=== PATIENT | male | born 1965 | race Caucasian/White ===

== ENCOUNTER → 2017-07-25 | Outpatient (CLI) | payer BC | END | disposition home or self-care (01) | LOC: CPPFTMAIN 13:07 | PROVIDERS: ATTEND Nurse Practitioner Family | DX: J44.9 Chronic obstructive pulmonary disease, unspecified (principal); I10 Essential (primary) hypertension; R06.81 Apnea, not elsewhere classified | CPT/HCPCS: 94060; 94726; 94729 ==

== ENCOUNTER 2018-07-07 11:24 | Inpatient (IN) | payer BC ==
--- NOTE | 2018-07-07 12:13 | ED ---
General Adult HPI - General Chief complaint: Skin/Abscess/Foreign Body Stated complaint: leg infection, pain Time Seen by Provider: 07/07/18 11:50 Source: patient, RN notes reviewed Mode of arrival: wheelchair Limitations: no limitations, physical limitation - History of Present Illness Initial comments: This a 52-year-old male who presents emergency Department of ecchymosis to his lower left leg patient states started a few days ago he went to [facility] they were unsure what was going on and it has since gotten worse it is at the distal aspect of his left leg it is almost circumferential. Patient states extremely tender to touch. Patient denies any injury to the area. Patient states he also has a bit of ecchymosis to the inner left thigh which again has no trauma history. Patient denies any other pain about the leg or thigh. Patient denies any abdominal pain patient denies any chest pain difficulty breathing shortness of breath. Patient states however when he was waiting in triage he became very lightheaded and sweaty and they brought him back to the emergency department immediately at that time. Patient stated he thought he might pass out. Patient's blood pressure was 80 systolic. Patient denies any chest pain at that point time patient denies any shortness of breath at time. Patient states she doesn't what was going on but he just became lightheaded and sweaty. Patient states she's never had any ecchymotic areas in the past and does not know when or how this occurred. - Related Data Home Medications Medication Instructions Recorded Confirmed Aspirin 81 mg PO DAILY 08/24/16 08/29/16 Olmesartan/Hydrochlorothiazide 0.5 tab PO DAILY 08/24/16 08/29/16 [Benicar Hct 40-12.5 mg Tablet] Omeprazole 40 mg PO DAILY 08/24/16 08/29/16 amLODIPine BESYLATE/BENAZEPRIL 1 cap PO DAILY 08/24/16 08/29/16 [amLODIPine BESYLATE/BENAZEPRIL 5-20 mg] Allergies Allergy/AdvReac Type Severity Reaction Status Date / Time Penicillins Allergy Unknown Verified 07/07/18 12:06 Childhood Review of Systems ROS Statement: Those systems with pertinent positive or pertinent negative responses have been documented in the HPI. ROS Other: All systems not noted in ROS Statement are negative. Past Medical History Past Medical History: Asthma, Eye Disorder, GERD/Reflux, Hyperlipidemia, Hypertension Additional Past Medical History / Comment(s): ASTHMA CHILD. LT EYE HERPES, LAST 2014. History of Any Multi-Drug Resistant Organisms: None Reported Past Surgical History: No Surgical Hx Reported Past Anesthesia/Blood Transfusion Reactions: No Reported Reaction Past Psychological History: No Psychological Hx Reported Smoking Status: Former smoker - Past Family History Mother Family Medical History: Cancer Father Family Medical History: Cancer General Exam - General Exam Comments Initial Comments: GENERAL: Patient is well-developed and well-nourished. Patient is nontoxic and well- hydrated and is in mild distress. ENT: Neck is soft and supple. No significant lymphadenopathy is noted. Oropharynx is clear. Moist mucous membranes. Neck has full range of motion without eliciting any pain. EYES: The sclera were anicteric and conjunctiva were pink and moist. Extraocular movements were intact and pupils were equal round and reactive to light. Eyelids were unremarkable. PULMONARY: Unlabored respirations. Good breath sounds bilaterally. No audible rales rhonchi or wheezing was noted. CARDIOVASCULAR: There is a regular rate and rhythm without any murmurs gallops or rubs. ABDOMEN: Soft and nontender with normal bowel sounds. No palpable organomegaly was noted. There is no palpable pulsatile mass. SKIN: Patient has ecchymosis about the distal left leg on the posterior aspect spreading around to the anterior aspect. It is almost circumferential but is not quite circumferential. NEUROLOGIC: Patient is alert and oriented x3. Cranial nerves II through XII are grossly intact. Motor and sensory are also intact. Normal speech, volume and content. Symmetrical smile. MUSCULOSKELETAL: Normal extremities with adequate strength and full range of motion. LYMPHATICS: No significant lymphadenopathy is noted PSYCHIATRIC: Normal psychiatric evaluation. Limitations: no limitations, physical limitation Course Vital Signs 07/07/18 07/07/18 07/07/18 11:52 12:29 13:50 Temperature 98.9 F Pulse Rate 55 L 85 82 Respiratory 18 16 16 Rate Blood Pressure 60/43 120/72 116/73 O2 Sat by Pulse 100 99 Oximetry Medical Decision Making - Medical Decision Making EKG shows normal sinus rhythm at 77 bpm MN interval is 134 QRS is 112 QT interval 400 QTC is 452. Patient's EKG shows no ST segment elevation or depression no T-wave abnormalities are noted. Ultrasound shows no DVT. Chest x-ray showed no acute abnormality I spoke with Dr. Banks she agreed to admit the patient admitted the patient and I wrote admitting orders - Lab Data Result diagrams: 07/07/18 12:25 07/07/18 12:25 Lab Results 07/07/18 07/07/18 07/07/18 Range/Units 12:25 12:25 12:25 WBC 10.9 H (3.8-10.6) k/uL RBC 5.63 (4.30-5.90) m/uL Hgb 17.8 H (13.0-17.5) gm/dL Hct 54.4 H (39.0-53.0) % MCV 96.6 (80.0-100.0) fL MCH 31.6 (25.0-35.0) pg MCHC 32.7 (31.0-37.0) g/dL RDW 13.0 (11.5-15.5) % Plt Count 162 (150-450) k/uL Neutrophils % 71 % Lymphocytes % 17 % Monocytes % 6 % Eosinophils % 4 % Basophils % 0 % Neutrophils # 7.8 H (1.3-7.7) k/uL Lymphocytes # 1.8 (1.0-4.8) k/uL Monocytes # 0.6 (0-1.0) k/uL Eosinophils # 0.4 (0-0.7) k/uL Basophils # 0.0 (0-0.2) k/uL PT (9.0-12.0) sec INR (<1.2) APTT (22.0-30.0) sec Sodium 137 (137-145) mmol/L Potassium 3.7 (3.5-5.1) mmol/L Chloride 99 (98-107) mmol/L Carbon Dioxide 29 (22-30) mmol/L Anion Gap 9 mmol/L BUN 22 H (9-20) mg/dL Creatinine 0.90 (0.66-1.25) mg/dL Est GFR (CKD-EPI)AfAm >90 (>60 ml/min/1.73 sqM) Est GFR (CKD-EPI)NonAf >90 (>60 ml/min/1.73 sqM) Glucose 162 H (74-99) mg/dL Calcium 9.8 (8.4-10.2) mg/dL Magnesium 2.1 (1.6-2.3) mg/dL Total Bilirubin 0.8 (0.2-1.3) mg/dL AST 33 (17-59) U/L ALT 34 (21-72) U/L Alkaline Phosphatase 143 H (38-126) U/L Total Creatine Kinase 83 (55-170) U/L CK-MB (CK-2) 1.4 (0.0-2.4) ng/mL CK-MB (CK-2) Rel Index 1.7 Troponin I <0.012 (0.000-0.034) ng/mL C-Reactive Protein 154.7 H (<10.0) mg/L Total Protein 8.0 (6.3-8.2) g/dL Albumin 4.4 (3.5-5.0) g/dL 07/07/18 Range/Units 12:25 WBC (3.8-10.6) k/uL RBC (4.30-5.90) m/uL Hgb (13.0-17.5) gm/dL Hct (39.0-53.0) % MCV (80.0-100.0) fL MCH (25.0-35.0) pg MCHC (31.0-37.0) g/dL RDW (11.5-15.5) % Plt Count (150-450) k/uL Neutrophils % % Lymphocytes % % Monocytes % % Eosinophils % % Basophils % % Neutrophils # (1.3-7.7) k/uL Lymphocytes # (1.0-4.8) k/uL Monocytes # (0-1.0) k/uL Eosinophils # (0-0.7) k/uL Basophils # (0-0.2) k/uL PT 11.9 (9.0-12.0) sec INR 1.2 H (<1.2) APTT 22.3 (22.0-30.0) sec Sodium (137-145) mmol/L Potassium (3.5-5.1) mmol/L Chloride (98-107) mmol/L Carbon Dioxide (22-30) mmol/L Anion Gap mmol/L BUN (9-20) mg/dL Creatinine (0.66-1.25) mg/dL Est GFR (CKD-EPI)AfAm (>60 ml/min/1.73 sqM) Est GFR (CKD-EPI)NonAf (>60 ml/min/1.73 sqM) Glucose (74-99) mg/dL Calcium (8.4-10.2) mg/dL Magnesium (1.6-2.3) mg/dL Total Bilirubin (0.2-1.3) mg/dL AST (17-59) U/L ALT (21-72) U/L Alkaline Phosphatase (38-126) U/L Total Creatine Kinase (55-170) U/L CK-MB (CK-2) (0.0-2.4) ng/mL CK-MB (CK-2) Rel Index Troponin I (0.000-0.034) ng/mL C-Reactive Protein (<10.0) mg/L Total Protein (6.3-8.2) g/dL Albumin (3.5-5.0) g/dL Disposition Clinical Impression: Near syncope, Spontaneous ecchymosis Disposition: ADMITTED IP TO THIS HOSP Referrals: Jonathan Lau DO [Primary Care Provider] - 1-2 days Time of Disposition: 14:01
[2018-07-07 12:42] LABS: Basophils % (A) 0 %; Eosinophils # (A) 0.4 k/uL (0-0.7); Eosinophils % (A) 4 %; HCT 54.4 % (39.0-53.0); HGB 17.8 gm/dL (13.0-17.5); Lymphocytes # (A) 1.8 k/uL (1.0-4.8); Lymphocytes % (A) 17 %; MCH 31.6 pg (25.0-35.0); MCHC 32.7 g/dL (31.0-37.0); MCV 96.6 fL (80.0-100.0); Mean Platelet Volume 6.6; Monocytes # (A) 0.6 k/uL (0-1.0); Monocytes % (A) 6 %; Neutrophils # (A) 7.8 k/uL (1.3-7.7); Neutrophils % (A) 71 %; Platelet Count 162 k/uL (150-450); RBC 5.63 m/uL (4.30-5.90); WBC 10.9 k/uL (3.8-10.6)
[2018-07-07 12:52] LABS: INR 1.2 (<1.2); Partial Thromboplastin Time 22.3 sec (22.0-30.0); Prothrombin Time 11.9 sec (9.0-12.0)
[2018-07-07 12:53] LABS: ALT 34 U/L (21-72); AST 33 U/L (17-59); Albumin 4.4 g/dL (3.5-5.0); Alkaline Phosphatase 143 U/L (38-126); Anion Gap 9 mmol/L; Blood Urea Nitrogen 22 mg/dL (9-20); Calcium 9.8 mg/dL (8.4-10.2); Carbon Dioxide 29 mmol/L (22-30); Chloride 99 mmol/L (98-107); Glucose 162 mg/dL (74-99); Magnesium 2.1 mg/dL (1.6-2.3); Sodium 137 mmol/L (137-145); Total Bilirubin 0.8 mg/dL (0.2-1.3)
[2018-07-07 13:04] LABS: Creatine Kinase 83 U/L (55-170)
[2018-07-07 13:17] LABS: Creatine Kinase MB 1.4 ng/mL (0.0-2.4); Troponin I <0.012 ng/mL (0.000-0.034)
--- NOTE | 2018-07-07 13:19 | US ---
EXAMINATION TYPE: US venous doppler duplex LE LT DATE OF EXAM: 07/07/2018 1:12 PM COMPARISON: NONE CLINICAL HISTORY: Pain. SIDE PERFORMED: Left TECHNIQUE: The lower extremity deep venous system is examined utilizing real time linear array sonog talisha with graded compression, doppler sonography and color-flow sonography. VESSELS IMAGED: External Iliac Vein (EIV) Common Femoral Vein Deep Femoral Vein Greater Saphenous Vein * Femoral Vein Popliteal Vein Small Saphenous Vein * Proximal Calf Veins (* superficial vessels) No popliteal fossa lesion is seen. Left Leg: Negative for DVT Incidental lymph node noted. IMPRESSION: THIS EXAMINATION IS NEGATIVE FOR DVT IN THE LEFT LEG.
[2018-07-07 13:23] LABS: Potassium 3.7 mmol/L (3.5-5.1)
[2018-07-07 13:37] LABS: C Reactive Protein 154.7 mg/L (<10.0)
--- NOTE | 2018-07-07 13:48 | XR ---
EXAMINATION TYPE: XR chest 2V DATE OF EXAM: 07/07/2018 HISTORY: Chest Pain. REFERENCE: NONE. FINDINGS: The lungs are clear. Pleural spaces are clear. Heart size is upper limits of normal. IMPRESSION: NO ACTIVE INTRATHORACIC DISEASE.
[2018-07-07] MEDS ORDERED: SODIUM CHLORIDE 0.9% 1,000 ML IV ONE (14:03)
[2018-07-07 16:26] VITALS: BMI 32.2
[2018-07-07] MEDS ORDERED: NALOXONE 0.4 MG/ML 1 ML VIAL IV PRN (17:52)
[2018-07-07] MEDS ORDERED: ACETAMINOPHEN TAB 325 MG TAB PO PRN (17:52)
[2018-07-07] MEDS ORDERED: VANCOMYCIN 2,000 MG in SODIUM CHLORIDE 0.9% 500 ML IVPB SCH (18:00)
--- NOTE | 2018-07-07 18:36 | P.HPIM ---
History of Present Illness H&P Date: 07/07/18 Chief Complaint: Rash 52 year old M with PMH of COPD and HTN presents to the ED for L jeter rash. Patient reports rash starting on associated with fever and chills. Patient reports feeling generally unwell for the past 1-2 days On Monday, patient reports receiving a Cortisone IM injection for genital itching from his [employer] In[employer]. Patient reports no rash on Monday. No joint involvement. The ED patient had an elevated CRP of 154.7, ultrasound of the left lower extremity was negative. He was noted to have a SBP of 80 in the ED with dizziness which responded to a fluid bolus. He denies trauma, headache, LE edema, cough, chest pain, shortness of breath, changes in urination or bowel habits. He is admitted for presyncope and left lower extremity rash. Review of Systems All systems: negative Past Medical History Past Medical History: Asthma, COPD, Eye Disorder, GERD/Reflux, Hyperlipidemia, Hypertension Additional Past Medical History / Comment(s): ASTHMA CHILD. LT EYE HERPES, LAST 2014. History of Any Multi-Drug Resistant Organisms: None Reported Past Surgical History: No Surgical Hx Reported Past Anesthesia/Blood Transfusion Reactions: No Reported Reaction Past Psychological History: No Psychological Hx Reported Smoking Status: Former smoker Past Alcohol Use History: Daily Additional Past Alcohol Use History / Comment(s): SMOKED 11 YEARS, 1PPD AVG, QUIT 1993. DRINKS PINT RUM DAILY Past Drug Use History: Marijuana Additional Drug Use History / Comment(s): USE DAILY - Past Family History Mother Family Medical History: Cancer Father Family Medical History: Cancer Medications and Allergies Home Medications Medication Instructions Recorded Confirmed Type Aspirin 81 mg PO HS 08/24/16 07/07/18 History Olmesartan/Hydrochlorothiazide 1 tab PO HS 08/24/16 07/07/18 History [Benicar Hct 40-12.5 mg Tablet] Omeprazole 40 mg PO HS 08/24/16 07/07/18 History amLODIPine BESYLATE/BENAZEPRIL 1 cap PO HS 08/24/16 07/07/18 History [amLODIPine BESYLATE/BENAZEPRIL 5-20 mg] Albuterol Inhaler [Ventolin Hfa 2 puff INHALATION RT-Q6H PRN 07/07/18 07/07/18 History Inhaler] Cholecalciferol [Vitamin D3] 1,000 unit PO HS 07/07/18 07/07/18 History Simvastatin [Zocor] 20 mg PO HS 07/07/18 07/07/18 History Allergies Allergy/AdvReac Type Severity Reaction Status Date / Time Penicillins Allergy Unknown Verified 07/07/18 14:40 Childhood Physical Exam Vitals: Vital Signs Temp Pulse Resp BP Pulse Ox 07/07/18 16:00 16 07/07/18 14:51 82 16 116/73 99 07/07/18 13:50 82 16 116/73 99 07/07/18 12:29 85 16 120/72 100 07/07/18 11:52 98.9 F 55 L 18 60/43 Intake and Output 07/07/18 07/07/18 07/07/18 06:59 14:59 22:59 Other: Weight 96.162 kg 96.162 kg General: non toxic, no distress, appears at stated age Derm: warm, dry Head: atraumatic, normocephalic, symmetric Eyes: EOMI, no lid lag, anicteric sclera Mouth: no lip lesion, mucus membranes moist Cardiovascular: S1S2 reg, no murmur, positive posterior tibial pulse bilateral, Lungs: CTA bilateral, no rhonchi, no rales , no accessory muscle use Abdominal: soft, nontender to palpation, no guarding, no appreciable organomegaly, groin rash circular. Ext: [Flat, ecchymotic rash on the L jeter, TTP, warm to touch., 1 + edema LLE, no contractures Neuro: CN II-XI grossly intact, no focal neuro deficits Psych: Alert, oriented, appropriate affect Results CBC & Chem 7: 07/07/18 12:25 07/07/18 12:25 Labs: Abnormal Lab Results - Last 24 Hours (Table) 07/07/18 07/07/18 07/07/18 Range/Units 12:25 12:25 12:25 WBC 10.9 H (3.8-10.6) k/uL Hgb 17.8 H (13.0-17.5) gm/dL Hct 54.4 H (39.0-53.0) % Neutrophils # 7.8 H (1.3-7.7) k/uL INR 1.2 H (<1.2) BUN 22 H (9-20) mg/dL Glucose 162 H (74-99) mg/dL Alkaline Phosphatase 143 H (38-126) U/L C-Reactive Protein 154.7 H (<10.0) mg/L Thrombosis Risk Factor Assmnt - Choose All That Apply Each Factor Represents 1 point: Abnormal pulmonary function (COPD), Age 41-60 years, Obesity (BMI >25) Other Risk Factors: No Thrombosis Risk Factor Assessment Total Risk Factor Score: 3 Thrombosis Risk Factor Assessment Level: Moderate Risk Assessment and Plan Assessment: Assessment 52 year old M with PMH of COPD and HTN presents to the ED for LLE rash. Found to be pre-syncopal in the ED. Admitted for further workup. Plan 1. LLE Rash: Cellulitis vs. Vasculitis. Unknown at this time. CRP 154.7. Patient is afebrile with a mild leukocytosis. Discussed with Dr. Calles, would hold steroids and start Abx. Start Vancomycin 2000 mg IV QD. [place]oll[place]bee and Tylenol PRN for pain. FU ID consult. FU C3/C4, ANCA, GONZALEZ, Acute Hep panel, Procalcitonin. 2. Dizziness: Resolved. States poor PO for the past few days. BUN/Cr > 20 likely due to dehydration. Continue NS at 100 ml/h. Will continue to monitor. 3. COPD: Stable. Albuterol neb PRN. 4. HTN: BP 116/73. Restart Amlodipine 5 mg PO QHS, Lisinopril 20 mg PO QD. Monitor vitals, adjust medications as necessary. 5. DVT/GI Prophylaxis: Heparin 5000 units BID, Protonix 40 QAM.
[2018-07-07] MEDS: SODIUM CHLORIDE 0.9% 1,000 ML IV SCH (19:07)
[2018-07-07] MEDS: HEPARIN SODIUM,PORCINE 5,000 UNIT/ML 1 ML VIAL SQ SCH (20:15)
[2018-07-07] MEDS: CHOLECALCIFEROL 1,000 UNIT TAB PO SCH (20:15)
[2018-07-07] MEDS: ASPIRIN 81 MG PO SCH (20:15)
[2018-07-07] MEDS: ATORVASTATIN 10 MG TAB PO SCH (20:15)
[2018-07-07] MEDS: amLODIPine 5 MG TAB PO SCH (20:17)
[2018-07-07] MEDS: HYDROCHLOROTHIAZIDE 12.5 MG CAP PO SCH (20:17)
[2018-07-07] MEDS: LISINOPRIL 20 MG TAB PO SCH (20:17)
[2018-07-07] MEDS: HYDROcodone/APAP 5-325MG 1 EACH TAB PO PRN (20:55)
[2018-07-07] MEDS ORDERED: LOSARTAN 50 MG TAB PO SCH (21:00)
[2018-07-07] MEDS ORDERED: NON-FORMULARY DRUG (Omeprazole [Omeprazole] 40 MG) PO SCH (21:00)
[2018-07-08] MEDS: HYDROcodone/APAP 5-325MG 1 EACH TAB PO PRN ×4 (04:12→20:55)
[2018-07-08] MEDS: SODIUM CHLORIDE 0.9% 1,000 ML IV SCH (05:26)
[2018-07-08] MEDS: HEPARIN SODIUM,PORCINE 5,000 UNIT/ML 1 ML VIAL SQ SCH ×2 (07:57→20:58)
[2018-07-08] MEDS: PANTOPRAZOLE 40 MG TABLET PO SCH (07:57)
[2018-07-08 08:14] LABS: HCT 39.6 % (39.0-53.0); MCH 31.7 pg (25.0-35.0); MCHC 32.5 g/dL (31.0-37.0); MCV 97.8 fL (80.0-100.0); Mean Platelet Volume 6.9; Platelet Count 188 k/uL (150-450); RBC 4.05 m/uL (4.30-5.90); RDW 13.2 % (11.5-15.5); WBC 10.8 k/uL (3.8-10.6)
[2018-07-08 08:17] LABS: HGB 12.9 gm/dL (13.0-17.5)
[2018-07-08] MEDS ORDERED: predniSONE 50 MG TAB PO SCH (09:00)
--- NOTE | 2018-07-08 10:20 | P.PN ---
Subjective Progress Note Date: 07/08/18 Principal diagnosis: Rash Patient was seen and examined. No acute events overnight. Patient reports persistence of rash. No other complaints. No more dizziness, CP, SOB, palpitations. Objective - Vital Signs Vital signs: Vital Signs Temp 97.6 F 07/08/18 05:31 Pulse 83 07/08/18 08:58 Resp 18 07/08/18 08:58 BP 109/76 07/08/18 05:31 Pulse Ox 93 L 07/08/18 05:31 Intake & Output 07/07/18 07/08/18 07/08/18 18:59 06:59 18:59 Intake Total 600 480 Balance 600 480 Weight 96.162 kg 96.162 kg Intake: Intake, IV Titration 600 Amount Sodium Chloride 0.9% 1, 100 000 ml @ 100 mls/hr IV . Q10H [facility] Rx#:[id number] Vancomycin 2,000 mg In 500 Sodium Chloride 0.9% 500 ml @ 167 mls/hr IVPB Q24H [facility] Rx#:[id number] Oral 480 Other: Voiding Method Toilet Toilet # Voids 2 2 - Exam General: non toxic, no distress, appears at stated age Derm: warm, dry Head: atraumatic, normocephalic, symmetric Eyes: EOMI, no lid lag, anicteric sclera Mouth: no lip lesion, mucus membranes moist Cardiovascular: S1S2 reg, no murmur, positive posterior tibial pulse bilateral, Lungs: CTA bilateral, no rhonchi, no rales , no accessory muscle use Abdominal: soft, nontender to palpation, no guarding, no appreciable organomegaly, groin rash circular. Ext: Flat, ecchymotic rash on the L jeter, TTP, warm to touch (unchanged). 1 + edema LLE, no contractures Neuro: CN II-XI grossly intact, no focal neuro deficits Psych: Alert, oriented, appropriate affect - Labs CBC & Chem 7: 07/08/18 07:11 07/07/18 12:25 Labs: Abnormal Lab Results - Last 24 Hours (Table) 07/07/18 07/07/18 07/07/18 Range/Units 12:25 12:25 12:25 WBC 10.9 H (3.8-10.6) k/uL RBC (4.30-5.90) m/uL Hgb 17.8 H (13.0-17.5) gm/dL Hct 54.4 H (39.0-53.0) % Neutrophils # 7.8 H (1.3-7.7) k/uL INR 1.2 H (<1.2) BUN 22 H (9-20) mg/dL Glucose 162 H (74-99) mg/dL Alkaline Phosphatase 143 H (38-126) U/L C-Reactive Protein 154.7 H (<10.0) mg/L 07/08/18 Range/Units 07:11 WBC 10.8 H (3.8-10.6) k/uL RBC 4.05 L (4.30-5.90) m/uL Hgb 12.9 L D (13.0-17.5) gm/dL Hct (39.0-53.0) % Neutrophils # (1.3-7.7) k/uL INR (<1.2) BUN (9-20) mg/dL Glucose (74-99) mg/dL Alkaline Phosphatase (38-126) U/L C-Reactive Protein (<10.0) mg/L Assessment and Plan Assessment: Assessment 52 year old M with PMH of COPD and HTN presents to the ED for LLE rash. Found to be pre-syncopal in the ED. Admitted for further workup. Plan 1. LLE Rash: Cellulitis vs. Vasculitis. Unknown at this time. Patient is afebrile with a mild leukocytosis of 10.8. CRP 154.7. Venous duplex negative for DVT. Discussed with Dr. Calles 07/07, would hold steroids and start Abx. Continue Vancomycin 2000 mg IV QD (monitor renal function). [place] and Tylenol PRN for pain. FU ID consult. FU C3/C4, ANCA, GONZALEZ, Acute Hep panel, Procalcitonin. 2. Dizziness: Resolved. One time incidence while in the ED. States poor PO for the past few days. BUN/Cr > 20 likely due to dehydration. Stop IVF and encourage PO hydration. 3. COPD: Stable. Albuterol neb PRN. 4. HTN: BP 109/76. Continue Amlodipine 5 mg PO QHS, Lisinopril 20 mg PO QD, HCTZ 12.5 mg PO QD. Unsure why Losartan was given with Lisinopril. Monitor vitals, adjust medications as necessary. 5. DVT/GI Prophylaxis: Heparin 5000 units BID, Protonix 40 QAM. Progression of rash unchanged. Will continue Abx. Will continue to monitor. FU ID for further recommendations.
[2018-07-08] MEDS ORDERED: VANCOMYCIN IV PER PHARMACY 1 EACH MISC MISCELLANE PRN (10:28)
[2018-07-08] MEDS: VANCOMYCIN 1,750 MG in SODIUM CHLORIDE 0.9% 500 ML IVPB SCH ×2 (11:14→20:56)
--- NOTE | 2018-07-08 17:21 | P.CONS ---
History of Present Illness - Reason for Consult Consult date: 07/08/18 - Chief Complaint Rash to groin and right leg - History of Present Illness 52-year-old male presents to Hospital with the onset of fevers and chills over the last several days. The patient relates he's been having difficulties that started first in his genital and groin area. This started as a rash is pruritic and somewhat painful. Because of this he was seen by dermatology and was placed on topical creams as well as a injection of Depo- Medrol. Despite that he has not had any steady improvement the genital area but then developed the onset of significant pain and swelling erythema to the left lower extremity. The site worsened and because of this he did present to hospital. With concerns of this being an infection he had evaluation was requested. It is noted that the CRP was markedly elevated 154.7. The patient has no trauma to the site. 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 He does not recall any chemicals getting onto his groin or left leg. Physical the history of MRSA infection in the past but that was on his back at his belt line. He does not feel he has any particular lesions like that at this time. He has had no travel, there is no change in the home environment, no new animal contacts, and denies any sexual contacts other than with his . He does not have a history of significant tobacco use, recreational drug use or marijuana use. Review of Systems HEENT:Denies headache or acute visual change. Denies sinus or mouth discomforts. Denies neck stiffness or pain. Denies significant oral cavity pain. Denies difficulty on swallowing. Lungs: Denies significant shortness of breath, cough, sputum production, or hemoptysis. Cardiovascular: Denies significant shortness of breath, chest pain, chest wall pain, orthopnea, dyspnea on exertion, syncope Gastrointestinal:Denies nausea, vomiting, diarrhea, constipation, hematemesis, melena, hematochezia. No no significant change of bowel habit noticed. Musculoskeletal: denies significant myalgias or arthralgias. No new joint swelling. Denies new back pain. Skin: As per the HPI significant rash in the groin as well as of the left leg Neuro: Denies headache or visual change. Denies any new onset weakness or difficulty with ambulation. Denies falls or seizures. Psychiatric:Denies anxiety or depression. Endocrine: Denies significant fatigue, denies significant weight loss or weight gain. Past Medical History Past Medical History: Asthma, COPD, Eye Disorder, GERD/Reflux, Hyperlipidemia, Hypertension Additional Past Medical History / Comment(s): ASTHMA CHILD. LT EYE HERPES, LAST 2014. Does have a history of MRSA infection History of Any Multi-Drug Resistant Organisms: None Reported Past Surgical History: No Surgical Hx Reported Past Anesthesia/Blood Transfusion Reactions: No Reported Reaction Past Psychological History: No Psychological Hx Reported Additional Psychological History / Comment(s): and lives in the the family home with the and daughter. No travel. No animal exposures. No change in detergents, home environment or work environment Smoking Status: Former smoker Past Alcohol Use History: Daily Additional Past Alcohol Use History / Comment(s): SMOKED 11 YEARS, 1PPD AVG, QUIT 1993. DRINKS PINT RUM DAILY Past Drug Use History: Marijuana Additional Drug Use History / Comment(s): USE DAILY - Past Family History Mother Family Medical History: Cancer Father Family Medical History: Cancer Medications and Allergies Home Medications and Allergies Comment(s): Current Medications Acetaminophen (Tylenol Tab) 650 mg PO Q6HR PRN PRN Reason: Mild Pain or Fever > 100.5 Hydrocodone Bitart/Acetaminophen ([place] 5-325) 1 each PO Q4HR PRN PRN Reason: Moderate Pain Last Admin: 07/08/18 13:33 Dose: 1 each Albuterol Sulfate (Ventolin Nebulized) 2.5 mg INHALATION RT-Q6H PRN PRN Reason: Shortness Of Breath Amlodipine Besylate (Norvasc) 5 mg PO [facility] Last Admin: 07/07/18 20:17 Dose: 5 mg Aspirin (Aspirin) 81 mg PO [facility] Last Admin: 07/07/18 20:15 Dose: 81 mg Atorvastatin Calcium (Lipitor) 10 mg PO [facility] Last Admin: 07/07/18 20:15 Dose: 10 mg Cholecalciferol (Vitamin D3) 1,000 unit PO [facility] Last Admin: 07/07/18 20:15 Dose: 1,000 unit Heparin Sodium (Porcine) (Heparin) 5,000 unit SQ Q12HR [facility] Last Admin: 07/08/18 07:57 Dose: 5,000 unit Hydrochlorothiazide (Hydrodiuril) 12.5 mg PO [facility] Last Admin: 07/07/18 20:17 Dose: 12.5 mg Vancomycin HCl 1,750 mg/ (Sodium Chloride) 500 mls @ 167 mls/hr IVPB Q12HR [facility] Last Admin: 07/08/18 11:14 Dose: 167 mls/hr Lisinopril (Zestril) 20 mg PO [facility] Last Admin: 07/07/18 20:17 Dose: 20 mg Naloxone HCl (Narcan) 0.2 mg IV Q2M PRN PRN Reason: Opioid Reversal Pantoprazole Sodium (Protonix) 40 mg PO AC-BRKFST [facility] Last Admin: 07/08/18 07:57 Dose: 40 mg Home Medications Medication Instructions Recorded Confirmed Type Aspirin 81 mg PO 08/24/16 07/07/18 History Olmesartan/Hydrochlorothiazide 1 tab PO 08/24/16 07/07/18 History [Benicar Hct 40-12.5 mg Tablet] Omeprazole 40 mg PO 08/24/16 07/07/18 History amLODIPine BESYLATE/BENAZEPRIL 1 cap PO 08/24/16 07/07/18 History [amLODIPine BESYLATE/BENAZEPRIL 5-20 mg] Albuterol Inhaler [Ventolin Hfa 2 puff INHALATION RT-Q6H PRN 07/07/18 07/07/18 History Inhaler] Cholecalciferol [Vitamin D3] 1,000 unit PO 07/07/18 07/07/18 History Simvastatin [Zocor] 20 mg PO 07/07/18 07/07/18 History Allergies Allergy/AdvReac Type Severity Reaction Status Date / Time Penicillins Allergy Unknown Verified 07/07/18 14:40 Childhood Physical Exam Vitals: Vital Signs Temp Pulse Resp BP Pulse Ox 07/08/18 16:32 83 18 07/08/18 08:58 83 18 07/08/18 05:31 97.6 F 83 18 109/76 93 L 07/07/18 22:43 97.4 F L 83 18 125/81 95 Intake and Output 07/08/18 07/08/18 07/08/18 06:59 14:59 22:59 Intake Total 2079 Balance 2079 Intake: Intake, IV Titration 1200 Amount Sodium Chloride 0.9% 1, 700 000 ml @ 100 mls/hr IV . Q10H [facility] Rx#:[id number] Vancomycin 1,750 mg In 500 Sodium Chloride 0.9% 500 ml @ 167 mls/hr IVPB Q12HR [facility] Rx#:[id number] Oral 880 Other: Voiding Method Toilet Toilet Toilet # Voids 2 2 Weight 96.162 kg 96.162 kg HEENT: Anicteric conjunctiva are pink and moist nasal mucosa grossly intact without significant lesions, there is no thrush. Neck: The neck is supple without significant lymphadenopathy or thyromegaly. Lungs: Good bilateral air entry without significant crackles or wheezing. There is no significant bronchial sounds. There is no egophony or dullness. Heart: Regular rate and rhythm with an audible S1-S2, no S3 no S4. There is no significant murmur click or rub, PMI was nondisplaced. Abdomen: Positive bowel sounds soft and nontender without palpable masses or organomegaly. There was no guarding or rebound. Extremities: The upper extremities have excellent pulses they are symmetric, no significant petechiae or telangiectasia. No splinter hemorrhages were noted. The right lower extremity has no significant lesions. Left lower extremity reveals evidence of the extensive erythema especially to the anterior medial aspect of the tibial area is minimally tender it is barely palpable it is not blistering there are no open lesions it is not fluctuant. Skin: At the groin area there is evidence of the confluence rash into the bilateral groin lymph nodes are minimally palpable and not very tender. There is evidence of swelling to the shaft of the penis and there is also some edema and excoriation to the scrotum. There is no significant odor to this rash process. It does not extend onto the abdominal wall. It does not travel posterior either. There is tenderness to the genital area. There are no tomasz open ulceration that can be seen on the shaft of the penis at this time. Neuro: Awake alert oriented to person place and time. There are no acute new gross focal sensory motor deficits. Results CBC & Chem 7: 07/08/18 07:11 07/07/18 12:25 Labs: Abnormal Lab Results - Last 24 Hours (Table) 07/08/18 Range/Units 07:11 WBC 10.8 H (3.8-10.6) k/uL RBC 4.05 L (4.30-5.90) m/uL Hgb 12.9 L D (13.0-17.5) gm/dL Laboratory Results WBC 10.8 k/uL (3.8-10.6) H 07/08/18 07:11 RBC 4.05 m/uL (4.30-5.90) L 07/08/18 07:11 Hgb 12.9 gm/dL (13.0-17.5) L D 07/08/18 07:11 Hct 39.6 % (39.0-53.0) 07/08/18 07:11 MCV 97.8 fL (80.0-100.0) 07/08/18 07:11 MCH 31.7 pg (25.0-35.0) 07/08/18 07:11 MCHC 32.5 g/dL (31.0-37.0) 07/08/18 07:11 RDW 13.2 % (11.5-15.5) 07/08/18 07:11 Plt Count 188 k/uL (150-450) 07/08/18 07:11 Neutrophils % 71 % 07/07/18 12:25 Lymphocytes % 17 % 07/07/18 12:25 Monocytes % 6 % 07/07/18 12:25 Eosinophils % 4 % 07/07/18 12:25 Basophils % 0 % 07/07/18 12:25 Neutrophils # 7.8 k/uL (1.3-7.7) H 07/07/18 12:25 Lymphocytes # 1.8 k/uL (1.0-4.8) 07/07/18 12:25 Monocytes # 0.6 k/uL (0-1.0) 07/07/18 12:25 Eosinophils # 0.4 k/uL (0-0.7) 07/07/18 12:25 Basophils # 0.0 k/uL (0-0.2) 07/07/18 12:25 PT 11.9 sec (9.0-12.0) 07/07/18 12:25 INR 1.2 (<1.2) H 07/07/18 12:25 APTT 22.3 sec (22.0-30.0) 07/07/18 12:25 Sodium 137 mmol/L (137-145) 07/07/18 12:25 Potassium 3.7 mmol/L (3.5-5.1) 07/07/18 12:25 Chloride 99 mmol/L (98-107) 07/07/18 12:25 Carbon Dioxide 29 mmol/L (22-30) 07/07/18 12:25 Anion Gap 9 mmol/L 07/07/18 12:25 BUN 22 mg/dL (9-20) H 07/07/18 12:25 Creatinine 0.90 mg/dL (0.66-1.25) 07/07/18 12:25 Est GFR (CKD-EPI)AfAm >90 (>60 ml/min/1.73 sqM) 07/07/18 12:25 Est GFR (CKD-EPI)NonAf >90 (>60 ml/min/1.73 sqM) 07/07/18 12:25 Glucose 162 mg/dL (74-99) H 07/07/18 12:25 Calcium 9.8 mg/dL (8.4-10.2) 07/07/18 12:25 Magnesium 2.1 mg/dL (1.6-2.3) 07/07/18 12:25 Total Bilirubin 0.8 mg/dL (0.2-1.3) 07/07/18 12:25 AST 33 U/L (17-59) 07/07/18 12:25 ALT 34 U/L (21-72) 07/07/18 12:25 Alkaline Phosphatase 143 U/L (38-126) H 07/07/18 12:25 Total Creatine Kinase 83 U/L (55-170) 07/07/18 12:25 CK-MB (CK-2) 1.4 ng/mL (0.0-2.4) 07/07/18 12:25 CK-MB (CK-2) Rel Index 1.7 07/07/18 12:25 Troponin I <0.012 ng/mL (0.000-0.034) 07/08/18 00:46 C-Reactive Protein 154.7 mg/L (<10.0) H 07/07/18 12:25 Total Protein 8.0 g/dL (6.3-8.2) 07/07/18 12:25 Albumin 4.4 g/dL (3.5-5.0) 07/07/18 12:25 Assessment and Plan (1) Near syncope Current Visit: Yes Status: Acute Code(s): R55 - SYNCOPE AND COLLAPSE SNOMED Code(s): 260220298 (2) Rash Narrative/Plan: 52-year-old male who has a long-standing history of hypertension and hypercholesterolemia presents to Hospital feeling quite poorly he felt like he was having near syncope. Upon arrival to the emergency center he was quite hypotensive and resuscitated well with fluids and ulceration of his antihypertensive. The medical service his related that there was a duplicate of his medications between and are an JORDAN inhibitor. The patient overdosed have significant rash to the genital and groin area seen by dermatology and despite steroid injection and topical therapy it is actually worsening. The patient now is developed the significant eruption also to the left lower leg that fortunately is not very tender but is quite bothersome. The possibility that this is an infection with his history of MRSA is of great concern and continue vancomycin therapy for now. Workup for underlying vasculitis is in process especially since he CRP is so markedly elevated. A sed rate will also be obtained. The multiple autoimmune antibodies of argument or by the primary service. We'll also look for other infections including syphilis gonorrhea and chlamydia that are also requested by serological and urine testing. Drug-induced vasculitis would also need to be considered given the fact that he was on an Jordan as well as in our this class of medications sometimes does cause vasculitis-like diseases, more commonly angioedema but has been reported. He does not relate that he had been on outpatient antibiotic therapy before this occurred. Certainly antibiotics, are one of the most common causes drug- induced vasculitis. Current Visit: Yes Status: Acute Code(s): R21 - RASH AND OTHER NONSPECIFIC SKIN ERUPTION SNOMED Code(s): 441457331
[2018-07-08] MEDS: amLODIPine 5 MG TAB PO SCH (20:57)
[2018-07-08] MEDS: HYDROCHLOROTHIAZIDE 12.5 MG CAP PO SCH (20:57)
[2018-07-08] MEDS: ATORVASTATIN 10 MG TAB PO SCH (20:57)
[2018-07-08] MEDS: CHOLECALCIFEROL 1,000 UNIT TAB PO SCH (20:57)
[2018-07-08] MEDS: LISINOPRIL 20 MG TAB PO SCH (20:58)
[2018-07-08] MEDS: ASPIRIN 81 MG PO SCH (20:58)
[2018-07-08] MEDS: ALBUTEROL NEBULIZED 2.5 MG/3 ML INHALATION PRN (21:21)
[2018-07-09] MEDS: HYDROcodone/APAP 5-325MG 1 EACH TAB PO PRN ×2 (07:43→18:03)
[2018-07-09] MEDS: PANTOPRAZOLE 40 MG TABLET PO SCH (07:43)
[2018-07-09] MEDS: HEPARIN SODIUM,PORCINE 5,000 UNIT/ML 1 ML VIAL SQ SCH ×2 (07:44→21:09)
[2018-07-09] MEDS: VANCOMYCIN 1,750 MG in SODIUM CHLORIDE 0.9% 500 ML IVPB SCH ×2 (07:44→21:09)
[2018-07-09 08:29] LABS: Anion Gap 10 mmol/L; Blood Urea Nitrogen 15 mg/dL (9-20); Calcium 9.4 mg/dL (8.4-10.2); Carbon Dioxide 30 mmol/L (22-30); Chloride 99 mmol/L (98-107); Glucose 107 mg/dL (74-99); Potassium 4.1 mmol/L (3.5-5.1); Sodium 139 mmol/L (137-145)
--- NOTE | 2018-07-09 10:23 | P.PN ---
Subjective Progress Note Date: 07/09/18 Principal diagnosis: Rash, Dizziness Patient was seen and examined. No acute events overnight. Rash unchanged per patient with minor itching. Patient denies any dizziness, chest pain, shortness of breath, palpitations. Objective - Vital Signs Vital signs: Vital Signs Temp 96.4 F L 07/09/18 05:00 Pulse 69 07/09/18 05:00 Resp 16 07/09/18 05:00 BP 139/84 07/09/18 05:00 Pulse Ox 95 07/09/18 07:35 Intake & Output 07/08/18 07/09/18 07/09/18 18:59 06:59 18:59 Intake Total 2080 590 400 Balance 2080 590 400 Weight 96.162 kg Intake: Intake, IV Titration 1200 Amount Sodium Chloride 0.9% 1, 700 000 ml @ 100 mls/hr IV . Q10H [facility] Rx#:[id number] Vancomycin 1,750 mg In 500 Sodium Chloride 0.9% 500 ml @ 167 mls/hr IVPB Q12HR [facility] Rx#:[id number] Oral 880 590 400 Other: Voiding Method Toilet Toilet # Voids 2 1 1 - Exam General: non toxic, no distress, appears at stated age Derm: warm, dry Head: atraumatic, normocephalic, symmetric Eyes: EOMI, no lid lag, anicteric sclera Mouth: no lip lesion, mucus membranes moist Cardiovascular: S1S2 reg, no murmur, positive posterior tibial pulse bilateral, Lungs: CTA bilateral, no rhonchi, no rales , no accessory muscle use Abdominal: soft, nontender to palpation, no guarding, no appreciable organomegaly, groin rash circular. Ext: Flat, ecchymotic rash on the L jeter, TTP, warm to touch (unchanged). 1 + edema LLE, no contractures Neuro: CN II-XI grossly intact, no focal neuro deficits Psych: Alert, oriented, appropriate affect - Labs CBC & Chem 7: 07/08/18 07:11 07/09/18 07:42 Labs: Abnormal Lab Results - Last 24 Hours (Table) 07/09/18 07/09/18 Range/Units 07:42 07:42 ESR 67 H (0-15) mm/hr Glucose 107 H (74-99) mg/dL Assessment and Plan Assessment: Assessment 52 year old M with PMH of COPD and HTN presents to the ED for LLE rash. Found to be pre-syncopal in the ED. Admitted for further workup. Plan 1. LLE Rash: Cellulitis vs. Vasculitis. Unknown at this time. Patient is afebrile with a mild leukocytosis of 10.8. CRP 154.7, ESR 67. Venous duplex negative for DVT. Discussed with Dr. Calles 07/07, would hold steroids and start Abx. Continue Vancomycin 2000 mg IV QD (monitor renal function). [place] and Tylenol PRN for pain. As per ID, FU GC and RPR. FU ID consult. FU C3/C4, ANCA, GONZALEZ, Acute Hep panel, Procalcitonin. 2. Dizziness: Resolved. One time incidence while in the ED. States poor PO for the past few days. BUN/Cr > 20 likely due to dehydration. Stop IVF and encourage PO hydration. 3. COPD: Stable. Albuterol neb PRN. 4. HTN: BP 139/84. Continue Amlodipine 5 mg PO QHS, Lisinopril 20 mg PO QD, HCTZ 12.5 mg PO QD. Monitor vitals, adjust medications as necessary. 5. DVT/GI Prophylaxis: Heparin 5000 units BID, Protonix 40 QAM.
[2018-07-09 10:45] LABS: Procalcitonin 0.17 ng/mL (0.02-0.09)
[2018-07-09 11:33] LABS: Hepatitis A Antibody IgM Non-Reactive (Non-Reactive); Hepatitis B Core IgM Non-Reactive (Non-Reactive)
[2018-07-09 15:26] LABS: C-ANCA <1:20 Titer (<1:20); P-ANCA <1:20 Titer (<1:20)
[2018-07-09] MEDS ORDERED: VANCOMYCIN TROUGH DUE 1 EACH MISC MISCELLANE ONE (20:00)
[2018-07-09] MEDS: amLODIPine 5 MG TAB PO SCH (21:09)
[2018-07-09] MEDS: HYDROCHLOROTHIAZIDE 12.5 MG CAP PO SCH (21:09)
[2018-07-09] MEDS: ASPIRIN 81 MG PO SCH (21:09)
[2018-07-09] MEDS: CHOLECALCIFEROL 1,000 UNIT TAB PO SCH (21:09)
[2018-07-09] MEDS: ATORVASTATIN 10 MG TAB PO SCH (21:09)
[2018-07-09] MEDS: LISINOPRIL 20 MG TAB PO SCH (21:09)
--- NOTE | 2018-07-09 22:48 | P.PN ---
Subjective Progress Note Date: 07/09/18 52-year-old male presents to Hospital with the onset of fevers and chills over the last several days. The patient relates he's been having difficulties that started first in his genital and groin area. This started as a rash is pruritic and somewhat painful. Because of this he was seen by dermatology and was placed on topical creams as well as a injection of Depo- Medrol. Despite that he has not had any steady improvement the genital area but then developed the onset of significant pain and swelling erythema to the left lower extremity. The site worsened and because of this he did present to hospital. With concerns of this being an infection he had evaluation was requested. It is noted that the CRP was markedly elevated 154.7. The patient has no trauma to the site. 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 He does not recall any chemicals getting onto his groin or left leg. Physical the history of MRSA infection in the past but that was on his back at his belt line. He does not feel he has any particular lesions like that at this time. He has had no travel, there is no change in the home environment, no new animal contacts, and denies any sexual contacts other than with his . He does not have a history of significant tobacco use, recreational drug use or marijuana use. 07/09/2018 patient is feeling better in the last day. The swelling and discomfort of the leg is improved. No other new lesions are seen. The groin rash appears to be improving. Objective - Vital Signs Vital signs: Vital Signs Temp 98.2 F 07/09/18 21:07 Pulse 75 07/09/18 21:07 Resp 18 07/09/18 21:07 BP 131/86 07/09/18 21:07 Pulse Ox 95 07/09/18 21:07 Intake & Output 07/09/18 07/09/18 07/10/18 06:59 18:59 06:59 Intake Total 590 1500 Balance 590 1500 Weight 96.162 kg Intake: Intake, IV Titration 500 Amount Vancomycin 1,750 mg In 500 Sodium Chloride 0.9% 500 ml @ 167 mls/hr IVPB Q12HR [facility] Rx#:[id number] Oral 590 1000 Other: Voiding Method Toilet Toilet # Voids 1 3 - Exam HEENT: Anicteric conjunctiva are pink and moist nasal mucosa grossly intact without significant lesions, there is no thrush. Neck: The neck is supple without significant lymphadenopathy or thyromegaly. Lungs: Good bilateral air entry without significant crackles or wheezing. There is no significant bronchial sounds. There is no egophony or dullness. Heart: Regular rate and rhythm with an audible S1-S2, no S3 no S4. There is no significant murmur click or rub, PMI was nondisplaced. Abdomen: Positive bowel sounds soft and nontender without palpable masses or organomegaly. There was no guarding or rebound. Extremities: The upper extremities have excellent pulses they are symmetric, no significant petechiae or telangiectasia. No splinter hemorrhages were noted. The right lower extremity has no significant lesions. Left lower extremity reveals evidence of the extensive erythema especially to the anterior medial aspect of the tibial area is minimally tender it is barely palpable it is not blistering there are no open lesions it is not fluctuant. Skin: At the groin area there is evidence of the confluence rash into the bilateral groin lymph nodes are minimally palpable and not very tender. There is evidence of swelling to the shaft of the penis and there is also some edema and excoriation to the scrotum. There is no significant odor to this rash process. It does not extend onto the abdominal wall. It does not travel posterior either. There is tenderness to the genital area. There are no tomasz open ulceration that can be seen on the shaft of the penis at this time. Neuro: Awake alert oriented to person place and time. There are no acute new gross focal sensory motor deficits. - Labs CBC & Chem 7: 07/08/18 07:11 07/09/18 07:42 Labs: Abnormal Lab Results - Last 24 Hours (Table) 07/08/18 07/09/18 07/09/18 Range/Units 07:11 07:42 07:42 ESR 67 H (0-15) mm/hr Glucose 107 H (74-99) mg/dL Procalcitonin 0.17 H (0.02-0.09) ng/mL Laboratory Results WBC 10.8 k/uL (3.8-10.6) H 07/08/18 07:11 RBC 4.05 m/uL (4.30-5.90) L 07/08/18 07:11 Hgb 12.9 gm/dL (13.0-17.5) L D 07/08/18 07:11 Hct 39.6 % (39.0-53.0) 07/08/18 07:11 MCV 97.8 fL (80.0-100.0) 07/08/18 07:11 MCH 31.7 pg (25.0-35.0) 07/08/18 07:11 MCHC 32.5 g/dL (31.0-37.0) 07/08/18 07:11 RDW 13.2 % (11.5-15.5) 07/08/18 07:11 Plt Count 188 k/uL (150-450) 07/08/18 07:11 Neutrophils % 71 % 07/07/18 12:25 Lymphocytes % 17 % 07/07/18 12:25 Monocytes % 6 % 07/07/18 12:25 Eosinophils % 4 % 07/07/18 12:25 Basophils % 0 % 07/07/18 12:25 Neutrophils # 7.8 k/uL (1.3-7.7) H 07/07/18 12:25 Lymphocytes # 1.8 k/uL (1.0-4.8) 07/07/18 12:25 Monocytes # 0.6 k/uL (0-1.0) 07/07/18 12:25 Eosinophils # 0.4 k/uL (0-0.7) 07/07/18 12:25 Basophils # 0.0 k/uL (0-0.2) 07/07/18 12:25 ESR 67 mm/hr (0-15) H 07/09/18 07:42 PT 11.9 sec (9.0-12.0) 07/07/18 12:25 INR 1.2 (<1.2) H 07/07/18 12:25 APTT 22.3 sec (22.0-30.0) 07/07/18 12:25 Sodium 139 mmol/L (137-145) 07/09/18 07:42 Potassium 4.1 mmol/L (3.5-5.1) 07/09/18 07:42 Chloride 99 mmol/L (98-107) 07/09/18 07:42 Carbon Dioxide 30 mmol/L (22-30) 07/09/18 07:42 Anion Gap 10 mmol/L 07/09/18 07:42 BUN 15 mg/dL (9-20) 07/09/18 07:42 Creatinine 0.71 mg/dL (0.66-1.25) 07/09/18 07:42 Est GFR (CKD-EPI)AfAm >90 (>60 ml/min/1.73 sqM) 07/09/18 07:42 Est GFR (CKD-EPI)NonAf >90 (>60 ml/min/1.73 sqM) 07/09/18 07:42 Glucose 107 mg/dL (74-99) H 07/09/18 07:42 Calcium 9.4 mg/dL (8.4-10.2) 07/09/18 07:42 Magnesium 2.1 mg/dL (1.6-2.3) 07/07/18 12:25 Total Bilirubin 0.8 mg/dL (0.2-1.3) 07/07/18 12:25 AST 33 U/L (17-59) 07/07/18 12:25 ALT 34 U/L (21-72) 07/07/18 12:25 Alkaline Phosphatase 143 U/L (38-126) H 07/07/18 12:25 Total Creatine Kinase 83 U/L (55-170) 07/07/18 12:25 CK-MB (CK-2) 1.4 ng/mL (0.0-2.4) 07/07/18 12:25 CK-MB (CK-2) Rel Index 1.7 07/07/18 12:25 Troponin I <0.012 ng/mL (0.000-0.034) 07/08/18 00:46 C-Reactive Protein 154.7 mg/L (<10.0) H 07/07/18 12:25 Total Protein 8.0 g/dL (6.3-8.2) 07/07/18 12:25 Albumin 4.4 g/dL (3.5-5.0) 07/07/18 12:25 Procalcitonin 0.17 ng/mL (0.02-0.09) H 07/08/18 07:11 Vancomycin Trough 14.6 ug/mL 07/09/18 19:39 GONZALEZ Screen NEGATIVE (NEGATIVE) 08/12/18 07:11 c-ANCA <1:20 Titer (<1:20) 07/08/18 07:11 p-ANCA <1:20 Titer (<1:20) 07/08/18 07:11 Hepatitis A IgM Ab Non-Reactive (Non-Reactive) 07/08/18 07:11 Hep Bs Antigen Non-Reactive (Non-Reactive) 07/08/18 07:11 Hep B Core IgM Ab Non-Reactive (Non-Reactive) 07/08/18 07:11 Hep C IgG Ab Non-Reactive (Non-Reactive) 07/08/18 07:11 Assessment and Plan (1) Near syncope Current Visit: Yes Status: Acute Code(s): R55 - SYNCOPE AND COLLAPSE SNOMED Code(s): 365138764 (2) Rash Narrative/Plan: 52-year-old male who has a long-standing history of hypertension and hypercholesterolemia presents to Hospital feeling quite poorly he felt like he was having near syncope. Upon arrival to the emergency center he was quite hypotensive and resuscitated well with fluids and ulceration of his antihypertensive. The medical service his related that there was a duplicate of his medications between and are an JORDAN inhibitor. The patient overdosed have significant rash to the genital and groin area seen by dermatology and despite steroid injection and topical therapy it is actually worsening. The patient now is developed the significant eruption also to the left lower leg that fortunately is not very tender but is quite bothersome. The possibility that this is an infection with his history of MRSA is of great concern and continue vancomycin therapy for now. Workup for underlying vasculitis is in process especially since he CRP is so markedly elevated. A sed rate will also be obtained. The multiple autoimmune antibodies of argument or by the primary service. We'll also look for other infections including syphilis gonorrhea and chlamydia that are also requested by serological and urine testing. Drug-induced vasculitis would also need to be considered given the fact that he was on an Jordan as well as in our this class of medications sometimes does cause vasculitis-like diseases, more commonly angioedema but has been reported. He does not relate that he had been on outpatient antibiotic therapy before this occurred. Certainly antibiotics, are one of the most common causes drug- induced vasculitis. 07/09/2018 the patient is comfortable and is having some improvement with elevation, antibiotic therapy and local wound care. Denies fevers or chills. It is noted the sed rate is only 67 which is disproportionate to the extremely elevated CRP. Current autoantibodies are coming back as negative. Full workup is in process. Differential includes ongoing infectious process versus a vasculitis. He is responding to antibiotic therapy with his history of MRSA could be underlying infection. Current Visit: Yes Status: Acute Code(s): R21 - RASH AND OTHER NONSPECIFIC SKIN ERUPTION SNOMED Code(s): 054630536
[2018-07-10] MEDS: PANTOPRAZOLE 40 MG TABLET PO SCH (08:33)
[2018-07-10] MEDS: HEPARIN SODIUM,PORCINE 5,000 UNIT/ML 1 ML VIAL SQ SCH ×2 (08:33→21:25)
[2018-07-10] MEDS: VANCOMYCIN 1,750 MG in SODIUM CHLORIDE 0.9% 500 ML IVPB SCH ×2 (08:33→21:25)
[2018-07-10] MEDS: HYDROcodone/APAP 5-325MG 1 EACH TAB PO PRN ×2 (08:33→19:09)
--- NOTE | 2018-07-10 10:29 | P.PN ---
Subjective Progress Note Date: 07/10/18 Principal diagnosis: Rash Patient was seen and examined. No acute events overnight. Patient reports improvement in his left lower extremity rash. Patient reports great improvement in his left lower pamela pain, 4 out of 10 in severity. Patient states he is able to walk around the unit comfortably. He denies any fever, chills, cough, chest pain, shortness of breath, palpitations. Objective - Vital Signs Vital signs: Vital Signs Temp 98.6 F 07/10/18 06:52 Pulse 78 07/10/18 06:52 Resp 16 07/10/18 06:52 BP 123/83 07/10/18 06:52 Pulse Ox 93 L 07/10/18 06:52 Intake & Output 07/09/18 07/10/18 07/10/18 18:59 06:59 18:59 Intake Total 1500 500 Balance 1500 500 Weight 96.162 kg Intake: Intake, IV Titration 500 500 Amount Vancomycin 1,750 mg In 500 500 Sodium Chloride 0.9% 500 ml @ 167 mls/hr IVPB Q12HR [facility] Rx#:[id number] Oral 1000 Other: Voiding Method Toilet Toilet # Voids 3 1 - Exam General: non toxic, no distress, appears at stated age Derm: warm, dry Head: atraumatic, normocephalic, symmetric Eyes: EOMI, no lid lag, anicteric sclera Mouth: no lip lesion, mucus membranes moist Cardiovascular: S1S2 reg, no murmur Lungs: CTA bilateral, no rhonchi, no rales , no accessory muscle use Abdominal: soft, nontender to palpation, no guarding, no appreciable organomegaly, groin rash circular. Ext: Flat, ecchymotic rash on the L jeter, TTP, warm to touch (improving since yesterday). 1 + edema LLE, no contractures Psych: Alert, oriented, appropriate affect - Labs CBC & Chem 7: 07/08/18 07:11 07/09/18 07:42 Labs: Abnormal Lab Results - Last 24 Hours (Table) 07/08/18 Range/Units 07:11 Procalcitonin 0.17 H (0.02-0.09) ng/mL Assessment and Plan Assessment: Assessment 52 year old M with PMH of COPD and HTN presents to the ED for LLE rash. Found to be pre-syncopal in the ED. Admitted for further workup. Plan 1. LLE Rash: Cellulitis vs. Vasculitis. Unknown at this time. Patient is afebrile with a mild leukocytosis of 10.8. CRP 154.7, ESR 67. Venous duplex negative for DVT. RPR negative. C3 175 C4 29.3 within normal limits. ANCA, GONZALEZ, Acute hep panel negative. Discussed with Dr. Calles 07/07, would hold steroids and start Abx. Continue Vancomycin 2000 mg IV QD (monitor renal function). Hilliard and Tylenol PRN for pain. Elevated Pro-calcitonin would point towards an infectious cause. FU GC. FU ID consult. 2. Groin rash: Christiana. Nystatin cream. 3. Dizziness: Resolved. One time incidence while in the ED. States poor PO for the past few days. BUN/Cr > 20 likely due to dehydration. Stop IVF and encourage PO hydration. 4. COPD: Stable. Albuterol neb PRN. 5. HTN: BP 123/83. Continue Amlodipine 5 mg PO QHS, Lisinopril 20 mg PO QD, HCTZ 12.5 mg PO QD. Monitor vitals, adjust medications as necessary. 6. DVT/GI Prophylaxis: Heparin 5000 units BID, Protonix 40 QAM. GC pending. Rheumatologic workup has been negative thus far. Patient has been improving with IV vancomycin. Will discuss with ID, consider DC with by mouth antibiotics with close follow-up with dermatology.
[2018-07-10 11:01] LABS: Basophils # (A) 0.1 k/uL (0-0.2); Basophils % (A) 1 %; Eosinophils # (A) 0.5 k/uL (0-0.7); Eosinophils % (A) 6 %; HCT 43.4 % (39.0-53.0); HGB 14.5 gm/dL (13.0-17.5); Lymphocytes # (A) 2.1 k/uL (1.0-4.8); Lymphocytes % (A) 27 %; MCH 31.9 pg (25.0-35.0); MCHC 33.4 g/dL (31.0-37.0); MCV 95.7 fL (80.0-100.0); Mean Platelet Volume 6.7; Monocytes # (A) 0.5 k/uL (0-1.0); Monocytes % (A) 6 %; Neutrophils # (A) 4.6 k/uL (1.3-7.7); Neutrophils % (A) 58 %; Platelet Count 250 k/uL (150-450); RBC 4.54 m/uL (4.30-5.90)
[2018-07-10 13:55] LABS: C. trachomatis,PCR Negative (Neg,Equiv); Chlamydia trachomatis Source Urine; N. gonorrhoeae,PCR Negative (Neg,Equiv); Neisseria Source Urine
[2018-07-10 21:24] VITALS: RESP 15
[2018-07-10] MEDS: NYSTATIN 100,000 UNIT/GM OINT 30 GM TUBE TOPICAL SCH (21:24)
[2018-07-10] MEDS: ATORVASTATIN 10 MG TAB PO SCH (21:25)
[2018-07-10] MEDS: CHOLECALCIFEROL 1,000 UNIT TAB PO SCH (21:25)
[2018-07-10] MEDS: LISINOPRIL 20 MG TAB PO SCH (21:25)
[2018-07-10] MEDS: amLODIPine 5 MG TAB PO SCH (21:25)
[2018-07-10] MEDS: ASPIRIN 81 MG PO SCH (21:25)
[2018-07-10] MEDS: HYDROCHLOROTHIAZIDE 12.5 MG CAP PO SCH (21:25)
[2018-07-10] MEDS: ALBUTEROL NEBULIZED 2.5 MG/3 ML INHALATION PRN (21:27)
--- NOTE | 2018-07-10 23:34 | P.PN ---
Subjective Progress Note Date: 07/10/18 52-year-old male presents to Hospital with the onset of fevers and chills over the last several days. The patient relates he's been having difficulties that started first in his genital and groin area. This started as a rash is pruritic and somewhat painful. Because of this he was seen by dermatology and was placed on topical creams as well as a injection of Depo- Medrol. Despite that he has not had any steady improvement the genital area but then developed the onset of significant pain and swelling erythema to the left lower extremity. The site worsened and because of this he did present to hospital. With concerns of this being an infection he had evaluation was requested. It is noted that the CRP was markedly elevated 154.7. The patient has no trauma to the site. 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 He does not recall any chemicals getting onto his groin or left leg. Physical the history of MRSA infection in the past but that was on his back at his belt line. He does not feel he has any particular lesions like that at this time. He has had no travel, there is no change in the home environment, no new animal contacts, and denies any sexual contacts other than with his . He does not have a history of significant tobacco use, recreational drug use or marijuana use. 07/09/2018 patient is feeling better in the last day. The swelling and discomfort of the leg is improved. No other new lesions are seen. The groin rash appears to be improving. 07/10/2018 patient is feeling somewhat better again today. He has no new symptoms and is noticing that the pain of the left leg is improving. The irritation rash to the groin and scrotum is definitely improved. With his penile swelling he was having some dysuria that is now resolved. No other skin rashes are seen. He is having no fevers or chills and feels somewhat better than he did a week ago. Objective - Vital Signs Vital signs: Vital Signs Temp 98.0 F 07/10/18 21:23 Pulse 77 07/10/18 21:36 Resp 15 07/10/18 21:23 BP 123/69 07/10/18 21:23 Pulse Ox 99 07/10/18 21:23 Intake & Output 07/10/18 07/10/18 07/11/18 06:59 18:59 06:59 Intake Total 500 500 Balance 500 500 Intake: Intake, IV Titration 500 500 Amount Vancomycin 1,750 mg In 500 500 Sodium Chloride 0.9% 500 ml @ 167 mls/hr IVPB Q12HR [facility] Rx#:[id number] Other: Voiding Method Toilet Toilet # Voids 1 3 # Bowel Movements 0 - Exam HEENT: Anicteric conjunctiva are pink and moist nasal mucosa grossly intact without significant lesions, there is no thrush. Neck: The neck is supple without significant lymphadenopathy or thyromegaly. Lungs: Good bilateral air entry without significant crackles or wheezing. There is no significant bronchial sounds. There is no egophony or dullness. Heart: Regular rate and rhythm with an audible S1-S2, no S3 no S4. There is no significant murmur click or rub, PMI was nondisplaced. Abdomen: Positive bowel sounds soft and nontender without palpable masses or organomegaly. There was no guarding or rebound. Extremities: The upper extremities have excellent pulses they are symmetric, no significant petechiae or telangiectasia. No splinter hemorrhages were noted. The right lower extremity has no significant lesions. Left lower extremity reveals evidence of the extensive erythema especially to the anterior medial aspect of the tibial area is minimally tender it is barely palpable it is not blistering there are no open lesions it is not fluctuant. Skin: At the groin area there is evidence of the confluence rash into the bilateral groin, the central area of the erythema has now started to receive it is no longer palpable, only palpable area of the rash is at the border now. lymph nodes are minimally palpable and not very tender. There is evidence of swelling to the shaft of the penis and there is also some edema and excoriation to the scrotum. There is no significant odor to this rash process. It does not extend onto the abdominal wall. It does not travel posterior either. There is improvement of the tenderness to the genital area. There are no tomasz open ulceration that can be seen on the shaft of the penis at this time. Neuro: Awake alert oriented to person place and time. There are no acute new gross focal sensory motor deficits. - Labs CBC & Chem 7: 07/10/18 10:39 07/09/18 07:42 Labs: Laboratory Results WBC 8.0 k/uL (3.8-10.6) 07/10/18 10:39 RBC 4.54 m/uL (4.30-5.90) 07/10/18 10:39 Hgb 14.5 gm/dL (13.0-17.5) 07/10/18 10:39 Hct 43.4 % (39.0-53.0) 07/10/18 10:39 MCV 95.7 fL (80.0-100.0) 07/10/18 10:39 MCH 31.9 pg (25.0-35.0) 07/10/18 10:39 MCHC 33.4 g/dL (31.0-37.0) 07/10/18 10:39 RDW 13.0 % (11.5-15.5) 07/10/18 10:39 Plt Count 250 k/uL (150-450) 07/10/18 10:39 Neutrophils % 58 % 07/10/18 10:39 Lymphocytes % 27 % 07/10/18 10:39 Monocytes % 6 % 07/10/18 10:39 Eosinophils % 6 % 07/10/18 10:39 Basophils % 1 % 07/10/18 10:39 Neutrophils # 4.6 k/uL (1.3-7.7) 07/10/18 10:39 Lymphocytes # 2.1 k/uL (1.0-4.8) 07/10/18 10:39 Monocytes # 0.5 k/uL (0-1.0) 07/10/18 10:39 Eosinophils # 0.5 k/uL (0-0.7) 07/10/18 10:39 Basophils # 0.1 k/uL (0-0.2) 07/10/18 10:39 ESR 67 mm/hr (0-15) H 07/09/18 07:42 PT 11.9 sec (9.0-12.0) 07/07/18 12:25 INR 1.2 (<1.2) H 07/07/18 12:25 APTT 22.3 sec (22.0-30.0) 07/07/18 12:25 Sodium 139 mmol/L (137-145) 07/09/18 07:42 Potassium 4.1 mmol/L (3.5-5.1) 07/09/18 07:42 Chloride 99 mmol/L (98-107) 07/09/18 07:42 Carbon Dioxide 30 mmol/L (22-30) 07/09/18 07:42 Anion Gap 10 mmol/L 07/09/18 07:42 BUN 15 mg/dL (9-20) 07/09/18 07:42 Creatinine 0.71 mg/dL (0.66-1.25) 07/09/18 07:42 Est GFR (CKD-EPI)AfAm >90 (>60 ml/min/1.73 sqM) 07/09/18 07:42 Est GFR (CKD-EPI)NonAf >90 (>60 ml/min/1.73 sqM) 07/09/18 07:42 Glucose 107 mg/dL (74-99) H 07/09/18 07:42 Calcium 9.4 mg/dL (8.4-10.2) 07/09/18 07:42 Magnesium 2.1 mg/dL (1.6-2.3) 07/07/18 12:25 Total Bilirubin 0.8 mg/dL (0.2-1.3) 07/07/18 12:25 AST 33 U/L (17-59) 07/07/18 12:25 ALT 34 U/L (21-72) 07/07/18 12:25 Alkaline Phosphatase 143 U/L (38-126) H 07/07/18 12:25 Total Creatine Kinase 83 U/L (55-170) 07/07/18 12:25 CK-MB (CK-2) 1.4 ng/mL (0.0-2.4) 07/07/18 12:25 CK-MB (CK-2) Rel Index 1.7 07/07/18 12:25 Troponin I <0.012 ng/mL (0.000-0.034) 07/08/18 00:46 C-Reactive Protein 154.7 mg/L (<10.0) H 07/07/18 12:25 Total Protein 8.0 g/dL (6.3-8.2) 07/07/18 12:25 Albumin 4.4 g/dL (3.5-5.0) 07/07/18 12:25 Procalcitonin 0.17 ng/mL (0.02-0.09) H 07/08/18 07:11 Vancomycin Trough 14.6 ug/mL 07/09/18 19:39 GONZALEZ Screen NEGATIVE (NEGATIVE) 07/08/18 07:11 c-ANCA <1:20 Titer (<1:20) 07/08/18 07:11 p-ANCA <1:20 Titer (<1:20) 07/08/18 07:11 Complement C3 175.0 mg/dL (80.0-207.0) 07/08/18 07:11 Complement C4 29.3 mg/dL (10.0-53.0) 07/08/18 07:11 Treponema pallidum Ab Non-Reactive (Non-Reactive) 07/09/18 07:45 Chlamydia Source Urine 07/08/18 22:51 Chlamydia DNA (PCR) Negative (Neg,Equiv) 07/08/18 22:51 Hepatitis A IgM Ab Non-Reactive (Non-Reactive) 07/08/18 07:11 Hep Bs Antigen Non-Reactive (Non-Reactive) 07/08/18 07:11 Hep B Core IgM Ab Non-Reactive (Non-Reactive) 07/08/18 07:11 Hep C IgG Ab Non-Reactive (Non-Reactive) 07/08/18 07:11 N. gonorrhoeae Source Urine 07/08/18 22:51 N.gonorrhoeae DNA Probe Negative (Neg,Equiv) 07/08/18 22:51 Assessment and Plan (1) Near syncope Current Visit: Yes Status: Acute Code(s): R55 - SYNCOPE AND COLLAPSE SNOMED Code(s): 644336303 (2) Rash Narrative/Plan: 52-year-old male who has a long-standing history of hypertension and hypercholesterolemia presents to Hospital feeling quite poorly he felt like he was having near syncope. Upon arrival to the emergency center he was quite hypotensive and resuscitated well with fluids and ulceration of his antihypertensive. The medical service his related that there was a duplicate of his medications between and are an JORDAN inhibitor. The patient overdosed have significant rash to the genital and groin area seen by dermatology and despite steroid injection and topical therapy it is actually worsening. The patient now is developed the significant eruption also to the left lower leg that fortunately is not very tender but is quite bothersome. The possibility that this is an infection with his history of MRSA is of great concern and continue vancomycin therapy for now. Workup for underlying vasculitis is in process especially since he CRP is so markedly elevated. A sed rate will also be obtained. The multiple autoimmune antibodies of argument or by the primary service. We'll also look for other infections including syphilis gonorrhea and chlamydia that are also requested by serological and urine testing. Drug-induced vasculitis would also need to be considered given the fact that he was on an Jordan as well as in our this class of medications sometimes does cause vasculitis-like diseases, more commonly angioedema but has been reported. He does not relate that he had been on outpatient antibiotic therapy before this occurred. Certainly antibiotics, are one of the most common causes drug- induced vasculitis. 07/09/2018 the patient is comfortable and is having some improvement with elevation, antibiotic therapy and local wound care. Denies fevers or chills. It is noted the sed rate is only 67 which is disproportionate to the extremely elevated CRP. Current autoantibodies are coming back as negative. Full workup is in process. Differential includes ongoing infectious process versus a vasculitis. He is responding to antibiotic therapy with his history of MRSA could be underlying infection. 07/10/2018 reveals patient be feeling considerably better. He seems to responding well to current antibiotic therapy, the density area of erythema in the left leg is improving in the significant erythema and irritation to the groin and penis are now much improved. The patient has no other new symptoms. At this time we will review the extensive workup that has been done so far that fails we'll evidence of any autoantibodies. There is also no evidence of any underlying infection such as syphilis gonorrhea or chlamydia. The social history admission revealed the patient had not had any sexual exposures outside of his marriage. At this time an underlying infection likely from MRSA seems to be occurring causing the recurrent skin infection, he's had a serious one in the past. He is certainly feeling better in the markedly elevated CRP could be on the basis of some extensive underlying infection. If he continues to feel better we then can consider conversion of the antibiotic therapy of vancomycin to Bactrim to complete a course of therapy in the outpatient setting. He overload need certainly close follow-up in the outpatient setting to ensure that there is no flare worsening with the change of antibiotic therapy. Current Visit: Yes Status: Acute Code(s): R21 - RASH AND OTHER NONSPECIFIC SKIN ERUPTION SNOMED Code(s): 316525079
[2018-07-11 04:54] VITALS: BP 126/90; PULSE 75; TEMP 98.3
[2018-07-11] MEDS: HYDROcodone/APAP 5-325MG 1 EACH TAB PO PRN (08:08)
[2018-07-11] MEDS: NYSTATIN 100,000 UNIT/GM OINT 30 GM TUBE TOPICAL SCH (08:08)
[2018-07-11] MEDS: PANTOPRAZOLE 40 MG TABLET PO SCH (08:09)
[2018-07-11] MEDS: VANCOMYCIN 1,750 MG in SODIUM CHLORIDE 0.9% 500 ML IVPB SCH (08:09)
[2018-07-11] MEDS: HEPARIN SODIUM,PORCINE 5,000 UNIT/ML 1 ML VIAL SQ SCH (08:09)
--- NOTE | 2018-07-11 10:55 | P.DS ---
Providers Date of admission: 07/07/18 14:03 Expected date of discharge: 07/11/18 Attending physician: Aura Banks DO Consults: 07/07/18 17:54 Consult Physician Routine Consulting Provider: Alfonso Calles Consult Reason/Comments: LLE rash which appears to be cellulitis, rule out vasculitis Do you want consulting provider notified?: Yes Primary care physician: Jonathan Lau - Discharge Diagnosis(es) (1) COPD (chronic obstructive pulmonary disease) Current Visit: Yes Status: Acute (2) HTN (hypertension) Current Visit: Yes Status: Acute (3) Near syncope Current Visit: Yes Status: Acute (4) Rash Current Visit: Yes Status: Acute Hospital Course: 52 year old M with PMH of COPD and HTN presents to the ED for L jeter rash. Patient reports rash starting on associated with fever and chills. Patient reports feeling generally unwell for the past 1-2 days On Monday, patient reports receiving a Cortisone IM injection for genital itching from his [employer]. Patient reports no rash on Monday. No joint involvement. He was noted to have a SBP of 80 in the ED with dizziness which responded to a fluid bolus. He denies trauma, headache, LE edema, cough, chest pain, shortness of breath, changes in urination or bowel habits. He is admitted for presyncope and left lower extremity rash. With regard to his left lower extremity rash, patient was found to be afebrile with a mild leukocytosis of 10.8. CRP was 154.7. ESR was 67. Pro-calcitonin was elevated. Venous duplex was obtained that was negative for DVT. RPR was negative. C3 and C4 were within normal limits. ANCA, GONZALEZ, acute panel was negative. Case was initially discussed with infectious disease Dr. Calles, and a decision was made to start the patient on vancomycin IV for coverage of cellulitis. Patient was transitioned to by mouth Bactrim on discharge, and advised to follow-up with his surgical assistant within 1 week of discharge. Patient was also noted to have a groin rash. This was thought to be a candidal infection. He was given nystatin cream for this. Patient's dizziness resolved after being brought up from the ED. Patient reported poor oral intake for the past few days. His BUN/creatinine to creatinine ratio was greater than 20. Patient was given bolus of IV fluid in the ED. He reported no further dizziness, chest pain, shortness of breath or palpitations during his hospitalization. I resumed his home medications for his COPD and hypertension. Patient was discharged on 07/11/2018. He was advised to follow-up with his primary care provider within 1-2 days of discharge. He was advised to follow- up with his surgical assistant within 1 week of discharge. He was advised to take Bactrim by mouth to complete a total of 14 days on antibiotics. He was advised to go to the ED or call 911 for worsening fevers greater than 100.4 Fahrenheit, chills, night sweats or worsening of his left lower extremity cellulitis. This discharge took less than 30 minutes. General: non toxic, no distress, appears at stated age Derm: warm, dry Head: atraumatic, normocephalic, symmetric Eyes: EOMI, no lid lag, anicteric sclera Mouth: no lip lesion, mucus membranes moist Cardiovascular: S1S2 reg, no murmur Lungs: CTA bilateral, no rhonchi, no rales , no accessory muscle use Abdominal: soft, nontender to palpation, no guarding, no appreciable organomegaly, groin rash circular. Ext: Flat, ecchymotic rash on the L jeter, TTP, warm to touch (improving since yesterday). No edema, no contractures Psych: Alert, oriented, appropriate affect Pertinent Studies: GONZALEZ, ANCA, C3/C4, Procalcitonin, Acute hep panel, RPR, Venous duplex, CRP, ESR Procedures: Venous duplex Patient Condition at Discharge: Stable Plan - Discharge Summary Discharge Rx Participant: No New Discharge Prescriptions: New Acetaminophen Tab [Tylenol] 650 mg PO Q6HR PRN tab PRN Reason: Mild Pain Or Fever > 100.5 HYDROcodone/APAP 5-325MG [[place] 5-325] 1 each PO Q4HR PRN #18 tab PRN Reason: Moderate Pain Nystatin 100,000 Unit/gm Oint [Mycostatin Oint] 1 applic TOPICAL BID #1 tube Sulfamethox-Tmp 800-160Mg [Bactrim DS 800-160 mg] 1 tab PO Q12HR #20 tab Continue amLODIPine BESYLATE/BENAZEPRIL [amLODIPine BESYLATE/BENAZEPRIL 5-20 mg] 1 cap PO HS Aspirin 81 mg PO HS Omeprazole 40 mg PO HS Olmesartan/Hydrochlorothiazide [Benicar Hct 40-12.5 mg Tablet] 1 tab PO HS Cholecalciferol [Vitamin D3] 1,000 unit PO HS Simvastatin [Zocor] 20 mg PO HS Albuterol Inhaler [Ventolin Hfa Inhaler] 2 puff INHALATION RT-Q6H PRN PRN Reason: Shortness Of Breath Discharge Medication List Aspirin 81 mg PO HS 08/24/16 [History] Olmesartan/Hydrochlorothiazide [Benicar Hct 40-12.5 mg Tablet] 1 tab PO HS 08/24 [History] Omeprazole 40 mg PO HS 08/24/16 [History] amLODIPine BESYLATE/BENAZEPRIL [amLODIPine BESYLATE/BENAZEPRIL 5-20 mg] 1 cap PO HS 08/24/16 [History] Albuterol Inhaler [Ventolin Hfa Inhaler] 2 puff INHALATION RT-Q6H PRN 07/07/18 [ History] Cholecalciferol [Vitamin D3] 1,000 unit PO HS 07/07/18 [History] Simvastatin [Zocor] 20 mg PO HS 07/07/18 [History] Acetaminophen Tab [Tylenol] 650 mg PO Q6HR PRN tab 07/11/18 [Rx] HYDROcodone/APAP 5-325MG [[place] 5-325] 1 each PO Q4HR PRN #18 tab 07/11/18 [Rx] Nystatin 100,000 Unit/gm Oint [Mycostatin Oint] 1 applic TOPICAL BID #1 tube [Rx] Sulfamethox-Tmp 800-160Mg [Bactrim DS 800-160 mg] 1 tab PO Q12HR #20 tab [Rx] Follow up Appointment(s)/Referral(s): Jonathan Lau DO [Primary Care Provider] - 1-2 days Velasquez Fulton MD [STAFF PHYSICIAN] - 1 Week Activity/Diet/Wound Care/Special Instructions: Diet: Cardiac diet. Please follow-up with your primary care provider within 1-2 days of discharge. Please follow-up with your surgical assistant within 1 week of discharge. Please take your medications as advised. Please come to the ED or call 911 for worsening fevers greater than 100.4 Fahrenheit, chills, night sweats, worsening cellulitis severe left lower extremity. Discharge Disposition: HOME SELF-CARE Pending Studies Pending Results: GWYN
== END 2018-07-11 12:13 | disposition home or self-care (01) | DRG 603 ==
LOC: EC 11:24 → 4MS4W 14:03 → 5MS5E 14:53
PROVIDERS: ADMIT Internal Medicine; ATTEND Internal Medicine
DX: L03.116 Cellulitis of left lower limb (principal); K21.9 Gastro-esophageal reflux disease without esophagitis; I95.9 Hypotension, unspecified; E78.00 Pure hypercholesterolemia, unspecified; B37.2 Candidiasis of skin and nail; E78.5 Hyperlipidemia, unspecified; E86.0 Dehydration; I10 Essential (primary) hypertension; R30.0 Dysuria; J44.9 Chronic obstructive pulmonary disease, unspecified; N48.89 Other specified disorders of penis; R79.82 Elevated C-reactive protein (CRP); R42 Dizziness and giddiness; Z79.82 Long term (current) use of aspirin; Z79.899 Other long term (current) drug therapy; Z86.14 Personal history of Methicillin resistant Staphylococcus aureus infection; Z87.891 Personal history of nicotine dependence; Z88.0 Allergy status to penicillin; Z80.9 Family history of malignant neoplasm, unspecified
CPT/HCPCS: 36415; 71046; 80048; 80053; 80074; 80202; 82550; 82553; 83735; 84145; 84484; 85025; 85027; 85610; 85652; 85730; 86038; 86140; 86160; 86255; 86780; 87491; 87591; 93005; 94640; 94760; 96360; 99285

== ENCOUNTER → 2019-10-28 | Outpatient (CLI) | payer BC ==
--- NOTE | 2019-10-30 08:39 | XR ---
EXAMINATION TYPE: XR chest 2V DATE OF EXAM: 10/28/2019 COMPARISON: Chest x-ray July 07, 2018. HISTORY: Presurgical study. TECHNIQUE: Frontal and lateral views of the chest are obtained. FINDINGS: There is no focal air space opacity, pleural effusion, or pneumothorax seen. The cardiac silhouette size is within normal limits. The osseous structures are intact. IMPRESSION: No acute cardiopulmonary process.
== END ==
LOC: LABWHC1 13:01
PROVIDERS: ATTEND Orthopaedic Surgery
DX: Z01.818 Encounter for other preprocedural examination (principal); Z01.812 Encounter for preprocedural laboratory examination
CPT/HCPCS: 71046; 87070; 93005

== ENCOUNTER → 2019-11-18 | Outpatient (CLI) | payer BC ==
[2019-11-18 16:06] LABS: Appearance,Urine Clear (Clear); Bilirubin,Urine Negative (Negative); Blood,Urine Negative (Negative); Color,Urine Yellow; Glucose,Urine (UA) Negative (Negative); Ketones,Urine Negative (Negative); Leukocyte Esterase,Urine Negative (Negative); Nitrite,Urine Negative (Negative); Protein,Urine Negative (Negative); Specific Gravity,Urine 1.021 (1.001-1.035); Urobilinogen,Urine <2.0 mg/dL (<2.0)
[2019-11-18 16:11] LABS: INR 1.1 (<1.2); Partial Thromboplastin Time 23.8 sec (22.0-30.0); Prothrombin Time 11.3 sec (9.0-12.0)
[2019-11-18 16:13] LABS: HGB 14.6 gm/dL (13.0-17.5); MCH 32.4 pg (25.0-35.0); MCHC 33.1 g/dL (31.0-37.0); Mean Platelet Volume 7.3; Platelet Count 215 k/uL (150-450); RBC 4.49 m/uL (4.30-5.90); RDW 12.7 % (11.5-15.5); WBC 6.9 k/uL (3.8-10.6)
[2019-11-18 16:26] LABS: Chloride 101 mmol/L (98-107)
[2019-11-18 16:29] LABS: ALT 20 U/L (4-49); AST 26 U/L (17-59); African American GFR (CKD) >90 (>60 ml/min/1.73 sqM); Albumin 4.6 g/dL (3.5-5.0); Alkaline Phosphatase 162 U/L (38-126); Anion Gap 8 mmol/L; Blood Urea Nitrogen 23 mg/dL (9-20); Calcium 10.2 mg/dL (8.4-10.2); Carbon Dioxide 31 mmol/L (22-30); Glucose 153 mg/dL (74-99); Non-African American GFR(CKD) >90 (>60 ml/min/1.73 sqM); Potassium 3.9 mmol/L (3.5-5.1); Sodium 140 mmol/L (137-145); Total Bilirubin 0.7 mg/dL (0.2-1.3); Total Protein 7.9 g/dL (6.3-8.2)
== END ==
LOC: LABPAT 15:10
PROVIDERS: ATTEND Orthopaedic Surgery
DX: Z01.812 Encounter for preprocedural laboratory examination (principal)
CPT/HCPCS: 36415; 80053; 81003; 85027; 85610; 85730

== ENCOUNTER 2019-11-26 07:00 | Inpatient (IN) | payer BC ==
[2019-10-30 10:29] VITALS: BMI 29.5
[~2019-11-26 07:00] MED LIST: ACETAMINOPHEN TAB 500 MG TAB PO ONE; DEXAMETHASONE SOD PHOSPHATE 10 MG/ML 1 ML VIAL IV ONE; GABAPENTIN 300 MG CAP PO ONE; HYDROmorphone 0.5 MG/0.5 ML SYRINGE IVP PRN; LIDOCAINE 1% 20 ML VIAL (10MG/ML) FOR IV START INTRADERMA PRN; MELOXICAM 7.5 MG TAB PO ONE; ONDANSETRON 4 MG/2 ML VIAL IVP ONE; TRANEXAMIC ACID 1,000 MG in SODIUM CHLORIDE 0.9% 100 ML IVPB ONE; fentaNYL (PF) 50 MCG/ML 2 ML AMP IV PRN
[2019-11-26] MEDS: LACTATED RINGERS 1,000 ML IV SCH ×2 (07:45→14:59)
[2019-11-26] MEDS: VANCOMYCIN 1,250 MG in SODIUM CHLORIDE 0.9% 250 ML IVPB ONE ×2 (07:56→08:00)
[2019-11-26] MEDS ORDERED: SODIUM CHLORIDE 0.9% IRRIG 1,000 ML BTL IRRIGATION ONE (09:13)
[2019-11-26] MEDS ORDERED: SODIUM CHLORIDE 0.9% 100 ML BAG ONE (09:13)
[2019-11-26] MEDS ORDERED: TRANEXAMIC ACID 1,000 MG/10 ML VIAL ONE (09:13)
[2019-11-26] MEDS ORDERED: HEPARIN SODIUM,PORCINE 10,000 UNIT/ML 1 ML VIAL ONE (09:13)
[2019-11-26] MEDS ORDERED: ePHEDrine SULFATE/0.9% NACL/PF 50 MG/5 ML SYRINGE IV ONE (09:13)
[2019-11-26] MEDS ORDERED: MIDAZOLAM 2 MG/2 ML VIAL ONE (09:13)
[2019-11-26] MEDS ORDERED: ceFAZolin 3,000 MG in SODIUM CHLORIDE 0.9% IRRIGATIO 3,000 ML IRRIGATION ONE (09:44)
[2019-11-26] MEDS: ROPIVACAINE 246.25 MG, EPINEPHrine 0.5 MG, KETOROLAC 30 MG, cloNIDine HCL/PF 80 MCG, WA... MISCELLANE ONE ×10 (09:45→10:24)
[2019-11-26] MEDS ORDERED: LACTATED RINGERS 1,000 ML IV ONE ×2 (09:56→13:50)
--- NOTE | 2019-11-26 10:49 | P.OP ---
Date of Procedure: 11/26/19 Preoperative Diagnosis: Avascular necrosis right hip Postoperative Diagnosis: Avascular necrosis right hip Procedure(s) Performed: Right total hip arthroplasty with a direct anterior approach Implants: Wan and nephew Polarstem size 3 standard Wan & Nephew R3, 3 hole acetabular shell, 52 mm Wan & Nephew reflection 6.5 mm cancellus screw, 20 mm, 25 mm Wan & Nephew R3, XLPE 20 acetabular liner Wan & Nephew Oxinium femoral head 36 m, +4 All components were press-fit. The articulation is Oxinium on polyethylene. Anesthesia: spinal Surgeon: Woody Tong Author #1: Meaghan Pearl Estimated Blood Loss (ml): 300 (132 mL returned with Cell Saver) Pathology: other (Femoral head) Condition: stable Disposition: PACU Indications for Procedure: After failure of conservative treatment we discussed the surgical and nonsurgical treatment options at length. Patient wishes to proceed with a total hip arthroplasty with a direct anterior approach. Complications specific to this procedure were discussed at length, including but not limited to infection, leg length discrepancy, dislocation, and nerve injury. Patient is aware of all these complications and informed consent was obtained Operative Findings: The operative findings are consistent with avascular necrosis of the right femoral head Description of Procedure: Patient was seen and evaluated in the preoperative area, consent was reviewed, and the surgical site was marked with a skin marker. Patient was then brought to the operating room and given prophylactic antibiotics intravenously. 1 g of Tranexamic acid was also given. A spinal anesthetic was administered by the anesthesia department. The patient was then placed on the Poneto table with the bony prominences well-padded. The hip area was then prepped and draped in usual sterile fashion. A universal timeout was then performed, which confirmed the patient's name, surgical site, ALLERGIES, and procedure being performed. Next the incision site was located at 1 cm distal and 1 cm lateral to the anterior superior iliac spine. The skin and subcutaneous tissues were sharply incised. Incision was carefully dissected down to the fascia overlying the tensor fascia brittney muscle. This fascia was then incised in line with the incision. Next, using blunt finger dissection, the tensor fascia brittney muscle was dissected off its investing fascia. The muscle was then carefully retracted laterally with a cobra retractor over the lateral neck of the femur. Next, the circumflex vessels were identified and cauterized using the AquaMantis device. The anterior hip capsule was then exposed. The capsule was then opened and an inverted T fashion. Cobra retractors were then placed intracapsularly. The proximal femur was then visualized. The femoral neck was then osteotomized appropriate level above the lesser trochanter. Small amount of traction was placed with the Poneto table. A small wedge of bone was then removed from the remaining femoral head. Next, using a corkscrew femoral head was easily removed from the acetabulum. On gross visual inspection, the femoral head had findings consistent with avascular necrosis of the femoral head. Attention was then turned to the acetabulum. the acetabulum was exposed and any remaining labrum was excised. Sequential reaming of the acetabulum was performed using fluoroscopic guidance. When the appropriate size was reached, a trial was then placed. The position and fit of the trial was checked with fluoroscopy. The trial was then removed. Then, using fluoroscopic guidance, the final implant was impacted at 20 of anteversion and 40 of abduction, and fully seated in the acetabulum. 2 screws were then placed in the acetabulum. Again fluoroscopy was used to check position of the screws. Next, the liner was then impacted, with a 20 elevated liner located in the anterior superior quadrant. Component locking was confirmed. Attention was then directed to the femur. With the aid of the Poneto table, the femur was externally rotated to approximately 130, extended, and abducted under the opposite leg. A side hook was then placed under the proximal femur, and the side hook elevator was used to elevate the proximal femur. Retractors were then placed. A capsular release was performed, as well as a release of the conjoined tendon, which afforded excellent visualization of the proximal femur. Next, a box osteotome was used to lateralize the proximal femur. A hand therapist was then used to locate the femoral canal. Sequential broaching was then performed with appropriate size which afforded excellent fixation in the proximal femur. A trial was then placed with appropriate head and neck, and the hip was gently reduced with the aid of the Poneto table. Fluoroscopy was then used to check position of the components, as well as to ensure equal leg lengths. The hip was then gently dislocated and the trials were then removed. Final implants were then impacted and the hip was again reduced. Final fluoroscopic x-rays confirmed that the components were in anatomic position, as well as equal leg lengths. The hip was also taken through range of motion, and found to be stable. The hip was then copiously irrigated with antibiotic solution with pulsatile lavage. The hip was then irrigated with Irrisept solution. The soft tissues were then injected with a ropivacaine solution, which consisted of 246.25 mg of ropivacaine, 0.5 mg of epinephrine, 30 mg of Toradol, 80 g of clonidine, and 48.45 mL of sterile water, for a total of 100 mL of fluid injected. A second dose of 1 g of Tranexamic acid was also given. the fascia was then closed with 2-0 strata fix suture. The subcutaneous tissue was closed with 3-0 Vicryl. The subcuticular tissue was closed with 3-0 strata fix suture. The skin was then closed with Dermabond glue and a sterile silver dressing. The patient was then transferred to the recovery room in stable condition. The home health assistant PAOLO Lane was required due to the complexity of surgery, and the need for skilled surgical supervisor for positioning, draping, exposure, retraction, and closure of the wound.
--- NOTE | 2019-11-26 10:49 | FL ---
EXAMINATION TYPE: FL guidance operating room, XR Hip Limited RT DATE OF EXAM: 11/26/2019 CLINICAL HISTORY: Right hip pain and osteoarthritis. TECHNIQUE: Fluoroscopy. Limited views right hip. COMPARISON: None. FINDINGS: Fluoroscopic guidance was provided during hip replacement procedure performed by Dr. Evelina mckenna. A total of 42 seconds of fluoroscopic time was utilized during the procedure and 2 spot intraop erative images are acquired. Intraoperative images obtained show metallic hardware from total hip arthroplasty satisfactory in pos ition on frontal projection. IMPRESSION: As Above.
[2019-11-26] MEDS ORDERED: MAGNESIUM HYDROXIDE 2,400 MG/10 ML CUP PO PRN (11:02)
[2019-11-26] MEDS ORDERED: NALOXONE 0.4 MG/ML 1 ML VIAL IV PRN (11:02)
[2019-11-26] MEDS ORDERED: HYDROmorphone 0.5 MG/0.5 ML SYRINGE IVP PRN ×2 (11:02)
[2019-11-26] MEDS ORDERED: ONDANSETRON 4 MG/2 ML VIAL IVP PRN (11:02)
[2019-11-26] MEDS ORDERED: hydrOXYzine PAMOATE 25 MG CAP PO PRN (11:02)
[2019-11-26] MEDS ORDERED: HYDROmorphone 1 MG/ML 1 ML SYRINGE IVP PRN (11:02)
[2019-11-26] MEDS ORDERED: DIAZEPAM 5 MG TAB PO PRN (11:02)
--- NOTE | 2019-11-26 11:25 | XR ---
EXAMINATION TYPE: XR Hip Limited RT DATE OF EXAM: 11/26/2019 CLINICAL HISTORY: Right hip pain and osteoarthritis. TECHNIQUE: Single AP portable view of right hip is obtained immediately postoperatively. COMPARISON: None. FINDINGS: Metallic hardware from right hip arthroplasty is seen and appears satisfactory in alignment and position. There is evidence of recent surgery with subcutaneous gas noted surrounding prosthesi s. IMPRESSION: Metallic hardware from right hip arthroplasty is satisfactory in position.
[2019-11-26] MEDS ORDERED: diphenhydrAMINE 50 MG/ML 1 ML VIAL IVP ONE (11:30)
[2019-11-26] MEDS: HYDROcodone/APAP 5-325MG 1 EACH TAB PO PRN ×2 (14:43→20:19)
[2019-11-26] MEDS: SODIUM CHLORIDE 0.9% 1,000 ML IV SCH ×2 (14:50→20:20)
[2019-11-26] MEDS ORDERED: VANCOMYCIN 1,250 MG in SODIUM CHLORIDE 0.9% 250 ML IVPB ONE (16:00)
[2019-11-26] MEDS: ASPIRIN 325 MG TAB PO SCH (20:19)
[2019-11-26] MEDS ORDERED: SENNOSIDES-DOCUSATE SODIUM 1 EACH TAB PO SCH (21:00)
[2019-11-27] MEDS: HYDROcodone/APAP 5-325MG 1 EACH TAB PO PRN ×3 (02:39→12:18)
[2019-11-27 02:53] VITALS: RESP 16; TEMP 97.7
[2019-11-27 07:05] VITALS: BP 132/84; PULSE 84
[2019-11-27] MEDS: ASPIRIN 325 MG TAB PO SCH (07:05)
[2019-11-27] MEDS ORDERED: PANTOPRAZOLE 40 MG TABLET PO SCH (07:30)
[2019-11-27 08:43] LABS: WBC 7.6 k/uL (3.8-10.6)
[2019-11-27 08:44] LABS: HCT 36.3 % (39.0-53.0); HGB 12.4 gm/dL (13.0-17.5); MCV 97.5 fL (80.0-100.0); RBC 3.73 m/uL (4.30-5.90)
[2019-11-27 08:45] LABS: MCH 33.4 pg (25.0-35.0); MCHC 34.2 g/dL (31.0-37.0)
[2019-11-27 08:50] LABS: Mean Platelet Volume 13.4
[2019-11-27] MEDS ORDERED: HYDROCHLOROTHIAZIDE 12.5 MG CAP PO SCH (09:00)
[2019-11-27] MEDS ORDERED: MELOXICAM 7.5 MG TAB PO SCH (09:00)
[2019-11-27] MEDS ORDERED: amLODIPine 10 MG TAB PO SCH (09:00)
[2019-11-27] MEDS ORDERED: LOSARTAN 50 MG TAB PO SCH (09:00)
[2019-11-27 09:16] LABS: Basophils % (A) 0 %; Eosinophils # (A) 0.1 k/uL (0-0.7); Eosinophils % (A) 1 %; HCT 35.7 % (39.0-53.0); HGB 11.6 gm/dL (13.0-17.5); Lymphocytes # (A) 1.2 k/uL (1.0-4.8); Lymphocytes % (A) 17 %; MCH 31.9 pg (25.0-35.0); MCHC 32.6 g/dL (31.0-37.0); MCV 97.9 fL (80.0-100.0); Mean Platelet Volume 8.5; Monocytes # (A) 0.4 k/uL (0-1.0); Monocytes % (A) 6 %; Neutrophils # (A) 5.3 k/uL (1.3-7.7); Neutrophils % (A) 74 %; Platelet Count 188 k/uL (150-450); RBC 3.65 m/uL (4.30-5.90); RDW 12.9 % (11.5-15.5); WBC 7.1 k/uL (3.8-10.6)
--- NOTE | 2019-11-27 09:45 | P.DS ---
Providers Date of admission: 11/26/19 07:03 Expected date of discharge: 11/27/19 Attending physician: Woody Tong Consults: 11/26/19 11:02 Consult Physician Routine Consulting Provider: Alfonso Mata Reason/Comments: medical management Do you want consulting provider notified?: Yes Primary care physician: [facility] Course: This is a 54-year-old male who was last seen in our office with complaint of continued right hip pain. The patient has a known history of degenerative arthritis of the right hip and presents to discuss surgical options. After discussion and consideration the patient elects to proceed with total right hip arthroplasty. Patient is seen preoperatively by her family physician and cleared for surgery. The patient is admitted to [facility] for total right hip arthroplasty. The procedure is performed without complication or sequelae. The patient is doing well postoperatively. Vital signs and postoperative labs are stable on post operative day #1. The patient is examined bedside this morning. He states his pain is currently well-controlled. He states he has very been up with physical therapy, and is ambulating well with walker with minimal assistance. He is tolerating his diet well. He has not a bowel movement postoperatively, although he denies abdominal pain. He denies chest pain, shortness breath, nausea, vomiting, fevers, chills. He feels very well this morning. On examination, the patient is sitting up in bed in no apparent distress. He is alert and oriented 3. On inspection of the right hip, there is a clean, dry, intact surgical dressing in place anterior knee. There is no surrounding erythema or warmth, there is also no drainage. Right lower extremity is warm a nd well-perfused with brisk capillary refill distally. The patient is able to dorsiflex and plantar flex the ankle without issue or pain. Motor and sensory function are intact of the right lower extremity. Calves are soft and nontender bilaterally. The patient is discharged to home today in good condition, pending medical clearance. Please see discharge orders. Please refer to the med rec for accurate list of medications. Plan - Discharge Summary Discharge Rx Participant: No New Discharge Prescriptions: New Aspirin 325 mg PO BID #60 tab Sennosides [Senokot] 2 tab PO DAILY PRN #60 tablet PRN Reason: Constipation Hydrocodone/Acetaminophen [[place] 5-325] 1 tab PO Q4-6H PRN #30 tab PRN Reason: Pain No Action Aspirin 81 mg PO DAILY Omeprazole 40 mg PO DAILY Olmesartan/Hydrochlorothiazide [Benicar Hct 40-12.5 mg Tablet] 0.5 tab PO DAILY Cholecalciferol [Vitamin D3 (25 Mcg = 1000 Iu)] 1,000 unit PO DAILY Albuterol Inhaler [Ventolin Hfa Inhaler] 2 puff INHALATION RT-Q6H PRN PRN Reason: Shortness Of Breath HYDROcodone/APAP 7.5-325MG [[place] 7.5-325] 1 tab PO Q4-6H PRN PRN Reason: Shortness Of Breath amLODIPine BESYLATE [Norvasc] 10 mg PO DAILY Discharge Medication List Aspirin 81 mg PO DAILY 08/24/16 [History] Olmesartan/Hydrochlorothiazide [Benicar Hct 40-12.5 mg Tablet] 0.5 tab PO DAILY 08/24/16 [History] Omeprazole 40 mg PO DAILY 08/24/16 [History] Albuterol Inhaler [Ventolin Hfa Inhaler] 2 puff INHALATION RT-Q6H PRN 07/07/18 [History] Cholecalciferol [Vitamin D3 (25 Mcg = 1000 Iu)] 1,000 unit PO DAILY 07/07/18 [History] HYDROcodone/APAP 7.5-325MG [[place] 7.5-325] 1 tab PO Q4-6H PRN 10/30/19 [History] amLODIPine BESYLATE [Norvasc] 10 mg PO DAILY 10/30/19 [History] Aspirin 325 mg PO BID #60 tab 11/26/19 [Rx] Sennosides [Senokot] 2 tab PO DAILY PRN #60 tablet 11/26/19 [Rx] Hydrocodone/Acetaminophen [[place] 5-325] 1 tab PO Q4-6H PRN #30 tab 11/27/19 [Rx] Follow up Appointment(s)/Referral(s): [facility], [NON-STAFF] - Woody Tong DO [Doctor of Osteopathic Medicine] - 2 Weeks Activity/Diet/Wound Care/Special Instructions: Weightbearing as tolerated with walker. Leave dressing intact. Dressing may be removed by home care nurse or by patient in 10 days. May shower with dressing on. Recommend use of compression stockings daily for at least 2 weeks during the day to help prevent swelling and blood clots. May remove at night before sleeping. Please follow[facility]up with [facility] in 2 weeks and call with any questions or concerns, .
--- NOTE | 2019-11-27 09:59 | CONS ---
CONSULTATION DATE OF SERVICE: 11/26/2019 HISTORY OF PRESENT ILLNESS: This is a white male who had a right hip replacement. This is day 1. He has history of hypertension. Otherwise, he is having no chest pain or shortness of breath, no lightheaded, dizziness, syncope. HOME MEDICATIONS: Were reviewed. REVIEW OF SYSTEMS: Fourteen-point review of systems negative except for mentioned in HPI except for 2 out of 10 pain in his right hip. PHYSICAL EXAM: Vital signs reviewed. Cardiovascular S1, S2. LUNGS: Clear. GI soft. Hematology negative Homans. Psych: Fair mood and affect. Neurologic: Moves all extremities. His blood pressure is 114/88, oxygen saturation 99%, temp 97.7, pulse 84 to 96, respiratory 16 to 18. ASSESSMENT AND PLAN: 1. Status post right hip surgery day 1. 2. Hypertension. 3. Neuropathy. 4. Continue home medications for blood pressure start in the morning. 5. Advance the diet. 6. PT/OT. 7. Possible discharge home. He is doing very well. MMODL / IJN: [id number] /
== END 2019-11-27 12:32 | disposition home health service (06) | DRG 470 ==
LOC: 2ORMAIN 07:03 → 4SSUR 10:47
PROVIDERS: ADMIT Orthopaedic Surgery; ATTEND Orthopaedic Surgery
PROC: 0SR906A Replacement of Right Hip Joint with Oxidized Zirconium on Polyethylene Synthetic Substitute, Uncemented, Open Approach (ICD-10-PCS; principal; 2019-11-26 09:20)
DX: M16.11 Unilateral primary osteoarthritis, right hip (principal); M87.851 Other osteonecrosis, right femur; I10 Essential (primary) hypertension; G62.9 Polyneuropathy, unspecified; Z82.49 Family history of ischemic heart disease and other diseases of the circulatory system; Z88.0 Allergy status to penicillin; Z97.3 Presence of spectacles and contact lenses
CPT/HCPCS: 73501; 85025; 86850; 86891; 86900; 86901; 88305; 88311

== ENCOUNTER → 2020-06-29 | Outpatient (CLI) | payer BC ==
[2020-06-29 13:39] LABS: Basophils # (A) 0.1 k/uL (0-0.2); Basophils % (A) 1 %; Eosinophils # (A) 0.2 k/uL (0-0.7); Eosinophils % (A) 3 %; HCT 46.4 % (39.0-53.0); HGB 15.2 gm/dL (13.0-17.5); Lymphocytes # (A) 2.7 k/uL (1.0-4.8); Lymphocytes % (A) 37 %; MCH 31.5 pg (25.0-35.0); MCHC 32.7 g/dL (31.0-37.0); MCV 96.2 fL (80.0-100.0); Mean Platelet Volume 6.9; Monocytes # (A) 0.5 k/uL (0-1.0); Monocytes % (A) 7 %; Neutrophils # (A) 3.6 k/uL (1.3-7.7); Neutrophils % (A) 49 %; Platelet Count 226 k/uL (150-450); RBC 4.82 m/uL (4.30-5.90); RDW 13.2 % (11.5-15.5); WBC 7.3 k/uL (3.8-10.6)
[2020-06-29 20:34] LABS: African American GFR (CKD) 116.6 (60.0-200.0); Albumin 4.6 g/dL (3.80-4.90); Albumin/Globulin Ratio 1.84 (1.60-3.17); Anion Gap 10.9 mmol/L (4.00-12.00); Carbon Dioxide 27.1 mmol/L (21.6-31.8); Chol/HDL Ratio 2.95; Globulin 2.5 g/dL (1.6-3.3); LDL Cholesterol,Calculated 130.2 mg/dL (0.0-131.0); Magnesium 1.7 mg/dL (1.5-2.4); Non-African American GFR(CKD) 100.6 (60.0-200.0); PSA Annual Screen 0.4 ng/mL (0.0-4.0); Potassium 3.7 mmol/L (3.5-5.5); Total Bilirubin 0.5 mg/dL (0.3-1.2); Total Protein 7.1 g/dL (6.2-8.2); VLDL Calculation 17.8 mg/dL (5.00-40.00)
== END | disposition home or self-care (01) ==
LOC: LABWHC1 12:24
PROVIDERS: ATTEND Internal Medicine
DX: Z01.818 Encounter for other preprocedural examination (principal); Z12.5 Encounter for screening for malignant neoplasm of prostate; Z79.899 Other long term (current) drug therapy
CPT/HCPCS: 84439; 80061; 80053; 83735; 84443; 85025; 36415; G0103

== ENCOUNTER → 2021-06-22 | Outpatient (CLI) | payer BC ==
[2021-06-22 22:39] LABS: Basophils # (A) 0.06 X 10*3/uL (0.00-0.10); Basophils % (A) 0.9 %; Eosinophils # (A) 0.16 X 10*3/uL (0.04-0.35); Eosinophils % (A) 2.3 %; HCT 42.1 % (39.6-50.0); HGB 14.2 g/dL (13.0-17.0); Lymphocytes # (A) 2.14 X 10*3/uL (0.90-5.00); Lymphocytes % (A) 30.7 %; MCH 32.7 pg (27.0-32.0); MCHC 33.7 g/dL (32.0-37.0); Mean Platelet Volume 9.8 fL (9.5-12.2); Neutrophils % (A) 55.8 %; Platelet Count 213 X 10*3/uL (140-440); RBC 4.34 X 10*6/uL (4.40-5.60); RDW 13.2 % (11.5-14.5); WBC 6.98 X 10*3/uL (4.50-10.00)
[2021-06-23 06:04] LABS: African American GFR (CKD) 110.3 (60.0-200.0); Albumin/Globulin Ratio 1.85 (1.60-3.17); Anion Gap 11.5 mmol/L (4.00-12.00); BUN/Creat Ratio 26.67 Ratio (12.00-20.00); Calcium 10.1 mg/dL (8.7-10.3); Carbon Dioxide 26.5 mmol/L (21.6-31.8); Chol/HDL Ratio 2.85; Globulin 2.7 g/dL (1.6-3.3); LDL Cholesterol,Calculated 114.6 mg/dL (0.0-131.0); Magnesium 1.9 mg/dL (1.5-2.4); Non-African American GFR(CKD) 95.1 (60.0-200.0); Potassium 3.9 mmol/L (3.5-5.5); Prostate Specific Antigen 0.4 ng/mL (0.0-3.5); Total Bilirubin 0.5 mg/dL (0.3-1.2); Total Protein 7.7 g/dL (6.2-8.2); VLDL Calculation 33.4 mg/dL (5.00-40.00)
== END | disposition home or self-care (01) ==
LOC: LABWHC1 15:57
PROVIDERS: ATTEND Nurse Practitioner Family
DX: Z12.5 Encounter for screening for malignant neoplasm of prostate (principal); I10 Essential (primary) hypertension; E78.2 Mixed hyperlipidemia; J44.9 Chronic obstructive pulmonary disease, unspecified
CPT/HCPCS: 36415; 80053; 80061; 82306; 83735; 84153; 84443; 85025

== ENCOUNTER → 2021-09-23 | Outpatient (CLI) | payer BC ==
--- NOTE | 2021-09-23 07:20 | US ---
EXAMINATION TYPE: US duplex aorta DATE OF EXAM: 09/23/2021 COMPARISON: NONE CLINICAL HISTORY: Z13.6 Screening for AAA. no symptoms, no family history, pt was a smoker EXAM MEASUREMENTS: Abdominal Aorta: Proximal: 2.7 x 2.7cm Mid: 1.6 x 2.3cm Distal: 1.7 x 1.9cm Bifurcation: Rt 1.0cm Lt 1.0cm IMPRESSION: No evidence for abdominal aortic aneurysm.
== END | disposition home or self-care (01) ==
LOC: RADUSWWP 06:56
PROVIDERS: ATTEND Family Medicine
DX: Z13.6 Encounter for screening for cardiovascular disorders (principal)
CPT/HCPCS: 93979

== ENCOUNTER → 2022-07-28 | Outpatient (CLI) | payer BC ==
[2022-07-29 01:42] LABS: ALT 20 U/L (10-49); AST 23 U/L (14-35); African American GFR (CKD) 115.8 (60.0-200.0); Albumin 4.9 g/dL (3.8-4.9); Albumin/Globulin Ratio 1.87 (1.60-3.17); Alkaline Phosphatase 119 U/L (41-126); BUN/Creat Ratio 27.52 Ratio (12.00-20.00); Blood Urea Nitrogen 21.6 mg/dL (9.0-27.0); Calcium 10.1 mg/dL (8.7-10.3); Carbon Dioxide 25.6 mmol/L (20.0-27.5); Chloride 99 mmol/L (96-109); Chol/HDL Ratio 2.99 Ratio; Globulin 2.6 g/dL (1.6-3.3); Glucose 97 mg/dL (70-110); LDL Cholesterol,Calculated 135.9 mg/dL (0.0-131.0); Non-African American GFR(CKD) 99.9 (60.0-200.0); Potassium 4.1 mmol/L (3.5-5.5); Sodium 137 mmol/L (135-145); Total Protein 7.5 g/dL (6.2-8.2)
[2022-07-29 01:51] LABS: Basophils # (A) 0.07 X 10*3/uL (0.00-0.10); Basophils % (A) 0.8 %; Eosinophils # (A) 0.16 X 10*3/uL (0.04-0.35); Eosinophils % (A) 1.9 %; HCT 42.8 % (39.6-50.0); HGB 14.2 g/dL (13.0-17.0); Immature Grans, Automated 0.2 %; Lymphocytes # (A) 2.17 X 10*3/uL (0.90-5.00); Lymphocytes % (A) 25.5 %; MCH 32.5 pg (27.0-32.0); MCHC 33.2 g/dL (32.0-37.0); MCV 97.9 fL (80.0-97.0); Mean Platelet Volume 9.9 fL (9.5-12.2); Monocytes # (A) 0.86 X 10*3/uL (0.20-1.00); Monocytes % (A) 10.1 %; NRBC Per 100 WBC 0 /100 WBCS (0.0-0.0); Neutrophils # (A) 5.22 X 10*3/uL (1.80-7.70); Neutrophils % (A) 61.5 %; Platelet Count 234 X 10*3/uL (140-440); RBC 4.37 X 10*6/uL (4.40-5.60); RDW 13.3 % (11.5-14.5)
== END | disposition home or self-care (01) ==
LOC: LABWHC1 15:45
PROVIDERS: ATTEND Family Medicine
DX: I10 Essential (primary) hypertension (principal); J43.9 Emphysema, unspecified; K21.9 Gastro-esophageal reflux disease without esophagitis; Z87.891 Personal history of nicotine dependence
CPT/HCPCS: 36415; 80053; 80061; 82306; 83735; 84443; 85025

== ENCOUNTER → 2023-12-11 | Outpatient (CLI) | payer BC ==
--- NOTE | 2023-12-11 18:21 | CT ---
EXAMINATION TYPE: CT chest wo con CT DLP: 1171.3 mGycm, Automated exposure control for dose reduction was used. DATE OF EXAM: 12/11/2023 5:08 PM COMPARISON: Chest radiograph 12/07/2023. CLINICAL INDICATION:Male, 58 years old with history of J84.9 INTERSTITIAL PULM DISEASE; PHH, ILD TECHNIQUE: High resolution contiguous 1.5 mm axial images of the chest were obtained in a supine and prone position. Noncontiguous 1 mm axial images at 10 mm intervals were obtained in supine position i n expiration. Coronal and sagittal reformatted images were obtained. No intravenous contrast was admi nistered. Contrast used: mL of (None if empty) Oral contrast used: (None if empty) FINDINGS: LUNGS: There is no evidence of interstitial thickening, honeycombing or architectural distortion in t he lungs. Scattered peripheral reticulation present with some paraseptal emphysema changes most proxi mal lung apices. No acute area of infiltrative or consolidative change. There is groundglass opacitie s in the lingula. LARGE AIRWAYS: Central airways are patent. No bronchiectasis or bronchial wall thickening. PLEURA: No pleural effusion or thickening. HEART: Size within normal limits. Mild scattered calcifications of the coronary arteries. MEDIASTINUM: No gross evidence of adenopathy. VASCULATURE: No aortic aneurysm. MUSCULOSKELETAL: No acute osseous abnormalities SOFT TISSUES/LYMPH NODES: Unremarkable. LOWER NECK: No significant findings. UPPER ABDOMEN: No significant findings. IMPRESSION: Interstitial lung disease changes most pronounced along the periphery. No evidence for fi brosis or honeycombing. Findings could relate to sequela of prior atypical pneumonia such as covid 19 . Consider follow-up imaging in one year.
== END | disposition home or self-care (01) ==
LOC: RADCTMAIN 16:43
PROVIDERS: ATTEND Internal Medicine
DX: J84.9 Interstitial pulmonary disease, unspecified (principal)
CPT/HCPCS: 71250

== ENCOUNTER → 2024-04-30 | Outpatient (CLI) | payer BC ==
[2024-05-01 01:53] LABS: Basophils # (A) 0.08 X 10*3/uL (0.00-0.10); Basophils % (A) 0.9 %; Eosinophils # (A) 0.14 X 10*3/uL (0.04-0.35); Eosinophils % (A) 1.7 %; HCT 41.6 % (39.6-50.0); HGB 13.8 g/dL (13.0-17.0); Lymphocytes # (A) 2.92 X 10*3/uL (0.90-5.00); Lymphocytes % (A) 34.4 %; MCH 32.2 pg (27.0-32.0); MCHC 33.2 g/dL (32.0-37.0); Mean Platelet Volume 9.8 FL (9.5-12.2); Monocytes # (A) 0.84 X 10*3/uL (0.20-1.00); Monocytes % (A) 9.9 %; NRBC Per 100 WBC 0 X 10*3/uL (0.00-0.01); Neutrophils # (A) 4.48 X 10*3/uL (1.80-7.70); Neutrophils % (A) 52.9 %; Platelet Count 236 X 10*3/uL (140-440); RBC 4.29 X 10*6/uL (4.40-5.60); RDW 13.1 % (11.5-14.5); WBC 8.48 X 10*3/uL (4.50-10.00)
[2024-05-01 03:17] LABS: ALT 22 U/L (10-49); AST 25 U/L (14-35); Albumin 4.7 g/dL (3.8-4.9); Albumin/Globulin Ratio 1.62 Ratio (1.60-3.17); Alkaline Phosphatase 129 U/L (41-126); BUN/Creat Ratio 19.38 Ratio (12.00-20.00); Blood Urea Nitrogen 15.5 mg/dL (9.0-27.0); Calcium 9.8 mg/dL (8.7-10.3); Carbon Dioxide 26.2 mmol/L (21.6-31.8); Chloride 100 mmol/L (96-109); Globulin 2.9 g/dL (1.6-3.3); Glucose 94 mg/dL (70-110); Potassium 3.6 mmol/L (3.5-5.5); Prostate Specific Antigen 0.43 ng/mL (0.000-3.500); Sodium 140 mmol/L (135-145); Total Bilirubin 0.4 mg/dL (0.3-1.2); Total Protein 7.6 g/dL (6.2-8.2)
== END | disposition home or self-care (01) ==
LOC: LABWHC1 15:40
PROVIDERS: ATTEND Family Medicine
DX: Z12.5 Encounter for screening for malignant neoplasm of prostate (principal); I10 Essential (primary) hypertension; E78.2 Mixed hyperlipidemia
CPT/HCPCS: 36415; 80053; 83735; 84153; 85025

== ENCOUNTER → 2024-06-04 | Outpatient (CLI) | payer BC ==
--- NOTE | 2024-06-04 12:22 | CT ---
EXAMINATION TYPE: CT orbits wo con CT DLP: 386 mGycm, Automated exposure control for dose reduction was used. DATE OF EXAM: 06/04/2024 11:48 AM COMPARISON: None. CLINICAL INDICATION:Male, 58 years old with history of H05.019 cellulitis; PHH, LT eye cellulitis Findings: Limited evaluation due to lack of intravenous contrast. Orbital Contents: * Globes: Normal. * Preseptal Tissues: Normal. * Intraconal Structures: Normal. * Extraconal Structures and Lacrimal Glands: Normal. * Orbital Catherine: Normal. Sella Turcica and Cavernous Sinuses: The sella turcica and cavernous sinus regions are intact and sym metric. Visualized Brain Parenchyma: Normal. Paranasal Sinuses and Surrounding Structures: The paranasal sinuses are intact. The mastoid air cells and skull base is intact. IMPRESSION: No evidence of orbital irregularity or mass.
== END | disposition home or self-care (01) ==
LOC: RADCTMAIN 11:28
PROVIDERS: ATTEND Ophthalmology
DX: L03.213 Periorbital cellulitis (principal)
CPT/HCPCS: 70480

== ENCOUNTER → 2024-11-07 | Outpatient (CLI) | payer BC ==
--- NOTE | 2024-11-08 20:03 | CT ---
EXAMINATION TYPE: CT chest wo con DATE OF EXAM: 11/07/2024 9:49 AM COMPARISON: None. CLINICAL INDICATION: Male, 58 years old with history of High Resolution; J84.9 INTERSTITIAL PULMONARY DISE, PT EXPOSED TO TOXIC MATERIALS/WATER 3 WEEKS AGO, BREATHING ISSUES SINCE, DOES HAVE PRIOR ISSUE S W LUNGS, Lung cancer screening, History of tobacco use. TECHNIQUE: Axial images were obtained at 1 mm thick sections at 10 mm intervals. This will limit po rtions of the examination which may not be visualized within the [id number]. Images were obtained in the prone and supine views. Contrast used: mL of , (none if empty) Oral contrast used: (none if empty) CT DLP: 1288.90 mGycm, Automated exposure control for dose reduction was used. FINDINGS: Portion of the thyroid visualized is normal. There are multiple scattered bilateral irregular infiltrates. This appears to be superimposed on some mild pulmonary fibrosis. Findings have developed from 12/11/2023. No bronchiectasis is evident. A suspicious consolidation or pneumonia is not evident. No discrete mas ses. No enlarged mediastinal or hilar adenopathy is evident. The ascending aorta diameter at the level o f the main pulmonary artery is 3.9 cm. The main pulmonary artery diameter at the bifurcation is 3.[address] sections are obtained through the upper abdomen. Abdomen is essentially unremarkable. IMPRESSION: 1. Multiple irregular appearing changes throughout the bilateral lungs. These have developed from a p rior 12/11/2023 comparison. [facility], , 11/08/2024 8:01 PM
== END | disposition home or self-care (01) ==
LOC: RADCTMAIN 09:19
PROVIDERS: ATTEND Internal Medicine
DX: J84.9 Interstitial pulmonary disease, unspecified (principal); Z87.891 Personal history of nicotine dependence
CPT/HCPCS: 71250

== ENCOUNTER → 2025-01-20 | Outpatient (CLI) | payer BC ==
[2025-01-20 10:10] LABS: Partial Thromboplastin Time 22.3 sec (22.0-30.0); Prothrombin Time 11.4 sec (10.0-12.5)
[2025-01-20 15:04] LABS: Basophils # (A) 0.07 X 10*3/uL (0.00-0.10); Basophils % (A) 0.6 %; Eosinophils # (A) 0.14 X 10*3/uL (0.04-0.35); Eosinophils % (A) 1.1 %; HCT 50.5 % (39.6-50.0); HGB 16.1 g/dL (13.0-17.0); Lymphocytes # (A) 3.67 X 10*3/uL (0.90-5.00); Lymphocytes % (A) 29.5 %; MCH 31.2 pg (27.0-32.0); MCHC 31.9 g/dL (32.0-37.0); MCV 97.9 FL (80.0-97.0); Mean Platelet Volume 9.8 FL (9.5-12.2); Monocytes # (A) 0.96 X 10*3/uL (0.20-1.00); Monocytes % (A) 7.7 %; NRBC Per 100 WBC 0 X 10*3/uL (0.00-0.01); Neutrophils # (A) 7.35 X 10*3/uL (1.80-7.70); Platelet Count 265 X 10*3/uL (140-440); RBC 5.16 X 10*6/uL (4.40-5.60); RDW 14.4 % (11.5-14.5); WBC 12.45 X 10*3/uL (4.50-10.00)
[2025-01-20 15:17] LABS: Blood Urea Nitrogen 22.4 mg/dL (9.0-27.0); Chloride 98 mmol/L (96-109); Glucose 119 mg/dL (70-110); Potassium 4.5 mmol/L (3.5-5.5); Sodium 139 mmol/L (135-145)
[2025-01-20 15:27] LABS: Appearance,Urine Clear (Clear); Bilirubin,Urine Negative (Negative); Blood,Urine Negative (Negative); Color,Urine Yellow (Yellow); Ketones,Urine Negative (Negative); Nitrite,Urine Negative (Negative); Specific Gravity,Urine 1.013 (1.001-1.030); Urobilinogen,Urine 0.2 E.U./DL
== END | disposition home or self-care (01) ==
LOC: LABPAT 08:27
PROVIDERS: ATTEND Thoracic Surgery (Cardiothoracic Vascular Surgery)
DX: Z01.818 Encounter for other preprocedural examination (principal); R91.8 Other nonspecific abnormal finding of lung field; R58 Hemorrhage, not elsewhere classified; Z79.899 Other long term (current) drug therapy
CPT/HCPCS: 36415; 80051; 81003; 82565; 82947; 84520; 85025; 85610; 85730; 86850; 86900; 86901; 87086; 93005

== ENCOUNTER 2025-01-22 10:26 | Inpatient (IN) | payer BC ==
[2025-01-20 10:38] VITALS: BMI 29.1
[2025-01-22 11:28] LABS: Glucose,Whole Blood 176 mg/dL (70-110)
[2025-01-22] MEDS: ONDANSETRON 4 MG/2 ML VIAL IVP ONE (11:42)
[2025-01-22] MEDS: IV FLUID CONTINUATION 1,000 ML IV ONE ×3 (11:49→16:00)
[2025-01-22] MEDS: LACTATED RINGERS 1,000 ML IV SCH (11:50)
[2025-01-22] MEDS: fentaNYL (PF) 50 MCG/ML 2 ML AMP IVP STA (12:01)
[2025-01-22] MEDS: MIDAZOLAM 2 MG/2 ML VIAL IV ONE (12:01)
[2025-01-22 12:33] LABS: Glucose,Whole Blood 190 mg/dL (70-110)
[2025-01-22] MEDS: BUPIVACAINE (PF) 0.5% 30 ML VIAL SQ ONE ×2 (13:08→14:31)
[2025-01-22] MEDS ORDERED: HYDROmorphone (PF) 1 MG/ML ONE (13:16)
[2025-01-22] MEDS ORDERED: GLYCOPYRROLATE 0.2 MG/ML 2 ML VIAL ONE (13:16)
[2025-01-22] MEDS ORDERED: PROPOFOL 10 MG/ML 20 ML VIAL IV ONE (13:16)
[2025-01-22] MEDS ORDERED: DEXAMETHASONE SOD PHOSPHATE 10 MG/ML 1 ML VIAL ONE (13:16)
[2025-01-22] MEDS ORDERED: SUCCINYLCHOLINE CHLORIDE 200 MG/10 ML VIAL IV ONE (13:16)
[2025-01-22] MEDS ORDERED: LIDOCAINE 1% INJ 10MG/ML (20 ML MDV) ONE (13:16)
[2025-01-22] MEDS ORDERED: NEOSTIGMINE 1 MG/ML 10 ML VIAL ONE (13:16)
[2025-01-22] MEDS ORDERED: SUGAMMADEX SODIUM 100 MG/ML SYR IV ONE (13:16)
[2025-01-22] MEDS ORDERED: ROCURONIUM 10 MG/ML (5 ML VIAL) IV ONE (13:16)
[2025-01-22] MEDS ORDERED: ROPIVACAINE 5 MG/ML 30 ML VIAL ONE (13:16)
[2025-01-22] MEDS ORDERED: fentaNYL (PF) 50 MCG/ML 2 ML AMP ONE (13:16)
--- NOTE | 2025-01-22 15:04 | P.ANPRN ---
Procedure Note - Anesthesia - Invasive Line Left Arterial Line Time Out Performed: Yes (1146) Date of Procedure: 01/22/25 Time of Procedure: 11:47 Location of Patient: PreOp Preparation: Sterile Prep, Sterile Dressing Arterial Line Location: Radial (left) Ultrasound Used: No Purpose - Visualization and Identification of Vasculature: No Needle Guage: 20g Image Stored and Saved: No Narrative: Invasive line placement per sterile protocol utilized. lumen bled and flushed
--- NOTE | 2025-01-22 15:04 | P.ANPRN ---
Procedure Note - Anesthesia - Nerve Block Performed Left Erector Spinae Single Time Out Performed: Yes (1146) Date of Procedure: 01/22/25 Procedure Start Time: 11:47 Procedure Stop Time: 11:53 Location of Patient: PreOp Indication: Acute Post-Operative Pain, Requested by Surgeon Specifically requested for management of pain by DrWaqas: Malvin Reyes Sedation Type: Sedate with meaningful contact maintained Preparation: Sterile Prep Position: Sitting Catheter: None Needle Types: Pajunk Needle Gauge: 21 Ultrasound used to visualize needle placement: Yes Ultrasound used to observe medication spread: Yes Injectate: 0.5% Ropivacaine (see comment for volume) (30cc) Blood Aspirated: No Pain Paresthesia on Injection Noted: No Resistance on Injection: Normal Image Stored and Saved: Yes Events: Uneventful and Well Tolerated
--- NOTE | 2025-01-22 15:10 | P.OP ---
Date of Procedure: 01/22/25 Preoperative Diagnosis: Bilateral interstitial infiltrate Postoperative Diagnosis: Same Procedure(s) Performed: Left thoracoscopic lung biopsy Anesthesia: SARAHYA Surgeon: Malvin Reyes Estimated Blood Loss (ml): 15 Pathology: other (Biopsies of both left upper and left lower lobe were sent for pathology as well as cultures including aerobic, anaerobic, acid-fast and fungus.) Condition: stable Disposition: PACU Indications for Procedure: Patient is a 59-year-old male with known COPD followed by Dr. Garibay. He has had progressive dyspnea and shortness of breath with worsening CT appearance showing bilateral interstitial lung disease. Dr. Garibay referred to ri and requested elective lung biopsy for diagnosis. Operative Findings: There were no intrapleural adhesions however the lung compliance was very poor. There were no masses. There are no obvious infiltrates. There was no obvious tumor. Description of Procedure: Patient was brought to the operating room and placed supine on the operating table. He was intubated with a double-lumen endotracheal tube and it was positioned and secured. Fiberoptic bronchoscopy was used for positioning. Patient was turned in the right lateral decubitus position and the left chest was sterilely prepped and draped. 3 incisions were made in the left chest anteriorly and video thoracoscope introduced. Single lung ventilation had been initiated. A wedge biopsy of the left upper lobe was performed at the level of the fissure in the mid lung. Biopsy of the lower lobe was performed on the lower aspect of the lower lobe near the diaphragm anteriorly. Both biopsies were performed with multiple firings of Endo JESSICA medium thick stapler. Staple lines appeared intact. Both specimens were removed and split on the back table with a portion being sent for culture and the majority being sent for pathology. 28 Polish chest tube was placed through separate stab incision and positioned posterior apically. Was secured with 0 Ethibond suture. The lung was reinflated and the video thoracoscope was removed. The incisions were closed with layers of Vicryl suture. Skin glue and dry sterile dressings were applied. Chest tube dressing was applied around the chest tube. Patient was turned supine extubated and transferred to recovery in stable condition.
[2025-01-22] MEDS ORDERED: bisacodyL 10 MG SUPP RECTAL PRN (15:28)
[2025-01-22] MEDS ORDERED: ONDANSETRON 4 MG/2 ML VIAL IVP PRN (15:28)
[2025-01-22] MEDS ORDERED: IPRATROPIUM-ALBUTEROL 3 ML NEB IH PRN (15:28)
--- NOTE | 2025-01-22 15:32 | XR ---
EXAMINATION TYPE: XR chest 1V portable DATE OF EXAM: 01/22/2025 3:24 PM COMPARISON: 10/28/2019 CLINICAL INDICATION: Male, 59 years old with history of post lobectomy, TECHNIQUE: XR chest 1V portable view(s) obtained. FINDINGS: The heart size is prominent. The pulmonary vasculature is prominent. Diffuse increased lung markings are present bilaterally likely some alveolar infiltrate from pulmonar y edema. Left-sided chest tube is present. No pneumothorax is evident. Patient is status post lobectomy. No si gnificant hemithorax asymmetry noted. IMPRESSION: 1. Clinical correlation for congestive heart failure. 2. No pneumothorax present. Left-sided chest tube is in position. [facility], , 01/22/2025 3:30 PM
[2025-01-22] MEDS ORDERED: HYDROmorphone 0.5 MG/0.5 ML SYRINGE IVP PRN (15:53)
[2025-01-22] MEDS: HYDROmorphone 0.5 MG/0.5 ML SYRINGE IVP PRN (15:55)
[2025-01-22] MEDS: DEXTROSE 5%-0.45% NACL 1,000 ML IV SCH (17:23)
[2025-01-22] MEDS: HEPARIN SODIUM,PORCINE 5,000 UNIT/ML 1 ML VIAL SQ SCH (17:27)
[2025-01-22] MEDS: KETOROLAC 15 MG/ML 1 ML VIAL IVP SCH (17:27)
[2025-01-22] MEDS: HYDROCORTISONE SUCCINATE 100 MG/2 ML VIAL IV SCH (17:28)
[2025-01-22] MEDS: IPRATROPIUM-ALBUTEROL 3 ML NEB IH SCH (18:39)
[2025-01-22] MEDS: DEXAMETHASONE SOD PHOSPHATE 4 MG/ML 1 ML VIAL IV ONE (19:01)
[2025-01-22] MEDS: ACETAMINOPHEN TAB 325 MG TAB PO PRN (20:17)
[2025-01-22 21:32] LABS: Glucose,Whole Blood 319 mg/dL (70-110)
[2025-01-22 21:56] LABS: ABG Base Excess 1.1 mmol/L; ABG HCO3 28 mmol/L (21-25); ABG Oxygen Saturation 94.1 % (94-97); ABG PCO2 55 mmHg (35-45); ABG PH 7.32 (7.35-7.45); ABG PO2 77 mmHg (83-108); ABG TCO2 30 mmol/L (19-24); Allen Test Performed? Yes
--- NOTE | 2025-01-22 22:04 | XR ---
EXAMINATION TYPE: XR chest 1V DATE OF EXAM: 01/22/2025 CLINICAL HISTORY: Difficulty breathing progress study. Rule out cardiac tamponade TECHNIQUE: Single AP portable supine view of the chest is obtained. COMPARISON: Chest x-ray from earlier today FINDINGS: There is now moderate left lateral pleural fluid collection despite left apical chest tube redemonstrated. Reticular and reticulonodular increased opacities in the left lung redemonstrated. P ersistent peripheral reticular nodular increased opacities in the right lung. Cardiac silhouette size stable and within normal limits. Osseous structures are intact. IMPRESSION: New moderate left-sided pleural fluid collection despite left apical chest tube. Other fi ndings stable. Bilateral acute infiltrates and/or edema. Consider atypical infection. [facility], , 01/22/2025 10:01 PM
[2025-01-22 22:07] LABS: Basophils % (A) 0 %; Eosinophils # (A) 0.1 k/uL (0-0.7); Eosinophils % (A) 0 %; HCT 41.2 % (39.0-53.0); HGB 12.2 gm/dL (13.0-17.5); Hypochromasia Marked; Lymphocytes # (A) 1.1 k/uL (1.0-4.8); Lymphocytes % (A) 4 %; MCH 30.6 pg (25.0-35.0); MCHC 29.6 g/dL (31.0-37.0); MCV 103.6 fL (80.0-100.0); Macrocytosis Slight; Mean Platelet Volume 7.2; Monocytes # (A) 1.1 k/uL (0-1.0); Monocytes % (A) 4 %; Neutrophils # (A) 26.2 k/uL (1.3-7.7); Neutrophils % (A) 92 %; Platelet Count 245 k/uL (150-450); RBC 3.97 m/uL (4.30-5.90); RDW 13.8 % (11.5-15.5); WBC 28.6 k/uL (3.8-10.6)
[2025-01-22] MEDS: LACTATED RINGERS 500 ML IV ONE (23:20)
[2025-01-22 23:31] LABS: Glucose,Whole Blood 229 mg/dL (70-110)
[2025-01-22] MEDS ORDERED: DEXTROSE 50% SYRINGE 50 ML IVP PRN ×2 (23:45)
[2025-01-23] MEDS: SODIUM CHLORIDE 0.9% 1,000 ML IV ONE ×2 (00:25→08:33)
--- NOTE | 2025-01-23 01:07 | XR ---
EXAM: XR Chest, 1 View CLINICAL HISTORY: ITS.REASON XR Reason: increased chest tube drainage TECHNIQUE: Frontal view of the chest. COMPARISON: 01/22/25 at 2142 hrs. FINDINGS/IMPRESSION: Left chest tube extends to the apex. Small left pleural effusion has decreased from prior. No visible pneumothorax. Stable heart size. Persistent bilateral interstitial opacities, left greater than right.
[2025-01-23 01:10] LABS: HCT 38.4 % (39.0-53.0); HGB 11.6 gm/dL (13.0-17.5); Hypochromasia Marked; MCH 31.6 pg (25.0-35.0); MCHC 30.3 g/dL (31.0-37.0); MCV 104.1 fL (80.0-100.0); Macrocytosis Slight; Mean Platelet Volume 8.3; Platelet Count 210 k/uL (150-450); RBC 3.69 m/uL (4.30-5.90); RDW 13.9 % (11.5-15.5); WBC 23.4 k/uL (3.8-10.6)
[2025-01-23 01:42] LABS: INR 1.1 (<1.2); Prothrombin Time 11.6 sec (10.0-12.5)
[2025-01-23 01:52] LABS: Partial Thromboplastin Time 19.6 sec (22.0-30.0)
--- NOTE | 2025-01-23 03:00 | P.CNPUL ---
History of Present Illness Consult date: 01/23/25 Requesting physician: Alana Toth Reason for consult: other (Status post VATS) Chief complaint: Elective lung biopsy History of present illness: Patient is a 59-year-old male with past medical history significant for hypertension, hyperlipidemia, COPD, brief tobacco smoking history, and ILD. Patient does follow in the pulmonary office with Dr. Garibay. Patient does have evidence of interstitial lung disease. Currently oxygen dependent on 2 L/min nasal cannula. Also, on prednisone 30 mg tablet daily. Most recent follow-up CT of the chest without contrast showing multiple scattered bilateral illegal infiltrates, possible worsening of his ILD. He was referred to cardiothoracic surgery for biopsy. Yesterday, patient underwent left-sided video-assisted thorascopic surgery with wedge resection of the left upper lobe, as well as, biopsy of the lower lobe. Following the procedure, patient was extubated and admitted to the cardiac stepdown unit for recovery. Late last night around 2200, rapid response was called for hypotension. Patient was transferred to the intensive care unit. Patient currently being evaluated in room 267. He has received a total of 2.5 L crystalloid fluid bolus. Blood pressure has responded, currently 92/68 mmHg. He does have a left-sided chest tube. There is a total of 1.3 L of sanguinous output in the atrium. I did speak to the nurse that responded to the [employer]. Apparently, a clot was dislodged, patient drained approximately 1 L of sanguinous output over the following 4 hours. Cardiothoracic surgery was made aware. I did review a chest x-ray that was done at that time, demonstrating a new moderate left-sided pleural effusion, with a apically placed left-sided chest tube. No notable pneumothorax. Chronic interstitial and fibrotic changes. Currently, the chest tube is to suction at - 20 cm H2O. There is intermittent airleak. Chest tube output has slowed down. Hemoglobin preoperatively was 16.1 g/dL, then 12.2 g/dL, and most recent 11.6 g/dL. Platelets 210. Coags including a PT of 11.6, INR 1.1, APTT 19.6, fibrinogen 242. Patient currently on 2 L/min nasal cannula, nonlabored breathing. SpO2 reading 100% on bedside monitor. No signs of CO2 narcosis. ABG done previously, showing mostly compensated acute on chronic hypoxemic and hypercapnic respiratory failure. PaO2 of 77, pCO2 55, pH of 7.32. Blood pressure has responded to fluid resuscitation. No blood transfusions have been administered. No need for vasopressors at this point. Patient is fairly asymptomatic at this time. Review of Systems Constitutional: Denies chills, Denies fever, Denies poor appetite, Denies sweats, Denies weight gain, Denies weight loss Cardiovascular: Denies chest pain, Denies leg edema, Denies lightheadedness, Denies orthopnea, Denies palpitations, Denies paroxysmal nocturnal dyspnea, Denies shortness of breath, Denies syncope Respiratory: Reports cough, Reports home oxygen, Reports pain on inspiration, Denies congestion, Denies dyspnea, Denies hemoptysis Gastrointestinal: Denies abdominal pain, Denies diarrhea, Denies nausea, Denies vomiting Genitourinary: Denies dysuria Musculoskeletal: Denies limitation of motion Integumentary: Denies rash Neurological: Denies seizures, Denies syncope Psychiatric: Denies anxiety, Denies depression Past Medical History Past Medical History: Asthma, COPD, Eye Disorder, GERD/Reflux, Hyperlipidemia, Hypertension Additional Past Medical History / Comment(s): "I may have Bloop in my lungs." ASTHMA CHILD. LT EYE HERPES, LAST 2014. Uses O2 as needed shortness of breath. Does have a history of MRSA infection History of Any Multi-Drug Resistant Organisms: MRSA Date of last positivie culture/infection: 2015 MDRO Source:: " [facility]." Past Surgical History: Joint Replacement Additional Past Surgical History / Comment(s): COLONOSCOPY, Rt hip replacement. Hospitalization for cellulitis to bilat legs. Past Anesthesia/Blood Transfusion Reactions: No Reported Reaction Additional Past Anesthesia/Blood Transfusion Reaction / Comment(s): No hx of blood transfusion to date. Smoking Status: Former smoker - Past Family History Mother Family Medical History: Cancer Additional Family Medical History / Comment(s): FROM PANCREATIC CANCER Father Family Medical History: Cancer Additional Family Medical History / Comment(s): FROM PANCREATIC CANCER Medications and Allergies Home Medications Medication Instructions Recorded Confirmed Type Olmesartan/Hydrochlorothiazide 0.5 tab PO QAM 08/24/16 01/22/25 History [Benicar Hct 40-12.5 mg Tablet] Omeprazole 40 mg PO QAM 08/24/16 01/22/25 History Albuterol Inhaler [Ventolin Hfa 2 puff INHALATION RT-Q6H PRN 07/07/18 01/22/25 History Inhaler] amLODIPine BESYLATE [Norvasc] 10 mg PO QAM 10/30/19 01/22/25 History Ascorbic Acid [Vitamin C] 1,000 mg PO QAM 01/20/25 01/22/25 History Cholecalciferol (Vitamin D3) 500 mcg PO QAM 01/20/25 01/22/25 History [Vitamin D3 (125 MCG = 5,000 IU)] Fluticasone/Umeclidin/Vilanter 1 inhalation INHALATION QAM 01/20/25 01/22/25 History [Trelegy Ellipta 100-62.5-25] predniSONE 30 mg PO QAM 01/20/25 01/22/25 History Allergies Allergy/AdvReac Type Severity Reaction Status Date / Time Penicillins Allergy Unknown Verified 01/22/25 11:03 Childhood Physical Exam Vitals: Vital Signs Temp Pulse Pulse Resp BP BP BP 01/23/25 01:00 78 19 92/68 01/23/25 00:45 73 11 L 79/65 01/23/25 00:30 75 11 L 75/58 01/23/25 00:15 77 10 L 85/60 01/23/25 00:00 98.5 F 74 10 L 88/71 01/22/25 23:53 74 9 L 88/71 01/22/25 23:45 89 22 81/57 01/22/25 23:30 90 14 103/70 01/22/25 23:15 81 10 L 87/67 01/22/25 23:00 81 10 L 82/62 01/22/25 22:45 75 10 L 89/73 01/22/25 22:30 86 10 L 93/53 01/22/25 22:15 78 15 93/53 01/22/25 22:00 83 13 100/59 01/22/25 21:47 35 H 01/22/25 20:00 97.8 F 96 20 01/22/25 16:15 93 18 118/68 01/22/25 16:00 78 18 119/71 01/22/25 15:45 83 18 146/66 133/81 01/22/25 15:30 63 18 141/65 142/73 01/22/25 15:15 65 18 145/68 138/76 01/22/25 15:00 97.3 F L 85 16 165/83 151/85 01/22/25 12:23 72 16 129/80 01/22/25 11:19 98.5 F 75 16 136/84 Pulse Ox 01/23/25 01:00 98 01/23/25 00:45 100 01/23/25 00:30 99 01/23/25 00:15 97 01/23/25 00:00 100 01/22/25 23:53 100 01/22/25 23:45 100 01/22/25 23:30 100 01/22/25 23:15 100 01/22/25 23:00 100 01/22/25 22:45 100 01/22/25 22:30 100 01/22/25 22:15 100 01/22/25 22:00 100 01/22/25 21:47 96 01/22/25 20:00 91 L 01/22/25 16:15 98 01/22/25 16:00 99 01/22/25 15:45 99 01/22/25 15:30 99 01/22/25 15:15 100 01/22/25 15:00 97 01/22/25 12:23 97 01/22/25 11:19 91 L Intake and Output 01/22/25 01/22/25 01/23/25 14:59 22:59 06:59 Intake Total 149 635 9192 Output Total 10 100 1050 Balance 840 300 450 Intake: IV 053 354 4693 Lactated Ringers 500 ml @ 500 999 mls/hr IV .Q31M ONE Rx#:[id number] Sodium Chloride 0.9% 1, 1000 000 ml @ 999 mls/hr IV . Q1H1M ONE Rx#:[id number] Output: Drainage 100 1050 Left Chest 100 1050 Estimated Blood Loss 10 Other: Voiding Method Toilet Urinal Weight 88.3 kg GENERAL EXAM: Alert, 59-year-old male, comfortable in no apparent distress. Left-sided chest tube, to suction at -20 cm H2O, intermittent airleak, 1.3 L of sanguinous drainage in chamber HEAD: Normocephalic and atraumatic EYES: Normal reaction of pupils, equal size. NOSE: Clear with pink turbinates. THROAT: No erythema or exudates. NECK: No masses, no JVD. CHEST: No chest wall deformity. Left-sided chest tube, secured LUNGS: Equal air entry with diminished left-abigail basilar lung sounds and inspiratory crackles. 2 L/min nasal cannula. No conversational dyspnea or accessory muscle use.. CVS: S1 and S2 normal with no audible murmur, regular rhythm. No extra heart sounds ABDOMEN: No hepatosplenomegaly, active bowel sounds, no guarding or rigidity. SPINE: No scoliosis or deformity SKIN: No rashes CENTRAL NERVOUS SYSTEM: No focal deficits, tone is normal in all 4 extremities. EXTREMITIES: There is no peripheral edema, clubbing, or cyanosis. Peripheral pulses are intact. Results - Laboratory Findings CBC and BMP: 01/23/25 00:56 ABG ABG pH 7.32 (7.35-7.45) L 01/22/25 21:54 ABG pCO2 55 mmHg (35-45) H 01/22/25 21:54 ABG pO2 77 mmHg (83-108) L 01/22/25 21:54 ABG O2 Saturation 94.1 % (94-97) 01/22/25 21:54 PT/INR, D-dimer PT 11.6 sec (10.0-12.5) 01/23/25 00:56 INR 1.1 (<1.2) 01/23/25 00:56 Abnormal lab findings: Abnormal Labs 01/22/25 01/22/25 01/22/25 11:26 12:32 21:31 WBC RBC Hgb Hct MCV MCHC Neutrophils # Monocytes # APTT ABG pH ABG pCO2 ABG pO2 ABG HCO3 ABG Total CO2 Hemoglobin POC Glucose (mg/dL) 176 H 190 H 319 H 01/22/25 01/22/25 01/22/25 21:54 22:00 23:30 WBC 28.6 H RBC 3.97 L Hgb 12.2 L Hct MCV 103.6 H MCHC 29.6 L Neutrophils # 26.2 H Monocytes # 1.1 H APTT ABG pH 7.32 L ABG pCO2 55 H ABG pO2 77 L ABG HCO3 28 H ABG Total CO2 30 H Hemoglobin 11.9 L POC Glucose (mg/dL) 229 H 01/23/25 01/23/25 00:56 00:56 WBC 23.4 H RBC 3.69 L Hgb 11.6 L Hct 38.4 L MCV 104.1 H MCHC 30.3 L Neutrophils # Monocytes # APTT 19.6 L ABG pH ABG pCO2 ABG pO2 ABG HCO3 ABG Total CO2 Hemoglobin POC Glucose (mg/dL) - Diagnostic Findings Chest x-ray: image reviewed Assessment and Plan Assessment: Status postoperative day #1 following video-assisted thorascopic surgery with wedge resection of the left upper lobe, as well as, biopsy of the lower lobe. Hypotension, hypovolemia, status post aggressive fluid resuscitation with a total of 2.5 crystalloid fluid Acute blood loss anemia, expected outcome of surgery Acute on chronic hypoxemic and hypercapnic respiratory failure History of interstitial lung disease Brief history of tobacco smoking COPD, stable and inactive Hyperglycemia, without documented history of diabetes mellitus Leukocytosis, reactive to surgery Gastroesophageal reflux disease History of hypertension Plan: Patient was moved to the intensive care unit following rapid response for hypotension. Chest x-ray at that time showing a new moderate-sized left-sided pleural effusion with an apically placed left-sided chest tube. According to the rapid response nurse, a large clot was dislodged and patient abruptly had 1 L of sanguinous chest tube output. Blood pressure was noted to be hypotensive. Patient was fluid resuscitated with a total of 2.5 L crystalloid fluid. Cardiothoracic surgery was made aware. Continue to monitor chest tube output. Hemoglobin appears to have stabilized, currently 11.6 g/dL; continue monitor H&H every 4 hours Transfuse for hemoglobin less than 7 g/dL Hold antihypertensive medications at the moment Continue supplemental oxygen Encourage incentive spirometer As needed analgesics ordered Repeat chest x-ray in the morning Patient currently being monitored in the intensive care unit I have personally seen and examined the patient, performed the documentation and the assessment and plan as written. Number of minutes spent on the visit:20 Time with Patient: Greater than 30
[2025-01-23 06:14] LABS: Basophils % (A) 0 %; Eosinophils % (A) 0 %; HCT 38.1 % (39.0-53.0); HGB 11.7 gm/dL (13.0-17.5); Hypochromasia Marked; Lymphocytes # (A) 1.9 k/uL (1.0-4.8); Lymphocytes % (A) 10 %; MCH 32.1 pg (25.0-35.0); MCHC 30.7 g/dL (31.0-37.0); MCV 104.3 fL (80.0-100.0); Macrocytosis Slight; Monocytes % (A) 5 %; Neutrophils # (A) 16.2 k/uL (1.3-7.7); Neutrophils % (A) 84 %; Platelet Count 169 k/uL (150-450); RBC 3.65 m/uL (4.30-5.90); RDW 13.6 % (11.5-15.5); WBC 19.3 k/uL (3.8-10.6)
[2025-01-23 06:47] LABS: Glucose,Whole Blood 183 mg/dL (70-110)
[2025-01-23] MEDS: INSULIN LISPRO (HumaLOG) 100 UNIT/ML 10 mL VL SQ SCH (06:52)
[2025-01-23 07:35] LABS: African American GFR (CKD) >90 (>60 ml/min/1.73 sqM); Anion Gap 7 mmol/L; Blood Urea Nitrogen 35 mg/dL (9-20); Calcium 8.8 mg/dL (8.4-10.2); Carbon Dioxide 30 mmol/L (22-30); Chloride 96 mmol/L (98-107); Glucose 161 mg/dL (74-99); Non-African American GFR(CKD) >90 (>60 ml/min/1.73 sqM); Potassium 5.5 mmol/L (3.5-5.1); Sodium 133 mmol/L (137-145)
[2025-01-23] MEDS ORDERED: TIOTROPIUM 2.5 MCG INHALER INHALATION SCH (08:00)
[2025-01-23] MEDS: PANTOPRAZOLE 40 MG TABLET PO SCH (08:17)
[2025-01-23] MEDS: ASCORBIC ACID 500 MG TAB PO SCH (08:18)
[2025-01-23] MEDS: CHOLECALCIFEROL 125 MCG (5000 IU) TABLET PO SCH (08:18)
[2025-01-23] MEDS: SYMBICORT 160-4.5 MCG INHALER INHALATION SCH (08:22)
[2025-01-23] MEDS: traMADol 50 MG TAB PO PRN (08:39)
--- NOTE | 2025-01-23 08:43 | XR ---
EXAMINATION TYPE: XR chest 1V portable DATE OF EXAM: 01/23/2025 5:18 AM COMPARISON: None. CLINICAL INDICATION: Male, 59 years old with history of chest tube s/p VATS, TECHNIQUE: XR chest 1V portable view(s) obtained. FINDINGS: The heart size is enlarged. The pulmonary vasculature is prominent. Left-sided chest tube is present. No pneumothorax is present. Mild diffuse increased lung markings are present. Correlate for volume overload IMPRESSION: 1. Clinical correlation for volume overload or congestive heart failure. 2. Left-sided chest tube remains in position, no pneumothorax evident [facility], , 01/23/2025 8:40 AM
[2025-01-23] MEDS ORDERED: amLODIPine 10 MG TAB PO SCH (09:00)
[2025-01-23] MEDS ORDERED: LOSARTAN 50 MG TAB PO SCH (09:00)
[2025-01-23] MEDS: hydroCHLOROthiazide 25 MG TAB PO SCH (09:36)
--- NOTE | 2025-01-23 09:59 | P.PN ---
Subjective Progress Note Date: 01/23/25 Principal diagnosis: Bilateral interstitial infiltrate, acute blood loss anemia, hypotension, hypovolemia, leukocytosis, acute on chronic hypoxemic and hypercapnic respiratory failure. History of interstitial lung disease, previous tobacco dependence, COPD on home oxygen, hypertension, GERD POD #1 left thoracoscopic lung biopsy The patient was seen and examined this morning sitting up in recliner in the intensive care unit in no acute distress with Dr. Willingham. Apparently last night a rapid response was called due to high output in chest tube with subsequent hypotension. Patient was given 2.5 L IV fluid and transferred to the intensive care unit. He did not need to be started on pressors, blood pressure rebounded. Chest tube output put slowed. This morning he was sitting up in the recliner eating breakfast and tolerating well. He did end up with another episode of hypotension although without increased chest tube output. He complained of feeling lightheaded and dizzy and diaphoretic. Again IV fluids were given with rebound of blood pressure and patient stating he felt better. Left chest tube present to continuous wall suction with 1.7 L bloody drainage present. Objective - Vital Signs Vital signs: Vital Signs Temp 97.6 F 01/23/25 08:00 Pulse 63 01/23/25 09:00 Resp 13 01/23/25 09:00 BP 95/65 01/23/25 09:00 Pulse Ox 100 01/23/25 08:30 FiO2 Intake & Output 01/22/25 01/23/25 01/23/25 18:59 06:59 18:59 Intake Total 1250 1550 1000 Output Total 10 1590 70 Balance 1240 -40 930 Weight 88.3 kg 90.8 kg Intake: IV 1250 1550 1000 Lactated Ringers 500 ml @ 500 999 mls/hr IV .Q31M ONE Rx#:[id number] Sodium Chloride 0.9% 1, 1000 1000 000 ml @ 999 mls/hr IV . Q1H1M ONE Rx#:[id number] ceFAZolin 2 gm In Sodium 50 Chloride 0.9% 50 ml @ 100 mls/hr IVPB Q8H [facility] Rx#: [id number] Output: Chest Tube Drainage 30 Pleural Catheter Left 30 Drainage 1340 40 Left Chest 1340 40 Urine 250 Estimated Blood Loss 10 Other: Voiding Method Toilet Urinal - Exam CONSTITUTIONAL: Appears comfortable, cooperative, no acute distress currently RESPIRATORY: Lungs sounds diminished bilaterally. Respirations even, nonlabored. Currently on 2 L nasal cannula with oxygen saturation 92%. Able to achieve 1000 mL on incentive spirometry. Strong cough. CARDIOVASCULAR: S1, S2 present. Regular rate and rhythm, sinus rhythm on telemetry. Palpable peripheral pulses bilaterally. No edema present. No calf pain or tenderness noted. SCDs present. GASTROINTESTINAL: Abdomen soft, nontender, nondistended. Active bowel sounds present 4 quadrants. Tolerating diet GENITOURINARY: Continues to void INTEGUMENTARY: Skin is warm and dry NEUROLOGIC: Cranial nerves II through XII intact MUSKULOSKELETAL: Able to move all extremities, strength equal bilaterally, gait normal PSYCHIATRIC: Alert and oriented to person place and time, appropriate affect, intact judgment and insight INVASIVE LINES AND TUBES: Left pleural chest tube present and connected to wall suction, no air leak present, 1700 mL bloody drainage since surgery - Allied health notes Allied health notes reviewed: nursing - Labs CBC & Chem 7: 01/23/25 05:38 01/23/25 05:38 Labs: Abnormal Lab Results - Last 24 Hours (Table) 01/22/25 01/22/25 01/22/25 Range/Units 11:26 12:32 21:31 WBC (3.8-10.6) k/uL RBC (4.30-5.90) m/uL Hgb (13.0-17.5) gm/dL Hct (39.0-53.0) % MCV (80.0-100.0) fL MCHC (31.0-37.0) g/dL Neutrophils # (1.3-7.7) k/uL Monocytes # (0-1.0) k/uL APTT (22.0-30.0) sec ABG pH (7.35-7.45) ABG pCO2 (35-45) mmHg ABG pO2 (83-108) mmHg ABG HCO3 (21-25) mmol/L ABG Total CO2 (19-24) mmol/L Hemoglobin (13.0-17.5) gm/dL Sodium (137-145) mmol/L Potassium (3.5-5.1) mmol/L Chloride (98-107) mmol/L BUN (9-20) mg/dL Glucose (74-99) mg/dL POC Glucose (mg/dL) 176 H 190 H 319 H (70-110) mg/dL 01/22/25 01/22/25 01/22/25 Range/Units 21:54 22:00 23:30 WBC 28.6 H (3.8-10.6) k/uL RBC 3.97 L (4.30-5.90) m/uL Hgb 12.2 L (13.0-17.5) gm/dL Hct (39.0-53.0) % MCV 103.6 H (80.0-100.0) fL MCHC 29.6 L (31.0-37.0) g/dL Neutrophils # 26.2 H (1.3-7.7) k/uL Monocytes # 1.1 H (0-1.0) k/uL APTT (22.0-30.0) sec ABG pH 7.32 L (7.35-7.45) ABG pCO2 55 H (35-45) mmHg ABG pO2 77 L (83-108) mmHg ABG HCO3 28 H (21-25) mmol/L ABG Total CO2 30 H (19-24) mmol/L Hemoglobin 11.9 L (13.0-17.5) gm/dL Sodium (137-145) mmol/L Potassium (3.5-5.1) mmol/L Chloride (98-107) mmol/L BUN (9-20) mg/dL Glucose (74-99) mg/dL POC Glucose (mg/dL) 229 H (70-110) mg/dL 01/23/25 01/23/25 01/23/25 Range/Units 00:56 00:56 05:38 WBC 23.4 H 19.3 H (3.8-10.6) k/uL RBC 3.69 L 3.65 L (4.30-5.90) m/uL Hgb 11.6 L 11.7 L (13.0-17.5) gm/dL Hct 38.4 L 38.1 L (39.0-53.0) % MCV 104.1 H 104.3 H (80.0-100.0) fL MCHC 30.3 L 30.7 L (31.0-37.0) g/dL Neutrophils # 16.2 H (1.3-7.7) k/uL Monocytes # (0-1.0) k/uL APTT 19.6 L (22.0-30.0) sec ABG pH (7.35-7.45) ABG pCO2 (35-45) mmHg ABG pO2 (83-108) mmHg ABG HCO3 (21-25) mmol/L ABG Total CO2 (19-24) mmol/L Hemoglobin (13.0-17.5) gm/dL Sodium (137-145) mmol/L Potassium (3.5-5.1) mmol/L Chloride (98-107) mmol/L BUN (9-20) mg/dL Glucose (74-99) mg/dL POC Glucose (mg/dL) (70-110) mg/dL 01/23/25 01/23/25 Range/Units 05:38 06:45 WBC (3.8-10.6) k/uL RBC (4.30-5.90) m/uL Hgb (13.0-17.5) gm/dL Hct (39.0-53.0) % MCV (80.0-100.0) fL MCHC (31.0-37.0) g/dL Neutrophils # (1.3-7.7) k/uL Monocytes # (0-1.0) k/uL APTT (22.0-30.0) sec ABG pH (7.35-7.45) ABG pCO2 (35-45) mmHg ABG pO2 (83-108) mmHg ABG HCO3 (21-25) mmol/L ABG Total CO2 (19-24) mmol/L Hemoglobin (13.0-17.5) gm/dL Sodium 133 L (137-145) mmol/L Potassium 5.5 H (3.5-5.1) mmol/L Chloride 96 L (98-107) mmol/L BUN 35 H (9-20) mg/dL Glucose 161 H (74-99) mg/dL POC Glucose (mg/dL) 183 H (70-110) mg/dL Microbiology - Last 24 Hours (Table) 01/22/25 14:06 Acid Fast Bacilli Smear - Preliminary Lung - Left Lower Lobe 01/22/25 14:06 Acid Fast Bacilli Smear - Preliminary Lung - Left Upper Lobe 01/22/25 14:06 Gram Stain - Preliminary Lung - Left Upper Lobe Tissue Culture - Preliminary 01/22/25 14:06 Gram Stain - Preliminary Lung - Left Lower Lobe Tissue Culture - Preliminary - Imaging and Cardiology Chest x-ray: report reviewed, image reviewed Assessment and Plan Assessment: Bilateral interstitial infiltrate, status post left thoracoscopic lung biopsy Acute blood loss anemia Hypotension due to hypovolemia Leukocytosis, likely reactive Acute on chronic hypoxemic and hypercapnic respiratory failure History of interstitial lung disease Previous tobacco dependence COPD on home oxygen Hypertension GERD Plan: Continue chest tube to wall suction for now Patient made n.p.o. in case we need to take him back to the operating room for washout Will monitor chest tube output Will continue IV fluids Wean oxygen as tolerated, encourage incentive spirometry use Pain control per current medication regimen Continue Solu-Cortef, will discharge on home prednisone Bronchodilators per pulmonology Increase activity as tolerated More recommendations to follow
[2025-01-23] MEDS: SODIUM CHLORIDE 0.9% 1,000 ML IV SCH (11:05)
[2025-01-23 11:10] LABS: Glucose,Whole Blood 199 mg/dL (70-110)
--- NOTE | 2025-01-23 11:22 | XR ---
EXAMINATION TYPE: XR chest 1V portable DATE OF EXAM: 01/23/2025 10:51 AM COMPARISON: 01/23/2025 CLINICAL INDICATION: Male, 59 years old with history of chest tube outpt, TECHNIQUE: XR chest 1V portable view(s) obtained. FINDINGS: The heart size is normal. The pulmonary vasculature is normal. Mild diffuse increased lung markings are present bilaterally. Correlate for pulmonary edema and atypi iliana pneumonia. Left-sided chest tube is present. No pneumothorax is identified. IMPRESSION: 1. Diffuse increased lung markings may be worsening. Correlate for pulmonary edema and atypical pneum onia. 2. Left-sided chest tube stable in position. No pneumothorax [facility], , 01/23/2025 11:20 AM
[2025-01-23 12:21] LABS: HCT 32.6 % (39.0-53.0); Hypochromasia Moderate; MCH 30.9 pg (25.0-35.0); MCHC 29.7 g/dL (31.0-37.0); Macrocytosis Slight; Mean Platelet Volume 8.1; Platelet Count 193 k/uL (150-450); RBC 3.14 m/uL (4.30-5.90); RDW 13.9 % (11.5-15.5); WBC 17.2 k/uL (3.8-10.6)
[2025-01-23 12:24] LABS: HGB 9.7 gm/dL (13.0-17.5)
[2025-01-23 17:44] LABS: Glucose,Whole Blood 278 mg/dL (70-110)
[2025-01-23 20:27] LABS: Glucose,Whole Blood 230 mg/dL (70-110)
[2025-01-24 03:14] LABS: HCT 28.9 % (39.0-53.0); Hypochromasia Marked; MCH 32.3 pg (25.0-35.0); MCHC 31.2 g/dL (31.0-37.0); MCV 103.7 fL (80.0-100.0); Macrocytosis Slight; Mean Platelet Volume 7.6; Platelet Count 159 k/uL (150-450); RBC 2.78 m/uL (4.30-5.90); RDW 13.6 % (11.5-15.5); WBC 21.1 k/uL (3.8-10.6)
[2025-01-24 03:40] LABS: African American GFR (CKD) >90 (>60 ml/min/1.73 sqM); Anion Gap 5 mmol/L; Blood Urea Nitrogen 27 mg/dL (9-20); Calcium 8.8 mg/dL (8.4-10.2); Carbon Dioxide 28 mmol/L (22-30); Chloride 96 mmol/L (98-107); Glucose 162 mg/dL (74-99); Non-African American GFR(CKD) >90 (>60 ml/min/1.73 sqM); Potassium 4.5 mmol/L (3.5-5.1); Sodium 129 mmol/L (137-145)
[2025-01-24 06:16] LABS: Glucose,Whole Blood 188 mg/dL (70-110)
--- NOTE | 2025-01-24 08:12 | P.PN ---
Subjective Progress Note Date: 01/24/25 Principal diagnosis: Bilateral interstitial infiltrate, acute blood loss anemia, hypotension, hypovolemia, leukocytosis, acute on chronic hypoxemic and hypercapnic respiratory failure. History of interstitial lung disease, previous tobacco dependence, COPD on home oxygen, hypertension, GERD POD #2 left thoracoscopic lung biopsy The patient was seen and examined this morning sitting up in recliner in the intensive care unit in no acute distress. States he feels much better this morning, no further complaints of dizziness/diaphoresis. He has been able to stand and void without difficulty. No further episodes of hypotension. Left chest tube present to [facility] with 120 mL bloody drainage in the last 24 hours. Patient remains in sinus rhythm, blood pressure stable, remains on 2 L nasal cannula with oxygen saturation in the 90s. Microbiology sent from operative sample preliminarily negative, pathology still pending. No other new concerns. Objective - Vital Signs Vital signs: Vital Signs Temp 98.2 F 01/24/25 04:00 Pulse 92 01/24/25 07:00 Resp 20 01/24/25 07:00 BP 100/80 01/24/25 07:00 Pulse Ox 89 L 01/24/25 07:00 FiO2 Intake & Output 01/23/25 01/24/25 01/24/25 18:59 06:59 18:59 Intake Total 1540 1080 50 Output Total 840 1030 10 Balance 700 50 40 Intake: IV 1000 550 50 Sodium Chloride 0.9% 1, 550 50 000 ml @ 50 mls/hr IV . Q20H [facility] Rx#:[id number] Sodium Chloride 0.9% 1, 1000 000 ml @ 999 mls/hr IV . Q1H1M [facility] Rx#:[id number] Intake, IV Titration 540 50 Amount Sodium Chloride 0.9% 1, 540 50 000 ml @ 50 mls/hr IV . Q20H [facility] Rx#:[id number] Oral 480 Output: Chest Tube Drainage 100 0 Pleural Catheter Left 100 0 Drainage 40 30 10 Left Chest 40 30 10 Urine 700 1000 Other: Voiding Method Toilet Toilet Urinal Urinal - Exam CONSTITUTIONAL: Appears comfortable, cooperative, no acute distress currently RESPIRATORY: Lungs sounds diminished bilaterally. Respirations even, nonlabored. Currently on 2 L nasal cannula with oxygen saturation 99%. Able to achieve 1000 mL on incentive spirometry. Strong cough. CARDIOVASCULAR: S1, S2 present. Regular rate and rhythm, sinus rhythm on telemetry. Palpable peripheral pulses bilaterally. No edema present. No calf pain or tenderness noted. SCDs present. GASTROINTESTINAL: Abdomen soft, nontender, nondistended. Active bowel sounds present 4 quadrants. Tolerating diet. Positive flatus GENITOURINARY: Continues to void INTEGUMENTARY: Skin is warm and dry NEUROLOGIC: Cranial nerves II through XII intact MUSKULOSKELETAL: Able to move all extremities, strength equal bilaterally, gait normal PSYCHIATRIC: Alert and oriented to person place and time, appropriate affect, intact judgment and insight INVASIVE LINES AND TUBES: Left pleural chest tube present to waterseal, no air leak present, 30 mL bloody drainage overnight, 120 mL drainage in the last 24 hours - Allied health notes Allied health notes reviewed: nursing - Labs CBC & Chem 7: 01/24/25 02:51 01/24/25 02:42 Labs: Abnormal Lab Results - Last 24 Hours (Table) 01/23/25 01/23/25 01/23/25 Range/Units 05:38 11:08 11:11 WBC 17.2 H (3.8-10.6) k/uL RBC 3.14 L (4.30-5.90) m/uL Hgb 9.7 L D (13.0-17.5) gm/dL Hct 32.6 L (39.0-53.0) % MCV 104.0 H (80.0-100.0) fL MCHC 29.7 L (31.0-37.0) g/dL Sodium (137-145) mmol/L Chloride (98-107) mmol/L BUN (9-20) mg/dL Creatinine (0.66-1.25) mg/dL Glucose (74-99) mg/dL POC Glucose (mg/dL) 199 H (70-110) mg/dL Hemoglobin A1c 7.0 H (<=6.0) % 01/23/25 01/23/25 01/24/25 Range/Units 17:42 20:26 02:42 WBC (3.8-10.6) k/uL RBC (4.30-5.90) m/uL Hgb (13.0-17.5) gm/dL Hct (39.0-53.0) % MCV (80.0-100.0) fL MCHC (31.0-37.0) g/dL Sodium 129 L (137-145) mmol/L Chloride 96 L (98-107) mmol/L BUN 27 H (9-20) mg/dL Creatinine 0.58 L (0.66-1.25) mg/dL Glucose 162 H (74-99) mg/dL POC Glucose (mg/dL) 278 H 230 H (70-110) mg/dL Hemoglobin A1c (<=6.0) % 01/24/25 01/24/25 Range/Units 02:51 06:15 WBC 21.1 H (3.8-10.6) k/uL RBC 2.78 L (4.30-5.90) m/uL Hgb 9.0 L (13.0-17.5) gm/dL Hct 28.9 L (39.0-53.0) % MCV 103.7 H (80.0-100.0) fL MCHC (31.0-37.0) g/dL Sodium (137-145) mmol/L Chloride (98-107) mmol/L BUN (9-20) mg/dL Creatinine (0.66-1.25) mg/dL Glucose (74-99) mg/dL POC Glucose (mg/dL) 188 H (70-110) mg/dL Hemoglobin A1c (<=6.0) % Microbiology - Last 24 Hours (Table) 01/22/25 14:06 Gram Stain - Preliminary Lung - Left Lower Lobe Tissue Culture - Preliminary 01/22/25 14:06 Gram Stain - Preliminary Lung - Left Upper Lobe Tissue Culture - Preliminary 01/22/25 14:06 Acid Fast Bacilli Smear - Preliminary Lung - Left Lower Lobe 01/22/25 14:06 Acid Fast Bacilli Smear - Preliminary Lung - Left Upper Lobe - Imaging and Cardiology Chest x-ray: image reviewed Assessment and Plan Assessment: Bilateral interstitial infiltrate, status post left thoracoscopic lung biopsy Acute blood loss anemia Hypotension due to hypovolemia Leukocytosis, likely reactive Acute on chronic hypoxemic and hypercapnic respiratory failure History of interstitial lung disease Previous tobacco dependence COPD on home oxygen Hypertension GERD Plan: Continue chest tube to waterseal Will monitor chest tube output Hep-Lock IV Wean oxygen as tolerated, encourage incentive spirometry use Pain control per current medication regimen Continue Solu-Cortef, will discharge on home prednisone Bronchodilators per pulmonology Increase activity as tolerated Will place transfer orders for 3 S. cardiac stepdown unit, may transfer when bed available More recommendations to follow
--- NOTE | 2025-01-24 09:10 | XR ---
EXAMINATION TYPE: XR chest 1V portable DATE OF EXAM: 01/24/2025 4:44 AM COMPARISON: None. CLINICAL INDICATION: Male, 59 years old with history of post lung surgery, TECHNIQUE: XR chest 1V portable view(s) obtained. FINDINGS: The heart size is upper limits of normal. The pulmonary vasculature is slightly prominent. Mild diffuse increased lung markings are present likely on the basis of volume overload. This appears improved from comparison. Left-sided chest tube is present. Very minimal apical pneumothorax is present on the left. IMPRESSION: 1. Mild volume overload slightly improved from comparison. 2. Minimal left apical pneumothorax. Left-sided chest tube remains in position [facility], , 01/24/2025 9:08 AM
[2025-01-24 11:44] LABS: Glucose,Whole Blood 217 mg/dL (70-110)
--- NOTE | 2025-01-24 14:59 | P.PN ---
Subjective Progress Note Date: 01/24/25 Principal diagnosis: Interstitial lung disease, status post VATS lung biopsy postoperative day #2 Patient is a 59-year-old male with past medical history significant for hyperten chase, hyperlipidemia, COPD, brief tobacco smoking history, and ILD. Patient does follow in the pulmonary office with Dr. Garibay. Patient does have evidence of interstitial lung disease. Currently oxygen dependent on 2 L/min nasal cannula. Also, on prednisone 30 mg tablet daily. Most recent follow-up CT of the chest without contrast showing multiple scattered bilateral illegal infiltrates, possible worsening of his ILD. He was referred to cardiothoracic surgery for biopsy. Yesterday, patient underwent left-sided video-assisted thorascopic surgery with wedge resection of the left upper lobe, as well as, biopsy of the lower lobe. Following the procedure, patient was extubated and admitted to the cardiac stepdown unit for recovery. Late last night around 2200, rapid response was called for hypotension. Patient was transferred to the intensive care unit. Patient currently being evaluated in room 267. He has received a total of 2.5 L crystalloid fluid bolus. Blood pressure has responded, currently 92/68 mmHg. He does have a left-sided chest tube. There is a total of 1.3 L of sanguinous output in the atrium. I did speak to the nurse that responded to the [employer]. Apparently, a clot was dislodged, patient drained approximately 1 L of sanguinous output over the following 4 hours. Cardiothoracic surgery was made aware. I did review a chest x-ray that was done at that time, demonstrating a new moderate left-sided pleural effusion, with a apically placed left-sided chest tube. No notable pneumothorax. Chronic interstitial and fibrotic changes. Currently, the chest tube is to suction at - 20 cm H2O. There is intermittent airleak. Chest tube output has slowed down. H emoglobin preoperatively was 16.1 g/dL, then 12.2 g/dL, and most recent 11.6 g/dL. Platelets 210. Coags including a PT of 11.6, INR 1.1, APTT 19.6, fibrinogen 242. Patient currently on 2 L/min nasal cannula, nonlabored breathing. SpO2 reading 100% on bedside monitor. No signs of CO2 narcosis. ABG done previously, showing mostly compensated acute on chronic hypoxemic and hypercapnic respiratory failure. PaO2 of 77, pCO2 55, pH of 7.32. Blood pressure has responded to fluid resuscitation. No blood transfusions have been administered. No need for vasopressors at this point. Patient is fairly asymptomatic at this time. Patient was seen today on 01/24/2025, he is now postoperative day #2 left thoracoscopic lung biopsy patient seems to doing much better today, sitting at the bedside chair, not in any distress, denies any shortness of breath or cough or wheezing at rest, his left-sided chest tube is to waterseal, he had 124 cc of bloody drainage over the last 24 hours. Patient is in sinus rhythm, he is relatively asymptomatic, hemoglobin today is 9 WBC count is 21.1 sodium is 129 potassium 4.5 BUN is 27 creatinine 0.58 chest x-ray today showed mild volume overload with interstitial lung disease and minimal left apical pneumothorax. Left-sided chest tube remains in place. Objective - Vital Signs Vital signs: Vital Signs Temp 98 F 01/24/25 12:00 Pulse 104 H 01/24/25 12:00 Resp 18 01/24/25 12:00 BP 123/73 01/24/25 12:00 Pulse Ox 95 01/24/25 12:00 FiO2 Intake & Output 01/23/25 01/24/25 01/24/25 18:59 06:59 18:59 Intake Total 1540 1080 350 Output Total 840 1030 670 Balance 700 50 -320 Intake: IV 1000 550 100 Sodium Chloride 0.9% 1, 550 100 000 ml @ 50 mls/hr IV . Q20H [facility] Rx#:[id number] Sodium Chloride 0.9% 1, 1000 000 ml @ 999 mls/hr IV . Q1H1M [facility] Rx#:[id number] Intake, IV Titration 540 50 Amount Sodium Chloride 0.9% 1, 540 50 000 ml @ 50 mls/hr IV . Q20H [facility] Rx#:[id number] Oral 480 250 Output: Chest Tube Drainage 100 0 10 Pleural Catheter Left 100 0 10 Drainage 40 30 10 Left Chest 40 30 10 Urine 700 1000 650 Other: Voiding Method Toilet Toilet Toilet Urinal Urinal Urinal - Exam CONSTITUTIONAL: Revealed 59-year-old white male in no distress sitting at the bedside chair on 2 L nasal cannula RESPIRATORY: Fine crackles at the bases, left-sided chest tube is noted CARDIOVASCULAR: Normal S1-S2, no S3 gallop, no murmur GASTROINTESTINAL: Abdomen soft, nontender, nondistended. Active bowel sounds present 4 quadrants. Tolerating diet. Positive flatus INTEGUMENTARY: Skin is warm and dry MUSKULOSKELETAL: Normal range of motion no deformities PSYCHIATRIC: Normal mood affect and no mental status examination Neurologic: Alert oriented x 3 no gross focal deficit INVASIVE LINES AND TUBES: Left pleural chest tube present to waterseal, no air leak present, 30 mL bloody drainage overnight, 120 mL drainage in the last 24 hours - Labs CBC & Chem 7: 01/24/25 02:51 01/24/25 02:42 Labs: Abnormal Lab Results - Last 24 Hours (Table) 01/23/25 01/23/25 01/24/25 Range/Units 17:42 20:26 02:42 WBC (3.8-10.6) k/uL RBC (4.30-5.90) m/uL Hgb (13.0-17.5) gm/dL Hct (39.0-53.0) % MCV (80.0-100.0) fL Sodium 129 L (137-145) mmol/L Chloride 96 L (98-107) mmol/L BUN 27 H (9-20) mg/dL Creatinine 0.58 L (0.66-1.25) mg/dL Glucose 162 H (74-99) mg/dL POC Glucose (mg/dL) 278 H 230 H (70-110) mg/dL 01/24/25 01/24/25 01/24/25 Range/Units 02:51 06:15 11:43 WBC 21.1 H (3.8-10.6) k/uL RBC 2.78 L (4.30-5.90) m/uL Hgb 9.0 L (13.0-17.5) gm/dL Hct 28.9 L (39.0-53.0) % MCV 103.7 H (80.0-100.0) fL Sodium (137-145) mmol/L Chloride (98-107) mmol/L BUN (9-20) mg/dL Creatinine (0.66-1.25) mg/dL Glucose (74-99) mg/dL POC Glucose (mg/dL) 188 H 217 H (70-110) mg/dL Microbiology - Last 24 Hours (Table) 01/22/25 14:06 Gram Stain - Preliminary Lung - Left Lower Lobe Tissue Culture - Preliminary 01/22/25 14:06 Gram Stain - Preliminary Lung - Left Upper Lobe Tissue Culture - Preliminary Assessment and Plan Assessment: Impression: Interstitial lung disease, status post left-sided thoracoscopic lung biopsy Acute blood loss anemia, expected Hypotension due to hypovolemia Leukocytosis, likely reactive Chronic hypoxic respiratory failure, secondary to interstitial lung disease Previous tobacco dependence COPD Ex-smoker Hypertension GERD Recommendation: Continue chest tube to waterseal Continue bronchodilators Continue oxygen and titrate accordingly Transfer patient to 3 S. Continue steroids, patient to go home on prednisone upon discharge and that will be 30 mg a day until the biopsy report is available Continue incentive spirometry Ambulate Will follow Time with Patient: Less than 30
[2025-01-24 16:15] LABS: Glucose,Whole Blood 280 mg/dL (70-110)
[2025-01-24 20:26] LABS: Glucose,Whole Blood 194 mg/dL (70-110)
[2025-01-25 05:39] LABS: HCT 25.8 % (39.0-53.0); HGB 8.1 gm/dL (13.0-17.5); MCH 31.6 pg (25.0-35.0); MCHC 31.3 g/dL (31.0-37.0); MCV 100.8 fL (80.0-100.0); Macrocytosis Slight; Mean Platelet Volume 9.5; Platelet Count 149 k/uL (150-450); RBC 2.56 m/uL (4.30-5.90); RDW 13.8 % (11.5-15.5); WBC 19.7 k/uL (3.8-10.6)
[2025-01-25 06:13] LABS: African American GFR (CKD) >90 (>60 ml/min/1.73 sqM); Anion Gap 4 mmol/L; Blood Urea Nitrogen 25 mg/dL (9-20); Calcium 8.8 mg/dL (8.4-10.2); Carbon Dioxide 31 mmol/L (22-30); Chloride 95 mmol/L (98-107); Glucose 193 mg/dL (74-99); Non-African American GFR(CKD) >90 (>60 ml/min/1.73 sqM); Potassium 4.4 mmol/L (3.5-5.1); Sodium 130 mmol/L (137-145)
[2025-01-25 06:36] LABS: Glucose,Whole Blood 189 mg/dL (70-110)
--- NOTE | 2025-01-25 07:06 | XR ---
EXAMINATION TYPE: XR chest 2V DATE OF EXAM: 01/25/2025 6:30 AM COMPARISON: Multiple radiographs, with the most recent on 01/24/2025. TECHNIQUE: XR chest 2V Frontal and lateral views of the chest. CLINICAL INDICATION:Male, 59 years old with history of Post lung biopsy; FINDINGS: Lungs/Pleura: No sizable pneumothorax. Diffuse reticular and reticulonodular opacities throughout the lungs with left greater than right. Blunting of the left costophrenic angle. Heart/mediastinum: Cardiomediastinal silhouette is prominent in size. Musculoskeletal: No acute osseous pathology. Other findings: None Lines/Tubes: Stable position of left chest tube with the tip directed to the lung apex. IMPRESSION: 1. Similar bilateral acute infiltrates and/or edema. 2. Small left pleural effusion. 3. Stable position of left chest tube with no sizable pneumothorax. [facility], , 01/25/2025 7:04 AM
--- NOTE | 2025-01-25 08:41 | P.PN ---
Subjective Progress Note Date: 01/25/25 Principal diagnosis: Bilateral interstitial infiltrate, acute blood loss anemia, hypotension, hypovolemia, leukocytosis, acute on chronic hypoxemic and hypercapnic respiratory failure. History of interstitial lung disease, previous tobacco dependence, COPD on home oxygen, hypertension, GERD POD #3 left thoracoscopic lung biopsy The patient was seen and examined this morning sitting up in recliner in the intensive care unit in no acute distress. States he continues to feel better, no further complaints of dizziness/diaphoresis. He has been able to ambulate without difficulty. No further episodes of hypotension. Left chest tube present to [facility] with 70 mL bloody drainage in the last 24 hours. Patient remains in sinus rhythm, blood pressure stable, remains on 2 L nasal cannula with oxygen saturation in the 90s. Microbiology sent from operative sample preliminarily negative, pathology still pending. No other new concerns. Objective - Vital Signs Vital signs: Vital Signs Temp 98.2 F 01/25/25 04:00 Pulse 92 01/25/25 08:22 Resp 20 01/25/25 04:00 BP 130/81 01/25/25 04:00 Pulse Ox 95 01/25/25 04:00 FiO2 Intake & Output 01/24/25 01/25/25 01/25/25 18:59 06:59 18:59 Intake Total 680 250 Output Total 680 1585 Balance 0 -1335 Weight 92.6 kg Intake: IV 180 Sodium Chloride 0.9% 1, 180 000 ml @ 50 mls/hr IV . Q20H [facility] Rx#:[id number] Oral 500 250 Output: Chest Tube Drainage 20 60 Pleural Catheter Left 20 60 Drainage 10 Left Chest 10 Urine 650 1525 Other: Voiding Method Toilet Toilet Urinal Urinal - Exam CONSTITUTIONAL: Appears comfortable, cooperative, no acute distress currently RESPIRATORY: Lungs sounds diminished bilaterally. Respirations even, nonlabored. Currently on 2 L nasal cannula with oxygen saturation 95%. Able to achieve 1250 mL on incentive spirometry. Strong cough. CARDIOVASCULAR: S1, S2 present. Regular rate and rhythm, sinus rhythm on telemetry. Palpable peripheral pulses bilaterally. No edema present. No calf pain or tenderness noted. SCDs present. GASTROINTESTINAL: Abdomen soft, nontender, nondistended. Active bowel sounds present 4 quadrants. Tolerating diet. Positive flatus GENITOURINARY: Continues to void INTEGUMENTARY: Skin is warm and dry NEUROLOGIC: Cranial nerves II through XII intact MUSKULOSKELETAL: Able to move all extremities, strength equal bilaterally, gait normal PSYCHIATRIC: Alert and oriented to person place and time, appropriate affect, intact judgment and insight INVASIVE LINES AND TUBES: Left pleural chest tube present to waterseal, no air leak present, 70 mL bloody drainage in the last 24 hours - Allied health notes Allied health notes reviewed: nursing - Labs CBC & Chem 7: 01/25/25 05:25 01/25/25 04:48 Labs: Abnormal Lab Results - Last 24 Hours (Table) 01/24/25 01/24/25 01/24/25 Range/Units 11:43 16:13 20:25 WBC (3.8-10.6) k/uL RBC (4.30-5.90) m/uL Hgb (13.0-17.5) gm/dL Hct (39.0-53.0) % MCV (80.0-100.0) fL Plt Count (150-450) k/uL Sodium (137-145) mmol/L Chloride (98-107) mmol/L Carbon Dioxide (22-30) mmol/L BUN (9-20) mg/dL Creatinine (0.66-1.25) mg/dL Glucose (74-99) mg/dL POC Glucose (mg/dL) 217 H 280 H 194 H (70-110) mg/dL 01/25/25 01/25/25 01/25/25 Range/Units 04:48 05:25 06:35 WBC 19.7 H (3.8-10.6) k/uL RBC 2.56 L (4.30-5.90) m/uL Hgb 8.1 L (13.0-17.5) gm/dL Hct 25.8 L (39.0-53.0) % MCV 100.8 H (80.0-100.0) fL Plt Count 149 L (150-450) k/uL Sodium 130 L (137-145) mmol/L Chloride 95 L (98-107) mmol/L Carbon Dioxide 31 H (22-30) mmol/L BUN 25 H (9-20) mg/dL Creatinine 0.47 L (0.66-1.25) mg/dL Glucose 193 H (74-99) mg/dL POC Glucose (mg/dL) 189 H (70-110) mg/dL Microbiology - Last 24 Hours (Table) 01/22/25 14:06 Gram Stain - Preliminary Lung - Left Upper Lobe Tissue Culture - Preliminary 01/22/25 14:06 Gram Stain - Preliminary Lung - Left Lower Lobe Tissue Culture - Preliminary - Imaging and Cardiology Chest x-ray: report reviewed, image reviewed Assessment and Plan Assessment: Bilateral interstitial infiltrate, status post left thoracoscopic lung biopsy Acute blood loss anemia Hypotension due to hypovolemia Leukocytosis, likely reactive Acute on chronic hypoxemic and hypercapnic respiratory failure History of interstitial lung disease Previous tobacco dependence COPD on home oxygen Hypertension GERD Plan: Likely will discontinue chest tube today Repeat chest x-ray in the morning Wean oxygen as tolerated, encourage incentive spirometry use Pain control per current medication regimen Continue Solu-Cortef, will discharge on home prednisone Bronchodilators per pulmonology Increase activity as tolerated Transfer orders placed for 3 S. cardiac stepdown unit, may transfer when bed available More recommendations to follow
[2025-01-25 11:03] LABS: Glucose,Whole Blood 272 mg/dL (70-110)
[2025-01-25] MEDS: HYDROCORTISONE SUCCINATE 100 MG/2 ML VIAL IV SCH (11:55)
[2025-01-25] MEDS: SENNOSIDES-DOCUSATE SODIUM 1 EACH TAB PO SCH (11:55)
[2025-01-25] MEDS: amLODIPine 5 MG TAB PO SCH (12:52)
--- NOTE | 2025-01-25 13:55 | P.PN ---
Subjective Progress Note Date: 01/25/25 Principal diagnosis: Interstitial lung disease, status post VATS lung biopsy postoperative day #3 Patient is a 59-year-old male with past medical history significant for hyperten chase, hyperlipidemia, COPD, brief tobacco smoking history, and ILD. Patient does follow in the pulmonary office with Dr. Garibay. Patient does have evidence of interstitial lung disease. Currently oxygen dependent on 2 L/min nasal cannula. Also, on prednisone 30 mg tablet daily. Most recent follow-up CT of the chest without contrast showing multiple scattered bilateral illegal infiltrates, possible worsening of his ILD. He was referred to cardiothoracic surgery for biopsy. Yesterday, patient underwent left-sided video-assisted thorascopic surgery with wedge resection of the left upper lobe, as well as, biopsy of the lower lobe. Following the procedure, patient was extubated and admitted to the cardiac stepdown unit for recovery. Late last night around 2200, rapid response was called for hypotension. Patient was transferred to the intensive care unit. Patient currently being evaluated in room 267. He has received a total of 2.5 L crystalloid fluid bolus. Blood pressure has responded, currently 92/68 mmHg. He does have a left-sided chest tube. There is a total of 1.3 L of sanguinous output in the atrium. I did speak to the nurse that responded to the [employer]. Apparently, a clot was dislodged, patient drained approximately 1 L of sanguinous output over the following 4 hours. Cardiothoracic surgery was made aware. I did review a chest x-ray that was done at that time, demonstrating a new moderate left-sided pleural effusion, with a apically placed left-sided chest tube. No notable pneumothorax. Chronic interstitial and fibrotic changes. Currently, the chest tube is to suction at - 20 cm H2O. There is intermittent airleak. Chest tube output has slowed down. H emoglobin preoperatively was 16.1 g/dL, then 12.2 g/dL, and most recent 11.6 g/dL. Platelets 210. Coags including a PT of 11.6, INR 1.1, APTT 19.6, fibrinogen 242. Patient currently on 2 L/min nasal cannula, nonlabored breathing. SpO2 reading 100% on bedside monitor. No signs of CO2 narcosis. ABG done previously, showing mostly compensated acute on chronic hypoxemic and hypercapnic respiratory failure. PaO2 of 77, pCO2 55, pH of 7.32. Blood pressure has responded to fluid resuscitation. No blood transfusions have been administered. No need for vasopressors at this point. Patient is fairly asymptomatic at this time. Patient was seen today on 01/24/2025, he is now postoperative day #2 left thoracoscopic lung biopsy patient seems to doing much better today, sitting at the bedside chair, not in any distress, denies any shortness of breath or cough or wheezing at rest, his left-sided chest tube is to waterseal, he had 124 cc of bloody drainage over the last 24 hours. Patient is in sinus rhythm, he is relatively asymptomatic, hemoglobin today is 9 WBC count is 21.1 sodium is 129 potassium 4.5 BUN is 27 creatinine 0.58 chest x-ray today showed mild volume overload with interstitial lung disease and minimal left apical pneumothorax. Left-sided chest tube remains in place. Seen today on 01/25/2025, patient remains in the ICU, he is now on overflow, he is postoperative day #3. Patient is on 2 L nasal cannula, not in any distress, his chest x-ray showed interstitial lung disease, no evidence of pneumothorax. And no evidence of pleural effusion. He had 40 cc of drainage into the chest tube last night. Hemoglobin today is 8.1 WBC count is 19.7 electrolytes are normal except for slightly low sodium of 130. Objective - Vital Signs Vital signs: Vital Signs Temp 97.5 F L 01/25/25 08:00 Pulse 105 H 01/25/25 13:38 Resp 18 01/25/25 12:50 BP 140/69 01/25/25 12:50 Pulse Ox 96 01/25/25 12:50 FiO2 Intake & Output 01/24/25 01/25/25 01/25/25 18:59 06:59 18:59 Intake Total 680 250 400 Output Total 680 1585 550 Balance 0 -1335 -150 Weight 92.6 kg Intake: IV 180 Sodium Chloride 0.9% 1, 180 000 ml @ 50 mls/hr IV . Q20H [facility] Rx#:[id number] Oral 500 250 400 Output: Chest Tube Drainage 20 60 Pleural Catheter Left 20 60 Drainage 10 Left Chest 10 Urine 650 1525 550 Other: Voiding Method Toilet Toilet Toilet Urinal Urinal - Exam CONSTITUTIONAL: Revealed 59-year-old white male in no distress sitting at the bedside chair on 2 L nasal cannula RESPIRATORY: Velcro rales at the bases. CARDIOVASCULAR: Normal S1-S2, no S3 gallop, no murmur GASTROINTESTINAL: Abdomen soft, nontender, nondistended. Active bowel sounds present 4 quadrants. Tolerating diet. Positive flatus INTEGUMENTARY: Skin is warm and dry MUSKULOSKELETAL: Normal range of motion no deformities PSYCHIATRIC: Normal mood affect and no mental status examination Neurologic: Alert oriented x 3 no gross focal deficit INVASIVE LINES AND TUBES: None - Labs CBC & Chem 7: 01/25/25 05:25 01/25/25 04:48 Labs: Abnormal Lab Results - Last 24 Hours (Table) 01/24/25 01/24/25 01/25/25 Range/Units 16:13 20:25 04:48 WBC (3.8-10.6) k/uL RBC (4.30-5.90) m/uL Hgb (13.0-17.5) gm/dL Hct (39.0-53.0) % MCV (80.0-100.0) fL Plt Count (150-450) k/uL Sodium 130 L (137-145) mmol/L Chloride 95 L (98-107) mmol/L Carbon Dioxide 31 H (22-30) mmol/L BUN 25 H (9-20) mg/dL Creatinine 0.47 L (0.66-1.25) mg/dL Glucose 193 H (74-99) mg/dL POC Glucose (mg/dL) 280 H 194 H (70-110) mg/dL 01/25/25 01/25/25 01/25/25 Range/Units 05:25 06:35 11:01 WBC 19.7 H (3.8-10.6) k/uL RBC 2.56 L (4.30-5.90) m/uL Hgb 8.1 L (13.0-17.5) gm/dL Hct 25.8 L (39.0-53.0) % MCV 100.8 H (80.0-100.0) fL Plt Count 149 L (150-450) k/uL Sodium (137-145) mmol/L Chloride (98-107) mmol/L Carbon Dioxide (22-30) mmol/L BUN (9-20) mg/dL Creatinine (0.66-1.25) mg/dL Glucose (74-99) mg/dL POC Glucose (mg/dL) 189 H 272 H (70-110) mg/dL Microbiology - Last 24 Hours (Table) 01/22/25 14:06 Gram Stain - Preliminary Lung - Left Upper Lobe Tissue Culture - Preliminary 01/22/25 14:06 Gram Stain - Preliminary Lung - Left Lower Lobe Tissue Culture - Preliminary Assessment and Plan Assessment: Impression: Interstitial lung disease, status post left-sided thoracoscopic lung biopsy post operative day #3 Acute blood loss anemia, expected Hypotension due to hypovolemia Leukocytosis, likely reactive Chronic hypoxic respiratory failure, secondary to interstitial lung disease Previous tobacco dependence COPD Ex-smoker Hypertension GERD Recommendation: Could transfer to 3 S. today Continue oxygen and titrate accordingly via nasal cannula Continue bronchodilators Chest x-ray was reviewed and discussed with the patient Continue steroids, patient to go home on prednisone upon discharge and that will be 30 mg a day until the biopsy report is available Continue incentive spirometry Ambulate, in the hallway Will follow, possible discharge in the next 24 hours Time with Patient: Less than 30
[2025-01-25 16:36] LABS: Glucose,Whole Blood 146 mg/dL (70-110)
[2025-01-25 20:25] LABS: Glucose,Whole Blood 234 mg/dL (70-110)
[2025-01-25 21:20] VITALS: TEMP 97.9
[2025-01-26 06:07] LABS: Glucose,Whole Blood 172 mg/dL (70-110)
[2025-01-26 07:02] LABS: HCT 24.7 % (39.0-53.0); HGB 7.8 gm/dL (13.0-17.5); Hypochromasia Slight; MCHC 31.6 g/dL (31.0-37.0); MCV 101.2 fL (80.0-100.0); Macrocytosis Slight; Mean Platelet Volume 7.8; Platelet Count 191 k/uL (150-450); RBC 2.44 m/uL (4.30-5.90); RDW 13.9 % (11.5-15.5)
[2025-01-26 07:13] LABS: African American GFR (CKD) >90 (>60 ml/min/1.73 sqM); Anion Gap 0 mmol/L; Blood Urea Nitrogen 21 mg/dL (9-20); Carbon Dioxide 36 mmol/L (22-30); Chloride 95 mmol/L (98-107); Glucose 157 mg/dL (74-99); Non-African American GFR(CKD) >90 (>60 ml/min/1.73 sqM); Potassium 3.6 mmol/L (3.5-5.1); Sodium 131 mmol/L (137-145)
[2025-01-26] MEDS ORDERED: SENNOSIDES-DOCUSATE SODIUM 1 EACH TAB PO PRN (07:42)
--- NOTE | 2025-01-26 07:44 | XR ---
EXAMINATION TYPE: XR chest 2V DATE OF EXAM: 01/26/2025 6:37 AM COMPARISON: Multiple radiographs, with the most recent on 01/25/2025. TECHNIQUE: XR chest 2V Frontal and lateral views of the chest. CLINICAL INDICATION:Male, 59 years old with history of post chest tube removal; FINDINGS: Lungs/Pleura: No sizable pneumothorax. Findings suspicious for development of a left lateral midlung 4.5 cm cavitary lesion. Diffuse reticular and reticulonodular opacities throughout the lungs with lef t greater than right. Blunting of the left costophrenic angle. Heart/mediastinum: Cardiomediastinal silhouette is prominent in size. Musculoskeletal: No acute osseous pathology. Other findings: None Lines/Tubes: Interval removal of left-sided chest tube. IMPRESSION: 1. Interval removal of left-sided chest tube without sizable pneumothorax. 2. Findings suspicious for development of a left lateral midlung 4.5 cm cavitary lesion. Redemonstra tion of bilateral acute infiltrates and/or edema. This can be further evaluated with CT as clinically indicated. 3. Small left pleural effusion. [facility], , 01/26/2025 7:42 AM
--- NOTE | 2025-01-26 07:45 | P.PN ---
Subjective Progress Note Date: 01/26/25 Principal diagnosis: Bilateral interstitial infiltrate, acute blood loss anemia, hypotension, hypovolemia, leukocytosis, acute on chronic hypoxemic and hypercapnic respiratory failure. History of interstitial lung disease, previous tobacco dependence, COPD on home oxygen, hypertension, GERD POD #4 left thoracoscopic lung biopsy The patient was seen and examined this morning sitting up in recliner on the cardiac stepdown unit in no acute distress. States he continues to feel better, no further complaints of dizziness/diaphoresis. He has been able to ambulate without difficulty. No further episodes of hypotension, in fact blood pressure starting to climb back to hypertensive. Left chest tube discontinued yesterday. Patient remains in sinus rhythm, blood pressure stable, remains on 2 L nasal cannula with oxygen saturation in the 90s. Microbiology sent from operative sample preliminarily negative, pathology still pending. No other new concerns. Objective - Vital Signs Vital signs: Vital Signs Temp 97.9 F 01/25/25 20:00 Pulse 93 01/26/25 04:00 Resp 16 01/26/25 04:00 BP 136/71 01/26/25 04:00 Pulse Ox 95 01/26/25 04:00 FiO2 Intake & Output 01/25/25 01/26/25 01/26/25 18:59 06:59 18:59 Intake Total 518 900 Output Total 550 Balance -32 900 Weight 92.5 kg Intake: Oral 518 900 Output: Urine 550 Other: Voiding Method Toilet Toilet Urinal # Voids 2 2 # Bowel Movements 1 - Exam CONSTITUTIONAL: Appears comfortable, cooperative, no acute distress currently RESPIRATORY: Lungs sounds diminished bilaterally. Respirations even, nonlabored. Currently on 2 L nasal cannula with oxygen saturation 95%. Able to achieve 1500 mL on incentive spirometry. Strong cough. CARDIOVASCULAR: S1, S2 present. Regular rate and rhythm, sinus rhythm on telemetry. Palpable peripheral pulses bilaterally. No edema present. No calf pain or tenderness noted. SCDs present. GASTROINTESTINAL: Abdomen soft, nontender, nondistended. Active bowel sounds present 4 quadrants. Tolerating diet. Positive bowel movement x 3 GENITOURINARY: Continues to void INTEGUMENTARY: Skin is warm and dry NEUROLOGIC: Cranial nerves II through XII intact MUSKULOSKELETAL: Able to move all extremities, strength equal bilaterally, gait normal PSYCHIATRIC: Alert and oriented to person place and time, appropriate affect, intact judgment and insight - Allied health notes Allied health notes reviewed: nursing - Labs CBC & Chem 7: 01/26/25 06:25 01/26/25 06:25 Labs: Abnormal Lab Results - Last 24 Hours (Table) 01/25/25 01/25/25 01/25/25 Range/Units 11:01 16:30 20:23 WBC (3.8-10.6) k/uL RBC (4.30-5.90) m/uL Hgb (13.0-17.5) gm/dL Hct (39.0-53.0) % MCV (80.0-100.0) fL Sodium (137-145) mmol/L Chloride (98-107) mmol/L Carbon Dioxide (22-30) mmol/L BUN (9-20) mg/dL Creatinine (0.66-1.25) mg/dL Glucose (74-99) mg/dL POC Glucose (mg/dL) 272 H 146 H 234 H (70-110) mg/dL 01/26/25 01/26/25 01/26/25 Range/Units 06:05 06:25 06:25 WBC 21.0 H (3.8-10.6) k/uL RBC 2.44 L (4.30-5.90) m/uL Hgb 7.8 L (13.0-17.5) gm/dL Hct 24.7 L (39.0-53.0) % MCV 101.2 H (80.0-100.0) fL Sodium 131 L (137-145) mmol/L Chloride 95 L (98-107) mmol/L Carbon Dioxide 36 H (22-30) mmol/L BUN 21 H (9-20) mg/dL Creatinine 0.54 L (0.66-1.25) mg/dL Glucose 157 H (74-99) mg/dL POC Glucose (mg/dL) 172 H (70-110) mg/dL Microbiology - Last 24 Hours (Table) 01/22/25 14:06 Gram Stain - Final Lung - Left Lower Lobe Tissue Culture - Final 01/22/25 14:06 Gram Stain - Preliminary Lung - Left Upper Lobe Tissue Culture - Preliminary - Imaging and Cardiology Chest x-ray: image reviewed Assessment and Plan Assessment: Bilateral interstitial infiltrate, status post left thoracoscopic lung biopsy Acute blood loss anemia Hypotension due to hypovolemia Leukocytosis, likely reactive Acute on chronic hypoxemic and hypercapnic respiratory failure History of interstitial lung disease Previous tobacco dependence COPD on home oxygen Hypertension GERD Plan: Chest x-ray reviewed, stable Wean oxygen as tolerated, encourage incentive spirometry use Pain control per current medication regimen Will discharge on home prednisone Bronchodilators per pulmonology Increase activity as tolerated Home medications reordered Anticipate discharge to home with home care today Patient will be encouraged to follow-up with his primary care physician and his hemoglobin A1c was 7% although he has been on chronic steroids More recommendations to follow
--- NOTE | 2025-01-26 08:12 | P.DS ---
Providers Date of admission: 01/22/25 10:26 Expected date of discharge: 01/26/25 Attending physician: Malvin Reyes Consults: 01/22/25 15:28 Consult Physician Routine Consulting Provider: Ellen Garibay Consult Reason/Comments: lung cancer post lobectomy Do you want consulting provider notified?: Yes Primary care physician: Stated None Hospital Course: FINAL DIAGNOSIS: Bilateral interstitial infiltrate Acute blood loss anemia Hypotension due to hypovolemia Leukocytosis, likely reactive Acute on chronic hypoxemic and hypercapnic respiratory failure History of interstitial lung disease Previous tobacco dependence COPD on home oxygen Hypertension GERD PRINCIPAL PROCEDURE: Left thoracoscopic lung biopsy HISTORY OF PRESENT ILLNESS: This is a 59-year-old gentleman who follows outpatient with nurse practitioner Melany for primary care and Dr. Segovia for pulmonology. He has continued to have worsening dyspnea and has been placed on oxygen. He had serial CT scans from November till October 2024 demonstrating progressive infiltrates. He was given a course of steroids without much effect, he remains on Trelegy which has helped some. The patient was referred to Dr. Reyes from thoracic surgery. He was recommended to undergo thoracoscopic lung biopsy for definitive diagnosis. The usual perioperative course was discussed in detail with the patient, all risks and benefits were explained, all questions were answered, and consent was obtained to proceed with surgery. The patient was scheduled for surgery at the earliest possible date. HOSPITAL COURSE: The patient was brought to the hospital on 01/22/25, taken to the preoperative area, prepared in the usual fashion, and subsequently taken to the operating room where Dr. Reyes performed left thoracoscopic lung biopsy. Upon completion of surgery the patient was extubated and taken to the recovery room for further hemodynamic monitoring. He was eventually admitted to 3 S. cardiac stepdown unit for further monitoring. Unfortunately the night of surgery he had a large amount of output in his chest tube chamber, his blood pressure dropped and he was transferred to the intensive care unit for closer monitoring. His blood pressure rebounded with fluid administration, he did not require pressor support, and his chest tube output decreased. He remained stable, chest tube output was minimal, follow-up chest x-rays were satisfactory, and he was transferred to 3 S. cardiac stepdown unit. His chest tube was discontinued without incident, follow-up chest x-ray was stable. His oxygen was titrated to his home dose, he was tolerating oral diet, his pain was controlled, and he was ready to be discharged to home [place] [facility] on postoperative day #4. He received written and verbal instruction regarding his medications, activity restrictions, signs and symptoms requiring physician notification, and follow-up appointments. Patient Condition at Discharge: Stable Plan - Discharge Summary Discharge Rx Participant: No New Discharge Prescriptions: New Acetaminophen Tab [Tylenol] 650 mg PO Q4HR PRN tab PRN Reason: Pain Albuterol Sulfate [Ventolin HFA] 2 puff INHALATION Q6H PRN #1 each PRN Reason: Shortness Of Breath Ferrous Sulfate [Iron (65 MG Elemental)] 325 mg PO BID-W/MEALS tab Sennosides-Docusate Sodium [Senokot-S] 2 each PO BID PRN tab PRN Reason: Constipation Continue Omeprazole 40 mg PO QAM Olmesartan/Hydrochlorothiazide [Benicar Hct 40-12.5 mg Tablet] 0.5 tab PO QAM amLODIPine BESYLATE [Norvasc] 10 mg PO QAM predniSONE 30 mg PO QAM Fluticasone/Umeclidin/Vilanter [Trelegy Ellipta 100-62.5-25] 1 inhalation INHALATION QAM Cholecalciferol (Vitamin D3) [Vitamin D3 (125 MCG = 5,000 IU)] 500 mcg PO QAM Ascorbic Acid [Vitamin C] 1,000 mg PO QAM Discontinued Albuterol Inhaler [Ventolin Hfa Inhaler] 2 puff INHALATION RT-Q6H PRN PRN Reason: Shortness Of Breath Discharge Medication List Olmesartan/Hydrochlorothiazide [Benicar Hct 40-12.5 mg Tablet] 0.5 tab PO QAM 08/24/16 [History] Omeprazole 40 mg PO QAM 08/24/16 [History] amLODIPine BESYLATE [Norvasc] 10 mg PO QAM 10/30/19 [History] Ascorbic Acid [Vitamin C] 1,000 mg PO QAM 01/20/25 [History] Cholecalciferol (Vitamin D3) [Vitamin D3 (125 MCG = 5,000 IU)] 500 mcg PO QAM 01/20/25 [History] Fluticasone/Umeclidin/Vilanter [Trelegy Ellipta 100-62.5-25] 1 inhalation INHALATION QAM 01/20/25 [History] predniSONE 30 mg PO QAM 01/20/25 [History] Acetaminophen Tab [Tylenol] 650 mg PO Q4HR PRN tab 01/26/25 [Rx] Albuterol Sulfate [Ventolin HFA] 2 puff INHALATION Q6H PRN #1 each 01/26/25 [Rx] Ferrous Sulfate [Iron (65 MG Elemental)] 325 mg PO BID-W/MEALS tab 01/26/25 [Rx] Sennosides-Docusate Sodium [Senokot-S] 2 each PO BID PRN tab 01/26/25 [Rx] Follow up Appointment(s)/Referral(s): Ellen Garibay MD [STAFF PHYSICIAN] - 02/04/25 9:15 am [facility] [NON-STAFF] - 1 Week Malvin Reyes MD [STAFF PHYSICIAN] - 02/06/25 2:00 pm [facility] [REFERRING] - 3 Days (Follow-up with primary care physician is hemoglobin A1c was 7%, possibly due to chronic steroids but should be managed by primary care) Activity/Diet/Wound Care/Special Instructions: DISCHARGE INSTRUCTIONS: 1. No driving for 2 weeks, or until physician gives their ok. 2. No lifting, pushing, or pulling more than 10 pounds for 2 weeks. The physician will advise of any restriction changes. 3. Continue pain control per as needed orders. Alternate acetaminophen (Tylenol) and ibuprofen (Motrin/Advil) for pain. 4. Continue with incentive spirometry and splinting until otherwise directed by the physician. 5. Leave chest tube dressing for 48 hours. After that, remove all dressings and shower daily. 6. Routine incision care. No powders, lotions, ointments on incisions. 7. Please call surgeon/PAINTER HAND for temp greater than 101 F or purulent drainage from incisions. 8. Smoking cessation counseling and program information provided. Quitting smoking is the most important step you can take to improve your health. For additional information and assistance to quit smoking, please call the [place] tobacco quit line (6-853-FSZL-NOW/ ) or online: [email or web address] Discharge Disposition: HOME SELF-CARE
[2025-01-26 08:38] VITALS: BP 144/68; PULSE 91; RESP 18
[2025-01-26] MEDS: POTASSIUM CHLORIDE ER 20 MEQ TAB.ER PO STA (08:39)
[2025-01-26] MEDS: predniSONE 10 MG TAB PO SCH (08:39)
[2025-01-26] MEDS: amLODIPine 10 MG TAB PO SCH (08:39)
[2025-01-26] MEDS: LOSARTAN 25 MG TAB PO SCH (08:40)
[2025-01-26] MEDS: hydroCHLOROthiazide 25 MG TAB PO SCH (08:40)
[2025-01-26] MEDS: FERROUS SULFATE 325 MG TAB PO SCH (08:44)
== END 2025-01-26 10:24 | disposition home or self-care (01) | DRG 166 ==
LOC: 2ORMAIN 10:26 → 3SCARD 15:59 → 2SICU 21:44 → 3SCARD 01-25 12:50
PROVIDERS: ADMIT Thoracic Surgery (Cardiothoracic Vascular Surgery); ATTEND Thoracic Surgery (Cardiothoracic Vascular Surgery)
PROC: 0BBG8ZX Excision of Left Upper Lung Lobe, Via Natural or Artificial Opening Endoscopic, Diagnostic (ICD-10-PCS; 2025-01-22)
PROC: 4A133B1 Monitoring of Arterial Pressure, Peripheral, Percutaneous Approach (ICD-10-PCS; 2025-01-22)
PROC: 4A133J1 Monitoring of Arterial Pulse, Peripheral, Percutaneous Approach (ICD-10-PCS; 2025-01-22)
PROC: 03HY32Z Insertion of Monitoring Device into Upper Artery, Percutaneous Approach (ICD-10-PCS; 2025-01-22)
PROC: 3E0T3BZ Introduction of Anesthetic Agent into Peripheral Nerves and Plexi, Percutaneous Approach (ICD-10-PCS; 2025-01-22)
PROC: 0BBJ8ZX Excision of Left Lower Lung Lobe, Via Natural or Artificial Opening Endoscopic, Diagnostic (ICD-10-PCS; principal; 2025-01-22 12:15)
DX: J84.9 Interstitial pulmonary disease, unspecified (principal); J96.21 Acute and chronic respiratory failure with hypoxia; J96.22 Acute and chronic respiratory failure with hypercapnia; R57.8 Other shock; D62 Acute posthemorrhagic anemia; J93.9 Pneumothorax, unspecified; E86.1 Hypovolemia; J44.9 Chronic obstructive pulmonary disease, unspecified; I10 Essential (primary) hypertension; R91.8 Other nonspecific abnormal finding of lung field; I95.89 Other hypotension; E78.5 Hyperlipidemia, unspecified; K21.9 Gastro-esophageal reflux disease without esophagitis; Z87.891 Personal history of nicotine dependence; Z99.81 Dependence on supplemental oxygen; Z80.0 Family history of malignant neoplasm of digestive organs; R73.9 Hyperglycemia, unspecified; D72.829 Elevated white blood cell count, unspecified; E87.70 Fluid overload, unspecified; Z86.14 Personal history of Methicillin resistant Staphylococcus aureus infection; Z96.641 Presence of right artificial hip joint
CPT/HCPCS: 36600; 64999; 71045; 71046; 80048; 82805; 83036; 85025; 85027; 85384; 85610; 85730; 87070; 87102; 87116; 87205; 87206; 88307; 94640

== ENCOUNTER 2025-03-10 13:15 | Inpatient (IN) | payer BC ==
--- NOTE | 2025-03-10 13:21 | ED ---
General Adult HPI - General Chief complaint: Shortness of Breath Stated complaint: HIEN Time Seen by Provider: 03/10/25 13:20 Source: patient, EMS, RN notes reviewed, old records reviewed Mode of arrival: EMS Limitations: no limitations - History of Present Illness Initial comments: This is a 59-year-old male who presents to the emergency department a past medical history significant for COPD. Patient also has a history of pulmonary fibrosis that was recently diagnosed. Patient states this morning woke up and he was short of breath and coughing when EMS got there he was hypoxic and they put him on 100% nonrebreather and it brought his oxygen up to 60%. Patient states he is feeling considerably better but he still feels short of breath. Patient denies any chest pain patient denies any palpitations. Patient denies any nausea vomiting diarrhea. Patient [place] any abdominal pain. - Related Data Home Medications Medication Instructions Recorded Confirmed Olmesartan/Hydrochlorothiazide 0.5 tab PO DAILY 08/24/16 03/10/25 [Benicar Hct 40-12.5 mg Tablet] Omeprazole 40 mg PO DAILY 08/24/16 03/10/25 amLODIPine BESYLATE [Norvasc] 10 mg PO DAILY 10/30/19 03/10/25 Ascorbic Acid [Vitamin C] 1,000 mg PO DAILY 01/20/25 03/10/25 Cholecalciferol (Vitamin D3) 125 mcg PO DAILY 01/20/25 03/10/25 [Vitamin D3 (125 MCG = 5,000 IU)] Fluticasone/Umeclidin/Vilanter 1 puff INHALATION RT-DAILY 01/20/25 03/10/25 [Trelegy Ellipta 100-62.5-25] Albuterol Sulfate [Ventolin HFA] 2 puff INHALATION RT-Q6H PRN 03/10/25 03/10/25 Nintedanib Esylate [Ofev] 150 mg PO BID@0900,2100 03/10/25 03/10/25 Sennosides-Docusate Sodium 2 tab PO BID PRN 03/10/25 03/10/25 [Senokot-S] predniSONE [Deltasone] 10 mg PO Q2D 03/10/25 03/10/25 Previous Rx's Medication Instructions Recorded Acetaminophen Tab [Tylenol] 650 mg PO Q4HR PRN tab 01/26/25 Ferrous Sulfate [Iron (65 MG 325 mg PO BID-W/MEALS tab 01/26/25 Elemental)] Allergies Allergy/AdvReac Type Severity Reaction Status Date / Time Penicillins Allergy Unknown Verified 03/10/25 14:34 Childhood Review of Systems ROS Statement: Those systems with pertinent positive or pertinent negative responses have been documented in the HPI. ROS Other: All systems not noted in ROS Statement are negative. Past Medical History Past Medical History: Asthma, COPD, Eye Disorder, GERD/Reflux, Hyperlipidemia, Hypertension Additional Past Medical History / Comment(s): ASTHMA CHILD. LT EYE HERPES, LAST 2014. Does have a history of MRSA infection History of Any Multi-Drug Resistant Organisms: None Reported Date of last positivie culture/infection: 2013 MDRO Source:: ON ABDOMEN Past Surgical History: No Surgical Hx Reported Additional Past Surgical History / Comment(s): COLONOSCOPY Past Anesthesia/Blood Transfusion Reactions: No Reported Reaction Additional Past Anesthesia/Blood Transfusion Reaction / Comment(s): No hx of blood transfusion to date. Past Psychological History: No Psychological Hx Reported Past Alcohol Use History: Daily - Past Family History Mother Family Medical History: Cancer Additional Family Medical History / Comment(s): FROM PANCREATIC CANCER Father Family Medical History: Cancer Additional Family Medical History / Comment(s): FROM PANCREATIC CANCER General Exam - General Exam Comments Initial Comments: GENERAL: Patient is well-developed and well-nourished. Patient is nontoxic and well- hydrated and is in mild distress. ENT: Neck is soft and supple. No significant lymphadenopathy is noted. Oropharynx is clear. Moist mucous membranes. Neck has full range of motion without eliciting any pain. EYES: The sclera were anicteric and conjunctiva were pink and moist. Extraocular movements were intact and pupils were equal round and reactive to light. Eyelids were unremarkable. PULMONARY: Patient has expiratory wheezing CARDIOVASCULAR: There is a regular rate and rhythm without any murmurs gallops or rubs. ABDOMEN: Soft and nontender with normal bowel sounds. SKIN: Skin is clear with no lesions or rashes and otherwise unremarkable. NEUROLOGIC: Patient is alert and oriented x3. Cranial nerves II through XII are grossly intact. Motor and sensory are also intact. Normal speech, volume and content. Symmetrical smile. MUSCULOSKELETAL: Normal extremities with adequate strength and full range of motion. No lower extremity swelling or edema. No calf tenderness. LYMPHATICS: No significant lymphadenopathy is noted PSYCHIATRIC: Normal psychiatric evaluation. Limitations: no limitations Course Vital Signs 03/10/25 03/10/25 03/10/25 13:16 13:19 13:25 Temperature 102.2 F H Pulse Rate 126 H 121 H Respiratory 24 24 Rate Blood Pressure 132/82 O2 Sat by Pulse 100 Oximetry 03/10/25 03/10/25 03/10/25 13:49 14:14 14:34 Temperature 100.4 F H Pulse Rate 128 H 112 H Respiratory 18 Rate Blood Pressure 129/72 O2 Sat by Pulse 94 L Oximetry 03/10/25 15:58 Temperature 98.9 F Pulse Rate 107 H Respiratory 20 Rate Blood Pressure 117/80 O2 Sat by Pulse 92 L Oximetry Medical Decision Making - Medical Decision Making EKG is interpreted by myself. EKG shows sinus tachycardia at a rate of 120 bpm DE 159 QRS of 98 QT interval 293 QTc is 369. Patient's EKG shows no ST segment elevation. Patient's ideal body weight is 75 kg Was pt. sent in by a medical professional or institution (PAOLO Zhou, PRESS OPERATOR HELPER, urgent care, hospital, or long-term...) When possible be specific @ -[No] Did you speak to anyone other than the patient for history (EMS, parent, family, police, friend...)? What history was obtained from this source @ -[No] Did you review nursing and triage notes (agree or disagree)? Why? @ -[I reviewed and agree with nursing and triage notes] Were old charts reviewed (outside hosp., previous admission, EMS record, old EKG, old radiological studies, urgent care reports/EKG's, long-term records)? Report findings @ -[No old charts were reviewed] Differential Diagnosis? @ -Differential Dyspnea: Coronary syndrome, arrhythmia, tamponade, asthma, COPD, pulmonary embolism, pneumonia, pneumothorax, pulmonary effusion, anaphylaxis, diabetic ketoacidosis, flailed chest, pulmonary contusion, diaphragmatic rupture, anemia, n euromuscular, this is not meant to be an all-inclusive list. EKG interpreted by me (3pts min.). @ -[As above] X-rays interpreted by me (1pt min.). @ -Chest x-ray shows pulmonary fibrosis cannot rule out an infiltrate CT interpreted by me (1pt min.). @ -[None done] U/S interpreted by me (1pt. min.). @ -[None done] What testing was considered but not performed or refused? (CT, X-rays, U/S, labs)? Why? @ -[None] What meds were considered but not given or refused? Why? @ -[None] Did you discuss the management of the patient with other professionals (professionals i.e. Dr., PA, PRESS OPERATOR HELPER, lab, RT, psych nurse, certified social workers in health care, chocolate packer, teacher, combatant diver officer, adult protective caseworker)? Give summary @ -I spoke with Dr. Mata he agreed to admit the patient admitted the patient wrote admitting orders Was smoking cessation discussed for >3mins.? @ -[No] Was critical care preformed (if so, how long)? @ -[No] Were there social determinants of health that impacted care today? How? (Homelessness, low income, unemployed, alcoholism, drug addiction, transportation, low edu. Level, literacy, decrease access to med. care, [place] [facility], rehab)? @ -[No] Was there de-escalation of care discussed even if they declined (Discuss DNR or withdrawal of care, Hospice)? DNR status @ -[No] What co-morbidities impacted this encounter? (DM, HTN, Smoking, COPD, CAD, Cancer, CVA, ARF, Chemo, Hep., AIDS, mental health diagnosis, sleep apnea, morbid obesity)? @ -[None] Was patient admitted / discharged? Hospital course, mention meds given and route, prescriptions, significant lab abnormalities, going to OR and other pertinent info. @ -Patient had a high fever though infiltrate is not obvious patient does have pulmonary fibrosis and his oxygenation is not as good as his baseline. Patient is in the 80s without oxygen normally he is around 92%. Patient was started on Rocephin given steroids and albuterol treatments he will be admitted to Dr. Mata with a consult to Dr. Garibay Undiagnosed new problem with uncertain prognosis? @ -[No] Drug Therapy requiring intensive monitoring for toxicity (Heparin, Nitro, Insulin, Cardizem)? @ -[No] Were any procedures done? @ -[No] Diagnosis/symptom? @ -Pulmonary fibrosis Acute, or Chronic, or Acute on Chronic? @ -Acute on chronic Uncomplicated (without systemic symptoms) or Complicated (systemic symptoms)? @ -Complicated Side effects of treatment? @ -[No] Exacerbation, Progression, or Severe Exacerbation? @ -[No] Poses a threat to life or bodily function? How? (Chest pain, [place], [place], pneumonia, PE, COPD, DKA, ARF, appy, cholecystitis, CVA, Diverticulitis, Homicidal, Suicidal, threat to staff... and all critical care pts) @ -This can lead to hypoxia and endorgan dysfunction - Lab Data Result diagrams: 03/10/25 13:43 03/10/25 13:43 Lab Results 03/10/25 03/10/25 03/10/25 Range/Units 13:43 13:43 13:43 WBC 12.31 H (4.50-10.00) 10*3/uL RBC 3.79 L (4.40-5.60) 10*6/uL Hgb 11.9 L (13.0-17.0) g/dL Hct 36.8 L (39.6-50.0) % MCV 97.1 H (80.0-97.0) fL MCH 31.4 (27.0-32.0) pg MCHC 32.3 (32.0-37.0) g/dL Plt Count 305 (140-440) 10*3/uL MPV 9.5 (9.5-12.2) fL Immature Gran % (Auto) 0.6 % Neutrophils % 89.3 % Lymphocytes % 5.8 % Monocytes % 3.7 % Eosinophils % 0.2 % Basophils % 0.4 % Immature Gran # 0.08 H (0.00-0.04) 10*3/uL Neutrophils # 10.98 H (1.80-7.70) 10*3/uL Lymphocytes # 0.72 L (0.90-5.00) 10*3/uL Monocytes # 0.45 (0.20-1.00) 10*3/uL Eosinophils # 0.03 L (0.04-0.35) 10*3/uL Basophils # 0.05 (0.00-0.10) 10*3/uL PT 11.9 (10.0-12.5) sec INR 1.1 (<1.2) APTT 21.7 L (22.0-30.0) sec Sodium 138 (137-145) mmol/L Potassium 4.5 (3.5-5.1) mmol/L Chloride 97 L (98-107) mmol/L Carbon Dioxide 35 H (22-30) mmol/L Anion Gap 6 mmol/L BUN 26 H (9-20) mg/dL Creatinine 0.56 L (0.66-1.25) mg/dL Est GFR (CKD-EPI)AfAm >90 (>60 ml/min/1.73 sqM) Est GFR (CKD-EPI)NonAf >90 (>60 ml/min/1.73 sqM) Glucose 229 H (74-99) mg/dL Lactic Ac Sepsis Rflx Plasma Lactic Acid Miguel (0.7-2.0) mmol/L Calcium 9.6 (8.4-10.2) mg/dL Total Bilirubin 0.5 (0.2-1.3) mg/dL AST 41 (17-59) U/L ALT 27 (4-49) U/L Alkaline Phosphatase 142 H (38-126) U/L Total Protein 7.4 (6.3-8.2) g/dL Albumin 3.8 (3.5-5.0) g/dL Influenza Type A (PCR) (Not Detectd) Influenza Type B (PCR) (Not Detectd) RSV (PCR) (Not Detectd) SARS-CoV-2 (PCR) (Not Detectd) 03/10/25 03/10/25 03/10/25 Range/Units 13:43 14:07 14:49 WBC (4.50-10.00) 10*3/uL RBC (4.40-5.60) 10*6/uL Hgb (13.0-17.0) g/dL Hct (39.6-50.0) % MCV (80.0-97.0) fL MCH (27.0-32.0) pg MCHC (32.0-37.0) g/dL Plt Count (140-440) 10*3/uL MPV (9.5-12.2) fL Immature Gran % (Auto) % Neutrophils % % Lymphocytes % % Monocytes % % Eosinophils % % Basophils % % Immature Gran # (0.00-0.04) 10*3/uL Neutrophils # (1.80-7.70) 10*3/uL Lymphocytes # (0.90-5.00) 10*3/uL Monocytes # (0.20-1.00) 10*3/uL Eosinophils # (0.04-0.35) 10*3/uL Basophils # (0.00-0.10) 10*3/uL PT (10.0-12.5) sec INR (<1.2) APTT (22.0-30.0) sec Sodium (137-145) mmol/L Potassium (3.5-5.1) mmol/L Chloride (98-107) mmol/L Carbon Dioxide (22-30) mmol/L Anion Gap mmol/L BUN (9-20) mg/dL Creatinine (0.66-1.25) mg/dL Est GFR (CKD-EPI)AfAm (>60 ml/min/1.73 sqM) Est GFR (CKD-EPI)NonAf (>60 ml/min/1.73 sqM) Glucose (74-99) mg/dL Lactic Ac Sepsis Rflx Y Plasma Lactic Acid Miguel 2.7 H* (0.7-2.0) mmol/L Calcium (8.4-10.2) mg/dL Total Bilirubin (0.2-1.3) mg/dL AST (17-59) U/L ALT (4-49) U/L Alkaline Phosphatase (38-126) U/L Total Protein (6.3-8.2) g/dL Albumin (3.5-5.0) g/dL Influenza Type A (PCR) Not Detected (Not Detectd) Influenza Type B (PCR) Not Detected (Not Detectd) RSV (PCR) Not Detected (Not Detectd) SARS-CoV-2 (PCR) Not Detected (Not Detectd) Disposition Clinical Impression: Pulmonary fibrosis, Febrile illness Disposition: ADMITTED IP TO THIS HOSP Referrals: Alisson Jamison [facility] [REFERRING] - 1-2 days Time of Disposition: 16:32
[2025-03-10] MEDS: ALBUTEROL NEBULIZED 2.5 MG/3 ML INHALATION STA (13:24)
[2025-03-10] MEDS: IPRATROPIUM 0.5 MG/2.5 ML NEBU INHALATION STA (13:24)
[2025-03-10] MEDS: ACETAMINOPHEN TAB 500 MG TAB PO STA (13:33)
[2025-03-10] MEDS: IBUPROFEN 600 MG TAB PO STA (13:33)
[2025-03-10] MEDS: cefTRIAXone IN SWFI 1,000 MG/10 ML SYRINGE IVP STA (13:43)
[2025-03-10] MEDS: methylPREDNISolone SOD SUCCI 125 MG/2 ML VIAL IV STA (13:47)
[2025-03-10] MEDS: LACTATED RINGERS 1,000 ML IV SCH (13:48)
--- NOTE | 2025-03-10 14:01 | XR ---
EXAMINATION TYPE: XR chest 2V DATE OF EXAM: 03/10/2025 1:57 PM COMPARISON: Multiple radiographs, with the most recent on 02/26/2025, CT chest 11/07/2024 TECHNIQUE: XR chest 2V Frontal and lateral views of the chest. CLINICAL INDICATION:Male, 59 years old with history of Fever; FINDINGS: Lungs/Pleura: There is no evidence of pleural effusion, focal consolidation, or pneumothorax. Redemo nstration of prominent interstitial lung markings. Heart/mediastinum: Cardiomediastinal silhouette is enlarged and stable. Musculoskeletal: No acute osseous pathology. IMPRESSION: Interstitial lung disease changes without focal consolidation. Superimposed infectious process is not entirely excluded. [facility], , 03/10/2025 1:59 PM
[2025-03-10 14:03] LABS: ALT 27 U/L (4-49); AST 41 U/L (17-59); African American GFR (CKD) >90 (>60 ml/min/1.73 sqM); Albumin 3.8 g/dL (3.5-5.0); Alkaline Phosphatase 142 U/L (38-126); Anion Gap 6 mmol/L; Blood Urea Nitrogen 26 mg/dL (9-20); Calcium 9.6 mg/dL (8.4-10.2); Carbon Dioxide 35 mmol/L (22-30); Chloride 97 mmol/L (98-107); Glucose 229 mg/dL (74-99); Non-African American GFR(CKD) >90 (>60 ml/min/1.73 sqM); Potassium 4.5 mmol/L (3.5-5.1); Sodium 138 mmol/L (137-145); Total Bilirubin 0.5 mg/dL (0.2-1.3); Total Protein 7.4 g/dL (6.3-8.2)
[2025-03-10 14:21] LABS: Basophils # (A) 0.05 10*3/uL (0.00-0.10); Basophils % (A) 0.4 %; Eosinophils # (A) 0.03 10*3/uL (0.04-0.35); Eosinophils % (A) 0.2 %; HCT 36.8 % (39.6-50.0); HGB 11.9 g/dL (13.0-17.0); Lymphocytes # (A) 0.72 10*3/uL (0.90-5.00); Lymphocytes % (A) 5.8 %; MCH 31.4 pg (27.0-32.0); MCHC 32.3 g/dL (32.0-37.0); MCV 97.1 fL (80.0-97.0); Mean Platelet Volume 9.5 fL (9.5-12.2); Monocytes # (A) 0.45 10*3/uL (0.20-1.00); Monocytes % (A) 3.7 %; Neutrophils # (A) 10.98 10*3/uL (1.80-7.70); Neutrophils % (A) 89.3 %; Platelet Count 305 10*3/uL (140-440); RBC 3.79 10*6/uL (4.40-5.60); RDW 14.5 % (11.5-14.5); WBC 12.31 10*3/uL (4.50-10.00)
[2025-03-10 14:26] LABS: INR 1.1 (<1.2); Partial Thromboplastin Time 21.7 sec (22.0-30.0); Prothrombin Time 11.9 sec (10.0-12.5)
[2025-03-10 15:38] LABS: Influenza A Not Detected (Not Detectd); Influenza B Not Detected (Not Detectd); RSV Not Detected (Not Detectd)
[2025-03-10] MEDS ORDERED: IPRATROPIUM-ALBUTEROL 3 ML NEB INHALATION PRN (16:32)
[2025-03-10] MEDS ORDERED: NALOXONE 0.4 MG/ML 1 ML VIAL IVP PRN (16:32)
[2025-03-10] MEDS ORDERED: ACETAMINOPHEN TAB 325 MG TAB PO PRN (17:13)
[2025-03-10] MEDS ORDERED: SENNOSIDES-DOCUSATE SODIUM 1 EACH TAB PO PRN (17:13)
[2025-03-10] MEDS: FERROUS SULFATE 325 MG TAB PO SCH (18:05)
[2025-03-10] MEDS: methylPREDNISolone SOD SUCCI 125 MG/2 ML VIAL IV SCH (18:05)
[2025-03-10] MEDS: IPRATROPIUM-ALBUTEROL 3 ML NEB INHALATION SCH (19:39)
[2025-03-10] MEDS: NON FORMULARY DRUG (Nintedanib Esylate [Ofev] 150 MG Capsule) PO SCH (21:00)
--- NOTE | 2025-03-10 21:51 | HP ---
HISTORY AND PHYSICAL HISTORY OF PRESENT ILLNESS: A 59-year-old white male, who came into the hospital with pulmonary fibrosis exacerbation, shortness of breath. EKG shows abnormal EKG, possible ST-elevation. Cardiology is consulted as well as started him on steroids, antibiotics, and breathing treatments. We had Cardiology consult and Pulmonary consult. Continue on current treatments. EKG shows possible ST elevation. He is started on antibiotics, steroids, and updraft treatments. REVIEW OF SYSTEMS: A 14-point review of systems is otherwise negative. PHYSICAL EXAMINATION: VITAL SIGNS: Temperature is 98.2, pulse is 105, respiratory rate 18 to 20, O2 is 96 on 5 L, blood pressure is 118 to 124 over 70s to 80s. CARDIOVASCULAR: S1, S2. LUNGS: Decreased breath sounds x4. PSYCHIATRIC: Fair mood and affect. NEUROLOGIC: Alert and oriented x3. Consult Pulmonology. Rule out cardiac event. Continued on breathing medications. Prognosis is guarded. MMODL / IJN: [id number] /
[2025-03-10] MEDS: HEPARIN SODIUM,PORCINE 5,000 UNIT/ML 1 ML VIAL SQ SCH (23:18)
--- NOTE | 2025-03-11 03:30 | P.CNPUL ---
History of Present Illness Consult date: 03/11/25 Requesting physician: Alfonso Mata Reason for consult: dyspnea Chief complaint: Increased work of breathing and hypoxia History of present illness: Patient is a 59-year-old male with past medical history significant for recently diagnosis of biopsy-proven UIP, chronic hypoxemic respiratory failure, COPD, brief history of tobacco use, former marijuana smoker, hypertension. He does follow in the pulmonary office with Dr. Segovia, and had recent follow-up office visit on 02/25/2025. Of note, previously underwent left-sided video-assisted thorascopic surgery with wedge resection of the left upper lobe, as well as, biopsy of the lower lobe on 01/22/2025 pathology consistent with interstitial lung disease, UIP type. Patient has been started on Ofev. He has also been referred to the [facility] for possible lung transplant list. Approximately, 1 week ago patient developed increased short of breath, as well as, notable hypoxia with an SpO2 as low as 70%. He is normally oxygen dependent on 2 L/min supplemental oxygen while at home. When EMS arrived yesterday afternoon, patient was noted to be severely hypoxic placed on a 15 L nonrebreather, and transferred to the emergency department. Workup including a chest x-ray redemonstrating patient's prominent interstitial lung markings. No focal infiltrates, however, superimposed infectious process was not entirely excluded. Patient was intermittently febrile with a low-grade temperature of 100.4 F. Viral 4 Plex unremarkable for RSV, COVID, influenza. Also tachycardic in the ED. CBC with a WBC count of 12.3, hemoglobin 11.9, platelets 305. CMP: Sodium 138, potassium 4.5, chloride 97, serum bicarb 35, BUN 26, creatinine 0.56, glucose 229. Lactic was 2.7 is down to 2. LFTs fairly unremarkable. EKG: Sinus tachycardia, rate 128 bpm. troponin 0.4. Patient currently being evaluated on the general medical floor. Currently on 4 L/min nasal cannula, does not appear distressed. Patient endorses increased work of breathing over the last week. Recently visited the [facility] on Monday, while driving there, became remarkably short of breath and his oxygen levels were reading low around 70%. Associated symptoms including dry persistent cough, without any significant sputum production. Intermittent fevers. Denies any chest pain, heart palpitations, hemoptysis. No unilateral lower extremity s welling. Currently on Ofev. No known sick contacts. Denies any nausea, vomiting, diarrhea. Current vital signs are stable. Review of Systems Constitutional: Reports fatigue, Reports fever, Denies chills, Denies night sweats, Denies poor appetite, Denies sweats, Denies weight gain, Denies weight loss Ears, nose, mouth and throat: Denies headache, Denies nasal congestion, Denies nasal discharge, Denies post-nasal drip, Denies sinus pain, Denies sinus pressure, Denies sore throat Cardiovascular: Reports lightheadedness, Reports shortness of breath, Denies chest pain, Denies leg edema, Denies orthopnea, Denies palpitations, Denies paroxysmal nocturnal dyspnea Respiratory: Reports as per HPI Gastrointestinal: Denies abdominal pain, Denies change in bowel habits, Denies diarrhea, Denies nausea, Denies vomiting Genitourinary: Denies dysuria Musculoskeletal: Denies limitation of motion Integumentary: Denies rash Neurological: Denies headaches, Denies seizures, Denies syncope Psychiatric: Denies anxiety, Denies depression Past Medical History Past Medical History: Asthma, COPD, Eye Disorder, GERD/Reflux, Hyperlipidemia, Hypertension Additional Past Medical History / Comment(s): ASTHMA CHILD. LT EYE HERPES, LAST 2014. Does have a history of MRSA infection History of Any Multi-Drug Resistant Organisms: None Reported Date of last positivie culture/infection: 2013 MDRO Source:: ON ABDOMEN Past Surgical History: Orthopedic Surgery Additional Past Surgical History / Comment(s): COLONOSCOPY, R hip surgery Past Anesthesia/Blood Transfusion Reactions: No Reported Reaction Additional Past Anesthesia/Blood Transfusion Reaction / Comment(s): No hx of blood transfusion to date. Past Psychological History: No Psychological Hx Reported Additional Psychological History / Comment(s): and lives in the the family home with the and daughter. No travel. No animal exposures. No change in detergents, home environment or work environment Smoking Status: Former smoker Past Alcohol Use History: Daily Additional Past Alcohol Use History / Comment(s): SMOKED 11 YEARS, 1PPD AVG, QUIT 1993. DRINKS PINT RUM DAILY Past Drug Use History: Marijuana Additional Drug Use History / Comment(s): Has not had in 6 months - Past Family History Mother Family Medical History: Cancer Additional Family Medical History / Comment(s): FROM PANCREATIC CANCER Father Family Medical History: Cancer Additional Family Medical History / Comment(s): FROM PANCREATIC CANCER Medications and Allergies Home Medications Medication Instructions Recorded Confirmed Type Olmesartan/Hydrochlorothiazide 0.5 tab PO DAILY 08/24/16 03/10/25 History [Benicar Hct 40-12.5 mg Tablet] Omeprazole 40 mg PO DAILY 08/24/16 03/10/25 History amLODIPine BESYLATE [Norvasc] 10 mg PO DAILY 10/30/19 03/10/25 History Ascorbic Acid [Vitamin C] 1,000 mg PO DAILY 01/20/25 03/10/25 History Cholecalciferol (Vitamin D3) 125 mcg PO DAILY 01/20/25 03/10/25 History [Vitamin D3 (125 MCG = 5,000 IU)] Fluticasone/Umeclidin/Vilanter 1 puff INHALATION RT-DAILY 01/20/25 03/10/25 History [Trelegy Ellipta 100-62.5-25] Acetaminophen Tab [Tylenol] 650 mg PO Q4HR PRN tab 01/26/25 03/10/25 Rx Ferrous Sulfate [Iron (65 MG 325 mg PO BID-W/MEALS tab 01/26/25 03/10/25 Rx Elemental)] Albuterol Sulfate [Ventolin HFA] 2 puff INHALATION RT-Q6H PRN 03/10/25 03/10/25 History Nintedanib Esylate [Ofev] 150 mg PO BID@0900,2100 03/10/25 03/10/25 History Sennosides-Docusate Sodium 2 tab PO BID PRN 03/10/25 03/10/25 History [Senokot-S] predniSONE [Deltasone] 10 mg PO Q2D 03/10/25 03/10/25 History Allergies Allergy/AdvReac Type Severity Reaction Status Date / Time Penicillins Allergy Unknown Verified 03/10/25 14:34 Childhood Physical Exam Vitals: Vital Signs Temp Pulse Pulse Resp BP BP Pulse Ox 03/10/25 20:41 97.7 F 96 18 107/71 96 03/10/25 20:08 101 H 18 124/75 95 03/10/25 19:52 88 03/10/25 19:39 89 03/10/25 19:16 96 18 131/84 98 03/10/25 18:03 98.2 F 105 H 20 118/84 96 03/10/25 15:58 98.9 F 107 H 20 117/80 92 L 03/10/25 14:34 100.4 F H 03/10/25 14:14 112 H 18 129/72 94 L 03/10/25 13:49 128 H 03/10/25 13:25 121 H 03/10/25 13:19 24 03/10/25 13:16 102.2 F H 126 H 24 132/82 100 Intake and Output 03/10/25 03/10/25 03/11/25 14:59 22:59 06:59 Intake Total 540 Balance 540 Intake: Oral 540 Other: Voiding Method Toilet Urinal Weight 87.09 kg 87.09 kg GENERAL EXAM: Alert, 59-year-old white male, comfortable in no apparent distress. HEAD: Normocephalic and atraumatic EYES: Normal reaction of pupils, equal size. NOSE: Clear with pink turbinates. THROAT: No erythema or exudates. NECK: No masses, no JVD. CHEST: No chest wall deformity. LUNGS: Equal air entry with bibasilar Velcro crackles. on 4 L/min nasal cannula. No conversational dyspnea or accessory muscle use while at rest CVS: S1 and S2 normal with no audible murmur, regular rhythm. No extra heart sounds ABDOMEN: No hepatosplenomegaly, active bowel sounds, no guarding or rigidity. SPINE: No scoliosis or deformity SKIN: No rashes CENTRAL NERVOUS SYSTEM: No focal deficits, tone is normal in all 4 extremities. EXTREMITIES: There is no peripheral edema or cyanosis. Digital clubbing noted. Peripheral pulses are intact. Results - Laboratory Findings CBC and BMP: 03/10/25 13:43 03/10/25 13:43 PT/INR, D-dimer PT 11.9 sec (10.0-12.5) 03/10/25 13:43 INR 1.1 (<1.2) 03/10/25 13:43 Abnormal lab findings: Abnormal Labs 03/10/25 03/10/25 03/10/25 13:43 13:43 13:43 WBC 12.31 H RBC 3.79 L Hgb 11.9 L Hct 36.8 L MCV 97.1 H Immature Gran # 0.08 H Neutrophils # 10.98 H Lymphocytes # 0.72 L Eosinophils # 0.03 L APTT 21.7 L Chloride 97 L Carbon Dioxide 35 H BUN 26 H Creatinine 0.56 L Glucose 229 H Plasma Lactic Acid Miguel Alkaline Phosphatase 142 H Troponin I 03/10/25 03/10/25 13:43 21:10 WBC RBC Hgb Hct MCV Immature Gran # Neutrophils # Lymphocytes # Eosinophils # APTT Chloride Carbon Dioxide BUN Creatinine Glucose Plasma Lactic Acid Miguel 2.7 H* Alkaline Phosphatase Troponin I 0.402 H* - Diagnostic Findings Chest x-ray: image reviewed Assessment and Plan Assessment: Acute on chronic hypoxemic respiratory failure currently on 4 L/min nasal c annula, chest x-ray redemonstrating patient's prominent interstitial lung markings. No focal infiltrates, however, superimposed infectious process was not entirely excluded. Viral 4 Plex negative for influenza A/B, RSV, COVID. Acute febrile illness Biopsy-proven UIP/IPF, currently on Ofev Chronic obstructive pulmonary disease Chronic hypoxemic respiratory failure, normally maintained on 2.5 L nasal cannula Elevated troponins, possibly secondary to type II DC and supply/demand mismatch Macrocytic anemia, hemoglobin stable at 11.9 g/dL Hypertension Gastroesophageal reflux disease Brief history of tobacco smoking Plan: Patient's medications, labs, chest x-ray reviewed Continue supplemental oxygen, wean as tolerated No obvious focal infiltrates/consolidations Continue empiric antibiotics Check procalcitonin level Previously started patient on combination of bronchodilators and IV Solu-Medrol. Add Symbicort inhaler, however, may substitute Trelegy inhaler if made available Obtain D-dimer Cardiology is consulted GI prophylaxis: Protonix DVT prophylaxis: Subcu heparin We will continue to follow, additional recommendations forthcoming I have personally seen and examined the patient, performed the documentation and the assessment and plan as written. Number of minutes spent on the visit:20 This dictation was produced using [employer] dictation software please excuse gram matical errors Time with Patient: Greater than 30
[2025-03-11] MEDS: AZITHROMYCIN 500 MG TAB PO STA (03:49)
[2025-03-11] MEDS: AMOXIC-POT CLAV 875-125MG 1 EACH TAB PO SCH (04:00)
[2025-03-11] MEDS ORDERED: RX INFO: IV CONTRAST WAS GIVEN 1 EACH MISC MISCELLANE PRN (04:41)
[2025-03-11] MEDS: SODIUM CHLORIDE 0.9% 1,000 ML IV SCH ×2 (05:17→23:30)
--- NOTE | 2025-03-11 06:07 | CT ---
EXAMINATION TYPE: CT chest angio for PE DATE OF EXAM: 03/11/2025 COMPARISON: CT November 07, 2024 CLINICAL INDICATION: Male, 59 years old with history of Critical Troponin and elevated D-dimer, ELEVA DMITRIY D DIMER & TROPONIN, TECHNIQUE: CTA scan of the thorax is performed with IV Contrast, patient injected with 70 mL of Isovue 370, pulm onary embolism protocol. MIP Images are created on CT scanner and reviewed. CT DLP: 410.6 mGycm. Automated Exposure Control for Dose Reduction was Utilized. FINDINGS: LUNGS: Bilateral advanced pulmonary fibrotic changes are redemonstrated. Persistent multifocal areas of groundglass opacities and irregular consolidations are again seen and overall more prominent versu s prior CT. There is a new tiny left-sided pleural effusion. No pneumothorax is seen. Honeycombing in the periphery of the anterior lungs is redemonstrated. Linear calcification or sutures in the latera l left midlung are present. HEART: Mild cardiomegaly. Moderate to severe coronary artery calcifications and/or stents . MEDIASTINUM: Less than ideal study without enhancing CT evidence for acute pulmonary embolism. Promin ent main pulmonary artery is 3.0 cm diameter axial image 60 likely products of underlying pulmonary a rtery hypertension. Adjacent aorta measures 3.4 cm in diameter. There are prominent and borderline en larged mediastinal lung with bilateral hilar lymph nodes redemonstrated. Tiny pericardial effusion is seen. OTHER: Scoliotic curvature is seen. IMPRESSION: Advanced pulmonary fibrotic changes redemonstrated. There is a new tiny left pleural effu chase and areas of groundglass opacity suspicious for edema. Correlate for CHF exacerbation/fluid over load state. Areas of underlying acute pneumonic infiltrate not excluded. Correlate clinically. [facility], , 03/11/2025 6:05 AM
[2025-03-11] MEDS: PANTOPRAZOLE 40 MG TABLET PO SCH ×2 (06:54→23:24)
[2025-03-11] MEDS: SYMBICORT 160-4.5 MCG INHALER INHALATION SCH (07:57)
[2025-03-11] MEDS: CHOLECALCIFEROL 125 MCG (5000 IU) TABLET PO SCH (10:04)
[2025-03-11] MEDS: amLODIPine 10 MG TAB PO SCH (10:04)
[2025-03-11] MEDS: LOSARTAN 50 MG TAB PO SCH (10:05)
[2025-03-11] MEDS: hydroCHLOROthiazide 25 MG TAB PO SCH (10:07)
[2025-03-11] MEDS ORDERED: HEPARIN SODIUM 1,000 UN/ML (10ML VL) IV PRN (11:34)
[2025-03-11 12:25] LABS: Basophils # (A) 0.01 10*3/uL (0.00-0.10); Basophils % (A) 0.1 %; HCT 34.9 % (39.6-50.0); HGB 11.5 g/dL (13.0-17.0); Lymphocytes # (A) 1.05 10*3/uL (0.90-5.00); Lymphocytes % (A) 11.3 %; MCH 32.2 pg (27.0-32.0); MCV 97.8 fL (80.0-97.0); Mean Platelet Volume 9.6 fL (9.5-12.2); Monocytes % (A) 2.1 %; Neutrophils # (A) 7.98 10*3/uL (1.80-7.70); Neutrophils % (A) 85.7 %; Platelet Count 297 10*3/uL (140-440); RBC 3.57 10*6/uL (4.40-5.60); WBC 9.31 10*3/uL (4.50-10.00)
[2025-03-11 12:36] LABS: INR 1.2 (<1.2); Prothrombin Time 13.1 sec (10.0-12.5)
[2025-03-11 12:50] LABS: Glucose,Whole Blood 357 mg/dL (70-110)
--- NOTE | 2025-03-11 13:10 | P.CRDCN ---
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 He has a past medical history of asthma as a child, COPD, recently diagnosed IUP and started on Ofev, hypertension, tobacco use for 11 years, marijuana use and quit 1 year ago. Patient states that he has had a stress test done many years ago. We have been asked to evaluate the patient for arrhythmia and elevated troponins. He states that he was at home and ate ice cream but fell asleep and then he was concerned when he woke up that he had aspirated the ice cream. He states he could not get his pulse ox up over 70%. He is normally on home O2 at 2 L nasal cannula and increased it to 3 L without improvement. He denies having chest pain. He is currently on O2 at 5 L. Patient required oxygen at 15 L nonrebreather by EMS transport. Patient also gives history that he is following at [facility] and is getting on the transplant list. Blood pressure 124/70, heart rate 100, pulse ox 98% on 4 L nasal cannula. Temperature max 102.2. Dr. Marrero discussed with the patient that he would recommend possible cardiac catheterization once respiratory status is stable. This may be performed during this hospitalization or at a later time. -EKG: Sinus tachycardia with no acute ST-T wave changes. -Chest x-ray: Interstitial lung disease without focal consolidation. Superimposed infectious process is not entirely excluded. -CTA chest: Advanced pulmonary fibrotic changes. New tiny left pleural effusion and areas of groundglass opacity suspicious for edema. Underlying acute pneumonic infiltrate not excluded. -Laboratory studies: WBC 12.3 with repeat 9.3, hemoglobin 11.5, D-dimer 1.96. BUN 26 and creatinine 0.56, CO2 35. Lactic acid 3.9. Troponins 0.402 and 0.616. Cepheid viral panel not detected. -Home cardiac medications: Amlodipine 10 mg daily, olmesartan/hydrochlorothiazide 40-12.5 mg half tablet daily. Review Of Systems: At the time of my exam: CONSTITUTIONAL: Denies fever or chills. HEENT: Denies blurred vision, vision changes, or eye pain. Denies hemoptysis CARDIOVASCULAR: Denies chest pain. Denies orthopnea. Denies PND. Denies p alpitations RESPIRATORY: Reports shortness of breath. GASTROINTESTINAL: Denies abdominal pain. Denies nausea or vomiting. HEMATOLOGIC: Denies bleeding disorders. GENITOURINARY: Denies any blood in urine. SKIN: Denies puritis. Denies rash. Physical examination: Gen: This is 59-year-old male in no acute respiratory distress. VS: reviewed HEENT: Head is atraumatic, normocephalic. Pupils equal, round. Sclerae is anicteric. NECK: Supple. No JVD. LUNGS: Bilateral crackles. No intercostal retractions. HEART: Regular rate and rhythm. No murmur. ABDOMEN: Soft No tenderness. EXTREMITIES: No pedal edema. No calf tenderness. NEUROLOGICAL: Patient is awake, alert and oriented x3. Assessment: Acute on chronic hypoxic respiratory failure currently on 4 L nasal cannula Chronic hypoxic respiratory failure on home O2 at 2 L Febrile illness with temperature of 102.2 on presentation Elevated troponin secondary to type II VT COPD IUP, on Ofev and follows at [facility] for transplant evaluation Hypertension Tobacco use for 11 years Marijuana use and quit 1 year ago Plan: Resume patient's home cardiac medications Start patient on heparin drip Start patient on aspirin 81 mg daily, atorvastatin 40 mg daily Obtain third troponin Obtain lipid panel and A1c Obtain 2-D echocardiogram and Doppler study to assess cardiac structure and function Patient would benefit from an ischemic cardiac workup and timing of this to be determined. Further recommendations to follow based upon clinical course Thank you kindly for this consultation. Nurse practitioner note has been reviewed, I agree with documented findings and plan of care. Patient was seen and examined. Past Medical History Past Medical History: Asthma, COPD, Eye Disorder, GERD/Reflux, Hyperlipidemia, Hypertension Additional Past Medical History / Comment(s): ASTHMA CHILD. LT EYE HERPES, LAST 2014. Does have a history of MRSA infection History of Any Multi-Drug Resistant Organisms: None Reported Date of last positivie culture/infection: 2013 MDRO Source:: ON ABDOMEN Past Surgical History: Orthopedic Surgery Additional Past Surgical History / Comment(s): COLONOSCOPY, R hip surgery Past Anesthesia/Blood Transfusion Reactions: No Reported Reaction Additional Past Anesthesia/Blood Transfusion Reaction / Comment(s): No hx of blood transfusion to date. Past Psychological History: No Psychological Hx Reported Additional Psychological History / Comment(s): and lives in the the family home with the and daughter. No travel. No animal exposures. No change in detergents, home environment or work environment Smoking Status: Former smoker Past Alcohol Use History: Daily Additional Past Alcohol Use History / Comment(s): SMOKED 11 YEARS, 1PPD AVG, QUIT 1993. DRINKS PINT RUM DAILY Past Drug Use History: Marijuana Additional Drug Use History / Comment(s): Has not had in 6 months - Past Family History Mother Family Medical History: Cancer Additional Family Medical History / Comment(s): FROM PANCREATIC CANCER Father Family Medical History: Cancer Additional Family Medical History / Comment(s): FROM PANCREATIC CANCER Medications and Allergies Home Medications Medication Instructions Recorded Confirmed Type Olmesartan/Hydrochlorothiazide 0.5 tab PO DAILY 08/24/16 03/10/25 History [Benicar Hct 40-12.5 mg Tablet] Omeprazole 40 mg PO DAILY 08/24/16 03/10/25 History amLODIPine BESYLATE [Norvasc] 10 mg PO DAILY 10/30/19 03/10/25 History Ascorbic Acid [Vitamin C] 1,000 mg PO DAILY 01/20/25 03/10/25 History Cholecalciferol (Vitamin D3) 125 mcg PO DAILY 01/20/25 03/10/25 History [Vitamin D3 (125 MCG = 5,000 IU)] Fluticasone/Umeclidin/Vilanter 1 puff INHALATION RT-DAILY 01/20/25 03/10/25 History [Trelegy Ellipta 100-62.5-25] Acetaminophen Tab [Tylenol] 650 mg PO Q4HR PRN tab 01/26/25 03/10/25 Rx Ferrous Sulfate [Iron (65 MG 325 mg PO BID-W/MEALS tab 01/26/25 03/10/25 Rx Elemental)] Albuterol Sulfate [Ventolin HFA] 2 puff INHALATION RT-Q6H PRN 03/10/25 03/10/25 History Nintedanib Esylate [Ofev] 150 mg PO BID@0900,2100 03/10/25 03/10/25 History Sennosides-Docusate Sodium 2 tab PO BID PRN 03/10/25 03/10/25 History [Senokot-S] predniSONE [Deltasone] 10 mg PO Q2D 03/10/25 03/10/25 History Allergies Allergy/AdvReac Type Severity Reaction Status Date / Time Penicillins Allergy Unknown Verified 03/10/25 14:34 Childhood Physical Exam Vitals: Vital Signs Temp Pulse Pulse Pulse Resp BP BP 03/11/25 08:23 97.3 F L 98 17 138/83 03/11/25 08:14 92 03/11/25 07:58 92 03/11/25 04:37 97.3 F L 66 15 115/79 03/10/25 20:41 97.7 F 96 18 107/71 03/10/25 20:08 101 H 18 124/75 03/10/25 19:52 88 03/10/25 19:39 89 03/10/25 19:16 96 18 131/84 03/10/25 18:03 98.2 F 105 H 20 118/84 03/10/25 15:58 98.9 F 107 H 20 117/80 03/10/25 14:34 100.4 F H 03/10/25 14:14 112 H 18 129/72 03/10/25 13:49 128 H 03/10/25 13:25 121 H 03/10/25 13:19 24 03/10/25 13:16 102.2 F H 126 H 24 132/82 Pulse Ox 03/11/25 08:23 98 03/11/25 08:14 03/11/25 07:58 03/11/25 04:37 99 03/10/25 20:41 96 03/10/25 20:08 95 03/10/25 19:52 03/10/25 19:39 03/10/25 19:16 98 03/10/25 18:03 96 03/10/25 15:58 92 L 03/10/25 14:34 03/10/25 14:14 94 L 03/10/25 13:49 03/10/25 13:25 03/10/25 13:19 03/10/25 13:16 100 Intake and Output 03/10/25 03/11/25 03/11/25 22:59 06:59 14:59 Intake Total 540 1650 Balance 540 1650 Intake: Oral 540 1650 Other: Voiding Method Toilet Urinal Weight 87.09 kg Results 03/11/25 11:52 03/10/25 13:43 Cardiac Enzymes 03/10/25 03/10/2503/11/25 Range/Units 13:43 21:10 03:25 AST 41 (17-59) U/L Troponin I 0.402 H* 0.616 H* (0.000-0.034) ng/mL Coagulation 03/10/25 Range/Units 13:43 PT 11.9 (10.0-12.5) sec APTT 21.7 L (22.0-30.0) sec CBC 03/10/25 Range/Units 13:43 WBC 12.31 H (4.50-10.00) 10*3/uL RBC 3.79 L (4.40-5.60) 10*6/uL Hgb 11.9 L (13.0-17.0) g/dL Hct 36.8 L (39.6-50.0) % Plt Count 305 (140-440) 10*3/uL Comprehensive Metabolic Panel 03/10/25 Range/Units 13:43 Sodium 138 (137-145) mmol/L Potassium 4.5 (3.5-5.1) mmol/L Chloride 97 L (98-107) mmol/L Carbon Dioxide 35 H (22-30) mmol/L BUN 26 H (9-20) mg/dL Creatinine 0.56 L (0.66-1.25) mg/dL Glucose 229 H (74-99) mg/dL Calcium 9.6 (8.4-10.2) mg/dL AST 41 (17-59) U/L ALT 27 (4-49) U/L Alkaline Phosphatase 142 H (38-126) U/L Total Protein 7.4 (6.3-8.2) g/dL Albumin 3.8 (3.5-5.0) g/dL Current Medications Generic Name Dose Route Start Last Admin Trade Name Freq PRN Reason Stop Dose Admin Acetaminophen 650 mg 03/10/25 17:13 Acetaminophen Tab 325 Mg Tab PO Q4HR PRN Pain Albuterol/Ipratropium 3 ml 03/10/25 20:00 03/11/25 07:57 Ipratropium-Albuterol 3 Ml Neb INHALATION 3 ml RT-QID SEBASTIAN Administration Albuterol/Ipratropium 3 ml 03/10/25 16:32 Ipratropium-Albuterol 3 Ml Neb INHALATION RT-Q2H PRN Shortness Of Breath Or Wheezing Amlodipine Besylate 10 mg 03/11/25 09:00 03/11/25 10:04 Amlodipine 10 Mg Tab PO 10 mg DAILY SEBASTIAN Administration Azithromycin 500 mg 03/12/25 09:00 Azithromycin 500 Mg Tab PO 03/14/25 09:01 DAILY SEBASTIAN Protocol Budesonide/Formoterol Fumarate 2 puff 03/11/25 08:00 03/11/25 07:57 Symbicort 160-4.5 Mcg Inhaler INHALATION 2 puff RT-BID SEBASTIAN Administration Cholecalciferol 125 mcg 03/11/25 09:00 03/11/25 10:04 Cholecalciferol 125 Mcg (5000 Iu) Tablet PO 125 mcg DAILY SEBASTIAN Administration Ferrous Sulfate 325 mg 03/10/25 17:30 03/11/25 06:54 Ferrous Sulfate 325 Mg Tab PO 325 mg BID-W/MEALS SEBASTIAN Administration Heparin Sodium (Porcine) 5,000 unit 03/11/25 00:00 03/11/25 10:10 Heparin Sodium,Porcine 5,000 Unit/Ml 1 Ml Vial SQ 5,000 unit Q8HR SEBASTIAN Administration Hydrochlorothiazide 6.25 mg 03/11/25 09:00 03/11/25 10:07 Hydrochlorothiazide 25 Mg Tab PO 6.25 mg DAILY SEBASTIAN Administration Ceftriaxone Sodium 1 gm/ 50 mls @ 100 mls/hr 03/10/25 23:00 03/11/25 10:09 Sodium Chloride IVPB 100 mls/hr Q24HR SEBASTIAN Administration Protocol Sodium Chloride 1,000 mls @ 50 mls/hr 03/11/25 05:30 03/11/25 05:17 Saline 0.9% IV 125 mls/hr .Q20H SEBASTIAN Administration Losartan Potassium 100 mg 03/11/25 09:00 03/11/25 10:05 Losartan 50 Mg Tab PO 100 mg DAILY SEBASTIAN Administration Methylprednisolone Sodium Succinate 60 mg 03/10/25 18:00 03/11/25 05:50 Methylprednisolone Sod Succi 125 Mg/2 Ml Vial IV 60 mg Q6HR SEBASTIAN Administration Miscellaneous Information 1 each 03/11/25 04:41 Rx Info: Iv Contrast Was Given 1 Each Misc MISCELLANE 03/13/25 04:42 DAILY PRN Per Protocol Naloxone HCl 0.2 mg 03/10/25 16:32 Naloxone 0.4 Mg/Ml 1 Ml Vial IVP Q2M PRN Opioid Reversal Non-Formulary Medication 150 mg 03/10/25 21:00 03/11/25 10:09 Nintedanib Esylate [Ofev] PO 150 mg BID@0900,2100 SEBASTIAN Administration Pantoprazole Sodium 40 mg 03/11/25 07:30 03/11/25 06:54 Pantoprazole 40 Mg Tablet PO 40 mg [id number] SEBASTIAN Administration Senna/Docusate Sodium 2 each 03/10/25 17:13 Sennosides-Docusate Sodium 1 Each Tab PO BID PRN Constipation Intake and Output 03/10/25 03/11/25 03/11/25 22:59 06:59 14:59 Intake Total 540 1650 Balance 540 1650 Intake: Oral 540 1650 Other: Voiding Method Toilet Urinal Weight 87.09 kg 03/10/25 13:43 03/10/25 13:43
[2025-03-11] MEDS ORDERED: DEXTROSE 50% SYRINGE 50 ML IVP PRN ×2 (13:42)
[2025-03-11] MEDS: HEPARIN SODIUM 1,000 UN/ML (10ML VL) IV ONE (13:59)
[2025-03-11] MEDS: BISOPROLOL 5 MG TAB PO SCH (14:00)
[2025-03-11] MEDS: ASPIRIN 81 MG PO SCH (14:00)
[2025-03-11] MEDS: HEPARIN SOD,PORK IN 0.45% NACL 25,000 UNIT in 0.45% NACL 1 250ML.BAG IV SCH (14:02)
[2025-03-11 16:28] LABS: Glucose,Whole Blood 370 mg/dL (70-110)
[2025-03-11] MEDS: INSULIN LISPRO (HumaLOG) 100 UNIT/ML 10 mL VL SQ SCH (16:31)
[2025-03-11] MEDS: ATORVASTATIN 40 MG TAB PO SCH (19:52)
[2025-03-11 19:57] LABS: Glucose,Whole Blood 349 mg/dL (70-110)
--- NOTE | 2025-03-11 23:45 | PN ---
PROGRESS NOTE A 59-year-old white male with new onset atrial fibrillation, recurrent stroke, still waiting for Neurology to recommend a blood thinner. Currently, came with high requirements of oxygen. He is on a transplant list. Blood pressure is 124/70, heart rate is 100, O2 is on 4L at 98, T-max 102.2. Possible cardiac catheterization once respiratory status is stable. EKG, sinus tachycardia, no ST-T changes, super infection most likely. CTA showed new tiny left pleural effusion, ground glass suspicious for edema, possibly pneumonia, started on IV antibiotics, breathing treatments. Continue with medications and breathing treatments, chronic hypoxemic respiratory failure, chronic hypercarbic respiratory failure, febrile illness, elevated troponin, COPD, transplant list for IUP, hypertension, nicotine addiction. OBJECTIVE: LUNGS: Scattered rhonchi and wheeze. CARDIOVASCULAR: S1, S2. He is now playing cards with his . BUN 26, creatinine at 0.56. White count is elevated 12.31; IV antibiotics breathing treatments, etc. Prognosis is guarded. Please see further orders. Await further consults to be done. Continue on his IV antibiotics. Probably, he can go home once Cardiology clears him. MMODL / IJN: [id number] /
[2025-03-12 06:18] LABS: Glucose,Whole Blood 244 mg/dL (70-110)
[2025-03-12 06:53] LABS: Basophils # (A) 0.01 10*3/uL (0.00-0.10); Basophils % (A) 0.1 %; HCT 34.5 % (39.6-50.0); HGB 10.9 g/dL (13.0-17.0); Lymphocytes # (A) 1.23 10*3/uL (0.90-5.00); Lymphocytes % (A) 8.3 %; MCH 30.9 pg (27.0-32.0); MCHC 31.6 g/dL (32.0-37.0); MCV 97.7 fL (80.0-97.0); Mean Platelet Volume 9.9 fL (9.5-12.2); Monocytes # (A) 0.51 10*3/uL (0.20-1.00); Monocytes % (A) 3.4 %; Neutrophils # (A) 12.94 10*3/uL (1.80-7.70); Neutrophils % (A) 87.1 %; Platelet Count 296 10*3/uL (140-440); RBC 3.53 10*6/uL (4.40-5.60); RDW 14.4 % (11.5-14.5); WBC 14.85 10*3/uL (4.50-10.00)
[2025-03-12 07:03] LABS: INR 1.3 (<1.2); Prothrombin Time 13.8 sec (10.0-12.5)
[2025-03-12 08:07] LABS: AST 46 U/L (17-59); African American GFR (CKD) >90 (>60 ml/min/1.73 sqM); Albumin 3.7 g/dL (3.5-5.0); Alkaline Phosphatase 189 U/L (38-126); Anion Gap 12 mmol/L; Blood Urea Nitrogen 23 mg/dL (9-20); Calcium 9.5 mg/dL (8.4-10.2); Carbon Dioxide 28 mmol/L (22-30); Chloride 99 mmol/L (98-107); Glucose 240 mg/dL (74-99); Non-African American GFR(CKD) >90 (>60 ml/min/1.73 sqM); Potassium 3.7 mmol/L (3.5-5.1); Sodium 139 mmol/L (137-145); Total Bilirubin 0.4 mg/dL (0.2-1.3); Total Protein 7.1 g/dL (6.3-8.2)
[2025-03-12 08:14] LABS: ALT 40 U/L (4-49)
[2025-03-12] MEDS: AZITHROMYCIN 500 MG TAB PO SCH (09:10)
[2025-03-12] MEDS ORDERED: NITROGLYCERIN SL TABS 0.4 MG TAB SUBLINGUAL PRN (10:59)
--- NOTE | 2025-03-12 11:18 | CA ---
Transthoracic Echo Report Name: Syed Greenwood Age: 59 Gender: M : 1965 Exam Date: 03/11/2025 14:03 Exam Location: [facility] Ht (in): 70 Wt (lb): 192 Ordering Physician: Montserrat Melvin Attending/Referring Phys: [id number], Olegario Foreign Language Stenographer Tatyana Hernandez, DMITRIY Procedure CPT: Indications: LVF Cardiac Hx: Technical Quality: Technically difficult study Contrast 1: Definity Total Dose (mL): 2 Contrast 2: Total Dose (mL): MEASUREMENTS (Male / Female) Normal Values 2D ECHO LV Diastolic Diameter PLAX 4.3 cm 4.2 - 5.9 / 3.9 - 5.3 cm LV Systolic Diameter PLAX 2.6 cm IVS Diastolic Thickness 1.4 cm 0.6 - 1.0 / 0.6 - 0.9 cm LVPW Diastolic Thickness 1.4 cm 0.6 - 1.0 / 0.6 - 0.9 cm LV Relative Wall Thickness 0.6 RV Internal Dim ED PLAX 3.5 cm LA Systolic Diameter LX 3.7 cm 3.0 - 4.0 / 2.7 - 3.8 cm LV Diastolic Volume MOD BP 64.7 cm??? 67 - 155 / 56 - 104 cm??? LV Systolic Volume MOD BP 21.1 cm??? 22 - 58 / 19 - 49 cm??? LV Ejection Fraction MOD BP 67.4 % >= 55 % LV Cardiac Index MOD BP 1983.1 cm???/min???m??? LV Diastolic Volume MOD 4C 79.6 cm??? LV Systolic Volume MOD 4C 24.4 cm??? LV Ejection Fraction MOD 4C 69.3 % LV Cardiac Index MOD 4C 2507.5 cm???/min???m??? LV Diastolic Length 4C 8.0 cm LV Systolic Length 4C 7.1 cm LV Diastolic Volume MOD 2C 48.5 cm??? LV Systolic Volume MOD 2C 16.9 cm??? LV Ejection Fraction MOD 2C 65.2 % LV Cardiac Index MOD 2C 1436.8 cm???/min???m??? LV Diastolic Length 2C 7.3 cm LV Systolic Length 2C 6.5 cm M-MODE Aortic Root Diameter MM 3.5 cm DOPPLER AV Peak Velocity 174.9 cm/s AV Peak Gradient 12.2 mmHg Mitral E Point Velocity 108.4 cm/s Mitral A Point Velocity 97.6 cm/s Mitral E to A Ratio 1.1 MV Deceleration Time 157.0 ms MV E' Velocity 9.5 cm/s Mitral E to MV E' Ratio 11.4 TR Peak Velocity 342.0 cm/s TR Peak Gradient 46.8 mmHg Right Ventricular Systolic Press 56.8 mmHg FINDINGS Left Ventricle Left ventricular ejection fraction is estimated at 55-60 %. Left ventricular cavity size normal. Moderate concentric left ventricular hypertrophy. Normal left ventricular wall motion. Right Ventricle Mild right ventricular dilatation. Severe pulmonary hypertension. Right ventricular systolic pressure estimated at 57 mm hg. Right Atrium Normal right atrial size. No right atrial thrombus or mass seen. Left Atrium Normal left atrial size. No left atrial thrombus or mass present. Mitral Valve Structurally normal mitral valve. No mitral stenosis, regurgitation or prolapse. Aortic Valve Trileaflet aortic valve. No aortic valve stenosis or regurgitation. Tricuspid Valve Structurally normal tricuspid valve. Mild tricuspid regurgitation. Pulmonic Valve Pulmonic valve not well visualized. No pulmonic regurgitation. Pericardium No pericardial effusion. Aorta Normal size aortic root and proximal ascending aorta. CONCLUSIONS LVEF 55 to 60% No obvious regional wall motion abnormality Moderate concentric LVH Severe pulmonary hypertension with RVSP of 57 mmHg No significant valvular dysfunction other than mild TR Mild RV dilatation Previewed by: Dr Pieter Marrero (Electronically Signed) Final Date: 12 March 2025 11:17
[2025-03-12] MEDS: SODIUM CHLORIDE 0.9% 1,000 ML in EMPTY BAG 1 BAG IV SCH (11:42)
[2025-03-12] MEDS: ATORVASTATIN 80 MG TAB PO STA (11:42)
[2025-03-12 11:43] LABS: Glucose,Whole Blood 205 mg/dL (70-110)
[2025-03-12] MEDS: ASPIRIN 81 MG PO ONE (12:35)
[2025-03-12] MEDS: HEPARIN SODIUM,PORCINE (1 ML) 2,500 UNIT in SODIUM CHLORIDE 0.9% 250 ML IRRIGATION PRN (12:36)
[2025-03-12] MEDS: HEPARIN SODIUM,PORCINE 10,000 UNIT in SODIUM CHLORIDE 0.9% 1,000 ML IRRIGATION PRN (12:36)
[2025-03-12] MEDS: IV FLUID CONTINUATION 1,000 ML IV ONE (12:36)
[2025-03-12] MEDS: fentaNYL (PF) 50 MCG/ML 2 ML AMP IVP ONE (12:44)
[2025-03-12] MEDS: MIDAZOLAM 2 MG/2 ML VIAL IVP ONE ×2 (12:44→13:47)
[2025-03-12] MEDS: LIDOCAINE 1% INJ 10MG/ML (20 ML MDV) SQ ONE (12:45)
[2025-03-12] MEDS: VERAPAMIL SYRINGE (5 MG/10 ML) INTRAARTER ONE (12:46)
--- NOTE | 2025-03-12 13:04 | P.PN ---
Subjective Progress Note Date: 03/12/25 Principal diagnosis: Shortness of breath, fever, pulmonary fibrosis. Patient is a 59-year-old male with past medical history significant for recently diagnosis of biopsy-proven UIP, chronic hypoxemic respiratory failure, COPD, brief history of tobacco use, former marijuana smoker, hypertension. He does follow in the pulmonary office with Dr. Segovia, and had recent follow-up office visit on 02/25/2025. Of note, previously underwent left-sided video-assisted thorascopic surgery with wedge resection of the left upper lobe, as well as, biopsy of the lower lobe on 01/22/2025 pathology consistent with interstitial lung disease, UIP type. Patient has been started on Ofev. He has also been referred to the [facility] for possible lung transplant list. Approximately, 1 week ago patient developed increased short of breath, as well as, notable hypoxia with an SpO2 as low as 70%. He is normally oxygen dependent on 2 L/min supplemental oxygen while at home. When EMS arrived yesterday afternoon, patient was noted to be severely hypoxic placed on a 15 L nonrebr eather, and transferred to the emergency department. Workup including a chest x-ray redemonstrating patient's prominent interstitial lung markings. No focal infiltrates, however, superimposed infectious process was not entirely excluded. Patient was intermittently febrile with a low-grade temperature of 100.4 F. Viral 4 Plex unremarkable for RSV, COVID, influenza. Also tachycardic in the ED. CBC with a WBC count of 12.3, hemoglobin 11.9, platelets 305. CMP: Sodium 138, potassium 4.5, chloride 97, serum bicarb 35, BUN 26, creatinine 0.56, glucose 229. Lactic was 2.7 is down to 2. LFTs fairly unremarkable. EKG: Sinus tachycardia, rate 128 bpm. troponin 0.4. Patient currently being evaluated on the general medical floor. Currently on 4 L/min nasal cannula, does not appear distressed. Patient endorses increased work of breathing over the last week. Recently visited the [facility] on Monday, while driving there, became remarkably short of breath and his oxygen levels were reading low around 70%. Associated symptoms including dry persistent cough, without any signi ficant sputum production. Intermittent fevers. Denies any chest pain, heart palpitations, hemoptysis. No unilateral lower extremity swelling. Currently on Ofev. No known sick contacts. Denies any nausea, vomiting, diarrhea. Current vital signs are stable. Progress note dated March 12, 2025. 59-year-old male with a history of biopsy-proven pulmonary fibrosis. The patient sees one of my partners. The patient also has a history of respiratory failure, COPD, hypertension, among other things. The patient was started on Ofev. The patient has been to the [facility], and the preliminary evaluation has begun. The patient was also found to have elevated troponin levels, and cardiology was consulted. Currently, the patient is on IV heparin, azithromycin, Rocephin, DuoNebs, Solu-Medrol, and Ofev. His procalcitonin level was elevated at 0.6. White count 14.9, hemoglobin 10.9, hematocrit 34.5, and platelet count 296,000. PTT is 64. Sodium 139, potassium 3.7, chloride 99, CO2 28, anion gap 12, BUN 23, and creatinine 0.57. Glucose is 205. Cardiology recommended a heart catheterization. Objective - Vital Signs Vital signs: Vital Signs Temp 97.7 F 03/12/25 08:00 Pulse 90 03/12/25 11:24 Resp 18 03/12/25 08:00 BP 135/79 03/12/25 08:00 Pulse Ox 93 L 03/12/25 08:00 FiO2 Intake & Output 03/11/25 03/12/25 03/12/25 18:59 06:59 18:59 Intake Total 460 480 227.658 Balance 460 480 227.658 Weight 90.4 kg Intake: IV 480 Heparin Sod,Pork in 0.45% 80 NaCl 25,000 unit In 0.45 % NaCl 1 250ml.bag @ 12 UNITS/KG/HR 10.451 mls/hr IV .[id number] [facility] Rx#: [id number] Sodium Chloride 0.9% 1, 400 000 ml @ 50 mls/hr IV . Q20H [facility] Rx#:[id number] Intake, IV Titration 227.658 Amount Heparin Sod,Pork in 0.45% 227.658 NaCl 25,000 unit In 0.45 % NaCl 1 250ml.bag @ 12 UNITS/KG/HR 10.451 mls/hr IV .[id number] [facility] Rx#: [id number] Oral 460 Other: Voiding Method Toilet Toilet Urinal Urinal # Voids 2 # Bowel Movements 1 - Exam No acute distress, oriented 3. No respiratory distress. Currently on 4 L. HEENT examination is grossly unremarkable. Mucous membranes are moist. No oral lesions. Neck supple. Full range of motion. No adenopathy thyromegaly or neck vein distention. Cardiovascular examination reveals regular rhythm rate. S1-S2 normal. No S3 or S4. No discernible murmur noted. Lungs reveal bibasilar crackles. The patient is restricted in his breathing. No rhonchi. No wheezes. Breath sounds are equal bilaterally. Abdomen soft bowel sounds are heard. No masses or tenderness. Extremities are intact. No cyanosis clubbing or edema. Skin is without rash or lesion. Neurologic examination is brief but nonfocal. - Labs CBC & Chem 7: 03/12/25 05:49 03/12/25 05:49 Labs: Abnormal Lab Results - Last 24 Hours (Table) 03/11/25 03/11/25 03/11/25 Range/Units 13:16 13:16 15:06 WBC (4.50-10.00) 10*3/uL RBC (4.40-5.60) 10*6/uL Hgb (13.0-17.0) g/dL Hct (39.6-50.0) % MCV (80.0-97.0) fL MCHC (32.0-37.0) g/dL Immature Gran # (0.00-0.04) 10*3/uL Neutrophils # (1.80-7.70) 10*3/uL Eosinophils # (0.04-0.35) 10*3/uL PT (10.0-12.5) sec INR (<1.2) APTT (22.0-30.0) sec BUN (9-20) mg/dL Creatinine (0.66-1.25) mg/dL Glucose (74-99) mg/dL POC Glucose (mg/dL) (70-110) mg/dL Hemoglobin A1c 7.9 H (<=6.0) % Plasma Lactic Acid Miguel 4.7 H* (0.7-2.0) mmol/L Alkaline Phosphatase (38-126) U/L Troponin I 0.344 H* (0.000-0.034) ng/mL 03/11/25 03/11/25 03/11/25 Range/Units 16:26 19:56 20:37 WBC (4.50-10.00) 10*3/uL RBC (4.40-5.60) 10*6/uL Hgb (13.0-17.0) g/dL Hct (39.6-50.0) % MCV (80.0-97.0) fL MCHC (32.0-37.0) g/dL Immature Gran # (0.00-0.04) 10*3/uL Neutrophils # (1.80-7.70) 10*3/uL Eosinophils # (0.04-0.35) 10*3/uL PT (10.0-12.5) sec INR (<1.2) APTT 54.8 H (22.0-30.0) sec BUN (9-20) mg/dL Creatinine (0.66-1.25) mg/dL Glucose (74-99) mg/dL POC Glucose (mg/dL) 370 H 349 H (70-110) mg/dL Hemoglobin A1c (<=6.0) % Plasma Lactic Acid Miguel (0.7-2.0) mmol/L Alkaline Phosphatase (38-126) U/L Troponin I (0.000-0.034) ng/mL 03/12/25 03/12/25 03/12/25 Range/Units 05:49 05:49 05:49 WBC 14.85 H (4.50-10.00) 10*3/uL RBC 3.53 L (4.40-5.60) 10*6/uL Hgb 10.9 L (13.0-17.0) g/dL Hct 34.5 L (39.6-50.0) % MCV 97.7 H (80.0-97.0) fL MCHC 31.6 L (32.0-37.0) g/dL Immature Gran # 0.16 H (0.00-0.04) 10*3/uL Neutrophils # 12.94 H (1.80-7.70) 10*3/uL Eosinophils # 0.00 L (0.04-0.35) 10*3/uL PT 13.8 H (10.0-12.5) sec INR 1.3 H (<1.2) APTT 64.0 H (22.0-30.0) sec BUN 23 H (9-20) mg/dL Creatinine 0.57 L (0.66-1.25) mg/dL Glucose 240 H (74-99) mg/dL POC Glucose (mg/dL) (70-110) mg/dL Hemoglobin A1c (<=6.0) % Plasma Lactic Acid Miguel (0.7-2.0) mmol/L Alkaline Phosphatase 189 H (38-126) U/L Troponin I (0.000-0.034) ng/mL 03/12/25 03/12/25 Range/Units 06:17 11:41 WBC (4.50-10.00) 10*3/uL RBC (4.40-5.60) 10*6/uL Hgb (13.0-17.0) g/dL Hct (39.6-50.0) % MCV (80.0-97.0) fL MCHC (32.0-37.0) g/dL Immature Gran # (0.00-0.04) 10*3/uL Neutrophils # (1.80-7.70) 10*3/uL Eosinophils # (0.04-0.35) 10*3/uL PT (10.0-12.5) sec INR (<1.2) APTT (22.0-30.0) sec BUN (9-20) mg/dL Creatinine (0.66-1.25) mg/dL Glucose (74-99) mg/dL POC Glucose (mg/dL) 244 H 205 H (70-110) mg/dL Hemoglobin A1c (<=6.0) % Plasma Lactic Acid Miguel (0.7-2.0) mmol/L Alkaline Phosphatase (38-126) U/L Troponin I (0.000-0.034) ng/mL Microbiology - Last 24 Hours (Table) 03/10/25 13:43 Blood Culture - Preliminary Blood Assessment and Plan Assessment: Acute on chronic hypoxemic respiratory failure currently on 4 L/min nasal cannula, chest x-ray redemonstrating patient's prominent interstitial lung markings. No focal infiltrates, however, superimposed infectious process was not entirely excluded. Viral 4 Plex negative for influenza A/B, RSV, COVID. Acute febrile illness. Biopsy-proven UIP/IPF, currently on Ofev. Chronic obstructive pulmonary disease. Chronic hypoxemic respiratory failure, normally maintained on 2.5 L nasal cannula. Elevated troponins, possibly secondary to type II IN and supply/demand mismatch. Macrocytic anemia, hemoglobin stable at 11.9 g/dL. Hypertension. Gastroesophageal reflux disease. Brief history of tobacco smoking. Plan: Plan dated March 12, 2025. The patient is seen by cardiology. Because of the elevated troponins, the patient will be scheduled for heart catheterization. From the pulmonary standpoint, the patient is doing reasonably well. We will continue to follow make recommendations along the way. The patient continues on IV heparin. His procalcitonin level was elevated 0.6. The patient is currently on azithromycin and Rocephin. In addition, the patient is on Ofev, DuoNebs, and Solu-Medrol. Overall prognosis remains guarded. We will continue to follow make recomm endations. Dictation was produced using [employer] dictation software. Please excuse any grammatical, word or spelling errors. Time with Patient: Less than 30
[2025-03-12] MEDS: HEPARIN SODIUM 1,000 UN/ML (10ML VL) IV ONE (13:09)
--- NOTE | 2025-03-12 13:09 | PN ---
PROGRESS NOTE Labs today show a white count of 14.85, hemoglobin is 10.9. Sugars are 200s to 300s. He is admitted for pneumonia, COPD exacerbation. Remains on IV antibiotics. White count still remains high. Wait for Pulmonary to clear him prior to going home. Continue with broad-spectrum antibiotics, breathing treatments, etc. May need portable oxygen to go home. We will try to get that going for him with his folk at home. PHYSICAL EXAMINATION: CARDIOVASCULAR: S1, S2. LUNGS: Scattered wheeze and rhonchi. HEMATOLOGY: Negative for Homans. He is saturating at 99 on 4 L down from 5, which is improving with his antibiotics. Maybe need another day to set up portable oxygen prior to going home. Wait for pulmonary. MMODL / IJN: [id number] /
[2025-03-12 13:15] LABS: O2 Sat Blood Gas 74.8 %
[2025-03-12 13:18] LABS: O2 Sat Blood Gas 76.2 %
[2025-03-12 13:19] LABS: O2 Sat Blood Gas 96.3 %
--- NOTE | 2025-03-12 13:27 | P.PN ---
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 He has a past medical history of asthma as a child, COPD, recently diagnosed IUP and started on Ofev, hypertension, tobacco use for 11 years, marijuana use and quit 1 year ago. Patient states that he has had a stress test done many years ago. We have been asked to evaluate the patient for arrhythmia and elevated troponins. He states that he was at home and ate ice cream but fell asleep and then he was concerned when he woke up that he had aspirated the ice cream. He states he could not get his pulse ox up over 70%. He is normally on home O2 at 2 L nasal cannula and increased it to 3 L without improvement. He denies having chest pain. He is currently on O2 at 5 L. Patient required oxygen at 15 L nonrebreather by EMS transport. Patient also gives history that he is following at [facility] and is getting on the transplant list. Blood pressure 124/70, heart rate 100, pulse ox 98% on 4 L nasal cannula. Temperature max 102.2. Dr. Marrero discussed with the patient that he would recommend possible cardiac catheterization once respiratory status is stable. This may be performed during this hospitalization or at a later time. -EKG: Sinus tachycardia with no acute ST-T wave changes. -Chest x-ray: Interstitial lung disease without focal consolidation. Superimposed infectious process is not entirely excluded. -CTA chest: Advanced pulmonary fibrotic changes. New tiny left pleural effusion and areas of groundglass opacity suspicious for edema. Underlying acute pneumonic infiltrate not excluded. -Laboratory studies: WBC 12.3 with repeat 9.3, hemoglobin 11.5, D-dimer 1.96. BUN 26 and creatinine 0.56, CO2 35. Lactic acid 3.9. Troponins 0.402 and 0.616. Cepheid viral panel not detected. -Home cardiac medications: Amlodipine 10 mg daily, olmesartan/hydrochlorothiazide 40-12.5 mg half tablet daily. 03/12/2025 Patient examined this morning at bedside. Patient reports mild shortness of breath. He denies chest pain or pressure. Vital signs are stable. He remains on IV heparin. Echocardiogram completed revealing ejection fraction 55 to 60%, severe pulmonary hypertension, RVSP 57 mmHg, moderate concentric LVH, mild TR. PHYSICAL EXAM: VITAL SIGNS: Reviewed. GENERAL: Well-developed in no acute distress. NECK: Supple. No JVD or thyromegaly LUNGS: Respirations even and unlabored. Lungs essentially clear to auscultation bilaterally. HEART: Regular rate and rhythm. S1 and S2 heard. EXTREMITIES: Normal range of motion. No clubbing or cyanosis. Peripheral pulses intact. No lower extremity edema ASSESSMENT: Acute on chronic hypoxic respiratory failure currently on 4 L nasal cannula Chronic hypoxic respiratory failure on home O2 at 2 L Febrile illness with temperature of 102.2 on presentation Elevated troponin secondary to type II CA COPD IUP, on Ofev and follows at [facility] for transplant evaluation Hypertension Tobacco use for 11 years Marijuana use and quit 1 year ago PLAN: Continue IV heparin Continue current cardiac medications including amlodipine, aspirin, Lipitor, bisoprolol, losartan Patient to undergo right and left heart cath today with Dr. Marrero Further recommendations pending patient course Nurse practitioner note has been reviewed by physician. Signing provider agrees with the documented findings, assessment, and plan of care documented by [employer] as a scribe. Objective - Vital Signs Vital signs: Vital Signs Temp 97.7 F 03/12/25 03:25 Pulse 88 03/12/25 07:55 Resp 20 03/12/25 06:02 BP 138/87 03/12/25 03:25 Pulse Ox 99 03/12/25 07:40 FiO2 Intake & Output 03/11/25 03/12/25 03/12/25 18:59 06:59 18:59 Intake Total 460 480 Balance 460 480 Weight 90.4 kg Intake: IV 480 Heparin Sod,Pork in 0.45% 80 NaCl 25,000 unit In 0.45 % NaCl 1 250ml.bag @ 12 UNITS/KG/HR 10.451 mls/hr IV .[id number] [facility] Rx#: [id number] Sodium Chloride 0.9% 1, 400 000 ml @ 50 mls/hr IV . Q20H [facility] Rx#:[id number] Oral 460 Other: Voiding Method Toilet Urinal # Voids 2 # Bowel Movements 1 - Labs CBC & Chem 7: 03/12/25 05:49 03/12/25 05:49 Labs: Abnormal Lab Results - Last 24 Hours (Table) 03/11/25 03/11/25 03/11/25 Range/Units 03:25 09:17 11:52 WBC (4.50-10.00) 10*3/uL RBC 3.57 L (4.40-5.60) 10*6/uL Hgb 11.5 L (13.0-17.0) g/dL Hct 34.9 L (39.6-50.0) % MCV 97.8 H (80.0-97.0) fL MCH 32.2 H (27.0-32.0) pg MCHC (32.0-37.0) g/dL Immature Gran # 0.07 H (0.00-0.04) 10*3/uL Neutrophils # 7.98 H (1.80-7.70) 10*3/uL Eosinophils # 0.00 L (0.04-0.35) 10*3/uL PT (10.0-12.5) sec INR (<1.2) APTT (22.0-30.0) sec BUN (9-20) mg/dL Creatinine (0.66-1.25) mg/dL Glucose (74-99) mg/dL POC Glucose (mg/dL) (70-110) mg/dL Hemoglobin A1c (<=6.0) % Plasma Lactic Acid Miguel 4.4 H* (0.7-2.0) mmol/L Alkaline Phosphatase (38-126) U/L Troponin I (0.000-0.034) ng/mL Procalcitonin 0.60 H (0.02-0.50) ng/mL 03/11/25 03/11/25 03/11/25 Range/Units 11:52 12:03 12:41 WBC (4.50-10.00) 10*3/uL RBC (4.40-5.60) 10*6/uL Hgb (13.0-17.0) g/dL Hct (39.6-50.0) % MCV (80.0-97.0) fL MCH (27.0-32.0) pg MCHC (32.0-37.0) g/dL Immature Gran # (0.00-0.04) 10*3/uL Neutrophils # (1.80-7.70) 10*3/uL Eosinophils # (0.04-0.35) 10*3/uL PT 13.1 H (10.0-12.5) sec INR 1.2 H (<1.2) APTT (22.0-30.0) sec BUN (9-20) mg/dL Creatinine (0.66-1.25) mg/dL Glucose (74-99) mg/dL POC Glucose (mg/dL) 357 H (70-110) mg/dL Hemoglobin A1c (<=6.0) % Plasma Lactic Acid Miguel 3.9 H* (0.7-2.0) mmol/L Alkaline Phosphatase (38-126) U/L Troponin I (0.000-0.034) ng/mL Procalcitonin (0.02-0.50) ng/mL 03/11/25 03/11/25 03/11/25 Range/Units 13:16 13:16 15:06 WBC (4.50-10.00) 10*3/uL RBC (4.40-5.60) 10*6/uL Hgb (13.0-17.0) g/dL Hct (39.6-50.0) % MCV (80.0-97.0) fL MCH (27.0-32.0) pg MCHC (32.0-37.0) g/dL Immature Gran # (0.00-0.04) 10*3/uL Neutrophils # (1.80-7.70) 10*3/uL Eosinophils # (0.04-0.35) 10*3/uL PT (10.0-12.5) sec INR (<1.2) APTT (22.0-30.0) sec BUN (9-20) mg/dL Creatinine (0.66-1.25) mg/dL Glucose (74-99) mg/dL POC Glucose (mg/dL) (70-110) mg/dL Hemoglobin A1c 7.9 H (<=6.0) % Plasma Lactic Acid Miguel 4.7 H* (0.7-2.0) mmol/L Alkaline Phosphatase (38-126) U/L Troponin I 0.344 H* (0.000-0.034) ng/mL Procalcitonin (0.02-0.50) ng/mL 03/11/25 03/11/25 03/11/25 Range/Units 16:26 19:56 20:37 WBC (4.50-10.00) 10*3/uL RBC (4.40-5.60) 10*6/uL Hgb (13.0-17.0) g/dL Hct (39.6-50.0) % MCV (80.0-97.0) fL MCH (27.0-32.0) pg MCHC (32.0-37.0) g/dL Immature Gran # (0.00-0.04) 10*3/uL Neutrophils # (1.80-7.70) 10*3/uL Eosinophils # (0.04-0.35) 10*3/uL PT (10.0-12.5) sec INR (<1.2) APTT 54.8 H (22.0-30.0) sec BUN (9-20) mg/dL Creatinine (0.66-1.25) mg/dL Glucose (74-99) mg/dL POC Glucose (mg/dL) 370 H 349 H (70-110) mg/dL Hemoglobin A1c (<=6.0) % Plasma Lactic Acid Miguel (0.7-2.0) mmol/L Alkaline Phosphatase (38-126) U/L Troponin I (0.000-0.034) ng/mL Procalcitonin (0.02-0.50) ng/mL 03/12/25 03/12/25 03/12/25 Range/Units 05:49 05:49 05:49 WBC 14.85 H (4.50-10.00) 10*3/uL RBC 3.53 L (4.40-5.60) 10*6/uL Hgb 10.9 L (13.0-17.0) g/dL Hct 34.5 L (39.6-50.0) % MCV 97.7 H (80.0-97.0) fL MCH (27.0-32.0) pg MCHC 31.6 L (32.0-37.0) g/dL Immature Gran # 0.16 H (0.00-0.04) 10*3/uL Neutrophils # 12.94 H (1.80-7.70) 10*3/uL Eosinophils # 0.00 L (0.04-0.35) 10*3/uL PT 13.8 H (10.0-12.5) sec INR 1.3 H (<1.2) APTT 64.0 H (22.0-30.0) sec BUN 23 H (9-20) mg/dL Creatinine 0.57 L (0.66-1.25) mg/dL Glucose 240 H (74-99) mg/dL POC Glucose (mg/dL) (70-110) mg/dL Hemoglobin A1c (<=6.0) % Plasma Lactic Acid Miguel (0.7-2.0) mmol/L Alkaline Phosphatase 189 H (38-126) U/L Troponin I (0.000-0.034) ng/mL Procalcitonin (0.02-0.50) ng/mL 03/12/25 Range/Units 06:17 WBC (4.50-10.00) 10*3/uL RBC (4.40-5.60) 10*6/uL Hgb (13.0-17.0) g/dL Hct (39.6-50.0) % MCV (80.0-97.0) fL MCH (27.0-32.0) pg MCHC (32.0-37.0) g/dL Immature Gran # (0.00-0.04) 10*3/uL Neutrophils # (1.80-7.70) 10*3/uL Eosinophils # (0.04-0.35) 10*3/uL PT (10.0-12.5) sec INR (<1.2) APTT (22.0-30.0) sec BUN (9-20) mg/dL Creatinine (0.66-1.25) mg/dL Glucose (74-99) mg/dL POC Glucose (mg/dL) 244 H (70-110) mg/dL Hemoglobin A1c (<=6.0) % Plasma Lactic Acid Miguel (0.7-2.0) mmol/L Alkaline Phosphatase (38-126) U/L Troponin I (0.000-0.034) ng/mL Procalcitonin (0.02-0.50) ng/mL Microbiology - Last 24 Hours (Table) 03/10/25 13:43 Blood Culture - Preliminary Blood
[2025-03-12] MEDS: TICAGRELOR 90 MG TAB PO ONE (13:31)
[2025-03-12] MEDS: IOPAMIDOL-370 100ML BTL INJ ONE ×2 (13:43→14:18)
--- NOTE | 2025-03-12 13:47 | P.CARDCATH ---
Date of Procedure: 03/12/25 Description of Procedure: DIAGNOSTIC CORONARY ANGIOGRAPHY and LEFT HEART CATH REPORT PROCEDURES PERFORMED: Left heart catheterization Right heart catheterization Selective coronary angiography Moderate conscious sedation 30 mins Right radial access INDICATION: NSTEMI, shortness of breath, congestive heart failure exacerbation BRIEF HPI: 59-year-old with no prior cardiovascular history with past medical history of asthma, COPD, interstitial lung disease history of hypertension use, 7-pack-year tobacco smoking history, stopped in 2023. He presented to the hospital because of increased worsening shortness of breath and was noticed to be hypoxic on admission. There is also concerns of possible congestive heart failure exacerbation and elevated troponin on admission. Admission labs showed elevated lactic acid, HbA1c 7.9, NT-proBNP 229, BUN 26, creatinine 0.5, Hb 11.9. His CTA chest was performed because of elevated D-dimer which did not show any pulmonary artery embolism. Did show interstitial lung disease. Because of elevated troponin, concern for congestive heart failure on clinical examination he was scheduled for the left and right heart catheterization procedure. CONSENT: I have explained the procedural steps of above-mentioned procedures in layman's terms to the patient. I discussed the risks (including but not limited to stroke, emergent vascular or cardiac surgery or ), benefits and alternative therapies for the above-mentioned procedure. I discussed the risks of sedation/analgesia and blood product administration (if indicated). The patient has indicated understanding and acceptance of these risks. Conscious Sedation: Patient's ECG, heart rate, blood pressure, pulse oximetry were monitored throughout the duration of procedure under my direct supervision. 1 mg Versed and 50 mcg Fentanyl were used for induction of moderate conscious sedation. Total duration of moderate concious sedation 30 minutes. PROCEDURAL DETAILS: Patient was prepped and draped in sterile fashion. 1% lidocaine was infiltrated over the right radial artery. Right radial access was obtained via modified seldinger technique. [Ultrasound was used for radial access]. 6 Cymro sheath was placed secured and flushed. 1% lidocaine was infiltrated over right antecubital fossa over the basilar vein. Basic vein was identified using ultrasound and access was obtained using modified Seldinger technique. 6 Cymro sheath was placed and secured and flushed. Medications: 5mg of verapamil was administed in the radial sheet. 5000 Units of Heparin was administed once the catheter reached the aortic root Right heart catheterization was on the 6 Cymro [place] catheter. Sequential pressures and blood samples were collected were from PCW, PA, RV and RA. Thermodilution study was performed with the tip of the catheter in the PA. Wires and Catheter used: J wire was advanced under fluroscopy to get to aortic root. 5 latvian JR 4 diagnostic catheter was utilized obtain left ventricular pressure and pressure gradint across aortic valve. 5 latvian JR 4 diagnostic catheter was used to selectively engage the right coronary ostium. 5 latvian JL 3.5 diagnostic catheter was utilized to selectively engage the left coronary ostium. Angiographic images were reviewed in detail. Catheter and wire were removed. Radial sheet was flushed. The right radial sheath was removed and a TR band was placed. Patent hemostasis was achieved. The patient tolerated the procedure well. Patient was transported back to the post catheterization holding area in stable condition. HEMODYNAMICS: Aortic Pressure: 125/77 mmHg. LV pressure: 129/11 mmHg. LVEDP 35 mmHg. There was no significant gradient across the aortic valve. Pressures LVEDP: 35 mmHg Mean PCW: 25 mmHg PA: 60/22 mmHg, mean 40 mmHg. Transpulmonary gradient of 5 mmHg RV: 60/12 mmHg RVEDP: 20 mmHg Mean RA: 20 mmHg Thermodilution cardiac output 7.9 L/min Thermodilution cardiac index 3.79 L/min/m Arterial PO2 96%, Mixed venous PO2 74% FiO2 39%, on 6 L oxygen Heart rate 90 bpm, Hb 11, BSA 2.08 height 5'10'', weight 90 EKG Lucy cardiac output 8.2 L/min Lucy cardiac index 3.9 L/min/m SELECTIVE CORONARY ARTERIOGRAPHY: LEFT MAIN: The left main is short and large caliber vessel. It bifurcates into the LAD and circumflex. Left main appears angiographically patent. LEFT ANTERIOR DESCENDING CORONARY ARTERY: Large caliber wraps around the apex. Proximal LAD appears angiographically patent with mild luminal calcification. Mid LAD just after giving a medium size diagonal branch has 50% calcific tubular stenosis. Diagonal 1 is medium caliber and appears angiographically patent with mild to moderate irregularities. Distal LAD has 50 to 60% focal disease in mid segment and 60 to 70% focal disease in apical segment. LEFT CIRCUMFLEX CORONARY ARTERY: It is nondominant vessel. LCx is large caliber. Proximal LCx has 20%-30% luminal irregularities. It gives rise to a small OM1 and a medium size OM 2 branch which appears angiographically patent. RIGHT CORONARY ARTERY: Dominant vessel. Proximal RCA is angiographically patent. Mid RCA has 50% tubular stenosis in mid segment with sequential 60% tubular stenosis. Distal RCA has 80% stenosis with sequential 90% stenosis. Distally bifurcates into PDA and PL branches which appears angiographically patent. IMPRESSION: 90% distal RCA stenosis, 50 to 60% mid RCA stenosis 50% mid LAD stenosis 60% focal disease in distal and apical LAD. Mild nonobstructive disease in LCx Elevated LVEDP, and elevated wedge pressure of 35 mmHg Moderate pulmonary hypertension, combination of group 2 and group 3, predominantly group 2. Normal cardiac output and cardiac index PLAN: Recommend PCI of RCA HFpEF management with diuretics and guideline directed medical therapy Further recommendations to follow Performing Physician Pieter Marrero MD, FACC, RPVI Thank you for allowing [facility] to participate in this patient's care. Feel free to reach out in case of any followup questions.
[2025-03-12] MEDS ORDERED: ALBUTEROL NEBULIZED 2.5 MG/3 ML INHALATION PRN (14:36)
[2025-03-12] MEDS ORDERED: RX INFO: IV CONTRAST WAS GIVEN 1 EACH MISC MISCELLANE PRN (14:39)
[2025-03-12] MEDS ORDERED: MAG HYDROX/AL HYDROX/SIMETH 30 ML CUP PO PRN (14:39)
[2025-03-12] MEDS ORDERED: ATROPINE SULFATE 0.1 MG/ML 10ML SYRINGE IV PRN (14:39)
[2025-03-12] MEDS: FUROSEMIDE 10 MG/ML 4 ML VIAL IV STA ×2 (15:17→16:53)
[2025-03-12 15:19] LABS: Glucose,Whole Blood 205 mg/dL (70-110)
--- NOTE | 2025-03-12 15:22 | P.PCN ---
Date of Procedure: 03/12/25 Operative Findings: PERCUTANEOUS CORONARY INTERVENTION Performing physician Juan Baez M.D. Procedure Performed: 1. Successful stenting of the distal and proximal and mid RCA using Xience drug- eluting stents with an excellent angiographic results. 2. Adjunctive use of IVUS Indication: This is a 59-year-old gentleman who sees Dr. Marrero in the office on regular basis who was admitted to the hospital with acute non-ST ovation myocardial infarction with he is as [id number] in process of being evaluated for lung transplant. He underwent a heart catheterization and that revealed critical disease involving the distal RCA. Approach: Right radial artery Complications: None Level of Sedation: Moderate with a sedation length of 40 minutes Procedure Discussion: Please refer to diagnostic heart catheterization was performed by Dr. Marrero earlier today. Anticoagulation was initiated using heparin with continuous ACT monitoring. Subsequently I did engage the RCA using JR4 guiding catheter. I did wired the RCA using a run-through wire. From the get go and giving how calcified and tortuous the RCA use GuideLiner on standby. IVUS was performed and revealed a diameter of the RCA distally around 4.5 to 5 mm and in the midportion around 5 mm noncalcified vessel. Predilatation was performed using 4 mm noncompliant balloon which was inflated in the distal and mid RCA under 12 harvinder for 20 seconds. Subsequently I deployed distally 4.5 x 38 and in the midportion 5.0 x 38 mm stents. Both the stent were positioned under fluoroscopy guidance and deployed under fluoroscopy guidance with about 2 mm overlap between the stents. An angiogram was performed and showed that there was another tight lesion involving the area in the mid RCA just proximal to the mid RCA stent. I decided to cover that using 5.0 x 18 mm stent. An angiogram was performed and showed dissection involving the very proximal right coronary artery appeared to be secondary to H dissection with dye staining with flow-limiting dissection. I decided to cover that with a stent so I deployed a 5.0 x 23 mm stent. The area of overlap was dilated using the stent balloon. Please note that also we postdilated the stented segment using 5 mm noncompliant balloon with IVUS was performed and showed that the stent was well opposed and well-expanded with GREG-3 flow was achieved by the Postprocedure Management: 1. Dual antiplatelet therapy using aspirin and Brilinta 2. Aggressive cholesterol control 3. Risk factors modification
--- NOTE | 2025-03-12 15:34 | XR ---
EXAMINATION TYPE: XR chest 1V portable DATE OF EXAM: 03/12/2025 3:28 PM COMPARISON: Chest radiographs from 03/10/2025, CTA chest 03/11/2025 TECHNIQUE: XR chest 1V portable Portable AP radiograph of the chest. CLINICAL INDICATION:Male, 59 years old with history of sob; FINDINGS: Lungs/Pleura: No sizable pleural effusion. No pneumothorax. Worsening multifocal patchy airspace opac ities throughout the lungs. Pulmonary vascularity: Unremarkable. Heart/mediastinum: Cardiomediastinal silhouette is enlarged and stable. Musculoskeletal: No acute osseous pathology. IMPRESSION: Cardiomegaly with worsening multifocal patchy airspace opacities. Etiologies include multifocal pneum onia versus pulmonary edema and/or ARDS. [facility], , 03/12/2025 3:31 PM
[2025-03-12 15:51] LABS: Glucose,Whole Blood 202 mg/dL (70-110)
[2025-03-12 15:55] LABS: Chol/HDL Ratio 2.75 Ratio; LDL Cholesterol,Calculated 131.8 mg/dL (0.0-131.0); VLDL Calculation 13.36 mg/dL (5.00-40.00)
[2025-03-12 15:58] LABS: ABG Base Excess 5.9 mmol/L; ABG HCO3 32 mmol/L (21-25); ABG Oxygen Saturation 88.9 % (94-97); ABG PCO2 51 mmHg (35-45); ABG TCO2 33 mmol/L (19-24); Allen Test Performed? Yes
[2025-03-12 16:08] LABS: ABG PO2 57 mmHg (83-108)
[2025-03-12] MEDS ORDERED: FUROSEMIDE 10 MG/ML 10 ML VIAL IV SCH (18:00)
[2025-03-12 18:11] LABS: Glucose,Whole Blood 234 mg/dL (70-110)
[2025-03-12] MEDS ORDERED: LORazepam 1 MG/0.5 ML VIAL IV PRN (20:00)
[2025-03-12] MEDS ORDERED: LORazepam 2 MG/ML INJ IV PRN (20:08)
[2025-03-12] MEDS: FUROSEMIDE 10 MG/ML 4 ML VIAL IV SCH (21:17)
[2025-03-12] MEDS: predniSONE 10 MG TAB PO SCH (21:17)
[2025-03-12] MEDS: TICAGRELOR 90 MG TAB PO SCH (21:19)
[2025-03-12] MEDS ORDERED: Magnesium Replacement Protocol 1 EACH MISC MISCELLANE PRN (22:34)
[2025-03-12] MEDS: MAGNESIUM SULFATE-D5W PMX 1 GM in DEXTROSE/WATER 1 100ML.BAG IVPB ONE (22:45)
[2025-03-13] MEDS: INSULIN LISPRO (HumaLOG) 100 UNIT/ML 10 mL VL SQ SCH (00:32)
[2025-03-13 01:31] LABS: Glucose,Whole Blood 224 mg/dL (70-110)
[2025-03-13 04:28] LABS: Basophils # (A) 0.02 10*3/uL (0.00-0.10); Basophils % (A) 0.1 %; HCT 31.6 % (39.6-50.0); HGB 10.3 g/dL (13.0-17.0); Lymphocytes # (A) 0.87 10*3/uL (0.90-5.00); Lymphocytes % (A) 5.3 %; MCH 31.7 pg (27.0-32.0); MCHC 32.6 g/dL (32.0-37.0); MCV 97.2 fL (80.0-97.0); Mean Platelet Volume 9.9 fL (9.5-12.2); Monocytes # (A) 0.77 10*3/uL (0.20-1.00); Monocytes % (A) 4.7 %; Neutrophils # (A) 14.54 10*3/uL (1.80-7.70); Platelet Count 333 10*3/uL (140-440); RBC 3.25 10*6/uL (4.40-5.60); RDW 14.5 % (11.5-14.5); WBC 16.35 10*3/uL (4.50-10.00)
[2025-03-13 04:54] LABS: ALT 40 U/L (4-49); AST 49 U/L (17-59); African American GFR (CKD) >90 (>60 ml/min/1.73 sqM); Albumin 3.7 g/dL (3.5-5.0); Alkaline Phosphatase 135 U/L (38-126); Anion Gap 7 mmol/L; Blood Urea Nitrogen 26 mg/dL (9-20); Calcium 9.3 mg/dL (8.4-10.2); Carbon Dioxide 39 mmol/L (22-30); Chloride 91 mmol/L (98-107); Glucose 210 mg/dL (74-99); Magnesium 2.3 mg/dL (1.6-2.3); Non-African American GFR(CKD) >90 (>60 ml/min/1.73 sqM); Sodium 137 mmol/L (137-145); Total Bilirubin 0.8 mg/dL (0.2-1.3)
[2025-03-13] MEDS ORDERED: Potassium Replacement Protocol 1 EACH MISC MISCELLANE PRN (05:23)
[2025-03-13 05:55] LABS: Glucose,Whole Blood 190 mg/dL (70-110)
[2025-03-13] MEDS: POTASSIUM CHLORIDE 10 MEQ in WATER FOR INJECTION 1 100ML.BAG IVPB SCH (06:01)
[2025-03-13 07:20] LABS: Appearance,Urine Cloudy (Clear); Bacteria,Urine Rare /hpf; Bilirubin,Urine Negative (Negative); Blood,Urine Large (Negative); Color,Urine Yellow; Glucose,Urine (UA) Negative (Negative); Ketones,Urine Negative (Negative); Leukocyte Esterase,Urine Large (Negative); Mucus,Urine Rare /hpf; Nitrite,Urine Negative (Negative); Protein,Urine Trace (Negative); RBC,Urine >182 /hpf (0-5); Specific Gravity,Urine 1.027 (1.001-1.035); Urobilinogen,Urine <2.0 mg/dL (<2.0); WBC,Urine 144 /hpf (0-5)
--- NOTE | 2025-03-13 08:12 | XR ---
EXAMINATION TYPE: XR chest 1V DATE OF EXAM: 03/13/2025 5:33 AM COMPARISON: Chest radiographs from 03/12/2025 TECHNIQUE: XR chest 1V Frontal view of the chest. CLINICAL INDICATION:Male, 59 years old with history of SOB; FINDINGS: Lungs/Pleura: No sizable pleural effusion. No pneumothorax. Similar multifocal patchy airspace opacit ies throughout the lungs. Heart/mediastinum: Cardiomediastinal silhouette is enlarged and stable. Musculoskeletal: No acute osseous pathology. IMPRESSION: Cardiomegaly with similar multifocal patchy airspace opacities. Etiologies include multifocal pneumon ia versus pulmonary edema and/or ARDS. [facility], , 03/13/2025 8:10 AM
[2025-03-13] MEDS: ASCORBIC ACID 500 MG TAB PO SCH (09:13)
[2025-03-13] MEDS: amLODIPine 5 MG TAB PO SCH (09:14)
[2025-03-13] MEDS: SPIRONOLACTONE 25 MG TAB PO SCH (09:14)
[2025-03-13] MEDS: BISOPROLOL 5 MG TAB PO SCH (09:16)
[2025-03-13] MEDS: DAPAGLIFLOZIN PROPANEDIOL 10 MG TABLET PO SCH (09:20)
[2025-03-13] MEDS: TIOTROPIUM 2.5 MCG INHALER INHALATION SCH (09:38)
--- NOTE | 2025-03-13 09:48 | P.PN ---
Subjective Progress Note Date: 03/13/25 Principal diagnosis: Shortness of breath, fever, pulmonary fibrosis. Patient is a 59-year-old male with past medical history significant for recently diagnosis of biopsy-proven UIP, chronic hypoxemic respiratory failure, COPD, brief history of tobacco use, former marijuana smoker, hypertension. He does follow in the pulmonary office with Dr. Segovia, and had recent follow-up office visit on 02/25/2025. Of note, previously underwent left-sided video-assisted thorascopic surgery with wedge resection of the left upper lobe, as well as, biopsy of the lower lobe on 01/22/2025 pathology consistent with interstitial lung disease, UIP type. Patient has been started on Ofev. He has also been referred to the [facility] for possible lung transplant list. Approximately, 1 week ago patient developed increased short of breath, as well as, notable hypoxia with an SpO2 as low as 70%. He is normally oxygen dependent on 2 L/min supplemental oxygen while at home. When EMS arrived yesterday afternoon, patient was noted to be severely hypoxic placed on a 15 L nonrebr eather, and transferred to the emergency department. Workup including a chest x-ray redemonstrating patient's prominent interstitial lung markings. No focal infiltrates, however, superimposed infectious process was not entirely excluded. Patient was intermittently febrile with a low-grade temperature of 100.4 F. Viral 4 Plex unremarkable for RSV, COVID, influenza. Also tachycardic in the ED. CBC with a WBC count of 12.3, hemoglobin 11.9, platelets 305. CMP: Sodium 138, potassium 4.5, chloride 97, serum bicarb 35, BUN 26, creatinine 0.56, glucose 229. Lactic was 2.7 is down to 2. LFTs fairly unremarkable. EKG: Sinus tachycardia, rate 128 bpm. troponin 0.4. Patient currently being evaluated on the general medical floor. Currently on 4 L/min nasal cannula, does not appear distressed. Patient endorses increased work of breathing over the last week. Recently visited the [facility] on Monday, while driving there, became remarkably short of breath and his oxygen levels were reading low around 70%. Associated symptoms including dry persistent cough, without any signi ficant sputum production. Intermittent fevers. Denies any chest pain, heart palpitations, hemoptysis. No unilateral lower extremity swelling. Currently on Ofev. No known sick contacts. Denies any nausea, vomiting, diarrhea. Current vital signs are stable. Progress note dated March 12, 2025. 59-year-old male with a history of biopsy-proven pulmonary fibrosis. The patient sees one of my partners. The patient also has a history of respiratory failure, COPD, hypertension, among other things. The patient was started on Ofev. The patient has been to the [facility], and the preliminary evaluation has begun. The patient was also found to have elevated troponin levels, and cardiology was consulted. Currently, the patient is on IV heparin, azithromycin, Rocephin, DuoNebs, Solu-Medrol, and Ofev. His procalcitonin level was elevated at 0.6. White count 14.9, hemoglobin 10.9, hematocrit 34.5, and platelet count 296,000. PTT is 64. Sodium 139, potassium 3.7, chloride 99, CO2 28, anion gap 12, BUN 23, and creatinine 0.57. Glucose is 205. Cardiology recommended a heart catheterization. Progress note dated March 13, 2025. 59-year-old male seen in the intensive care unit, room 257. The patient has a history of biopsy-proven idiopathic pulmonary fibrosis. Yesterday, the patient went to the catheterization laboratory, and had a percutaneous coronary intervention, with 4 stents placed in the right coronary artery. Subsequent to that, he developed flash pulmonary edema, was in respiratory distress, placed on BiPAP, transferred to the intensive care unit. Is currently on BiPAP with settings of 14/7 and 80%. He is getting saline at 5 cc an hour. Clinically doing better than he was yesterday. White count 16.4, hemoglobin 10.3, hematocrit 31.6, and platelet count 333,000. Sodium 137, potassium 3, chloride 91, CO2 39, BUN 26, and creatinine 0.68. Glucose is 190. Chest x-ray shows diffuse bilateral infiltrates, some of which are related to pulmonary edema, and some to the patient's underlying pulmonary fibrosis. Objective - Vital Signs Vital signs: Vital Signs Temp 98.1 F 03/13/25 04:00 Pulse 80 03/13/25 08:05 Resp 19 03/13/25 07:00 BP 117/78 03/13/25 07:00 Pulse Ox 80 L 03/13/25 07:00 FiO2 80 03/13/25 07:57 Intake & Output 03/12/25 03/13/25 03/13/25 18:59 06:59 18:59 Intake Total 673.642 Output Total 3000 2300 75 Balance -2326.358 -2300 -75 Weight 89.6 kg Intake: IV 400 Intake, IV Titration 273.642 Amount Heparin Sod,Pork in 0.45% 273.642 NaCl 25,000 unit In 0.45 % NaCl 1 250ml.bag @ 12 UNITS/KG/HR 10.451 mls/hr IV .[id number] [facility] Rx#: [id number] Output: Urine 3000 2300 75 Other: Voiding Method Indwelling Catheter Indwelling Catheter - Exam No acute distress, oriented 3. Currently on BiPAP, at 80%. HEENT examination is grossly unremarkable. Mucous membranes are moist. No oral lesions. Neck supple. Full range of motion. No adenopathy thyromegaly or neck vein distention. Cardiovascular examination reveals regular rhythm rate. S1-S2 normal. No S3 or S4. No discernible murmur noted. Lungs reveal bibasilar crackles. The patient is restricted in his breathing. No rhonchi. No wheezes. Breath sounds are equal bilaterally. Abdomen soft bowel sounds are heard. No masses or tenderness. Extremities are intact. No cyanosis clubbing or edema. Skin is without rash or lesion. Neurologic examination is brief but nonfocal. - Labs CBC & Chem 7: 03/13/25 03:44 03/13/25 03:44 Labs: Abnormal Lab Results - Last 24 Hours (Table) 03/12/25 03/12/25 03/12/25 Range/Units 05:49 11:41 15:15 WBC (4.50-10.00) 10*3/uL RBC (4.40-5.60) 10*6/uL Hgb (13.0-17.0) g/dL Hct (39.6-50.0) % MCV (80.0-97.0) fL Immature Gran # (0.00-0.04) 10*3/uL Neutrophils # (1.80-7.70) 10*3/uL Lymphocytes # (0.90-5.00) 10*3/uL Eosinophils # (0.04-0.35) 10*3/uL ABG pCO2 (35-45) mmHg ABG pO2 (83-108) mmHg ABG HCO3 (21-25) mmol/L ABG Total CO2 (19-24) mmol/L ABG O2 Saturation (94-97) % Hemoglobin (13.0-17.5) gm/dL Potassium (3.5-5.1) mmol/L Chloride (98-107) mmol/L Carbon Dioxide (22-30) mmol/L BUN (9-20) mg/dL Glucose (74-99) mg/dL POC Glucose (mg/dL) 205 H 205 H (70-110) mg/dL Plasma Lactic Acid Miguel (0.7-2.0) mmol/L Alkaline Phosphatase (38-126) U/L Troponin I (0.000-0.034) ng/mL Cholesterol 228.00 H (0.00-200.00) mg/dL LDL Cholesterol, Calc 131.8 H (0.0-131.0) mg/dL HDL Cholesterol 82.80 H (40.00-60.00) mg/dL Urine Protein (Negative) Urine Blood (Negative) Ur Leukocyte Esterase (Negative) Urine RBC (0-5) /hpf Urine WBC (0-5) /hpf Urine Bacteria (None) /hpf Urine Mucus (None) /hpf 03/12/25 03/12/25 03/12/25 Range/Units 15:29 15:29 15:49 WBC (4.50-10.00) 10*3/uL RBC (4.40-5.60) 10*6/uL Hgb (13.0-17.0) g/dL Hct (39.6-50.0) % MCV (80.0-97.0) fL Immature Gran # (0.00-0.04) 10*3/uL Neutrophils # (1.80-7.70) 10*3/uL Lymphocytes # (0.90-5.00) 10*3/uL Eosinophils # (0.04-0.35) 10*3/uL ABG pCO2 (35-45) mmHg ABG pO2 (83-108) mmHg ABG HCO3 (21-25) mmol/L ABG Total CO2 (19-24) mmol/L ABG O2 Saturation (94-97) % Hemoglobin (13.0-17.5) gm/dL Potassium (3.5-5.1) mmol/L Chloride (98-107) mmol/L Carbon Dioxide (22-30) mmol/L BUN (9-20) mg/dL Glucose (74-99) mg/dL POC Glucose (mg/dL) 202 H (70-110) mg/dL Plasma Lactic Acid Miguel 4.2 H* (0.7-2.0) mmol/L Alkaline Phosphatase (38-126) U/L Troponin I 0.227 H* (0.000-0.034) ng/mL Cholesterol (0.00-200.00) mg/dL LDL Cholesterol, Calc (0.0-131.0) mg/dL HDL Cholesterol (40.00-60.00) mg/dL Urine Protein (Negative) Urine Blood (Negative) Ur Leukocyte Esterase (Negative) Urine RBC (0-5) /hpf Urine WBC (0-5) /hpf Urine Bacteria (None) /hpf Urine Mucus (None) /hpf 03/12/25 03/12/25 03/13/25 Range/Units 15:55 18:09 01:28 WBC (4.50-10.00) 10*3/uL RBC (4.40-5.60) 10*6/uL Hgb (13.0-17.0) g/dL Hct (39.6-50.0) % MCV (80.0-97.0) fL Immature Gran # (0.00-0.04) 10*3/uL Neutrophils # (1.80-7.70) 10*3/uL Lymphocytes # (0.90-5.00) 10*3/uL Eosinophils # (0.04-0.35) 10*3/uL ABG pCO2 51 H (35-45) mmHg ABG pO2 57 L* (83-108) mmHg ABG HCO3 32 H (21-25) mmol/L ABG Total CO2 33 H (19-24) mmol/L ABG O2 Saturation 88.9 L (94-97) % Hemoglobin 11.4 L (13.0-17.5) gm/dL Potassium (3.5-5.1) mmol/L Chloride (98-107) mmol/L Carbon Dioxide (22-30) mmol/L BUN (9-20) mg/dL Glucose (74-99) mg/dL POC Glucose (mg/dL) 234 H 224 H (70-110) mg/dL Plasma Lactic Acid Miguel (0.7-2.0) mmol/L Alkaline Phosphatase (38-126) U/L Troponin I (0.000-0.034) ng/mL Cholesterol (0.00-200.00) mg/dL LDL Cholesterol, Calc (0.0-131.0) mg/dL HDL Cholesterol (40.00-60.00) mg/dL Urine Protein (Negative) Urine Blood (Negative) Ur Leukocyte Esterase (Negative) Urine RBC (0-5) /hpf Urine WBC (0-5) /hpf Urine Bacteria (None) /hpf Urine Mucus (None) /hpf 03/13/25 03/13/25 03/13/25 Range/Units 03:44 03:44 05:54 WBC 16.35 H (4.50-10.00) 10*3/uL RBC 3.25 L (4.40-5.60) 10*6/uL Hgb 10.3 L (13.0-17.0) g/dL Hct 31.6 L (39.6-50.0) % MCV 97.2 H (80.0-97.0) fL Immature Gran # 0.15 H (0.00-0.04) 10*3/uL Neutrophils # 14.54 H (1.80-7.70) 10*3/uL Lymphocytes # 0.87 L (0.90-5.00) 10*3/uL Eosinophils # 0.00 L (0.04-0.35) 10*3/uL ABG pCO2 (35-45) mmHg ABG pO2 (83-108) mmHg ABG HCO3 (21-25) mmol/L ABG Total CO2 (19-24) mmol/L ABG O2 Saturation (94-97) % Hemoglobin (13.0-17.5) gm/dL Potassium 3.0 L (3.5-5.1) mmol/L Chloride 91 L (98-107) mmol/L Carbon Dioxide 39 H (22-30) mmol/L BUN 26 H (9-20) mg/dL Glucose 210 H (74-99) mg/dL POC Glucose (mg/dL) 190 H (70-110) mg/dL Plasma Lactic Acid Miguel (0.7-2.0) mmol/L Alkaline Phosphatase 135 H (38-126) U/L Troponin I (0.000-0.034) ng/mL Cholesterol (0.00-200.00) mg/dL LDL Cholesterol, Calc (0.0-131.0) mg/dL HDL Cholesterol (40.00-60.00) mg/dL Urine Protein (Negative) Urine Blood (Negative) Ur Leukocyte Esterase (Negative) Urine RBC (0-5) /hpf Urine WBC (0-5) /hpf Urine Bacteria (None) /hpf Urine Mucus (None) /hpf 03/13/25 Range/Units 06:49 WBC (4.50-10.00) 10*3/uL RBC (4.40-5.60) 10*6/uL Hgb (13.0-17.0) g/dL Hct (39.6-50.0) % MCV (80.0-97.0) fL Immature Gran # (0.00-0.04) 10*3/uL Neutrophils # (1.80-7.70) 10*3/uL Lymphocytes # (0.90-5.00) 10*3/uL Eosinophils # (0.04-0.35) 10*3/uL ABG pCO2 (35-45) mmHg ABG pO2 (83-108) mmHg ABG HCO3 (21-25) mmol/L ABG Total CO2 (19-24) mmol/L ABG O2 Saturation (94-97) % Hemoglobin (13.0-17.5) gm/dL Potassium (3.5-5.1) mmol/L Chloride (98-107) mmol/L Carbon Dioxide (22-30) mmol/L BUN (9-20) mg/dL Glucose (74-99) mg/dL POC Glucose (mg/dL) (70-110) mg/dL Plasma Lactic Acid Miguel (0.7-2.0) mmol/L Alkaline Phosphatase (38-126) U/L Troponin I (0.000-0.034) ng/mL Cholesterol (0.00-200.00) mg/dL LDL Cholesterol, Calc (0.0-131.0) mg/dL HDL Cholesterol (40.00-60.00) mg/dL Urine Protein Trace H (Negative) Urine Blood Large H (Negative) Ur Leukocyte Esterase Large H (Negative) Urine RBC >182 H (0-5) /hpf Urine WBC 144 H (0-5) /hpf Urine Bacteria Rare H (None) /hpf Urine Mucus Rare H (None) /hpf Microbiology - Last 24 Hours (Table) 03/10/25 13:43 Blood Culture - Preliminary Blood Assessment and Plan Assessment: Acute on chronic hypoxemic respiratory failure currently on 4 L/min nasal cannula, chest x-ray redemonstrating patient's prominent interstitial lung markings. No focal infiltrates, however, superimposed infectious process was not entirely excluded. PCI, March 12, 2025, with 4 stents placed in the right coronary artery, and postprocedure flash pulmonary edema. Acute febrile illness. Biopsy-proven UIP/IPF, currently on Ofev. Chronic obstructive pulmonary disease. Chronic hypoxemic respiratory failure, normally maintained on 2.5 L nasal cannula. Elevated troponins, possibly secondary to type II OR and supply/demand mismatch. Macrocytic anemia, hemoglobin stable at 11.9 g/dL. Hypertension. Gastroesophageal reflux disease. Brief history of tobacco smoking. Plan: Plan dated March 12, 2025. The patient is seen by cardiology. Because of the elevated troponins, the patient will be scheduled for heart catheterization. From the pulmonary standpoint, the patient is doing reasonably well. We will continue to follow make recommendations along the way. The patient continues on IV heparin. His procalcitonin level was elevated 0.6. The patient is currently on azithromycin and Rocephin. In addition, the patient is on Ofev, DuoNebs, and Solu-Medrol. Overall prognosis remains guarded. We will continue to follow make recommendations. Dictation was produced using Numerate software. Please excuse any grammatical, word or spelling errors. Plan dated March 13, 2025. The patient had a PCI done yesterday, with 4 stents placed in the right coronary artery. Afterwards, the patient developed flash pulmonary edema. The patient was transferred to the intensive care unit, for respiratory distress, and acute hypoxemic respiratory failure, placed on BiPAP. He continues on BiPAP. Clinically, the patient is doing a bit better. We will continue to follow make recommendations along the way. The patient's overall prognosis remains guarded. He was sent to the [facility], for possible evaluation for lung transplantation. Labs, x-rays, and medications are reviewed. Dictation was produced using Numerate software. Please excuse any grammatical, word or spelling errors. Time with Patient: Greater than 30
[2025-03-13] MEDS: POTASSIUM CHLORIDE ER 20 MEQ TAB.ER PO SCH ×3 (09:56→20:47)
[2025-03-13 11:31] LABS: Glucose,Whole Blood 269 mg/dL (70-110)
[2025-03-13 13:05] VITALS: BMI 28.3
--- NOTE | 2025-03-13 13:14 | P.PN ---
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 He has a past medical history of asthma as a child, COPD, recently diagnosed IUP and started on Ofev, hypertension, tobacco use for 11 years, marijuana use and quit 1 year ago. Patient states that he has had a stress test done many years ago. We have been asked to evaluate the patient for arrhythmia and elevated troponins. He states that he was at home and ate ice cream but fell asleep and then he was concerned when he woke up that he had aspirated the ice cream. He states he could not get his pulse ox up over 70%. He is normally on home O2 at 2 L nasal cannula and increased it to 3 L without improvement. He denies having chest pain. He is currently on O2 at 5 L. Patient required oxygen at 15 L nonrebreather by EMS transport. Patient also gives history that he is following at [facility] and is getting on the transplant list. Blood pressure 124/70, heart rate 100, pulse ox 98% on 4 L nasal cannula. Temperature max 102.2. Dr. Marrero discussed with the patient that he would recommend possible cardiac catheterization once respiratory status is stable. This may be performed during this hospitalization or at a later time. -EKG: Sinus tachycardia with no acute ST-T wave changes. -Chest x-ray: Interstitial lung disease without focal consolidation. Superimposed infectious process is not entirely excluded. -CTA chest: Advanced pulmonary fibrotic changes. New tiny left pleural effusion and areas of groundglass opacity suspicious for edema. Underlying acute pneumonic infiltrate not excluded. -Laboratory studies: WBC 12.3 with repeat 9.3, hemoglobin 11.5, D-dimer 1.96. BUN 26 and creatinine 0.56, CO2 35. Lactic acid 3.9. Troponins 0.402 and 0.616. Cepheid viral panel not detected. -Home cardiac medications: Amlodipine 10 mg daily, olmesartan/hydrochlorothiazide 40-12.5 mg half tablet daily. 03/12/2025 Patient examined this morning at bedside. Patient reports mild shortness of breath. He denies chest pain or pressure. Vital signs are stable. He remains on IV heparin. Echocardiogram completed revealing ejection fraction 55 to 60%, severe pulmonary hypertension, RVSP 57 mmHg, moderate concentric LVH, mild TR. 03/13 Patient seen and examined. Patient denies any chest pain or pressure. He underwent heart catheterization yesterday which showed elevated LVEDP 35, elevated elevated RVSP and PA pressures of 60, group 2 and 3 pulmonary hypertension, mild to moderate LAD and circumflex disease with 90% RCA stenosis. He underwent stenting of the RCA with covering the entire proximal to distal RCA. He had significant dyspnea after requiring BiPAP and became tachypneic with transfer to ICU. He admits that at times sometimes he gets more orthopneic and worse lying flat. His IV fluids were stopped and given Lasix with -4 L output over the last 24 hours. He states he feels somewhat better today. PHYSICAL EXAM: VITAL SIGNS: Reviewed. GENERAL: Well-developed in no acute distress. NECK: Supple. No JVD or thyromegaly LUNGS: Respirations even and unlabored. Lungs essentially clear to auscultation bilaterally. HEART: Regular rate and rhythm. S1 and S2 heard. EXTREMITIES: Normal range of motion. No clubbing or cyanosis. Peripheral pulses intact. No lower extremity edema ASSESSMENT: Acute on chronic hypoxic respiratory failure currently on 4 L nasal cannula Chronic hypoxic respiratory failure on home O2 at 2 L Febrile illness with temperature of 102.2 on presentation NSTEMI secondary to type II OH COPD IUP, on Ofev and follows at [facility] for transplant evaluation Hypertension Tobacco use for 11 years Marijuana use and quit 1 year ago Acute on chronic diastolic heart failure PLAN: Initial BNP only fairly mildly elevated however more of his symptoms recently consistent with congestive heart failure with additional elevated LVEDP. Continue with diuretics. Add Farxiga. Monitor response. Continue dual antiplatelets. Further recommendations to follow. Objective - Vital Signs Vital signs: Vital Signs Temp 97.7 F 03/13/25 12:00 Pulse 82 03/13/25 12:00 Resp 32 H 03/13/25 12:00 BP 119/72 03/13/25 12:00 Pulse Ox 88 L 03/13/25 12:00 FiO2 70 03/13/25 09:00 Intake & Output 03/12/25 03/13/25 03/13/25 18:59 06:59 18:59 Intake Total 842.354 4399 Output Total 3000 2300 1170 Balance -2326.358 -2300 -30 Weight 89.6 kg 89.6 kg Intake: IV 400 25 0.9NS 25 Intake, IV Titration 273.642 150 Amount Heparin Sod,Pork in 0.45% 273.642 NaCl 25,000 unit In 0.45 % NaCl 1 250ml.bag @ 12 UNITS/KG/HR 10.451 mls/hr IV .[id number] [facility] Rx#: [id number] Potassium Chloride 10 meq 100 In Water For Injection 1 100ml.bag @ 100 mls/hr IVPB Q1HR [facility] Rx#: [id number] 1 gm In 50 Sodium Chloride 0.9% 50 ml @ 100 mls/hr IVPB Q24HR [facility] Rx#:[id number] Oral 650 Tube Feeding 315 Output: Urine 3000 2300 1170 Other: Voiding Method Indwelling Catheter Indwelling Catheter Indwelling Catheter - Labs CBC & Chem 7: 03/13/25 03:44 03/13/25 03:44 Labs: Abnormal Lab Results - Last 24 Hours (Table) 03/12/25 03/12/25 03/12/25 Range/Units 05:49 15:15 15:29 WBC (4.50-10.00) 10*3/uL RBC (4.40-5.60) 10*6/uL Hgb (13.0-17.0) g/dL Hct (39.6-50.0) % MCV (80.0-97.0) fL Immature Gran # (0.00-0.04) 10*3/uL Neutrophils # (1.80-7.70) 10*3/uL Lymphocytes # (0.90-5.00) 10*3/uL Eosinophils # (0.04-0.35) 10*3/uL ABG pCO2 (35-45) mmHg ABG pO2 (83-108) mmHg ABG HCO3 (21-25) mmol/L ABG Total CO2 (19-24) mmol/L ABG O2 Saturation (94-97) % Hemoglobin (13.0-17.5) gm/dL Potassium (3.5-5.1) mmol/L Chloride (98-107) mmol/L Carbon Dioxide (22-30) mmol/L BUN (9-20) mg/dL Glucose (74-99) mg/dL POC Glucose (mg/dL) 205 H (70-110) mg/dL Plasma Lactic Acid Miguel 4.2 H* (0.7-2.0) mmol/L Alkaline Phosphatase (38-126) U/L Troponin I (0.000-0.034) ng/mL Cholesterol 228.00 H (0.00-200.00) mg/dL LDL Cholesterol, Calc 131.8 H (0.0-131.0) mg/dL HDL Cholesterol 82.80 H (40.00-60.00) mg/dL Urine Protein (Negative) Urine Blood (Negative) Ur Leukocyte Esterase (Negative) Urine RBC (0-5) /hpf Urine WBC (0-5) /hpf Urine Bacteria (None) /hpf Urine Mucus (None) /hpf 03/12/25 03/12/25 03/12/25 Range/Units 15:29 15:49 15:55 WBC (4.50-10.00) 10*3/uL RBC (4.40-5.60) 10*6/uL Hgb (13.0-17.0) g/dL Hct (39.6-50.0) % MCV (80.0-97.0) fL Immature Gran # (0.00-0.04) 10*3/uL Neutrophils # (1.80-7.70) 10*3/uL Lymphocytes # (0.90-5.00) 10*3/uL Eosinophils # (0.04-0.35) 10*3/uL ABG pCO2 51 H (35-45) mmHg ABG pO2 57 L* (83-108) mmHg ABG HCO3 32 H (21-25) mmol/L ABG Total CO2 33 H (19-24) mmol/L ABG O2 Saturation 88.9 L (94-97) % Hemoglobin 11.4 L (13.0-17.5) gm/dL Potassium (3.5-5.1) mmol/L Chloride (98-107) mmol/L Carbon Dioxide (22-30) mmol/L BUN (9-20) mg/dL Glucose (74-99) mg/dL POC Glucose (mg/dL) 202 H (70-110) mg/dL Plasma Lactic Acid Miguel (0.7-2.0) mmol/L Alkaline Phosphatase (38-126) U/L Troponin I 0.227 H* (0.000-0.034) ng/mL Cholesterol (0.00-200.00) mg/dL LDL Cholesterol, Calc (0.0-131.0) mg/dL HDL Cholesterol (40.00-60.00) mg/dL Urine Protein (Negative) Urine Blood (Negative) Ur Leukocyte Esterase (Negative) Urine RBC (0-5) /hpf Urine WBC (0-5) /hpf Urine Bacteria (None) /hpf Urine Mucus (None) /hpf 03/12/25 03/13/25 03/13/25 Range/Units 18:09 01:28 03:44 WBC 16.35 H (4.50-10.00) 10*3/uL RBC 3.25 L (4.40-5.60) 10*6/uL Hgb 10.3 L (13.0-17.0) g/dL Hct 31.6 L (39.6-50.0) % MCV 97.2 H (80.0-97.0) fL Immature Gran # 0.15 H (0.00-0.04) 10*3/uL Neutrophils # 14.54 H (1.80-7.70) 10*3/uL Lymphocytes # 0.87 L (0.90-5.00) 10*3/uL Eosinophils # 0.00 L (0.04-0.35) 10*3/uL ABG pCO2 (35-45) mmHg ABG pO2 (83-108) mmHg ABG HCO3 (21-25) mmol/L ABG Total CO2 (19-24) mmol/L ABG O2 Saturation (94-97) % Hemoglobin (13.0-17.5) gm/dL Potassium (3.5-5.1) mmol/L Chloride (98-107) mmol/L Carbon Dioxide (22-30) mmol/L BUN (9-20) mg/dL Glucose (74-99) mg/dL POC Glucose (mg/dL) 234 H 224 H (70-110) mg/dL Plasma Lactic Acid Miguel (0.7-2.0) mmol/L Alkaline Phosphatase (38-126) U/L Troponin I (0.000-0.034) ng/mL Cholesterol (0.00-200.00) mg/dL LDL Cholesterol, Calc (0.0-131.0) mg/dL HDL Cholesterol (40.00-60.00) mg/dL Urine Protein (Negative) Urine Blood (Negative) Ur Leukocyte Esterase (Negative) Urine RBC (0-5) /hpf Urine WBC (0-5) /hpf Urine Bacteria (None) /hpf Urine Mucus (None) /hpf 03/13/25 03/13/25 03/13/25 Range/Units 03:44 05:54 06:49 WBC (4.50-10.00) 10*3/uL RBC (4.40-5.60) 10*6/uL Hgb (13.0-17.0) g/dL Hct (39.6-50.0) % MCV (80.0-97.0) fL Immature Gran # (0.00-0.04) 10*3/uL Neutrophils # (1.80-7.70) 10*3/uL Lymphocytes # (0.90-5.00) 10*3/uL Eosinophils # (0.04-0.35) 10*3/uL ABG pCO2 (35-45) mmHg ABG pO2 (83-108) mmHg ABG HCO3 (21-25) mmol/L ABG Total CO2 (19-24) mmol/L ABG O2 Saturation (94-97) % Hemoglobin (13.0-17.5) gm/dL Potassium 3.0 L (3.5-5.1) mmol/L Chloride 91 L (98-107) mmol/L Carbon Dioxide 39 H (22-30) mmol/L BUN 26 H (9-20) mg/dL Glucose 210 H (74-99) mg/dL POC Glucose (mg/dL) 190 H (70-110) mg/dL Plasma Lactic Acid Miguel (0.7-2.0) mmol/L Alkaline Phosphatase 135 H (38-126) U/L Troponin I (0.000-0.034) ng/mL Cholesterol (0.00-200.00) mg/dL LDL Cholesterol, Calc (0.0-131.0) mg/dL HDL Cholesterol (40.00-60.00) mg/dL Urine Protein Trace H (Negative) Urine Blood Large H (Negative) Ur Leukocyte Esterase Large H (Negative) Urine RBC >182 H (0-5) /hpf Urine WBC 144 H (0-5) /hpf Urine Bacteria Rare H (None) /hpf Urine Mucus Rare H (None) /hpf 03/13/25 Range/Units 11:29 WBC (4.50-10.00) 10*3/uL RBC (4.40-5.60) 10*6/uL Hgb (13.0-17.0) g/dL Hct (39.6-50.0) % MCV (80.0-97.0) fL Immature Gran # (0.00-0.04) 10*3/uL Neutrophils # (1.80-7.70) 10*3/uL Lymphocytes # (0.90-5.00) 10*3/uL Eosinophils # (0.04-0.35) 10*3/uL ABG pCO2 (35-45) mmHg ABG pO2 (83-108) mmHg ABG HCO3 (21-25) mmol/L ABG Total CO2 (19-24) mmol/L ABG O2 Saturation (94-97) % Hemoglobin (13.0-17.5) gm/dL Potassium (3.5-5.1) mmol/L Chloride (98-107) mmol/L Carbon Dioxide (22-30) mmol/L BUN (9-20) mg/dL Glucose (74-99) mg/dL POC Glucose (mg/dL) 269 H (70-110) mg/dL Plasma Lactic Acid Miguel (0.7-2.0) mmol/L Alkaline Phosphatase (38-126) U/L Troponin I (0.000-0.034) ng/mL Cholesterol (0.00-200.00) mg/dL LDL Cholesterol, Calc (0.0-131.0) mg/dL HDL Cholesterol (40.00-60.00) mg/dL Urine Protein (Negative) Urine Blood (Negative) Ur Leukocyte Esterase (Negative) Urine RBC (0-5) /hpf Urine WBC (0-5) /hpf Urine Bacteria (None) /hpf Urine Mucus (None) /hpf Microbiology - Last 24 Hours (Table) 03/10/25 13:43 Blood Culture - Preliminary Blood
[2025-03-13] MEDS: ALPRAZolam 0.25 MG TAB PO PRN (14:44)
[2025-03-13 16:46] LABS: Glucose,Whole Blood 145 mg/dL (70-110)
[2025-03-13 23:36] LABS: Glucose,Whole Blood 242 mg/dL (70-110)
[2025-03-14 03:17] LABS: Basophils # (A) 0.02 10*3/uL (0.00-0.10); Basophils % (A) 0.1 %; HCT 31.4 % (39.6-50.0); HGB 10.3 g/dL (13.0-17.0); Lymphocytes # (A) 0.95 10*3/uL (0.90-5.00); Lymphocytes % (A) 6.8 %; MCH 31.7 pg (27.0-32.0); MCHC 32.8 g/dL (32.0-37.0); MCV 96.6 fL (80.0-97.0); Mean Platelet Volume 9.5 fL (9.5-12.2); Monocytes # (A) 0.72 10*3/uL (0.20-1.00); Monocytes % (A) 5.2 %; Neutrophils # (A) 12.15 10*3/uL (1.80-7.70); Neutrophils % (A) 87.3 %; Platelet Count 344 10*3/uL (140-440); RBC 3.25 10*6/uL (4.40-5.60); RDW 14.6 % (11.5-14.5); WBC 13.92 10*3/uL (4.50-10.00)
[2025-03-14 03:45] LABS: ALT 46 U/L (4-49); AST 58 U/L (17-59); African American GFR (CKD) >90 (>60 ml/min/1.73 sqM); Albumin 3.7 g/dL (3.5-5.0); Alkaline Phosphatase 122 U/L (38-126); Blood Urea Nitrogen 37 mg/dL (9-20); Calcium 9.4 mg/dL (8.4-10.2); Chloride 92 mmol/L (98-107); Glucose 171 mg/dL (74-99); Magnesium 2.4 mg/dL (1.6-2.3); Non-African American GFR(CKD) >90 (>60 ml/min/1.73 sqM); Potassium 3.6 mmol/L (3.5-5.1); Sodium 136 mmol/L (137-145); Total Bilirubin 1.1 mg/dL (0.2-1.3)
--- NOTE | 2025-03-14 03:53 | P.PN ---
Subjective Progress Note Date: 03/13/[address] Alfonso Mata This is a 59-year-old male who was recently admitted under Dr. Alfonso Mata with Dr. Farmer in the outpatient setting with increasing shortness of breath requiring high oxygen demands. Patient has significant past medical history of recently diagnosed biopsy-proven UIP with chronic hypoxic respiratory failure and history of COPD. Patient being followed by pulmonary as well as cardiology and underwent cardiac catheterization yesterday had 4 stents placed to the RCA. Apparently patient developed increasing shortness of breath with flash pulmonary edema and was sent to the ICU initially on BiPAP and is working on weaning FiO2 as tolerated. Currently on 15 L via nasal cannula. Patient continues to have a component of anxiety as well and has as needed medications on board. White count is elevated but we will follow-up on repeat labs. Patient concerned with having adequate oxygen for discharge home. Will discuss with case management/social work regarding oxygen tanks. Patient reports he does have a concentrator that goes up to 6 L at home. Review of systems: Constitutional: No reports of fatigue, fever, or chills reports feeling anxious Cardiovascular: No reports of chest pain or palpitations Respiratory: reports of continued shortness of breath although feels slightly better from yesterday evening GI: No reports of nausea, no reports of vomiting, no diarrhea : No reports of dysuria or retention Neurovascular: reports of generalized weakness All medications have been reviewed Active Medications Acetaminophen (Acetaminophen Tab 325 Mg Tab) 650 mg PO Q4HR PRN PRN Reason: Pain Al Hydroxide/Mg Hydroxide (Mag Hydrox/Al Hydrox/Simeth 30 Ml Cup) 30 ml PO Q4HR PRN PRN Reason: Heartburn Albuterol Sulfate (Albuterol Nebulized 2.5 Mg/3 Ml) 2.5 mg INHALATION RT-Q6H PRN PRN Reason: Shortness Of Breath Albuterol/Ipratropium (Ipratropium-Albuterol 3 Ml Neb) 3 ml INHALATION RT-QID [facility] Last Admin: 03/13/25 20:15 Dose: 3 ml Albuterol/Ipratropium (Ipratropium-Albuterol 3 Ml Neb) 3 ml INHALATION RT-Q2H PRN PRN Reason: Shortness Of Breath Or Wheezing Alprazolam (Alprazolam 0.25 Mg Tab) 0.25 mg PO Q6HR PRN PRN Reason: Mild Anxiety Last Admin: 03/13/25 23:40 Dose: 0.25 mg Amlodipine Besylate (Amlodipine 5 Mg Tab) 5 mg PO DAILY [facility] Last Admin: 03/13/25 09:14 Dose: 5 mg Ascorbic Acid (Ascorbic Acid 500 Mg Tab) 1,000 mg PO DAILY [facility] Last Admin: 03/13/25 09:13 Dose: 1,000 mg Aspirin (Aspirin 81 Mg) 81 mg PO DAILY [facility] Last Admin: 03/13/25 09:13 Dose: 81 mg Atorvastatin Calcium (Atorvastatin 40 Mg Tab) 40 mg PO HS [facility] Last Admin: 03/13/25 20:22 Dose: 40 mg Atropine Sulfate (Atropine Sulfate 0.1 Mg/Ml 10ml Syringe) 0.5 mg IV ONCE PRN PRN Reason: Symptomatic Bradycardia Bisoprolol Fumarate (Bisoprolol 5 Mg Tab) 5 mg PO DAILY [facility] Last Admin: 03/13/25 09:16 Dose: 5 mg Budesonide/Formoterol Fumarate (Symbicort 160-4.5 Mcg Inhaler) 2 puff INHALATION RT-BID [facility] Last Admin: 03/13/25 20:15 Dose: 2 puff Cholecalciferol (Cholecalciferol 125 Mcg (5000 Iu) Tablet) 125 mcg PO DAILY [facility] Last Admin: 03/13/25 09:14 Dose: 125 mcg Dapagliflozin (Dapagliflozin Propanediol 10 Mg Tablet) 10 mg PO DAILY [facility] Last Admin: 03/13/25 09:20 Dose: 10 mg Dextrose/Water (Dextrose 50% Syringe 50 Ml) 25 ml IVP PER PROTOCOL PRN; Protocol PRN Reason: Hypoglycemia Dextrose/Water (Dextrose 50% Syringe 50 Ml) 50 ml IVP PER PROTOCOL PRN; Protocol PRN Reason: Hypoglycemia Ferrous Sulfate (Ferrous Sulfate 325 Mg Tab) 325 mg PO BID-W/MEALS [facility] Last Admin: 03/13/25 16:47 Dose: 325 mg Furosemide (Furosemide 10 Mg/Ml 4 Ml Vial) 40 mg IV Q12HR [facility] Last Admin: 03/13/25 20:21 Dose: 40 mg Ceftriaxone Sodium 1 gm/ (Sodium Chloride) 50 mls @ 100 mls/hr IVPB Q24HR [facility]; Protocol Last Admin: 03/13/25 09:14 Dose: 100 mls/hr Insulin Human Lispro (Insulin Lispro (Humalog) 100 Unit/Ml 10 Ml Vl) 0 unit SQ Q6HR [facility]; Protocol Last Admin: 03/13/25 23:41 Dose: 4 unit Lorazepam (Lorazepam 2 Mg/Ml Inj) 0.5 mg IV Q6HR PRN PRN Reason: Anxiety Losartan Potassium (Losartan 50 Mg Tab) 100 mg PO DAILY [facility] Last Admin: 03/13/25 09:13 Dose: 100 mg Methylprednisolone Sodium Succinate (Methylprednisolone Sod Succi 125 Mg/2 Ml Vial) 60 mg IV Q6HR [facility] Last Admin: 03/13/25 23:40 Dose: 60 mg Miscellaneous Information (Magnesium Replacement Protocol 1 Each Misc) 1 each MISCELLANE DAILY PRN; Protocol PRN Reason: Per Protocol Miscellaneous Information (Potassium Replacement Protocol 1 Each Misc) 1 each MISCELLANE DAILY PRN; Protocol PRN Reason: Per Protocol Naloxone HCl (Naloxone 0.4 Mg/Ml 1 Ml Vial) 0.2 mg IVP Q2M PRN PRN Reason: Opioid Reversal Nitroglycerin (Nitroglycerin Sl Tabs 0.4 Mg Tab) 0.4 mg SUBLINGUAL Q5M PRN PRN Reason: Chest Pain Non-Formulary Medication (Nintedanib Esylate [Ofev]) 150 mg PO BID@0900,2100 [facility] Last Admin: 03/13/25 20:22 Dose: 150 mg Pantoprazole Sodium (Pantoprazole 40 Mg Tablet) 40 mg PO AC-BID [facility] Last Admin: 03/13/25 16:47 Dose: 40 mg Senna/Docusate Sodium (Sennosides-Docusate Sodium 1 Each Tab) 2 each PO BID PRN PRN Reason: Constipation Spironolactone (Spironolactone 25 Mg Tab) 25 mg PO DAILY [facility] Last Admin: 03/13/25 09:14 Dose: 25 mg Ticagrelor (Ticagrelor 90 Mg Tab) 90 mg PO BID [facility]; Protocol Last Admin: 03/13/25 20:22 Dose: 90 mg Zolpidem Tartrate (Zolpidem 5 Mg Tab) 5 mg PO HS PRN PRN Reason: Insomnia PHYSICAL EXAMINATION: GENERAL: The patient is alert and oriented x4, Well developed, well nourished. Slightly anxious, elderly appearing. HEENT: Pupils are round and equally reacting to light. EOMI. no scleral icterus. No conjunctival pallor. Normocephalic, atraumatic. No pharyngeal erythema. No thyromegaly. CARDIOVASCULAR: S1 and S2 muffled PULMONARY: diminished breath sounds bilaterally with minimal wheezing, coarse scattered rhonchi noted. ABDOMEN: soft. Nontender on exam. non-distended, normoactive bowel sounds. No palpable organomegaly. MUSCULOSKELETAL: No joint swelling or deformity. EXTREMITIES: No cyanosis, clubbing, or pedal edema. NEUROLOGICAL: Gross neurological examination did not reveal any focal deficits. Diffuse weakness SKIN: No rashes. Assessment: Shortness of breath, acute on chronic hypoxic respiratory failure Elevated troponins, possibly secondary to type II DC mismatch status post cardiac catheterization and has 4 stents to the RCA placed Flash pulmonary edema status postcardiac catheterization, requiring BiPAP and now weaning as tolerated currently 15 L. Normally wears 2 to 4 L outpatient Biopsy-proven UIP, pulmonary fibrosis follows with [facility] outpatient reports to being on a transplant list History of GERD Hypertension history Former smoker GI prophylaxis DVT prophylaxis Full code Plan: Recommend to continue with current medications and management with multiple consultations following. Patient continues in ICU as patient is status postcardiac catheterization with 4 stents placed to the RCA continue on telemetry monitoring. Per nursing staff patient developed flash pulmonary edema requiring BiPAP and is weaning as tolerated currently on 15 L. Patient chronically wears 2 to 4 L outpatient and has a concentrator. Cussed with case management for discharge planning regarding oxygen tanks as patient is extremely concerned with traveling home with no oxygen Encouraged to increase activity as tolerated Follow-up on repeat labs Continue weaning as tolerated Overall prognosis is guarded The impression and plan of care has been dictated by Elise Jean, nurse practitioner as directed. Dr. Morgan FLOREZ I have performed a history and examination and MDM of this patient, discussed the same with the dictator, and agree with the dictator's assessment and plan as written ,documented as a scribe. Based on total visit time, I have performed more than 50% of the visit. Any additional findings or plans will be noted. Objective - Vital Signs Vital signs: Vital Signs Temp 97.4 F L 03/13/25 08:00 Pulse 84 03/13/25 10:00 Resp 18 03/13/25 10:00 BP 132/76 03/13/25 10:00 Pulse Ox 90 L 03/13/25 10:00 FiO2 70 03/13/25 09:00 Intake & Output 03/12/25 03/13/25 03/13/25 18:59 06:59 18:59 Intake Total 673.642 880 Output Total 3000 2300 75 Balance -2326.358 -2300 805 Weight 89.6 kg Intake: IV 400 15 0.9NS 15 Intake, IV Titration 273.642 150 Amount Heparin Sod,Pork in 0.45% 273.642 NaCl 25,000 unit In 0.45 % NaCl 1 250ml.bag @ 12 UNITS/KG/HR 10.451 mls/hr IV .[id number] [facility] Rx#: [id number] Potassium Chloride 10 meq 100 In Water For Injection 1 100ml.bag @ 100 mls/hr IVPB Q1HR [facility] Rx#: [id number] 1 gm In 50 Sodium Chloride 0.9% 50 ml @ 100 mls/hr IVPB Q24HR [facility] Rx#:[id number] Oral 400 Tube Feeding 315 Output: Urine 3000 2300 75 Other: Voiding Method Indwelling Catheter Indwelling Catheter - Labs CBC & Chem 7: 03/14/25 03:04 03/13/25 20:08 Labs: Abnormal Lab Results - Last 24 Hours (Table) 03/12/25 03/12/25 03/12/25 Range/Units 05:49 11:41 15:15 WBC (4.50-10.00) 10*3/uL RBC (4.40-5.60) 10*6/uL Hgb (13.0-17.0) g/dL Hct (39.6-50.0) % MCV (80.0-97.0) fL Immature Gran # (0.00-0.04) 10*3/uL Neutrophils # (1.80-7.70) 10*3/uL Lymphocytes # (0.90-5.00) 10*3/uL Eosinophils # (0.04-0.35) 10*3/uL ABG pCO2 (35-45) mmHg ABG pO2 (83-108) mmHg ABG HCO3 (21-25) mmol/L ABG Total CO2 (19-24) mmol/L ABG O2 Saturation (94-97) % Hemoglobin (13.0-17.5) gm/dL Potassium (3.5-5.1) mmol/L Chloride (98-107) mmol/L Carbon Dioxide (22-30) mmol/L BUN (9-20) mg/dL Glucose (74-99) mg/dL POC Glucose (mg/dL) 205 H 205 H (70-110) mg/dL Plasma Lactic Acid Miguel (0.7-2.0) mmol/L Alkaline Phosphatase (38-126) U/L Troponin I (0.000-0.034) ng/mL Cholesterol 228.00 H (0.00-200.00) mg/dL LDL Cholesterol, Calc 131.8 H (0.0-131.0) mg/dL HDL Cholesterol 82.80 H (40.00-60.00) mg/dL Urine Protein (Negative) Urine Blood (Negative) Ur Leukocyte Esterase (Negative) Urine RBC (0-5) /hpf Urine WBC (0-5) /hpf Urine Bacteria (None) /hpf Urine Mucus (None) /hpf 03/12/25 03/12/25 03/12/25 Range/Units 15:29 15:29 15:49 WBC (4.50-10.00) 10*3/uL RBC (4.40-5.60) 10*6/uL Hgb (13.0-17.0) g/dL Hct (39.6-50.0) % MCV (80.0-97.0) fL Immature Gran # (0.00-0.04) 10*3/uL Neutrophils # (1.80-7.70) 10*3/uL Lymphocytes # (0.90-5.00) 10*3/uL Eosinophils # (0.04-0.35) 10*3/uL ABG pCO2 (35-45) mmHg ABG pO2 (83-108) mmHg ABG HCO3 (21-25) mmol/L ABG Total CO2 (19-24) mmol/L ABG O2 Saturation (94-97) % Hemoglobin (13.0-17.5) gm/dL Potassium (3.5-5.1) mmol/L Chloride (98-107) mmol/L Carbon Dioxide (22-30) mmol/L BUN (9-20) mg/dL Glucose (74-99) mg/dL POC Glucose (mg/dL) 202 H (70-110) mg/dL Plasma Lactic Acid Miguel 4.2 H* (0.7-2.0) mmol/L Alkaline Phosphatase (38-126) U/L Troponin I 0.227 H* (0.000-0.034) ng/mL Cholesterol (0.00-200.00) mg/dL LDL Cholesterol, Calc (0.0-131.0) mg/dL HDL Cholesterol (40.00-60.00) mg/dL Urine Protein (Negative) Urine Blood (Negative) Ur Leukocyte Esterase (Negative) Urine RBC (0-5) /hpf Urine WBC (0-5) /hpf Urine Bacteria (None) /hpf Urine Mucus (None) /hpf 03/12/25 03/12/25 03/13/25 Range/Units 15:55 18:09 01:28 WBC (4.50-10.00) 10*3/uL RBC (4.40-5.60) 10*6/uL Hgb (13.0-17.0) g/dL Hct (39.6-50.0) % MCV (80.0-97.0) fL Immature Gran # (0.00-0.04) 10*3/uL Neutrophils # (1.80-7.70) 10*3/uL Lymphocytes # (0.90-5.00) 10*3/uL Eosinophils # (0.04-0.35) 10*3/uL ABG pCO2 51 H (35-45) mmHg ABG pO2 57 L* (83-108) mmHg ABG HCO3 32 H (21-25) mmol/L ABG Total CO2 33 H (19-24) mmol/L ABG O2 Saturation 88.9 L (94-97) % Hemoglobin 11.4 L (13.0-17.5) gm/dL Potassium (3.5-5.1) mmol/L Chloride (98-107) mmol/L Carbon Dioxide (22-30) mmol/L BUN (9-20) mg/dL Glucose (74-99) mg/dL POC Glucose (mg/dL) 234 H 224 H (70-110) mg/dL Plasma Lactic Acid Miguel (0.7-2.0) mmol/L Alkaline Phosphatase (38-126) U/L Troponin I (0.000-0.034) ng/mL Cholesterol (0.00-200.00) mg/dL LDL Cholesterol, Calc (0.0-131.0) mg/dL HDL Cholesterol (40.00-60.00) mg/dL Urine Protein (Negative) Urine Blood (Negative) Ur Leukocyte Esterase (Negative) Urine RBC (0-5) /hpf Urine WBC (0-5) /hpf Urine Bacteria (None) /hpf Urine Mucus (None) /hpf 03/13/25 03/13/25 03/13/25 Range/Units 03:44 03:44 05:54 WBC 16.35 H (4.50-10.00) 10*3/uL RBC 3.25 L (4.40-5.60) 10*6/uL Hgb 10.3 L (13.0-17.0) g/dL Hct 31.6 L (39.6-50.0) % MCV 97.2 H (80.0-97.0) fL Immature Gran # 0.15 H (0.00-0.04) 10*3/uL Neutrophils # 14.54 H (1.80-7.70) 10*3/uL Lymphocytes # 0.87 L (0.90-5.00) 10*3/uL Eosinophils # 0.00 L (0.04-0.35) 10*3/uL ABG pCO2 (35-45) mmHg ABG pO2 (83-108) mmHg ABG HCO3 (21-25) mmol/L ABG Total CO2 (19-24) mmol/L ABG O2 Saturation (94-97) % Hemoglobin (13.0-17.5) gm/dL Potassium 3.0 L (3.5-5.1) mmol/L Chloride 91 L (98-107) mmol/L Carbon Dioxide 39 H (22-30) mmol/L BUN 26 H (9-20) mg/dL Glucose 210 H (74-99) mg/dL POC Glucose (mg/dL) 190 H (70-110) mg/dL Plasma Lactic Acid Miguel (0.7-2.0) mmol/L Alkaline Phosphatase 135 H (38-126) U/L Troponin I (0.000-0.034) ng/mL Cholesterol (0.00-200.00) mg/dL LDL Cholesterol, Calc (0.0-131.0) mg/dL HDL Cholesterol (40.00-60.00) mg/dL Urine Protein (Negative) Urine Blood (Negative) Ur Leukocyte Esterase (Negative) Urine RBC (0-5) /hpf Urine WBC (0-5) /hpf Urine Bacteria (None) /hpf Urine Mucus (None) /hpf 03/13/25 Range/Units 06:49 WBC (4.50-10.00) 10*3/uL RBC (4.40-5.60) 10*6/uL Hgb (13.0-17.0) g/dL Hct (39.6-50.0) % MCV (80.0-97.0) fL Immature Gran # (0.00-0.04) 10*3/uL Neutrophils # (1.80-7.70) 10*3/uL Lymphocytes # (0.90-5.00) 10*3/uL Eosinophils # (0.04-0.35) 10*3/uL ABG pCO2 (35-45) mmHg ABG pO2 (83-108) mmHg ABG HCO3 (21-25) mmol/L ABG Total CO2 (19-24) mmol/L ABG O2 Saturation (94-97) % Hemoglobin (13.0-17.5) gm/dL Potassium (3.5-5.1) mmol/L Chloride (98-107) mmol/L Carbon Dioxide (22-30) mmol/L BUN (9-20) mg/dL Glucose (74-99) mg/dL POC Glucose (mg/dL) (70-110) mg/dL Plasma Lactic Acid Miguel (0.7-2.0) mmol/L Alkaline Phosphatase (38-126) U/L Troponin I (0.000-0.034) ng/mL Cholesterol (0.00-200.00) mg/dL LDL Cholesterol, Calc (0.0-131.0) mg/dL HDL Cholesterol (40.00-60.00) mg/dL Urine Protein Trace H (Negative) Urine Blood Large H (Negative) Ur Leukocyte Esterase Large H (Negative) Urine RBC >182 H (0-5) /hpf Urine WBC 144 H (0-5) /hpf Urine Bacteria Rare H (None) /hpf Urine Mucus Rare H (None) /hpf Microbiology - Last 24 Hours (Table) 03/10/25 13:43 Blood Culture - Preliminary Blood
[2025-03-14 04:07] LABS: Anion Gap 7 mmol/L; Carbon Dioxide 37 mmol/L (22-30)
[2025-03-14] MEDS: POTASSIUM CHLORIDE ER 20 MEQ TAB.ER PO SCH (05:19)
[2025-03-14 05:23] LABS: Glucose,Whole Blood 198 mg/dL (70-110)
--- NOTE | 2025-03-14 08:09 | XR ---
EXAMINATION TYPE: XR chest 1V DATE OF EXAM: 03/14/2025 5:34 AM COMPARISON: Multiple radiographs, with the most recent on 03/13/2025 TECHNIQUE: XR chest 1V Portable AP radiograph of the chest. CLINICAL INDICATION:Male, 59 years old with history of SOB; FINDINGS: Lungs/Pleura: No sizable pleural effusion. No pneumothorax. Similar multifocal patchy airspace opacit ies throughout the lungs. Heart/mediastinum: Cardiomediastinal silhouette is enlarged and stable. Musculoskeletal: No acute osseous pathology. IMPRESSION: Cardiomegaly with similar multifocal patchy airspace opacities. Etiologies include multifocal pneumon ia versus pulmonary edema and/or ARDS. [facility], , 03/14/2025 8:07 AM
--- NOTE | 2025-03-14 10:19 | P.PN ---
Subjective Progress Note Date: 03/14/25 Principal diagnosis: Shortness of breath, fever, pulmonary fibrosis. Patient is a 59-year-old male with past medical history significant for recently diagnosis of biopsy-proven UIP, chronic hypoxemic respiratory failure, COPD, brief history of tobacco use, former marijuana smoker, hypertension. He does follow in the pulmonary office with Dr. Segovia, and had recent follow-up office visit on 02/25/2025. Of note, previously underwent left-sided video-assisted thorascopic surgery with wedge resection of the left upper lobe, as well as, biopsy of the lower lobe on 01/22/2025 pathology consistent with interstitial lung disease, UIP type. Patient has been started on Ofev. He has also been referred to the [facility] for possible lung transplant list. Approximately, 1 week ago patient developed increased short of breath, as well as, notable hypoxia with an SpO2 as low as 70%. He is normally oxygen dependent on 2 L/min supplemental oxygen while at home. When EMS arrived yesterday afternoon, patient was noted to be severely hypoxic placed on a 15 L nonrebr eather, and transferred to the emergency department. Workup including a chest x-ray redemonstrating patient's prominent interstitial lung markings. No focal infiltrates, however, superimposed infectious process was not entirely excluded. Patient was intermittently febrile with a low-grade temperature of 100.4 F. Viral 4 Plex unremarkable for RSV, COVID, influenza. Also tachycardic in the ED. CBC with a WBC count of 12.3, hemoglobin 11.9, platelets 305. CMP: Sodium 138, potassium 4.5, chloride 97, serum bicarb 35, BUN 26, creatinine 0.56, glucose 229. Lactic was 2.7 is down to 2. LFTs fairly unremarkable. EKG: Sinus tachycardia, rate 128 bpm. troponin 0.4. Patient currently being evaluated on the general medical floor. Currently on 4 L/min nasal cannula, does not appear distressed. Patient endorses increased work of breathing over the last week. Recently visited the [facility] on Monday, while driving there, became remarkably short of breath and his oxygen levels were reading low around 70%. Associated symptoms including dry persistent cough, without any signi ficant sputum production. Intermittent fevers. Denies any chest pain, heart palpitations, hemoptysis. No unilateral lower extremity swelling. Currently on Ofev. No known sick contacts. Denies any nausea, vomiting, diarrhea. Current vital signs are stable. Progress note dated March 12, 2025. 59-year-old male with a history of biopsy-proven pulmonary fibrosis. The patient sees one of my partners. The patient also has a history of respiratory failure, COPD, hypertension, among other things. The patient was started on Ofev. The patient has been to the [facility], and the preliminary evaluation has begun. The patient was also found to have elevated troponin levels, and cardiology was consulted. Currently, the patient is on IV heparin, azithromycin, Rocephin, DuoNebs, Solu-Medrol, and Ofev. His procalcitonin level was elevated at 0.6. White count 14.9, hemoglobin 10.9, hematocrit 34.5, and platelet count 296,000. PTT is 64. Sodium 139, potassium 3.7, chloride 99, CO2 28, anion gap 12, BUN 23, and creatinine 0.57. Glucose is 205. Cardiology recommended a heart catheterization. Progress note dated March 13, 2025. 59-year-old male seen in the intensive care unit, room 257. The patient has a history of biopsy-proven idiopathic pulmonary fibrosis. Yesterday, the patient went to the catheterization laboratory, and had a percutaneous coronary intervention, with 4 stents placed in the right coronary artery. Subsequent to that, he developed flash pulmonary edema, was in respiratory distress, placed on BiPAP, transferred to the intensive care unit. Is currently on BiPAP with settings of 14/7 and 80%. He is getting saline at 5 cc an hour. Clinically doing better than he was yesterday. White count 16.4, hemoglobin 10.3, hematocrit 31.6, and platelet count 333,000. Sodium 137, potassium 3, chloride 91, CO2 39, BUN 26, and creatinine 0.68. Glucose is 190. Chest x-ray shows diffuse bilateral infiltrates, some of which are related to pulmonary edema, and some to the patient's underlying pulmonary fibrosis. Progress note dated March 14, 2025. 59-year-old male seen today in room 257. The patient is doing better today. He is on 10 L high flow. He did not use the BiPAP device. In addition to 10 L high flow, he has been on and off a nonrebreather mask. The patient is getting saline at KVO. The patient had a catheterization laboratory, and had 4 stents placed in his right coronary artery. The patient developed flash pulmonary jolie a afterwards. This necessitated admission to the ICU. Current laboratory data includes a white count of 13.9, hemoglobin 10.3, hematocrit 31.4, and platelet count 344,000. Sodium 136, potassium 3.6, chloride 92, CO2 37, BUN 37, creatinine 0.75. Glucose 198. Magnesium 2.4. Chest x-ray shows cardiomegaly, with diffuse patchy bilateral infiltrates. This could be on the basis of pneumonia, pulmonary fibrosis, and/or CHF. Objective - Vital Signs Vital signs: Vital Signs Temp 98.2 F 03/14/25 04:00 Pulse 91 03/14/25 08:27 Resp 22 03/14/25 07:00 BP 114/76 03/14/25 07:00 Pulse Ox 91 L 03/14/25 08:19 FiO2 70 03/13/25 09:00 Intake & Output 03/13/25 03/14/25 03/14/25 18:59 06:59 18:59 Intake Total 1330 65 Output Total 1944 2084 Balance - Weight 89.6 kg 87.2 kg Intake: IV 55 65 0.9NS 55 65 Intake, IV Titration 150 Amount Potassium Chloride 10 meq 100 In Water For Injection 1 100ml.bag @ 100 mls/hr IVPB Q1HR [facility] Rx#: [id number] cefTRIAXone 1 gm In 50 Sodium Chloride 0.9% 50 ml @ 100 mls/hr IVPB Q24HR [facility] Rx#:[id number] Oral 1000 Tube Feeding 125 Output: Urine 1944 2084 Other: Voiding Method Indwelling Catheter Indwelling Catheter - Exam No acute distress, oriented 3. Currently on 10 L high flow nasal cannula. HEENT examination is grossly unremarkable. Mucous membranes are moist. No oral lesions. Neck supple. Full range of motion. No adenopathy thyromegaly or neck vein distention. Cardiovascular examination reveals regular rhythm rate. S1-S2 normal. No S3 or S4. No discernible murmur noted. Lungs reveal bibasilar crackles. The patient is restricted in his breathing. No rhonchi. No wheezes. Breath sounds are equal bilaterally. Abdomen soft bowel sounds are heard. No masses or tenderness. Extremities are intact. No cyanosis clubbing or edema. Skin is without rash or lesion. Neurologic examination is brief but nonfocal. - Labs CBC & Chem 7: 03/14/25 03:04 03/14/25 03:04 Labs: Abnormal Lab Results - Last 24 Hours (Table) 03/13/25 03/13/25 03/13/25 Range/Units 11:29 13:57 16:45 WBC (4.50-10.00) 10*3/uL RBC (4.40-5.60) 10*6/uL Hgb (13.0-17.0) g/dL Hct (39.6-50.0) % Immature Gran # (0.00-0.04) 10*3/uL Neutrophils # (1.80-7.70) 10*3/uL Eosinophils # (0.04-0.35) 10*3/uL Sodium (137-145) mmol/L Potassium 3.4 L (3.5-5.1) mmol/L Chloride (98-107) mmol/L Carbon Dioxide (22-30) mmol/L BUN (9-20) mg/dL Glucose (74-99) mg/dL POC Glucose (mg/dL) 269 H 145 H (70-110) mg/dL Magnesium (1.6-2.3) mg/dL 03/13/25 03/14/25 03/14/25 Range/Units 23:34 03:04 03:04 WBC 13.92 H (4.50-10.00) 10*3/uL RBC 3.25 L (4.40-5.60) 10*6/uL Hgb 10.3 L (13.0-17.0) g/dL Hct 31.4 L (39.6-50.0) % Immature Gran # 0.08 H (0.00-0.04) 10*3/uL Neutrophils # 12.15 H (1.80-7.70) 10*3/uL Eosinophils # 0.00 L (0.04-0.35) 10*3/uL Sodium 136 L (137-145) mmol/L Potassium (3.5-5.1) mmol/L Chloride 92 L (98-107) mmol/L Carbon Dioxide 37 H (22-30) mmol/L BUN 37 H (9-20) mg/dL Glucose 171 H (74-99) mg/dL POC Glucose (mg/dL) 242 H (70-110) mg/dL Magnesium 2.4 H (1.6-2.3) mg/dL 03/14/25 Range/Units 05:22 WBC (4.50-10.00) 10*3/uL RBC (4.40-5.60) 10*6/uL Hgb (13.0-17.0) g/dL Hct (39.6-50.0) % Immature Gran # (0.00-0.04) 10*3/uL Neutrophils # (1.80-7.70) 10*3/uL Eosinophils # (0.04-0.35) 10*3/uL Sodium (137-145) mmol/L Potassium (3.5-5.1) mmol/L Chloride (98-107) mmol/L Carbon Dioxide (22-30) mmol/L BUN (9-20) mg/dL Glucose (74-99) mg/dL POC Glucose (mg/dL) 198 H (70-110) mg/dL Magnesium (1.6-2.3) mg/dL Microbiology - Last 24 Hours (Table) 03/10/25 13:43 Blood Culture - Preliminary Blood Assessment and Plan Assessment: Acute on chronic hypoxemic respiratory failure currently on 10 L high flow nasal cannula, multifactorial, likely on the basis of pulmonary fibrosis, possible pneumonia, and fluid overload. PCI, March 12, 2025, with 4 stents placed in the right coronary artery, and postprocedure flash pulmonary edema. Acute febrile illness. Biopsy-proven UIP/IPF, currently on Ofev. Chronic obstructive pulmonary disease. Chronic hypoxemic respiratory failure, normally maintained on 2.5 L nasal cannula. Elevated troponins, possibly secondary to type II ME and supply/demand mismatch. Macrocytic anemia. Hypertension. Gastroesophageal reflux disease. Brief history of tobacco smoking. Plan: Plan dated March 12, 2025. The patient is seen by cardiology. Because of the elevated troponins, the patient will be scheduled for heart catheterization. From the pulmonary standpoint, the patient is doing reasonably well. We will continue to follow make recommendations along the way. The patient continues on IV heparin. His procalcitonin level was elevated 0.6. The patient is currently on azithromycin and Rocephin. In addition, the patient is on Ofev, DuoNebs, and Solu-Medrol. Overall prognosis remains guarded. We will continue to follow make recommendations. Dictation was produced using [email or web address] software. Please excuse any grammatical, word or spelling errors. Plan dated March 13, 2025. The patient had a PCI done yesterday, with 4 stents placed in the right coronary artery. Afterwards, the patient developed flash pulmonary edema. The patient was transferred to the intensive care unit, for respiratory distress, and acute hypoxemic respiratory failure, placed on BiPAP. He continues on BiPAP. Clinically, the patient is doing a bit better. We will continue to follow make recommendations along the way. The patient's overall prognosis remains guarded. He was sent to the [facility], for possible evaluation for lung transplantation. Labs, x-rays, and medications are reviewed. Dictation was produced using [email or web address] software. Please excuse any grammatical, word or spelling errors. Plan dated March 14, 2025. The patient is seen today in room 257. He is on 10 L high flow nasal cannula, plus or minus a nonrebreather mask. Clinically, the patient feels much better. He is much less short of breath. All labs, x-rays, and medications are reviewed. His hypoxemic respiratory failure is likely multifactorial, in part related to his underlying pulmonary fibrosis, possible underlying pneumonia, and flash pulmonary edema. We will continue to follow make recommendations where appropriate. Prognosis is guarded. Dictation was produced using [email or web address] software. Please excuse any grammatical, word or spelling errors. Time with Patient: Greater than 30
[2025-03-14 12:09] LABS: Glucose,Whole Blood 301 mg/dL (70-110)
--- NOTE | 2025-03-14 14:36 | P.PN ---
Subjective HISTORY OF PRESENT ILLNESS: This is a 59-year-old male with no previous cardiac history and does not follow with a die setter. He has a past medical history of asthma as a child, COPD, recently diagnosed IUP and started on Ofev, hypertension, tobacco use for 11 years, marijuana use and quit 1 year ago. Patient states that he has had a stress test done many years ago. We have been asked to evaluate the patient for arrhythmia and elevated troponins. He states that he was at home and ate ice cream but fell asleep and then he was concerned when he woke up that he had aspirated the ice cream. He states he could not get his pulse ox up over 70%. He is normally on home O2 at 2 L nasal cannula and increased it to 3 L without improvement. He denies having chest pain. He is currently on O2 at 5 L. Patient required oxygen at 15 L nonrebreather by EMS transport. Patient also gives history that he is following at [facility] and is getting on the transplant list. Blood pressure 124/70, heart rate 100, pulse ox 98% on 4 L nasal cannula. Temperature max 102.2. Dr. Marrero discussed with the patient that he would recommend possible cardiac catheterization once respiratory status is stable. This may be performed during this hospitalization or at a later time. -EKG: Sinus tachycardia with no acute ST-T wave changes. -Chest x-ray: Interstitial lung disease without focal consolidation. Superimposed infectious process is not entirely excluded. -CTA chest: Advanced pulmonary fibrotic changes. New tiny left pleural effusion and areas of groundglass opacity suspicious for edema. Underlying acute pneumonic infiltrate not excluded. -Laboratory studies: WBC 12.3 with repeat 9.3, hemoglobin 11.5, D-dimer 1.96. BUN 26 and creatinine 0.56, CO2 35. Lactic acid 3.9. Troponins 0.402 and 0.616. Cepheid viral panel not detected. -Home cardiac medications: Amlodipine 10 mg daily, olmesartan/hydrochlorothiazide 40-12.5 mg half tablet daily. 03/12/2025 Patient examined this morning at bedside. Patient reports mild shortness of breath. He denies chest pain or pressure. Vital signs are stable. He remains on IV heparin. Echocardiogram completed revealing ejection fraction 55 to 60%, severe pulmonary hypertension, RVSP 57 mmHg, moderate concentric LVH, mild TR. 03/13 Patient seen and examined. Patient denies any chest pain or pressure. He underwent heart catheterization yesterday which showed elevated LVEDP 35, elevated elevated RVSP and PA pressures of 60, group 2 and 3 pulmonary hypertension, mild to moderate LAD and circumflex disease with 90% RCA stenosis. He underwent stenting of the RCA with covering the entire proximal to distal RCA. He had significant dyspnea after requiring BiPAP and became tachypneic with transfer to ICU. He admits that at times sometimes he gets more orthopneic and worse lying flat. His IV fluids were stopped and given Lasix with -4 L output over the last 24 hours. He states he feels somewhat better today. 03/14 Patient seen and examined. Patient denies any chest pain or pressure. Remains on Lasix with creatinine stable at 0.9 with BUN 37. Good urine output with -2.5 L over last 24 hours. Still on 10 L oxygen PHYSICAL EXAM: VITAL SIGNS: Reviewed. GENERAL: Well-developed in no acute distress. NECK: Supple. No JVD or thyromegaly LUNGS: Respirations even and unlabored. Lungs essentially clear to auscultation bilaterally. HEART: Regular rate and rhythm. S1 and S2 heard. EXTREMITIES: Normal range of motion. No clubbing or cyanosis. Peripheral puls es intact. No lower extremity edema ASSESSMENT: Acute on chronic hypoxic respiratory failure currently on 4 L nasal cannula Chronic hypoxic respiratory failure on home O2 at 2 L Febrile illness with temperature of 102.2 on presentation NSTEMI secondary to type II CT COPD IUP, on Ofev and follows at [facility] for transplant evaluation Hypertension Tobacco use for 11 years Marijuana use and quit 1 year ago Acute on chronic diastolic heart failure CAD s/p PCI RCA/ PLAN: Continue her current regimen. Continue with diuresis as tolerates. Monitor kidney function closely. Some component of heart failure. Recheck BNP. Further recommendations to follow. Objective - Vital Signs Vital signs: Vital Signs Temp 98.3 F 03/14/25 12:00 Pulse 88 03/14/25 13:00 Resp 33 H 03/14/25 13:00 BP 131/75 03/14/25 13:00 Pulse Ox 89 L 03/14/25 13:00 FiO2 70 03/13/25 09:00 Intake & Output 03/13/25 03/14/25 03/14/25 18:59 06:59 18:59 Intake Total 1330 65 525 Output Total 1944 2084 1974 Balance -615 [id number] Weight 89.6 kg 87.2 kg Intake: IV 55 65 125 0.9NS 55 65 25 cefTRIAXone 1 gm In 100 Sodium Chloride 0.9% 50 ml @ 100 mls/hr IVPB Q24HR [facility] Rx#:[id number] Intake, IV Titration 150 Amount Potassium Chloride 10 meq 100 In Water For Injection 1 100ml.bag @ 100 mls/hr IVPB Q1HR [facility] Rx#: [id number] cefTRIAXone 1 gm In 50 Sodium Chloride 0.9% 50 ml @ 100 mls/hr IVPB Q24HR [facility] Rx#:[id number] Oral 1000 400 Tube Feeding 125 Output: Urine 1944 2084 1974 Other: Voiding Method Indwelling Catheter Indwelling Catheter Indwelling Catheter - Labs CBC & Chem 7: 03/14/25 03:04 03/14/25 11:33 Labs: Abnormal Lab Results - Last 24 Hours (Table) 03/13/25 03/13/25 03/14/25 Range/Units 16:45 23:34 03:04 WBC 13.92 H (4.50-10.00) 10*3/uL RBC 3.25 L (4.40-5.60) 10*6/uL Hgb 10.3 L (13.0-17.0) g/dL Hct 31.4 L (39.6-50.0) % Immature Gran # 0.08 H (0.00-0.04) 10*3/uL Neutrophils # 12.15 H (1.80-7.70) 10*3/uL Eosinophils # 0.00 L (0.04-0.35) 10*3/uL Sodium (137-145) mmol/L Chloride (98-107) mmol/L Carbon Dioxide (22-30) mmol/L BUN (9-20) mg/dL Glucose (74-99) mg/dL POC Glucose (mg/dL) 145 H 242 H (70-110) mg/dL Magnesium (1.6-2.3) mg/dL 03/14/25 03/14/25 03/14/25 Range/Units 03:04 05:22 12:07 WBC (4.50-10.00) 10*3/uL RBC (4.40-5.60) 10*6/uL Hgb (13.0-17.0) g/dL Hct (39.6-50.0) % Immature Gran # (0.00-0.04) 10*3/uL Neutrophils # (1.80-7.70) 10*3/uL Eosinophils # (0.04-0.35) 10*3/uL Sodium 136 L (137-145) mmol/L Chloride 92 L (98-107) mmol/L Carbon Dioxide 37 H (22-30) mmol/L BUN 37 H (9-20) mg/dL Glucose 171 H (74-99) mg/dL POC Glucose (mg/dL) 198 H 301 H (70-110) mg/dL Magnesium 2.4 H (1.6-2.3) mg/dL Microbiology - Last 24 Hours (Table) 03/13/25 06:49 Urine Culture - Final Urine,Voided 03/10/25 13:43 Blood Culture - Preliminary Blood
[2025-03-14 16:53] LABS: Glucose,Whole Blood 213 mg/dL (70-110)
[2025-03-14 20:37] LABS: Glucose,Whole Blood 209 mg/dL (70-110)
[2025-03-14] MEDS: INSULIN LISPRO (HumaLOG) 100 UNIT/ML 10 mL VL SQ SCH (20:40)
[2025-03-15 06:32] LABS: Basophils # (A) 0.02 10*3/uL (0.00-0.10); Basophils % (A) 0.2 %; HCT 32.1 % (39.6-50.0); HGB 10.7 g/dL (13.0-17.0); Lymphocytes # (A) 0.85 10*3/uL (0.90-5.00); Lymphocytes % (A) 6.8 %; MCH 32.4 pg (27.0-32.0); MCHC 33.3 g/dL (32.0-37.0); MCV 97.3 fL (80.0-97.0); Mean Platelet Volume 9.9 fL (9.5-12.2); Monocytes # (A) 0.49 10*3/uL (0.20-1.00); Monocytes % (A) 3.9 %; Neutrophils # (A) 11.14 10*3/uL (1.80-7.70); Neutrophils % (A) 88.5 %; Platelet Count 346 10*3/uL (140-440); RDW 14.5 % (11.5-14.5); WBC 12.58 10*3/uL (4.50-10.00)
[2025-03-15 06:48] LABS: Glucose,Whole Blood 234 mg/dL (70-110)
[2025-03-15] MEDS: INSULIN GLARGINE (LANTUS) 100 UNIT/ML SYR SQ SCH (06:59)
[2025-03-15 07:00] LABS: ALT 49 U/L (4-49); AST 53 U/L (17-59); African American GFR (CKD) >90 (>60 ml/min/1.73 sqM); Albumin 3.8 g/dL (3.5-5.0); Alkaline Phosphatase 141 U/L (38-126); Anion Gap 6 mmol/L; Blood Urea Nitrogen 43 mg/dL (9-20); Carbon Dioxide 39 mmol/L (22-30); Chloride 91 mmol/L (98-107); Glucose 236 mg/dL (74-99); Non-African American GFR(CKD) >90 (>60 ml/min/1.73 sqM); Potassium 3.7 mmol/L (3.5-5.1); Sodium 136 mmol/L (137-145); Total Bilirubin 1.7 mg/dL (0.2-1.3)
--- NOTE | 2025-03-15 07:58 | P.PN ---
Subjective Progress Note Date: 03/14/[address] Alfonso Mata This is a 59-year-old male who was recently admitted under Dr. Alfonso Mata with Dr. Farmer in the outpatient setting with increasing shortness of breath requiring high oxygen demands. Patient has significant past medical history of recently diagnosed biopsy-proven UIP with chronic hypoxic respiratory failure and history of COPD. Patient being followed by pulmonary as well as cardiology and underwent cardiac catheterization yesterday had 4 stents placed to the RCA. Apparently patient developed increasing shortness of breath with flash pulmonary edema and was sent to the ICU initially on BiPAP and is working on weaning FiO2 as tolerated. Currently on 15 L via nasal cannula. Patient continues to have a component of anxiety as well and has as needed medications on board. White count is elevated but we will follow-up on repeat labs. Patient concerned with having adequate oxygen for discharge home. Will discuss with case management/social work regarding oxygen tanks. Patient reports he does have a concentrator that goes up to 6 L at home. 03/14/2025 Patient is seen and evaluated in follow-up in the ICU with multiple consultations following. Patient is continued on IV diuresis monitoring kidney functions closely reports to feeling slightly improved and shortness of breath. Patient is maintained on 10 L high flow and will continue to wean as tolerated. Patient also continues with IV steroids and breathing treatments with pulmonary following. Encourage increase activity as tolerated and sitting up more frequently out of the bed. Review of systems: Constitutional: No reports of fatigue, fever, or chills reports feeling slightly less anxious Cardiovascular: No reports of chest pain or palpitations Respiratory: reports of continued shortness of breath although feels slightly better from yesterday evening GI: No reports of nausea, no reports of vomiting, no diarrhea : No reports of dysuria or retention Neurovascular: reports of generalized weakness All medications have been reviewed PHYSICAL EXAMINATION: GENERAL: The patient is alert and oriented x4, Well developed, well nourished. Slightly anxious, elderly appearing. HEENT: Pupils are round and equally reacting to light. EOMI. no scleral icterus. No conjunctival pallor. Normocephalic, atraumatic. No pharyngeal erythema. No thyromegaly. CARDIOVASCULAR: S1 and S2 muffled PULMONARY: diminished breath sounds bilaterally with minimal wheezing, coarse scattered rhonchi noted. ABDOMEN: soft. Nontender on exam. non-distended, normoactive bowel sounds. No palpable organomegaly. MUSCULOSKELETAL: No joint swelling or deformity. EXTREMITIES: No cyanosis, clubbing, or pedal edema. NEUROLOGICAL: Gross neurological examination did not reveal any focal deficits. Diffuse weakness SKIN: No rashes. Assessment: Shortness of breath, acute on chronic hypoxic respiratory failure, multifactorial, secondary to pulmonary fibrosis, volume overload Elevated troponins, possibly secondary to type II [place] mismatch status post cardiac catheterization and has 4 stents to the RCA placed Flash pulmonary edema status postcardiac catheterization, requiring BiPAP and now weaning as tolerated currently 10 L high flow. Normally wears 2 to 4 L ou tpatient Biopsy-proven UIP, pulmonary fibrosis follows with [facility] outpatient reports to being on a transplant list History of GERD Hypertension history Former smoker GI prophylaxis DVT prophylaxis Full code Plan: Recommend to continue with current medications and management with multiple consultations following. Patient continues in ICU as patient is status postcardiac catheterization with 4 stents placed to the RCA continue on telemetry monitoring. Per nursing staff patient developed flash pulmonary edema requiring BiPAP and is weaning as tolerated currently on 10 L high flow. Patient did not use BiPAP last night. Patient chronically wears 2 to 4 L outpatient and has a concentrator. Discussed with case management for discharge planning regarding oxygen tanks as patient is extremely concerned with traveling home with no oxygen Patient to continue on IV steroids and breathing treatments per pulmonary Cardiology following recommends to continue with IV diuresis and monitor kidney functions closely. Patient is diuresing well. Encouraged to increase activity as tolerated including sitting up in the chair more frequently Follow-up on repeat labs Continue weaning as tolerated Overall prognosis is guarded The impression and plan of care has been dictated by Elise Jean, nurse practitioner as directed. Dr. Morgan FLOREZ I have performed a history and examination and MDM of this patient, discussed the same with the dictator, and agree with the dictator's assessment and plan as written ,documented as a scribe. Based on total visit time, I have performed more than 50% of the visit. Any additional findings or plans will be noted. Objective - Vital Signs Vital signs: Vital Signs Temp 98.2 F 03/14/25 04:00 Pulse 91 03/14/25 08:27 Resp 22 03/14/25 07:00 BP 114/76 03/14/25 07:00 Pulse Ox 91 L 03/14/25 08:19 FiO2 70 03/13/25 09:00 Intake & Output 03/13/25 03/14/25 03/14/25 18:59 06:59 18:59 Intake Total 1330 65 Output Total 1944 2084 Balance - Weight 89.6 kg 87.2 kg Intake: IV 55 65 0.9NS 55 65 Intake, IV Titration 150 Amount Potassium Chloride 10 meq 100 In Water For Injection 1 100ml.bag @ 100 mls/hr IVPB Q1HR [facility] Rx#: [id number] cefTRIAXone 1 gm In 50 Sodium Chloride 0.9% 50 ml @ 100 mls/hr IVPB Q24HR [facility] Rx#:[id number] Oral 1000 Tube Feeding 125 Output: Urine 1944 2084 Other: Voiding Method Indwelling Catheter Indwelling Catheter - Labs CBC & Chem 7: 03/15/25 05:59 03/15/25 05:59 Labs: Abnormal Lab Results - Last 24 Hours (Table) 03/13/25 03/13/25 03/13/25 Range/Units 11:29 13:57 16:45 WBC (4.50-10.00) 10*3/uL RBC (4.40-5.60) 10*6/uL Hgb (13.0-17.0) g/dL Hct (39.6-50.0) % Immature Gran # (0.00-0.04) 10*3/uL Neutrophils # (1.80-7.70) 10*3/uL Eosinophils # (0.04-0.35) 10*3/uL Sodium (137-145) mmol/L Potassium 3.4 L (3.5-5.1) mmol/L Chloride (98-107) mmol/L Carbon Dioxide (22-30) mmol/L BUN (9-20) mg/dL Glucose (74-99) mg/dL POC Glucose (mg/dL) 269 H 145 H (70-110) mg/dL Magnesium (1.6-2.3) mg/dL 03/13/25 03/14/25 03/14/25 Range/Units 23:34 03:04 03:04 WBC 13.92 H (4.50-10.00) 10*3/uL RBC 3.25 L (4.40-5.60) 10*6/uL Hgb 10.3 L (13.0-17.0) g/dL Hct 31.4 L (39.6-50.0) % Immature Gran # 0.08 H (0.00-0.04) 10*3/uL Neutrophils # 12.15 H (1.80-7.70) 10*3/uL Eosinophils # 0.00 L (0.04-0.35) 10*3/uL Sodium 136 L (137-145) mmol/L Potassium (3.5-5.1) mmol/L Chloride 92 L (98-107) mmol/L Carbon Dioxide 37 H (22-30) mmol/L BUN 37 H (9-20) mg/dL Glucose 171 H (74-99) mg/dL POC Glucose (mg/dL) 242 H (70-110) mg/dL Magnesium 2.4 H (1.6-2.3) mg/dL 03/14/25 Range/Units 05:22 WBC (4.50-10.00) 10*3/uL RBC (4.40-5.60) 10*6/uL Hgb (13.0-17.0) g/dL Hct (39.6-50.0) % Immature Gran # (0.00-0.04) 10*3/uL Neutrophils # (1.80-7.70) 10*3/uL Eosinophils # (0.04-0.35) 10*3/uL Sodium (137-145) mmol/L Potassium (3.5-5.1) mmol/L Chloride (98-107) mmol/L Carbon Dioxide (22-30) mmol/L BUN (9-20) mg/dL Glucose (74-99) mg/dL POC Glucose (mg/dL) 198 H (70-110) mg/dL Magnesium (1.6-2.3) mg/dL Microbiology - Last 24 Hours (Table) 03/10/25 13:43 Blood Culture - Preliminary Blood
--- NOTE | 2025-03-15 10:02 | P.PN ---
Subjective Progress Note Date: 03/15/25 Principal diagnosis: Shortness of breath, fever, pulmonary fibrosis. Patient is a 59-year-old male with past medical history significant for recently diagnosis of biopsy-proven UIP, chronic hypoxemic respiratory failure, COPD, brief history of tobacco use, former marijuana smoker, hypertension. He does follow in the pulmonary office with Dr. Segovia, and had recent follow-up office visit on 02/25/2025. Of note, previously underwent left-sided video-assisted thorascopic surgery with wedge resection of the left upper lobe, as well as, biopsy of the lower lobe on 01/22/2025 pathology consistent with interstitial lung disease, UIP type. Patient has been started on Ofev. He has also been referred to the [facility] for possible lung transplant list. Approximately, 1 week ago patient developed increased short of breath, as well as, notable hypoxia with an SpO2 as low as 70%. He is normally oxygen dependent on 2 L/min supplemental oxygen while at home. When EMS arrived yesterday afternoon, patient was noted to be severely hypoxic placed on a 15 L nonrebr eather, and transferred to the emergency department. Workup including a chest x-ray redemonstrating patient's prominent interstitial lung markings. No focal infiltrates, however, superimposed infectious process was not entirely excluded. Patient was intermittently febrile with a low-grade temperature of 100.4 F. Viral 4 Plex unremarkable for RSV, COVID, influenza. Also tachycardic in the ED. CBC with a WBC count of 12.3, hemoglobin 11.9, platelets 305. CMP: Sodium 138, potassium 4.5, chloride 97, serum bicarb 35, BUN 26, creatinine 0.56, glucose 229. Lactic was 2.7 is down to 2. LFTs fairly unremarkable. EKG: Sinus tachycardia, rate 128 bpm. troponin 0.4. Patient currently being evaluated on the general medical floor. Currently on 4 L/min nasal cannula, does not appear distressed. Patient endorses increased work of breathing over the last week. Recently visited the [facility] on Monday, while driving there, became remarkably short of breath and his oxygen levels were reading low around 70%. Associated symptoms including dry persistent cough, without any signi ficant sputum production. Intermittent fevers. Denies any chest pain, heart palpitations, hemoptysis. No unilateral lower extremity swelling. Currently on Ofev. No known sick contacts. Denies any nausea, vomiting, diarrhea. Current vital signs are stable. Progress note dated March 12, 2025. 59-year-old male with a history of biopsy-proven pulmonary fibrosis. The patient sees one of my partners. The patient also has a history of respiratory failure, COPD, hypertension, among other things. The patient was started on Ofev. The patient has been to the [facility], and the preliminary evaluation has begun. The patient was also found to have elevated troponin levels, and cardiology was consulted. Currently, the patient is on IV heparin, azithromycin, Rocephin, DuoNebs, Solu-Medrol, and Ofev. His procalcitonin level was elevated at 0.6. White count 14.9, hemoglobin 10.9, hematocrit 34.5, and platelet count 296,000. PTT is 64. Sodium 139, potassium 3.7, chloride 99, CO2 28, anion gap 12, BUN 23, and creatinine 0.57. Glucose is 205. Cardiology recommended a heart catheterization. Progress note dated March 13, 2025. 59-year-old male seen in the intensive care unit, room 257. The patient has a history of biopsy-proven idiopathic pulmonary fibrosis. Yesterday, the patient went to the catheterization laboratory, and had a percutaneous coronary intervention, with 4 stents placed in the right coronary artery. Subsequent to that, he developed flash pulmonary edema, was in respiratory distress, placed on BiPAP, transferred to the intensive care unit. Is currently on BiPAP with settings of 14/7 and 80%. He is getting saline at 5 cc an hour. Clinically doing better than he was yesterday. White count 16.4, hemoglobin 10.3, hematocrit 31.6, and platelet count 333,000. Sodium 137, potassium 3, chloride 91, CO2 39, BUN 26, and creatinine 0.68. Glucose is 190. Chest x-ray shows diffuse bilateral infiltrates, some of which are related to pulmonary edema, and some to the patient's underlying pulmonary fibrosis. Progress note dated March 14, 2025. 59-year-old male seen today in room 257. The patient is doing better today. He is on 10 L high flow. He did not use the BiPAP device. In addition to 10 L high flow, he has been on and off a nonrebreather mask. The patient is getting saline at KVO. The patient had a catheterization laboratory, and had 4 stents placed in his right coronary artery. The patient developed flash pulmonary jolie a afterwards. This necessitated admission to the ICU. Current laboratory data includes a white count of 13.9, hemoglobin 10.3, hematocrit 31.4, and platelet count 344,000. Sodium 136, potassium 3.6, chloride 92, CO2 37, BUN 37, creatinine 0.75. Glucose 198. Magnesium 2.4. Chest x-ray shows cardiomegaly, with diffuse patchy bilateral infiltrates. This could be on the basis of pneumonia, pulmonary fibrosis, and/or CHF. Progress note dated March 15, 2025. 59-year-old male with history of pulmonary fibrosis, status post PCI, and flash pulmonary edema. The patient is seen today in room 257. He is currently on nasal O2, at 10 L. The patient is getting saline at 5 cc an hour. He did not use the BiPAP last night. Current labs include a white count 12.6, hemoglobin 10.7, hematocrit 32.1, and a platelet count of 346,000. Sodium 136, potassium 3.7, chloride 71, CO2 39, BUN 43, creatinine 0.66. Glucose 234. No chest x-ray today. Objective - Vital Signs Vital signs: Vital Signs Temp 97.6 F 03/15/25 08:00 Pulse 84 03/15/25 09:00 Resp 17 03/15/25 09:00 BP 115/76 03/15/25 09:00 Pulse Ox 91 L 03/15/25 09:00 FiO2 70 03/13/25 09:00 Intake & Output 03/14/25 03/15/25 03/15/25 18:59 06:59 18:59 Intake Total 750 1282 600 Output Total 3050 2625 435 Balance -2300 -1343 165 Intake: IV 150 60 60 0.9NS 50 60 10 cefTRIAXone 1 gm In 100 50 Sodium Chloride 0.9% 50 ml @ 100 mls/hr IVPB Q24HR [facility] Rx#:[id number] Oral 600 1222 540 Output: Urine 3050 2625 435 Other: Voiding Method Indwelling Catheter Indwelling Catheter Indwelling Catheter # Bowel Movements 1 - Exam No acute distress, oriented 3. Currently on 10 L high flow nasal cannula. HEENT examination is grossly unremarkable. Mucous membranes are moist. No oral lesions. Neck supple. Full range of motion. No adenopathy thyromegaly or neck vein distention. Cardiovascular examination reveals regular rhythm rate. S1-S2 normal. No S3 or S4. No discernible murmur noted. Lungs reveal bibasilar crackles. The patient is restricted in his breathing. No rhonchi. No wheezes. Breath sounds are equal bilaterally. Abdomen soft bowel sounds are heard. No masses or tenderness. Extremities are intact. No cyanosis clubbing or edema. Skin is without rash or lesion. Neurologic examination is brief but nonfocal. - Labs CBC & Chem 7: 03/15/25 05:59 03/15/25 05:59 Labs: Abnormal Lab Results - Last 24 Hours (Table) 03/14/25 03/14/25 03/14/25 Range/Units 12:07 16:51 20:35 WBC (4.50-10.00) 10*3/uL RBC (4.40-5.60) 10*6/uL Hgb (13.0-17.0) g/dL Hct (39.6-50.0) % MCV (80.0-97.0) fL MCH (27.0-32.0) pg Immature Gran # (0.00-0.04) 10*3/uL Neutrophils # (1.80-7.70) 10*3/uL Lymphocytes # (0.90-5.00) 10*3/uL Eosinophils # (0.04-0.35) 10*3/uL Sodium (137-145) mmol/L Chloride (98-107) mmol/L Carbon Dioxide (22-30) mmol/L BUN (9-20) mg/dL Glucose (74-99) mg/dL POC Glucose (mg/dL) 301 H 213 H 209 H (70-110) mg/dL Total Bilirubin (0.2-1.3) mg/dL Alkaline Phosphatase (38-126) U/L 03/15/25 03/15/25 03/15/25 Range/Units 05:59 05:59 06:46 WBC 12.58 H (4.50-10.00) 10*3/uL RBC 3.30 L (4.40-5.60) 10*6/uL Hgb 10.7 L (13.0-17.0) g/dL Hct 32.1 L (39.6-50.0) % MCV 97.3 H (80.0-97.0) fL MCH 32.4 H (27.0-32.0) pg Immature Gran # 0.08 H (0.00-0.04) 10*3/uL Neutrophils # 11.14 H (1.80-7.70) 10*3/uL Lymphocytes # 0.85 L (0.90-5.00) 10*3/uL Eosinophils # 0.00 L (0.04-0.35) 10*3/uL Sodium 136 L (137-145) mmol/L Chloride 91 L (98-107) mmol/L Carbon Dioxide 39 H (22-30) mmol/L BUN 43 H (9-20) mg/dL Glucose 236 H (74-99) mg/dL POC Glucose (mg/dL) 234 H (70-110) mg/dL Total Bilirubin 1.7 H (0.2-1.3) mg/dL Alkaline Phosphatase 141 H (38-126) U/L Microbiology - Last 24 Hours (Table) 03/13/25 06:49 Urine Culture - Final Urine,Voided Assessment and Plan Assessment: Acute on chronic hypoxemic respiratory failure currently on high flow nasal cannula, multifactorial, likely on the basis of pulmonary fibrosis, possible pneumonia, and fluid overload. PCI, March 12, 2025, with 4 stents placed in the right coronary artery, and postprocedure flash pulmonary edema. Acute febrile illness. Biopsy-proven UIP/IPF, currently on OFEV. Chronic obstructive pulmonary disease. Chronic hypoxemic respiratory failure, normally maintained on 2.5 L nasal cannula. Elevated troponins, possibly secondary to type II [place] and supply/demand mismatch. Macrocytic anemia. Hypertension. Gastroesophageal reflux disease. Brief history of tobacco smoking. Plan: Plan dated March 12, 2025. The patient is seen by cardiology. Because of the elevated troponins, the p atient will be scheduled for heart catheterization. From the pulmonary standpoint, the patient is doing reasonably well. We will continue to follow make recommendations along the way. The patient continues on IV heparin. His procalcitonin level was elevated 0.6. The patient is currently on azithromycin and Rocephin. In addition, the patient is on Ofev, DuoNebs, and Solu-Medrol. Overall prognosis remains guarded. We will continue to follow make recommendations. Dictation was produced using [employer] software. Please excuse any grammatical, word or spelling errors. Plan dated March 13, 2025. The patient had a PCI done yesterday, with 4 stents placed in the right coronary artery. Afterwards, the patient developed flash pulmonary edema. The patient was transferred to the intensive care unit, for respiratory distress, and acute hypoxemic respiratory failure, placed on BiPAP. He continues on BiPAP. Clinically, the patient is doing a bit better. We will continue to follow make recommendations along the way. The patient's overall prognosis remains guarded. He was sent to the [facility], for possible evaluation for lung transplantation. Labs, x-rays, and medications are reviewed. Dictation was produced using [employer] software. Please excuse any grammatical, word or spelling errors. Plan dated March 14, 2025. The patient is seen today in room 257. He is on 10 L high flow nasal cannula, plus or minus a nonrebreather mask. Clinically, the patient feels much better. He is much less short of breath. All labs, x-rays, and medications are reviewed. His hypoxemic respiratory failure is likely multifactorial, in part related to his underlying pulmonary fibrosis, possible underlying pneumonia, and flash pulmonary edema. We will continue to follow make recommendations where appropriate. Prognosis is guarded. Dictation was produced using [employer] software. Please excuse any grammatical, word or spelling errors. Plan dated March 15, 2025. The patient remains in the intensive care unit, critically ill. He is requiring high flow nasal cannula 10 L. He is still quite short of breath. The shortness of breath is multifactorial, part related to his underlying severe pulmonary fibrosis, pulmonary edema, and possible pneumonia. Labs, x-rays, and all medications are reviewed. We will continue to follow the patient, make recommendations along the way. The patient did not use the BiPAP device last night. He remains on minimal fluid at 5 cc an hour. Dictation was produced using [employer] software. Please excuse any grammatical, word or spelling errors. Time with Patient: Greater than 30
[2025-03-15 11:25] LABS: Glucose,Whole Blood 293 mg/dL (70-110)
--- NOTE | 2025-03-15 11:52 | P.PN ---
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 He has a past medical history of asthma as a child, COPD, recently diagnosed IUP and started on Ofev, hypertension, tobacco use for 11 years, marijuana use and quit 1 year ago. Patient states that he has had a stress test done many years ago. We have been asked to evaluate the patient for arrhythmia and elevated troponins. He states that he was at home and ate ice cream but fell asleep and then he was concerned when he woke up that he had aspirated the ice cream. He states he could not get his pulse ox up over 70%. He is normally on home O2 at 2 L nasal cannula and increased it to 3 L without improvement. He denies having chest pain. He is currently on O2 at 5 L. Patient required oxygen at 15 L nonrebreather by EMS transport. Patient also gives history that he is following at [facility] and is getting on the transplant list. Blood pressure 124/70, heart rate 100, pulse ox 98% on 4 L nasal cannula. Temperature max 102.2. Dr. Marrero discussed with the patient that he would recommend possible cardiac catheterization once respiratory status is stable. This may be performed during this hospitalization or at a later time. -EKG: Sinus tachycardia with no acute ST-T wave changes. -Chest x-ray: Interstitial lung disease without focal consolidation. Superimposed infectious process is not entirely excluded. -CTA chest: Advanced pulmonary fibrotic changes. New tiny left pleural effusion and areas of groundglass opacity suspicious for edema. Underlying acute pneumonic infiltrate not excluded. -Laboratory studies: WBC 12.3 with repeat 9.3, hemoglobin 11.5, D-dimer 1.96. BUN 26 and creatinine 0.56, CO2 35. Lactic acid 3.9. Troponins 0.402 and 0.616. Cepheid viral panel not detected. -Home cardiac medications: Amlodipine 10 mg daily, olmesartan/hydrochlorothiazide 40-12.5 mg half tablet daily. 03/12/2025 Patient examined this morning at bedside. Patient reports mild shortness of breath. He denies chest pain or pressure. Vital signs are stable. He remains on IV heparin. Echocardiogram completed revealing ejection fraction 55 to 60%, severe pulmonary hypertension, RVSP 57 mmHg, moderate concentric LVH, mild TR. 03/13 Patient seen and examined. Patient denies any chest pain or pressure. He underwent heart catheterization yesterday which showed elevated LVEDP 35, elevated elevated RVSP and PA pressures of 60, group 2 and 3 pulmonary hypertension, mild to moderate LAD and circumflex disease with 90% RCA stenosis. He underwent stenting of the RCA with covering the entire proximal to distal RCA. He had significant dyspnea after requiring BiPAP and became tachypneic with transfer to ICU. He admits that at times sometimes he gets more orthopneic and worse lying flat. His IV fluids were stopped and given Lasix with -4 L output over the last 24 hours. He states he feels somewhat better today. 03/14 Patient seen and examined. Patient denies any chest pain or pressure. Remains on Lasix with creatinine stable at 0.9 with BUN 37. Good urine output with -2.5 L over last 24 hours. Still on 10 L oxygen 03/15 Patient out of bed to chair. WBC 12.58, hemoglobin 10.7, potassium 3.7, creatinine 0.66, BNP 135. Denies any chest pain or pressure. His shortness of breath is worse with exertion however he believes that is getting better in general. PHYSICAL EXAM: VITAL SIGNS: Reviewed. GENERAL: Well-developed in no acute distress. NECK: Supple. No JVD LUNGS: Respirations even and unlabored. Lungs essentially diminished bilaterally. On nasal cannula oxygen. HEART: Regular rate and rhythm. S1 and S2 heard. EXTREMITIES: Normal range of motion. No clubbing or cyanosis. Peripheral pulses intact. No lower extremity edema ASSESSMENT: Acute on chronic hypoxic respiratory failure currently on 4 L nasal cannula Chronic hypoxic respiratory failure on home O2 at 2 L Febrile illness with temperature of 102.2 on presentation NSTEMI secondary to type II [place] COPD IUP, on Ofev and follows at [facility] for lung transplant evaluation Hypertension Tobacco use for 11 years Marijuana use and quit 1 year ago Acute on chronic diastolic heart failure CAD s/p PCI RCA 03/12/2025 PLAN: Continue current regimen. Continue with diuresis as tolerates. Monitor kidney function closely. Some component of heart failure, repeat BMP was normal. Further recommendations to follow. Seen and examined in rounds with Dr. Lawrence, plan of care agreed upon. Objective - Vital Signs Vital signs: Vital Signs Temp 97.8 F 03/15/25 04:00 Pulse 77 03/15/25 07:00 Resp 37 H 03/15/25 07:00 BP 118/76 03/15/25 07:00 Pulse Ox 87 L 03/15/25 07:00 FiO2 70 03/13/25 09:00 Intake & Output 03/14/25 03/15/25 03/15/25 18:59 06:59 18:59 Intake Total 750 1282 5 Output Total 3050 2625 100 Balance -6450 -8583 -95 Intake: IV 150 60 5 0.9NS 50 60 5 cefTRIAXone 1 gm In 100 Sodium Chloride 0.9% 50 ml @ 100 mls/hr IVPB Q24HR [facility] Rx#:[id number] Oral 600 1222 Output: Urine 3050 2625 100 Other: Voiding Method Indwelling Catheter Indwelling Catheter # Bowel Movements 1 - Labs CBC & Chem 7: 03/15/25 05:59 03/15/25 05:59 Labs: Abnormal Lab Results - Last 24 Hours (Table) 03/14/25 03/14/25 03/14/25 Range/Units 12:07 16:51 20:35 WBC (4.50-10.00) 10*3/uL RBC (4.40-5.60) 10*6/uL Hgb (13.0-17.0) g/dL Hct (39.6-50.0) % MCV (80.0-97.0) fL MCH (27.0-32.0) pg Immature Gran # (0.00-0.04) 10*3/uL Neutrophils # (1.80-7.70) 10*3/uL Lymphocytes # (0.90-5.00) 10*3/uL Eosinophils # (0.04-0.35) 10*3/uL Sodium (137-145) mmol/L Chloride (98-107) mmol/L Carbon Dioxide (22-30) mmol/L BUN (9-20) mg/dL Glucose (74-99) mg/dL POC Glucose (mg/dL) 301 H 213 H 209 H (70-110) mg/dL Total Bilirubin (0.2-1.3) mg/dL Alkaline Phosphatase (38-126) U/L 03/15/25 03/15/25 03/15/25 Range/Units 05:59 05:59 06:46 WBC 12.58 H (4.50-10.00) 10*3/uL RBC 3.30 L (4.40-5.60) 10*6/uL Hgb 10.7 L (13.0-17.0) g/dL Hct 32.1 L (39.6-50.0) % MCV 97.3 H (80.0-97.0) fL MCH 32.4 H (27.0-32.0) pg Immature Gran # 0.08 H (0.00-0.04) 10*3/uL Neutrophils # 11.14 H (1.80-7.70) 10*3/uL Lymphocytes # 0.85 L (0.90-5.00) 10*3/uL Eosinophils # 0.00 L (0.04-0.35) 10*3/uL Sodium 136 L (137-145) mmol/L Chloride 91 L (98-107) mmol/L Carbon Dioxide 39 H (22-30) mmol/L BUN 43 H (9-20) mg/dL Glucose 236 H (74-99) mg/dL POC Glucose (mg/dL) 234 H (70-110) mg/dL Total Bilirubin 1.7 H (0.2-1.3) mg/dL Alkaline Phosphatase 141 H (38-126) U/L Microbiology - Last 24 Hours (Table) 03/13/25 06:49 Urine Culture - Final Urine,Voided
[2025-03-15 16:45] LABS: Glucose,Whole Blood 193 mg/dL (70-110)
[2025-03-15] MEDS: INSULIN LISPRO (HumaLOG) 100 UNIT/ML 10 mL VL SQ SCH (16:50)
--- NOTE | 2025-03-15 18:27 | P.PN ---
Subjective Progress Note Date: 03/15/25 This is a 59-year-old male who was recently admitted under Dr. Alfonso Mata with Dr. Farmer in the outpatient setting with increasing shortness of breath requiring high oxygen demands. Patient has significant past medical history of recently diagnosed biopsy-proven UIP with chronic hypoxic respiratory failure and history of COPD. Patient being followed by pulmonary as well as cardiology and underwent cardiac catheterization yesterday had 4 stents placed to the RCA. Apparently patient developed increasing shortness of breath with flash pulmonary edema and was sent to the ICU initially on BiPAP and is working on weaning FiO2 as tolerated. Currently on 15 L via nasal cannula. Patient continues to have a component of anxiety as well and has as needed medications on board. White count is elevated but we will follow-up on repeat labs. Patient concerned with having adequate oxygen for discharge home. Will discuss with case management/social work regarding oxygen tanks. Patient reports he does have a concentrator that goes up to 6 L at home. 03/14/2025 Patient is seen and evaluated in follow-up in the ICU with multiple consultations following. Patient is continued on IV diuresis monitoring kidney functions closely reports to feeling slightly improved and shortness of breath. Patient is maintained on 10 L high flow and will continue to wean as tolerated. Patient also continues with IV steroids and breathing treatments with pulmonary following. Encourage increase activity as tolerated and sitting up more frequently out of the bed. 03/15/2025 Patient is in the MICU. Being transferred to medical floor today. History of pulmonary fibrosis admitted to hospital with flash pulmonary edema. Status post cardiac catheterization and stent placement to distal and proximal end mid RCA. Patient is being continued on Lasix 40 mg every 12. Also on methylprednisolone 60 mg every 6 hourly. Currently requiring 10 L oxygen via nasal cannula.Laboratory data showed WBC 12.4 hemoglobin 10.7 platelets 346 sodium 136 potassium 3.7 chloride 91 bicarb is 39 BUN 43 and creatinine 0.66 and blood sugar 236 and total bili 1.7 and alk phos 141. Blood sugar went up to 293. Current medications reviewed. Review of systems: Constitutional: No reports of fatigue, fever, or chills reports feeling slightly less anxious Cardiovascular: No reports of chest pain or palpitations Respiratory: reports of continued shortness of breath although feels slightly better from yesterday evening GI: No reports of nausea, no reports of vomiting, no diarrhea : No reports of dysuria or retention Neurovascular: reports of generalized weakness All medications have been reviewed PHYSICAL EXAMINATION: GENERAL: The patient is alert and oriented x4, Well developed, well nourished. Slightly anxious, elderly appearing. HEENT: Pupils are round and equally reacting to light. EOMI. no scleral icterus. No conjunctival pallor. Normocephalic, atraumatic. No pharyngeal erythema. No thyromegaly. CARDIOVASCULAR: S1 and S2 muffled PULMONARY: diminished breath sounds bilaterally with minimal wheezing, coarse scattered rhonchi noted. ABDOMEN: soft. Nontender on exam. non-distended, normoactive bowel sounds. No palpable organomegaly. MUSCULOSKELETAL: No joint swelling or deformity. EXTREMITIES: No cyanosis, clubbing, or pedal edema. NEUROLOGICAL: Gross neurological examination did not reveal any focal deficits. Diffuse weakness SKIN: No rashes. Assessment: Shortness of breath, acute on chronic hypoxic respiratory failure, multifactorial, secondary to pulmonary fibrosis, volume overload/flash pulmonary edema. Elevated troponins, possibly secondary to type II CA mismatch status post cardiac catheterization and has 4 stents to the RCA placed Flash pulmonary edema status postcardiac catheterization, requiring BiPAP and now weaning as tolerated currently 10 L high flow. Normally wears 2 to 4 L outpatient Biopsy-proven UIP, pulmonary fibrosis follows with [facility] outpatient reports to being on a transplant list History of GERD Hypertension history Former smoker GI prophylaxis DVT prophylaxis Full code Plan: Recommend to continue with current medications and management with multiple consultations following. Patient is status postcardiac catheterization with 4 stents placed to the RCA continue on telemetry monitoring. currently on 10 L high flow. Patient did not use BiPAP last night. Patient chronically wears 2 to 4 L outpatient and has a concentrator. Discussed with case management for discharge planning regarding oxygen tanks as patient is extremely concerned with traveling home with no oxygen Patient to continue on IV steroids and breathing treatments per pulmonary Patient is on IV Lasix 40 mg every 12. Cardiology following recommends to continue with IV diuresis and monitor kidney functions closely. Encouraged to increase activity as tolerated including sitting up in the chair more frequently Follow-up on repeat labs Continue weaning as tolerated. Patient is being transferred to medical floor today. Overall prognosis is guarded Objective - Vital Signs Vital signs: Vital Signs Temp 97.6 F 03/15/25 08:00 Pulse 81 03/15/25 13:16 Resp 25 H 03/15/25 13:00 BP 114/62 03/15/25 13:00 Pulse Ox 86 L 03/15/25 13:00 FiO2 70 03/13/25 09:00 Intake & Output 03/14/25 03/15/25 03/15/25 18:59 06:59 18:59 Intake Total 750 1282 620 Output Total 3050 2625 1960 Balance -2300 -1343 -1340 Intake: IV 150 60 80 0.9NS 50 60 30 cefTRIAXone 1 gm In 100 50 Sodium Chloride 0.9% 50 ml @ 100 mls/hr IVPB Q24HR [facility] Rx#:[id number] Oral 600 1222 540 Output: Urine 3050 2625 1960 Other: Voiding Method Indwelling Catheter Indwelling Catheter Indwelling Catheter # Bowel Movements 1 - Labs CBC & Chem 7: 03/15/25 05:59 03/15/25 05:59 Labs: Abnormal Lab Results - Last 24 Hours (Table) 03/14/25 03/14/25 03/15/25 Range/Units 16:51 20:35 05:59 WBC 12.58 H (4.50-10.00) 10*3/uL RBC 3.30 L (4.40-5.60) 10*6/uL Hgb 10.7 L (13.0-17.0) g/dL Hct 32.1 L (39.6-50.0) % MCV 97.3 H (80.0-97.0) fL MCH 32.4 H (27.0-32.0) pg Immature Gran # 0.08 H (0.00-0.04) 10*3/uL Neutrophils # 11.14 H (1.80-7.70) 10*3/uL Lymphocytes # 0.85 L (0.90-5.00) 10*3/uL Eosinophils # 0.00 L (0.04-0.35) 10*3/uL Sodium (137-145) mmol/L Chloride (98-107) mmol/L Carbon Dioxide (22-30) mmol/L BUN (9-20) mg/dL Glucose (74-99) mg/dL POC Glucose (mg/dL) 213 H 209 H (70-110) mg/dL Total Bilirubin (0.2-1.3) mg/dL Alkaline Phosphatase (38-126) U/L 03/15/25 03/15/25 03/15/25 Range/Units 05:59 06:46 11:23 WBC (4.50-10.00) 10*3/uL RBC (4.40-5.60) 10*6/uL Hgb (13.0-17.0) g/dL Hct (39.6-50.0) % MCV (80.0-97.0) fL MCH (27.0-32.0) pg Immature Gran # (0.00-0.04) 10*3/uL Neutrophils # (1.80-7.70) 10*3/uL Lymphocytes # (0.90-5.00) 10*3/uL Eosinophils # (0.04-0.35) 10*3/uL Sodium 136 L (137-145) mmol/L Chloride 91 L (98-107) mmol/L Carbon Dioxide 39 H (22-30) mmol/L BUN 43 H (9-20) mg/dL Glucose 236 H (74-99) mg/dL POC Glucose (mg/dL) 234 H 293 H (70-110) mg/dL Total Bilirubin 1.7 H (0.2-1.3) mg/dL Alkaline Phosphatase 141 H (38-126) U/L Microbiology - Last 24 Hours (Table) 03/13/25 06:49 Urine Culture - Final Urine,Voided
[2025-03-15] MEDS ORDERED: LORazepam 1 MG/0.5 ML VIAL IV PRN (19:14)
[2025-03-15 19:52] LABS: Glucose,Whole Blood 319 mg/dL (70-110)
[2025-03-15] MEDS: TORSEMIDE 20 MG TAB PO SCH (21:00)
[2025-03-16 06:36] LABS: Glucose,Whole Blood 217 mg/dL (70-110)
[2025-03-16] MEDS: INSULIN GLARGINE (LANTUS) 100 UNIT/ML SYR SQ SCH (06:37)
--- NOTE | 2025-03-16 10:05 | P.PN ---
Subjective Progress Note Date: 03/16/25 Principal diagnosis: Shortness of breath, fever, pulmonary fibrosis. Patient is a 59-year-old male with past medical history significant for recently diagnosis of biopsy-proven UIP, chronic hypoxemic respiratory failure, COPD, brief history of tobacco use, former marijuana smoker, hypertension. He does follow in the pulmonary office with Dr. Segovia, and had recent follow-up office visit on 02/25/2025. Of note, previously underwent left-sided video-assisted thorascopic surgery with wedge resection of the left upper lobe, as well as, biopsy of the lower lobe on 01/22/2025 pathology consistent with interstitial lung disease, UIP type. Patient has been started on Ofev. He has also been referred to the [facility] for possible lung transplant list. Approximately, 1 week ago patient developed increased short of breath, as well as, notable hypoxia with an SpO2 as low as 70%. He is normally oxygen dependent on 2 L/min supplemental oxygen while at home. When EMS arrived yesterday afternoon, patient was noted to be severely hypoxic placed on a 15 L nonrebr eather, and transferred to the emergency department. Workup including a chest x-ray redemonstrating patient's prominent interstitial lung markings. No focal infiltrates, however, superimposed infectious process was not entirely excluded. Patient was intermittently febrile with a low-grade temperature of 100.4 F. Viral 4 Plex unremarkable for RSV, COVID, influenza. Also tachycardic in the ED. CBC with a WBC count of 12.3, hemoglobin 11.9, platelets 305. CMP: Sodium 138, potassium 4.5, chloride 97, serum bicarb 35, BUN 26, creatinine 0.56, glucose 229. Lactic was 2.7 is down to 2. LFTs fairly unremarkable. EKG: Sinus tachycardia, rate 128 bpm. troponin 0.4. Patient currently being evaluated on the general medical floor. Currently on 4 L/min nasal cannula, does not appear distressed. Patient endorses increased work of breathing over the last week. Recently visited the [facility] on Monday, while driving there, became remarkably short of breath and his oxygen levels were reading low around 70%. Associated symptoms including dry persistent cough, without any signi ficant sputum production. Intermittent fevers. Denies any chest pain, heart palpitations, hemoptysis. No unilateral lower extremity swelling. Currently on Ofev. No known sick contacts. Denies any nausea, vomiting, diarrhea. Current vital signs are stable. Progress note dated March 12, 2025. 59-year-old male with a history of biopsy-proven pulmonary fibrosis. The patient sees one of my partners. The patient also has a history of respiratory failure, COPD, hypertension, among other things. The patient was started on Ofev. The patient has been to the [facility], and the preliminary evaluation has begun. The patient was also found to have elevated troponin levels, and cardiology was consulted. Currently, the patient is on IV heparin, azithromycin, Rocephin, DuoNebs, Solu-Medrol, and Ofev. His procalcitonin level was elevated at 0.6. White count 14.9, hemoglobin 10.9, hematocrit 34.5, and platelet count 296,000. PTT is 64. Sodium 139, potassium 3.7, chloride 99, CO2 28, anion gap 12, BUN 23, and creatinine 0.57. Glucose is 205. Cardiology recommended a heart catheterization. Progress note dated March 13, 2025. 59-year-old male seen in the intensive care unit, room 257. The patient has a history of biopsy-proven idiopathic pulmonary fibrosis. Yesterday, the patient went to the catheterization laboratory, and had a percutaneous coronary intervention, with 4 stents placed in the right coronary artery. Subsequent to that, he developed flash pulmonary edema, was in respiratory distress, placed on BiPAP, transferred to the intensive care unit. Is currently on BiPAP with settings of 14/7 and 80%. He is getting saline at 5 cc an hour. Clinically doing better than he was yesterday. White count 16.4, hemoglobin 10.3, hematocrit 31.6, and platelet count 333,000. Sodium 137, potassium 3, chloride 91, CO2 39, BUN 26, and creatinine 0.68. Glucose is 190. Chest x-ray shows diffuse bilateral infiltrates, some of which are related to pulmonary edema, and some to the patient's underlying pulmonary fibrosis. Progress note dated March 14, 2025. 59-year-old male seen today in room 257. The patient is doing better today. He is on 10 L high flow. He did not use the BiPAP device. In addition to 10 L high flow, he has been on and off a nonrebreather mask. The patient is getting saline at KVO. The patient had a catheterization laboratory, and had 4 stents placed in his right coronary artery. The patient developed flash pulmonary jolie a afterwards. This necessitated admission to the ICU. Current laboratory data includes a white count of 13.9, hemoglobin 10.3, hematocrit 31.4, and platelet count 344,000. Sodium 136, potassium 3.6, chloride 92, CO2 37, BUN 37, creatinine 0.75. Glucose 198. Magnesium 2.4. Chest x-ray shows cardiomegaly, with diffuse patchy bilateral infiltrates. This could be on the basis of pneumonia, pulmonary fibrosis, and/or CHF. Progress note dated March 15, 2025. 59-year-old male with history of pulmonary fibrosis, status post PCI, and flash pulmonary edema. The patient is seen today in room 257. He is currently on nasal O2, at 10 L. The patient is getting saline at 5 cc an hour. He did not use the BiPAP last night. Current labs include a white count 12.6, hemoglobin 10.7, hematocrit 32.1, and a platelet count of 346,000. Sodium 136, potassium 3.7, chloride 71, CO2 39, BUN 43, creatinine 0.66. Glucose 234. No chest x-ray today. Progress note dated March 16, 2025. 59-year-old male with a diagnosis of biopsy-proven pulmonary fibrosis, who recently had PCI, and developed flash pulmonary edema. Yesterday, he was in the intensive care unit, today he is out on the floor, room 371. Currently, he remains on 9 L high flow nasal O2. He is not receiving any IV fluids. He did not use BiPAP last night. The patient states that he is feeling better. The only new laboratory data is a glucose of 217. No recent chest x-ray. Objective - Vital Signs Vital signs: Vital Signs Temp 97.9 F 03/15/25 19:55 Pulse 80 03/16/25 09:22 Resp 16 03/16/25 04:00 BP 101/67 03/16/25 04:00 Pulse Ox 96 03/16/25 09:08 FiO2 70 03/13/25 09:00 Intake & Output 03/15/25 03/16/25 03/16/25 18:59 06:59 18:59 Intake Total 1285 1080 240 Output Total 2285 1900 Balance -1000 -820 240 Weight 85 kg Intake: IV 90 0.9NS 40 cefTRIAXone 1 gm In 50 Sodium Chloride 0.9% 50 ml @ 100 mls/hr IVPB Q24HR [facility] Rx#:[id number] Oral 1195 1080 240 Output: Urine 2285 1900 Other: Voiding Method Indwelling Catheter Indwelling Catheter - Exam No acute distress, oriented 3. Currently on 9 L high flow nasal cannula. HEENT examination is grossly unremarkable. Mucous membranes are moist. No oral lesions. Neck supple. Full range of motion. No adenopathy thyromegaly or neck vein dis tention. Cardiovascular examination reveals regular rhythm rate. S1-S2 normal. No S3 or S4. No discernible murmur noted. Lungs reveal bibasilar crackles. The patient is restricted in his breathing. No rhonchi. No wheezes. Breath sounds are equal bilaterally. Abdomen soft bowel sounds are heard. No masses or tenderness. Extremities are intact. No cyanosis clubbing or edema. Skin is without rash or lesion. Neurologic examination is brief but nonfocal. - Labs CBC & Chem 7: 03/15/25 05:59 03/15/25 05:59 Labs: Abnormal Lab Results - Last 24 Hours (Table) 03/15/25 03/15/25 03/15/25 Range/Units 11:23 16:44 19:51 POC Glucose (mg/dL) 293 H 193 H 319 H (70-110) mg/dL 03/16/25 Range/Units 06:35 POC Glucose (mg/dL) 217 H (70-110) mg/dL Microbiology - Last 24 Hours (Table) 03/10/25 13:43 Blood Culture - Final Blood Assessment and Plan Assessment: Acute on chronic hypoxemic respiratory failure currently on high flow nasal cannula, multifactorial, likely on the basis of pulmonary fibrosis, possible pneumonia, and fluid overload. PCI, March 12, 2025, with 4 stents placed in the right coronary artery, and postprocedure flash pulmonary edema. Acute febrile illness. Biopsy-proven UIP/IPF, currently on OFEV. Chronic obstructive pulmonary disease. Chronic hypoxemic respiratory failure, normally maintained on 2.5 L nasal cannula. Elevated troponins, possibly secondary to type II [place] and supply/demand mismatch. Macrocytic anemia. Hypertension. Gastroesophageal reflux disease. Brief history of tobacco smoking. Plan: Plan dated March 12, 2025. The patient is seen by cardiology. Because of the elevated troponins, the patient will be scheduled for heart catheterization. From the pulmonary standpoint, the patient is doing reasonably well. We will continue to follow make recommendations along the way. The patient continues on IV heparin. His procalcitonin level was elevated 0.6. The patient is currently on azithromycin and Rocephin. In addition, the patient is on Ofev, DuoNebs, and Solu-Medrol. Overall prognosis remains guarded. We will continue to follow make recommendations. Dictation was produced using [employer] software. Ple ase excuse any grammatical, word or spelling errors. Plan dated March 13, 2025. The patient had a PCI done yesterday, with 4 stents placed in the right coronary artery. Afterwards, the patient developed flash pulmonary edema. The patient was transferred to the intensive care unit, for respiratory distress, and acute hypoxemic respiratory failure, placed on BiPAP. He continues on BiPAP. Clini brenton, the patient is doing a bit better. We will continue to follow make recommendations along the way. The patient's overall prognosis remains guarded. He was sent to the [facility], for possible evaluation for lung transplantation. Labs, x-rays, and medications are reviewed. Dictation was produced using [employer] software. Please excuse any grammatical, word or spelling errors. Plan dated March 14, 2025. The patient is seen today in room 257. He is on 10 L high flow nasal cannula, plus or minus a nonrebreather mask. Clinically, the patient feels much better. He is much less short of breath. All labs, x-rays, and medications are reviewed. His hypoxemic respiratory failure is likely multifactorial, in part related to his underlying pulmonary fibrosis, possible underlying pneumonia, and flash pulmonary edema. We will continue to follow make recommendations where appropriate. Prognosis is guarded. Dictation was produced using [employer] software. Please excuse any grammatical, word or spelling errors. Plan dated March 15, 2025. The patient remains in the intensive care unit, critically ill. He is requiring high flow nasal cannula 10 L. He is still quite short of breath. The shortness of breath is multifactorial, part related to his underlying severe pulmonary fibrosis, pulmonary edema, and possible pneumonia. Labs, x-rays, and all medications are reviewed. We will continue to follow the patient, make recommendations along the way. The patient did not use the BiPAP device last night. He remains on minimal fluid at 5 cc an hour. Dictation was produced using [employer] software. Please excuse any grammatical, word or spelling errors. Plan dated March 16, 2025. 59-year-old male seen yesterday in the intensive care unit. Today he is seen out on the floor, room 371. The patient continues on high flow nasal cannula at 9 L. Clinically, he is feeling much improved. Labs, x-rays, and all medications are reviewed. We will continue to follow with patient, make recommendations where appropriate. The patient does have biopsy-proven pulmonary fibrosis, and has started an evaluation for possible lung transplantat ion at the [facility]. The patient was also recently placed on OFEV. We will continue to follow. Labs, x-rays, and medications are reviewed. Dictation was produced using [employer] software. Please excuse any grammatical, word or spelling errors. Time with Patient: Less than 30
[2025-03-16 12:02] LABS: Glucose,Whole Blood 248 mg/dL (70-110)
[2025-03-16 12:27] LABS: African American GFR (CKD) >90 (>60 ml/min/1.73 sqM); Blood Urea Nitrogen 44 mg/dL (9-20); Calcium 9.4 mg/dL (8.4-10.2); Chloride 86 mmol/L (98-107); Glucose 233 mg/dL (74-99); Non-African American GFR(CKD) >90 (>60 ml/min/1.73 sqM); Potassium 3.7 mmol/L (3.5-5.1); Sodium 132 mmol/L (137-145)
[2025-03-16 12:34] LABS: Anion Gap 8 mmol/L
[2025-03-16 12:37] LABS: Carbon Dioxide 38 mmol/L (22-30)
--- NOTE | 2025-03-16 12:39 | P.PN ---
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 He has a past medical history of asthma as a child, COPD, recently diagnosed IUP and started on Ofev, hypertension, tobacco use for 11 years, marijuana use and quit 1 year ago. Patient states that he has had a stress test done many years ago. We have been asked to evaluate the patient for arrhythmia and elevated troponins. He states that he was at home and ate ice cream but fell asleep and then he was concerned when he woke up that he had aspirated the ice cream. He states he could not get his pulse ox up over 70%. He is normally on home O2 at 2 L nasal cannula and increased it to 3 L without improvement. He denies having chest pain. He is currently on O2 at 5 L. Patient required oxygen at 15 L nonrebreather by EMS transport. Patient also gives history that he is following at [facility] and is getting on the transplant list. Blood pressure 124/70, heart rate 100, pulse ox 98% on 4 L nasal cannula. Temperature max 102.2. Dr. Marrero discussed with the patient that he would recommend possible cardiac catheterization once respiratory status is stable. This may be performed during this hospitalization or at a later time. -EKG: Sinus tachycardia with no acute ST-T wave changes. -Chest x-ray: Interstitial lung disease without focal consolidation. Superimposed infectious process is not entirely excluded. -CTA chest: Advanced pulmonary fibrotic changes. New tiny left pleural effusion and areas of groundglass opacity suspicious for edema. Underlying acute pneumonic infiltrate not excluded. -Laboratory studies: WBC 12.3 with repeat 9.3, hemoglobin 11.5, D-dimer 1.96. BUN 26 and creatinine 0.56, CO2 35. Lactic acid 3.9. Troponins 0.402 and 0.616. Cepheid viral panel not detected. -Home cardiac medications: Amlodipine 10 mg daily, olmesartan/hydrochlorothiazide 40-12.5 mg half tablet daily. 03/12/2025 Patient examined this morning at bedside. Patient reports mild shortness of breath. He denies chest pain or pressure. Vital signs are stable. He remains on IV heparin. Echocardiogram completed revealing ejection fraction 55 to 60%, severe pulmonary hypertension, RVSP 57 mmHg, moderate concentric LVH, mild TR. 03/13 Patient seen and examined. Patient denies any chest pain or pressure. He underwent heart catheterization yesterday which showed elevated LVEDP 35, elevated elevated RVSP and PA pressures of 60, group 2 and 3 pulmonary hypertension, mild to moderate LAD and circumflex disease with 90% RCA stenosis. He underwent stenting of the RCA with covering the entire proximal to distal RCA. He had significant dyspnea after requiring BiPAP and became tachypneic with transfer to ICU. He admits that at times sometimes he gets more orthopneic and worse lying flat. His IV fluids were stopped and given Lasix with -4 L output over the last 24 hours. He states he feels somewhat better today. 03/14 Patient seen and examined. Patient denies any chest pain or pressure. Remains on Lasix with creatinine stable at 0.9 with BUN 37. Good urine output with -2.5 L over last 24 hours. Still on 10 L oxygen 03/15 Patient out of bed to chair. WBC 12.58, hemoglobin 10.7, potassium 3.7, creatinine 0.66, BNP 135. Denies any chest pain or pressure. His shortness of breath is worse with exertion however he believes that is getting better in general. 03/16 Pt doing well. On 9L NC O2, breathing feels stable. No chest pain or pressure. No labs done this morning. PHYSICAL EXAM: VITAL SIGNS: Reviewed. GENERAL: Well-developed in no acute distress. NECK: Supple. No JVD LUNGS: Respirations even and unlabored. Lungs essentially diminished bilaterally. On nasal cannula oxygen. HEART: Regular rate and rhythm. S1 and S2 heard. EXTREMITIES: Normal range of motion. No clubbing or cyanosis. Peripheral pu lses intact. No lower extremity edema ASSESSMENT: Acute on chronic hypoxic respiratory failure currently on 4 L nasal cannula Chronic hypoxic respiratory failure on home O2 at 2 L Febrile illness with temperature of 102.2 on presentation NSTEMI secondary to type II NE COPD IUP, on Ofev and follows at [facility] for lung transplant evaluation Hypertension Tobacco use for 11 years Marijuana use and quit 1 year ago Acute on chronic diastolic heart failure CAD s/p PCI RCA 03/12/2025 PLAN: Check BMP to monitor kidney function. Continue current regimen. Will continue with IV diuresis and likely transition to oral diuretics tomorrow. Monitor kidney function closely. Further recommendations to follow. Seen and examined in rounds with Dr. Lawrence, plan of care agreed upon. Objective - Vital Signs Vital signs: Vital Signs Temp 97.6 F 03/16/25 08:00 Pulse 80 03/16/25 09:22 Resp 18 03/16/25 08:00 BP 115/70 03/16/25 08:00 Pulse Ox 96 03/16/25 09:08 FiO2 70 03/13/25 09:00 Intake & Output 03/15/25 03/16/25 03/16/25 18:59 06:59 18:59 Intake Total 1285 1080 240 Output Total 2285 1900 Balance -1000 -820 240 Weight 85 kg Intake: IV 90 0.9NS 40 cefTRIAXone 1 gm In 50 Sodium Chloride 0.9% 50 ml @ 100 mls/hr IVPB Q24HR [facility] Rx#:[id number] Oral 1195 1080 240 Output: Urine 2285 1900 Other: Voiding Method Indwelling Catheter Indwelling Catheter Indwelling Catheter - Labs CBC & Chem 7: 03/15/25 05:59 03/16/25 11:43 Labs: Abnormal Lab Results - Last 24 Hours (Table) 03/15/25 03/15/25 03/15/25 Range/Units 11:23 16:44 19:51 POC Glucose (mg/dL) 293 H 193 H 319 H (70-110) mg/dL 03/16/25 Range/Units 06:35 POC Glucose (mg/dL) 217 H (70-110) mg/dL Microbiology - Last 24 Hours (Table) 03/10/25 13:43 Blood Culture - Final Blood
[2025-03-16 16:36] LABS: Glucose,Whole Blood 177 mg/dL (70-110)
[2025-03-16 19:50] LABS: Glucose,Whole Blood 242 mg/dL (70-110)
[2025-03-17] MEDS: ZOLPIDEM 5 MG TAB PO PRN (00:09)
[2025-03-17 05:57] LABS: Glucose,Whole Blood 162 mg/dL (70-110)
[2025-03-17 07:13] LABS: African American GFR (CKD) >90 (>60 ml/min/1.73 sqM); Blood Urea Nitrogen 44 mg/dL (9-20); Chloride 87 mmol/L (98-107); Glucose 157 mg/dL (74-99); Non-African American GFR(CKD) >90 (>60 ml/min/1.73 sqM); Potassium 3.8 mmol/L (3.5-5.1); Sodium 132 mmol/L (137-145)
[2025-03-17 07:19] LABS: Anion Gap 9 mmol/L
[2025-03-17 07:21] LABS: Basophils # (A) 0.02 10*3/uL (0.00-0.10); Basophils % (A) 0.2 %; Carbon Dioxide 36 mmol/L (22-30); HCT 32.7 % (39.6-50.0); HGB 10.9 g/dL (13.0-17.0); Lymphocytes # (A) 0.88 10*3/uL (0.90-5.00); Lymphocytes % (A) 7.6 %; MCH 31.7 pg (27.0-32.0); MCHC 33.3 g/dL (32.0-37.0); MCV 95.1 fL (80.0-97.0); Mean Platelet Volume 10.3 fL (9.5-12.2); Monocytes # (A) 0.63 10*3/uL (0.20-1.00); Monocytes % (A) 5.4 %; Neutrophils # (A) 9.93 10*3/uL (1.80-7.70); Neutrophils % (A) 85.4 %; Platelet Count 319 10*3/uL (140-440); RBC 3.44 10*6/uL (4.40-5.60); RDW 14.3 % (11.5-14.5); WBC 11.62 10*3/uL (4.50-10.00)
[2025-03-17 11:44] LABS: Glucose,Whole Blood 157 mg/dL (70-110)
--- NOTE | 2025-03-17 14:35 | P.PN ---
Subjective Progress Note Date: 03/17/25 HISTORY OF PRESENT ILLNESS: This is a 59-year-old male with no previous cardiac history and does not follow with a icu clerk. He has a past medical history of asthma as a child, COPD, recently diagnosed IUP and started on Ofev, hypertension, tobacco use for 11 years, marijuana use and quit 1 year ago. Patient states that he has had a stress test done many years ago. We have been asked to evaluate the patient for arrhythmia and elevated troponins. He states that he was at home and ate ice cream but fell asleep and then he was concerned when he woke up that he had aspirated the ice cream. He states he could not get his pulse ox up over 70%. He is normally on home O2 at 2 L nasal cannula and increased it to 3 L without improvement. He denies having chest pain. He is currently on O2 at 5 L. Patient required oxygen at 15 L nonrebreather by EMS transport. Patient also gives history that he is following at [facility] and is getting on the transplant list. Blood pressure 124/70, heart rate 100, pulse ox 98% on 4 L nasal cannula. Temperature max 102.2. Dr. Marrero discussed with the patient that he would recommend possible cardiac catheterization once respiratory status is stable. This may be performed during this hospitalization or at a later time. -EKG: Sinus tachycardia with no acute ST-T wave changes. -Chest x-ray: Interstitial lung disease without focal consolidation. Superimposed infectious process is not entirely excluded. -CTA chest: Advanced pulmonary fibrotic changes. New tiny left pleural effusion and areas of groundglass opacity suspicious for edema. Underlying acute pneumonic infiltrate not excluded. -Laboratory studies: WBC 12.3 with repeat 9.3, hemoglobin 11.5, D-dimer 1.96. BUN 26 and creatinine 0.56, CO2 35. Lactic acid 3.9. Troponins 0.402 and 0.616. Cepheid viral panel not detected. -Home cardiac medications: Amlodipine 10 mg daily, olmesartan/hydrochlorothiazide 40-12.5 mg half tablet daily. 03/12/2025 Patient examined this morning at bedside. Patient reports mild shortness of breath. He denies chest pain or pressure. Vital signs are stable. He remains on IV heparin. Echocardiogram completed revealing ejection fraction 55 to 60%, severe pulmonary hypertension, RVSP 57 mmHg, moderate concentric LVH, mild TR. 03/13 Patient seen and examined. Patient denies any chest pain or pressure. He underwent heart catheterization yesterday which showed elevated LVEDP 35, elevated elevated RVSP and PA pressures of 60, group 2 and 3 pulmonary hypertension, mild to moderate LAD and circumflex disease with 90% RCA stenosis. He underwent stenting of the RCA with covering the entire proximal to distal RCA. He had significant dyspnea after requiring BiPAP and became tachypneic with transfer to ICU. He admits that at times sometimes he gets more orthopneic and worse lying flat. His IV fluids were stopped and given Lasix with -4 L output over the last 24 hours. He states he feels somewhat better today. 03/14 Patient seen and examined. Patient denies any chest pain or pressure. Remains on Lasix with creatinine stable at 0.9 with BUN 37. Good urine output with -2.5 L over last 24 hours. Still on 10 L oxygen 03/15 Patient out of bed to chair. WBC 12.58, hemoglobin 10.7, potassium 3.7, creatinine 0.66, BNP 135. Denies any chest pain or pressure. His shortness of breath is worse with exertion however he believes that is getting better in general. 03/16 Pt doing well. On 9L NC O2, breathing feels stable. No chest pain or pressure. No labs done this morning. 03/17 Patient seen and examined. He is currently on IV Lasix 40 mg every 12 hours. Creatinine is 0.56. He states that his breathing is slowly getting better. Patient has a negative fluid balance and documented weight loss. PHYSICAL EXAM: VITAL SIGNS: Reviewed. GENERAL: Well-developed in no acute distress. NECK: Supple. No JVD LUNGS: Respirations even and unlabored. Lungs essentially diminished bilaterally. On nasal cannula oxygen. HEART: Regular rate and rhythm. S1 and S2 heard. EXTREMITIES: Normal range of motion. No clubbing or cyanosis. Peripheral pulses intact. No lower extremity edema ASSESSMENT: Acute on chronic hypoxic respiratory failure currently on 4 L nasal cannula Chronic hypoxic respiratory failure on home O2 at 2 L Febrile illness with temperature of 102.2 on presentation NSTEMI secondary to type II [place] COPD IUP, on Ofev and follows at [facility] for lung transplant evaluation Hypertension Tobacco use for 11 years Marijuana use and quit 1 year ago Acute on chronic diastolic heart failure CAD s/p PCI RCA 03/12/2025 PLAN: Transition IV Lasix to oral 40 mg twice daily Continue current regimen. Electrolytes SINDHU and daily weights Monitor kidney function, electrolytes, daily weights, SINDHU At the time of discharge, patient will follow-up with Dr. Marrero in 1 week Further recommendations to follow. Nurse practitioner note has been reviewed, I agree with documented findings and plan of care. Patient was seen and examined. Objective - Vital Signs Vital signs: Vital Signs Temp 97.4 F L 03/16/25 19:45 Pulse 72 03/17/25 09:48 Resp 20 03/17/25 08:33 BP 114/71 03/17/25 08:33 Pulse Ox 93 L 03/17/25 09:34 FiO2 70 03/13/25 09:00 Intake & Output 03/16/25 03/17/25 03/17/25 18:59 06:59 18:59 Intake Total 720 340 Output Total 2000 2600 Balance -1280 -2600 340 Weight 84.9 kg Intake: Oral 720 340 Output: Urine 2000 2600 Other: Voiding Method Indwelling Catheter Indwelling Catheter Indwelling Catheter - Labs CBC & Chem 7: 03/17/25 06:28 03/17/25 06:28 Labs: Abnormal Lab Results - Last 24 Hours (Table) 03/16/25 03/16/25 03/16/25 Range/Units 11:43 12:00 16:34 WBC (4.50-10.00) 10*3/uL RBC (4.40-5.60) 10*6/uL Hgb (13.0-17.0) g/dL Hct (39.6-50.0) % Immature Gran # (0.00-0.04) 10*3/uL Neutrophils # (1.80-7.70) 10*3/uL Lymphocytes # (0.90-5.00) 10*3/uL Eosinophils # (0.04-0.35) 10*3/uL Sodium 132 L (137-145) mmol/L Chloride 86 L (98-107) mmol/L Carbon Dioxide 38 H (22-30) mmol/L BUN 44 H (9-20) mg/dL Creatinine (0.66-1.25) mg/dL Glucose 233 H (74-99) mg/dL POC Glucose (mg/dL) 248 H 177 H (70-110) mg/dL 03/16/25 03/17/25 03/17/25 Range/Units 19:48 05:55 06:28 WBC 11.62 H (4.50-10.00) 10*3/uL RBC 3.44 L (4.40-5.60) 10*6/uL Hgb 10.9 L (13.0-17.0) g/dL Hct 32.7 L (39.6-50.0) % Immature Gran # 0.16 H (0.00-0.04) 10*3/uL Neutrophils # 9.93 H (1.80-7.70) 10*3/uL Lymphocytes # 0.88 L (0.90-5.00) 10*3/uL Eosinophils # 0.00 L (0.04-0.35) 10*3/uL Sodium (137-145) mmol/L Chloride (98-107) mmol/L Carbon Dioxide (22-30) mmol/L BUN (9-20) mg/dL Creatinine (0.66-1.25) mg/dL Glucose (74-99) mg/dL POC Glucose (mg/dL) 242 H 162 H (70-110) mg/dL 03/17/25 Range/Units 06:28 WBC (4.50-10.00) 10*3/uL RBC (4.40-5.60) 10*6/uL Hgb (13.0-17.0) g/dL Hct (39.6-50.0) % Immature Gran # (0.00-0.04) 10*3/uL Neutrophils # (1.80-7.70) 10*3/uL Lymphocytes # (0.90-5.00) 10*3/uL Eosinophils # (0.04-0.35) 10*3/uL Sodium 132 L (137-145) mmol/L Chloride 87 L (98-107) mmol/L Carbon Dioxide 36 H (22-30) mmol/L BUN 44 H (9-20) mg/dL Creatinine 0.56 L (0.66-1.25) mg/dL Glucose 157 H (74-99) mg/dL POC Glucose (mg/dL) (70-110) mg/dL
--- NOTE | 2025-03-17 15:16 | P.PN ---
Subjective Progress Note Date: 03/17/25 Patient is a 59-year-old male with past medical history significant for recently diagnosis of biopsy-proven UIP, chronic hypoxemic respiratory failure, COPD, brief history of tobacco use, former marijuana smoker, hypertension. He does follow in the pulmonary office with Dr. Segovia, and had recent follow-up office visit on 02/25/2025. Of note, previously underwent left-sided video-assisted thorascopic surgery with wedge resection of the left upper lobe, as well as, biopsy of the lower lobe on 01/22/2025 pathology consistent with interstitial lung disease, UIP type. Patient has been started on Ofev. He has also been referred to the [facility] for possible lung transplant list. Appro ximately, 1 week ago patient developed increased short of breath, as well as, notable hypoxia with an SpO2 as low as 70%. He is normally oxygen dependent on 2 L/min supplemental oxygen while at home. When EMS arrived yesterday afternoon, patient was noted to be severely hypoxic placed on a 15 L no nrebreather, and transferred to the emergency department. Workup including a chest x-ray redemonstrating patient's prominent interstitial lung markings. No focal infiltrates, however, superimposed infectious process was not entirely excluded. Patient was intermittently febrile with a low-grade temperature of 100.4 F. Viral 4 Plex unremarkable for RSV, COVID, influenza. Also tachycardic in the ED. CBC with a WBC count of 12.3, hemoglobin 11.9, platelets 305. CMP: Sodium 138, potassium 4.5, chloride 97, serum bicarb 35, BUN 26, creatinine 0.56, glucose 229. Lactic was 2.7 is down to 2. LFTs fairly unremarkable. EKG: Sinus tachycardia, rate 128 bpm. troponin 0.4. Patient currently being evaluated on the general medical floor. Currently on 4 L/min nasal cannula, does not appear distressed. Patient endorses increased work of breathing over the last week. Recently visited the [facility] on Monday, while driving there, became remarkably short of breath and his oxygen levels were reading low around 70%. Associated symptoms including dry persistent cough, without any significant sputum production. Intermittent fevers. Denies any chest pain, heart palpitations, hemoptysis. No unilateral lower extremity swelling. Currently on Ofev. No known sick contacts. Denies any nausea, vomiting, diarrhea. Current vital signs are stable. Progress note dated March 12, 2025. 59-year-old male with a history of biopsy-proven pulmonary fibrosis. The patient sees one of my partners. The patient also has a history of respiratory failure, COPD, hypertension, among other things. The patient was started on Ofev. The patient has been to the [facility], and the preliminary evaluation has begun. The patient was also found to have elevated troponin levels, and cardiology was consulted. Currently, the patient is on IV heparin, azithromycin, Rocephin, DuoNebs, Solu-Medrol, and Ofev. His procalcitonin level was elevated at 0.6. White count 14.9, hemoglobin 10.9, hematocrit 34.5, and platelet count 296,000. PTT is 64. Sodium 139, potassium 3.7, chloride 99, CO2 28, anion gap 12, BUN 23, and creatinine 0.57. Glucose is 205. Cardiology recommended a heart catheterization. Progress note dated March 13, 2025. 59-year-old male seen in the intensive care unit, room 257. The patient has a history of biopsy-proven idiopathic pulmonary fibrosis. Yesterday, the patient went to the catheterization laboratory, and had a percutaneous coronary interv ention, with 4 stents placed in the right coronary artery. Subsequent to that, he developed flash pulmonary edema, was in respiratory distress, placed on BiPAP, transferred to the intensive care unit. Is currently on BiPAP with settings of 14/7 and 80%. He is getting saline at 5 cc an hour. Clinically doing better than he was yesterday. White count 16.4, hemoglobin 10.3, hematocrit 31.6, and platelet count 333,000. Sodium 137, potassium 3, chloride 91, CO2 39, BUN 26, and creatinine 0.68. Glucose is 190. Chest x-ray shows diffuse bilateral infiltrates, some of which are related to pulmonary edema, and some to the patient's underlying pulmonary fibrosis. Progress note dated March 14, 2025. 59-year-old male seen today in room 257. The patient is doing better today. He is on 10 L high flow. He did not use the BiPAP device. In addition to 10 L high flow, he has been on and off a nonrebreather mask. The patient is getting saline at KVO. The patient had a catheterization laboratory, and had 4 stents placed in his right coronary artery. The patient developed flash pulmonary edema afterwards. This necessitated admission to the ICU. Current laboratory data includes a white count of 13.9, hemoglobin 10.3, hematocrit 31.4, and platelet count 344,000. Sodium 136, potassium 3.6, chloride 92, CO2 37, BUN 37, creatinine 0.75. Glucose 198. Magnesium 2.4. Chest x-ray shows cardiomegaly, with diffuse patchy bilateral infiltrates. This could be on the basis of pneumonia, pulmonary fibrosis, and/or CHF. Progress note dated March 15, 2025. 59-year-old male with history of pulmonary fibrosis, status post PCI, and flash pulmonary edema. The patient is seen today in room 257. He is currently on nasal O2, at 10 L. The patient is getting saline at 5 cc an hour. He did not use the BiPAP last night. Current labs include a white count 12.6, hemoglobin 10.7, hematocrit 32.1, and a platelet count of 346,000. Sodium 136, potassium 3.7, chloride 71, CO2 39, BUN 43, creatinine 0.66. Glucose 234. No chest x-ray today. Progress note dated March 16, 2025. 59-year-old male with a diagnosis of biopsy-proven pulmonary fibrosis, who recently had PCI, and developed flash pulmonary edema. Yesterday, he was in the intensive care unit, today he is out on the floor, room 371. Currently, he remains on 9 L high flow nasal O2. He is not receiving any IV fluids. He did not use BiPAP last night. The patient states that he is feeling better. The only new laboratory data is a glucose of 217. No recent chest x-ray. On 03/17/2025, the patient is being seen for a follow-up. The patient is known to have advanced IPF maintained on Ofev on outpatient basis. The patient has chronic hypoxic estephanie failure and the patient remains on oxygen at 2 L/min nasal cannula. The patient presented to us for an acute hypoxic respiratory failure. He is a previous smoker and a former marijuana smoker. He also has hypertension. The patient ruled in for an acute non-ST segment elevation myocardial infarction. The troponins were mildly elevated. Based on that, the patient underwent further investigation including a cardiac catheterization that was done on 03/12/2025 and the patient underwent successful stenting of the distal and proximal and mid RCA. The patient was found to have a left anterior diastolic pressure of 35. Mean pulmonary capillary wedge pressure was 25. PA pressure was elevated at 60/12 with a mean of 40. The cardiac index was 3.7. He was also found to have a 50% mid LAD lesion, 60% focal disease involving the distal and apical LAD and mild nonobstructive disease involving the left circumflex. The patient is currently on 9 L of oxygen by nasal cannula. He remains on bronchodilators. He remains on Symbicort. He remains on IV Solu-Medrol. He remains on aspirin and Brilinta. He is also on Norvasc for blood pressure control, Lipitor 40 mg p.o. daily, Farxiga 10 mg p.o. daily, Lasix 40 mg IV every 12 hours in combination with Aldactone. His follow-up chest x-ray from 03/14/2025 was consistent with smaller lung volumes and pulmonary fibrosis with increased interstitial markings throughout the lung his bilateral lung with cardiomegaly. His echocardiogram on 03/11/2025 revealed a preserved LV function with an ejection fraction of 55 to 60%, he was noted to have severe pulm hypertension with a estimated PA pressure of 57. Moderate concentric LVH. No chest pain. He reports improvement in his shortness of breath. No other new complaints over the past 24 hours. Objective - Vital Signs Vital signs: Vital Signs Temp 97.4 F L 03/16/25 19:45 Pulse 72 03/17/25 09:48 Resp 20 03/17/25 08:33 BP 114/71 03/17/25 08:33 Pulse Ox 93 L 03/17/25 09:34 FiO2 70 03/13/25 09:00 Intake & Output 03/16/25 03/17/25 03/17/25 18:59 06:59 18:59 Intake Total 720 340 Output Total 1999 2600 Balance -1280 -2600 340 Weight 84.9 kg Intake: Oral 720 340 Output: Urine 1999 2600 Other: Voiding Method Indwelling Catheter Indwelling Catheter Indwelling Catheter - Exam The patient appeared well nourished and normally developed. Vital signs as documented. The patient remains on 9 L of oxygen by nasal cannula Head exam is unremarkable. No scleral icterus or corneal arcus noted. Neck is without jugular venous distension, thyromegaly, or carotid bruits. Carotid upstrokes are brisk bilaterally. Lungs are diminished breath sound bilaterally along with coarse crackles at low er lung field specially in the lung bases. Cardiac exam reveals the PMI to be normally sized and situated. Rhythm is regular. First and second heart sounds normal. No murmurs, rubs or gallops. Abdominal exam reveals normal bowel sounds, no masses, no organomegaly and no aortic enlargement. Extremities are nonedematous and both femoral and pedal pulses are normal. Examination of the skin revealed no evidence of significant rashes, suspicious appearing nevi or other concerning lesions. Neurologically, the patient is awake and alert and the patient does not have any focal neurological deficit. Cranial nerves are essentially intact. - Labs CBC & Chem 7: 03/17/25 06:28 03/17/25 06:28 Labs: Abnormal Lab Results - Last 24 Hours (Table) 03/16/25 03/16/25 03/16/25 Range/Units 11:43 12:00 16:34 WBC (4.50-10.00) 10*3/uL RBC (4.40-5.60) 10*6/uL Hgb (13.0-17.0) g/dL Hct (39.6-50.0) % Immature Gran # (0.00-0.04) 10*3/uL Neutrophils # (1.80-7.70) 10*3/uL Lymphocytes # (0.90-5.00) 10*3/uL Eosinophils # (0.04-0.35) 10*3/uL Sodium 132 L (137-145) mmol/L Chloride 86 L (98-107) mmol/L Carbon Dioxide 38 H (22-30) mmol/L BUN 44 H (9-20) mg/dL Creatinine (0.66-1.25) mg/dL Glucose 233 H (74-99) mg/dL POC Glucose (mg/dL) 248 H 177 H (70-110) mg/dL 03/16/25 03/17/25 03/17/25 Range/Units 19:48 05:55 06:28 WBC 11.62 H (4.50-10.00) 10*3/uL RBC 3.44 L (4.40-5.60) 10*6/uL Hgb 10.9 L (13.0-17.0) g/dL Hct 32.7 L (39.6-50.0) % Immature Gran # 0.16 H (0.00-0.04) 10*3/uL Neutrophils # 9.93 H (1.80-7.70) 10*3/uL Lymphocytes # 0.88 L (0.90-5.00) 10*3/uL Eosinophils # 0.00 L (0.04-0.35) 10*3/uL Sodium (137-145) mmol/L Chloride (98-107) mmol/L Carbon Dioxide (22-30) mmol/L BUN (9-20) mg/dL Creatinine (0.66-1.25) mg/dL Glucose (74-99) mg/dL POC Glucose (mg/dL) 242 H 162 H (70-110) mg/dL 03/17/25 Range/Units 06:28 WBC (4.50-10.00) 10*3/uL RBC (4.40-5.60) 10*6/uL Hgb (13.0-17.0) g/dL Hct (39.6-50.0) % Immature Gran # (0.00-0.04) 10*3/uL Neutrophils # (1.80-7.70) 10*3/uL Lymphocytes # (0.90-5.00) 10*3/uL Eosinophils # (0.04-0.35) 10*3/uL Sodium 132 L (137-145) mmol/L Chloride 87 L (98-107) mmol/L Carbon Dioxide 36 H (22-30) mmol/L BUN 44 H (9-20) mg/dL Creatinine 0.56 L (0.66-1.25) mg/dL Glucose 157 H (74-99) mg/dL POC Glucose (mg/dL) (70-110) mg/dL Assessment and Plan Plan: Acute on chronic hypoxemic respiratory failure currently on high flow nasal cannula, multifactorial, likely on the basis of pulmonary fibrosis, possible pneumonia, and fluid overload. Superimposed pneumonia cannot be completely ruled out although favored CHF as a decompensating factor for his acute hypoxic respiratory failure in combination with his underlying pulmonary fibrosis. Coronary artery disease, status post acute non-ST segment elevation myocardial infarction. The patient underwent a PCI, March 12, 2025, with 4 stents placed in the right coronary artery, and postprocedure flash pulmonary edema. His cardiac catheterization showed: 90% distal RCA stenosis, 50 to 60% mid RCA stenosis 50% mid LAD stenosis 60% focal disease in distal and apical LAD. Mild nonobstructive disease in LCx Elevated LVEDP, and elevated wedge pressure of 35 mmHg Moderate pulmonary hypertension, combination of group 2 and group 3, predominantly group 2. Normal cardiac output and cardiac index Chronic diastolic heart failure with preserved LV function and significant pulm hypertension, severe estimated to be 57 on an echocardiogram. 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 The patient is seeking lung transplantation at [facility]. Chronic obstructive pulmonary disease. Chronic hypoxemic respiratory failure, normally maintained on 2.5 L nasal cannula. Macrocytic anemia. Hypertension. Gastroesophageal reflux disease. Brief history of tobacco smoking. Plan: Titrate oxygen flow to maintain saturation above 90%, currently still on 9 L Continue bronchodilators Continue IV Solu-Medrol Empiric antibiotic coverage with IV Rocephin Continue IV Lasix Continue Aldactone Continue aspirin and Brilinta Continue metoprolol 50 mg p.o. twice a day Continue Norvasc and losartan for blood pressure control Continue Lipitor 40 mg p.o. daily Continue Farxiga 10 mg p.o. daily Continue Lantus insulin 15 units daily and sliding scale insulin coverage Time with Patient: Greater than 30
[2025-03-17 16:41] LABS: Glucose,Whole Blood 191 mg/dL (70-110)
--- NOTE | 2025-03-17 19:16 | P.PN ---
Subjective Progress Note Date: 03/16/25 This is a 59-year-old male who was recently admitted under Dr. Alfonso Mata with Dr. Farmer in the outpatient setting with increasing shortness of breath requiring high oxygen demands. Patient has significant past medical history of recently diagnosed biopsy-proven UIP with chronic hypoxic respiratory failure and history of COPD. Patient being followed by pulmonary as well as cardiology and underwent cardiac catheterization yesterday had 4 stents placed to the RCA. Apparently patient developed increasing shortness of breath with flash pulmonary edema and was sent to the ICU initially on BiPAP and is working on weaning FiO2 as tolerated. Currently on 15 L via nasal cannula. Patient continues to have a component of anxiety as well and has as needed medications on board. White count is elevated but we will follow-up on repeat labs. Patient concerned with having adequate oxygen for discharge home. Will discuss with case management/social work regarding oxygen tanks. Patient reports he does have a concentrator that goes up to 6 L at home. 03/14/2025 Patient is seen and evaluated in follow-up in the ICU with multiple consultations following. Patient is continued on IV diuresis monitoring kidney functions closely reports to feeling slightly improved and shortness of breath. Patient is maintained on 10 L high flow and will continue to wean as tolerated. Patient also continues with IV steroids and breathing treatments with pulmonary following. Encourage increase activity as tolerated and sitting up more frequently out of the bed. 03/15/2025 Patient is in the MICU. Being transferred to medical floor today. History of pulmonary fibrosis admitted to hospital with flash pulmonary edema. Status post cardiac catheterization and stent placement to distal and proximal end mid RCA. Patient is being continued on Lasix 40 mg every 12. Also on methylprednisolone 60 mg every 6 hourly. Currently requiring 10 L oxygen via nasal cannula.Laboratory data showed WBC 12.4 hemoglobin 10.7 platelets 346 sodium 136 potassium 3.7 chloride 91 bicarb is 39 BUN 43 and creatinine 0.66 and blood sugar 236 and total bili 1.7 and alk phos 141. Blood sugar went up to 293. 03/16/2025 Patient is currently sitting in the chair. Awake alert and orient x 3. No complaints of chest pain or worsening shortness of breath. Patient is still having expiratory wheezing and rhonchi scattered. Requiring 9 L oxygen via nasal cannula. Patient overall feels better. No cough or sputum production. Laboratory data showed sodium 132 potassium 3.7 chloride 86 bicarb 38 BUN 44 creatinine 0.68 blood sugar 233. Patient was added with preprandial insulin with 5 units 3 times daily AC. Pulmonary and cardiology is on board. Current medications reviewed. Review of systems: Constitutional: No reports of fatigue, fever, or chills reports feeling slightly less anxious Cardiovascular: No reports of chest pain or palpitations Respiratory: reports of continued shortness of breath although feels slightly better from yesterday evening GI: No reports of nausea, no reports of vomiting, no diarrhea : No reports of dysuria or retention Neurovascular: reports of generalized weakness All medications have been reviewed PHYSICAL EXAMINATION: GENERAL: The patient is alert and oriented x4, Well developed, well nourished. Slightly anxious, elderly appearing. HEENT: Pupils are round and equally reacting to light. EOMI. no scleral icterus. No conjunctival pallor. Normocephalic, atraumatic. No pharyngeal erythema. No thyromegaly. CARDIOVASCULAR: S1 and S2 muffled PULMONARY: diminished breath sounds bilaterally with minimal wheezing, coarse scattered rhonchi noted. ABDOMEN: soft. Nontender on exam. non-distended, normoactive bowel sounds. No palpable organomegaly. MUSCULOSKELETAL: No joint swelling or deformity. EXTREMITIES: No cyanosis, clubbing, or pedal edema. NEUROLOGICAL: Gross neurological examination did not reveal any focal deficits. Diffuse weakness SKIN: No rashes. Assessment: Shortness of breath, acute on chronic hypoxic respiratory failure, multifactorial, secondary to pulmonary fibrosis, volume overload/flash pulmonary edema. Elevated troponins, possibly secondary to type II MA mismatch status post cardiac catheterization and has 4 stents to the RCA placed Flash pulmonary edema status postcardiac catheterization, requiring BiPAP and now weaning as tolerated currently 10 L high flow. Normally wears 2 to 4 L outpatient Biopsy-proven UIP, pulmonary fibrosis follows with [facility] outpatient reports to being on a transplant list Hypoglycemia likely due to IV steroids. History of GERD Hypertension history Former smoker GI prophylaxis DVT prophylaxis Full code Plan: Recommend to continue with current medications and management with multiple consultations following. Patient is status postcardiac catheterization with 4 stents placed to the RCA continue on telemetry monitoring. currently on 10 L- >9L high flow. Patient did not use BiPAP last night. Patient chronically wears 2 to 4 L outpatient and has a concentrator. Discussed with case management for discharge planning regarding oxygen tanks as patient is extremely concerned with traveling home with no oxygen Patient to continue on IV steroids and breathing treatments per pulmonary Patient is on IV Lasix 40 mg every 12. Cardiology following recommends to continue with IV diuresis and monitor kidney functions closely. Continue with insulin sliding scale and preprandial insulin was added. Encouraged to increase activity as tolerated including sitting up in the chair more frequently Follow-up on repeat labs Continue weaning as tolerated. Patient is being transferred to medical floor today. Overall prognosis is guarded Objective - Vital Signs Vital signs: Vital Signs Temp 97.6 F 03/16/25 08:00 Pulse 80 03/16/25 09:22 Resp 18 03/16/25 08:00 BP 115/70 03/16/25 08:00 Pulse Ox 96 03/16/25 09:08 FiO2 70 03/13/25 09:00 Intake & Output 03/15/25 03/16/25 03/16/25 18:59 06:59 18:59 Intake Total 1285 1080 240 Output Total 2285 1900 Balance -1000 -820 240 Weight 85 kg Intake: IV 90 0.9NS 40 cefTRIAXone 1 gm In 50 Sodium Chloride 0.9% 50 ml @ 100 mls/hr IVPB Q24HR [facility] Rx#:[id number] Oral 1195 1080 240 Output: Urine 2285 1900 Other: Voiding Method Indwelling Catheter Indwelling Catheter Indwelling Catheter - Labs CBC & Chem 7: 03/17/25 06:28 03/17/25 06:28 Labs: Abnormal Lab Results - Last 24 Hours (Table) 03/15/25 03/15/25 03/16/25 Range/Units 16:44 19:51 06:35 POC Glucose (mg/dL) 193 H 319 H 217 H (70-110) mg/dL Microbiology - Last 24 Hours (Table) 03/10/25 13:43 Blood Culture - Final Blood
[2025-03-17 19:59] LABS: Glucose,Whole Blood 262 mg/dL (70-110)
--- NOTE | 2025-03-18 03:31 | PN ---
PROGRESS NOTE SUBJECTIVE: A 59-year-old white male, continues to do better. Used to be on 8 and 7 L of oxygen; now, it is down to 6. OBJECTIVE: VITAL SIGNS: Temperature 97.3, pulse 71 to 75, respiratory rate of 16 to 18, blood pressure 116/69, O2 95 on 4 L. CARDIOVASCULAR: S1 and S2. LUNGS: Transmitted upper airway sounds. HEMATOLOGY: Negative for Homans. Psychiatric: Appropriate mood and affect. White blood cell count 11.62, hemoglobin of 10.9. Labs stat, sodium 132, potassium 3.8, carbon dioxide 36, BUN is 44 with creatinine of 0.56. Sugars in the mid 100s. IMPRESSION: Respiratory distress, improving. Continue on broad-spectrum antibiotics steroids, etc. PT, OT. Wean him off oxygen and send him home when he is down to 4 L. MMMIKEL / RENETTAN: [id number] /
[2025-03-18 06:04] LABS: Glucose,Whole Blood 188 mg/dL (70-110)
[2025-03-18 11:50] LABS: Glucose,Whole Blood 225 mg/dL (70-110)
--- NOTE | 2025-03-18 14:36 | PN ---
PROGRESS NOTE He is admitted with pulmonary fibrosis, probable pneumonia, acute hypoxemic respiratory failure. Remains on nebulizers, pulmonary recommendations, diabetic medications, IV Solu-Medrol. Temperature is 97.3, pulse 75, respiratory rate 18, blood pressure 101/66, he is saturating 93% on 4 L, which has improved. Possibly get him discharged home in the next 1 or [address] Haywood clears him from pulmonary aspect as he is improving. Prognosis guarded. Please see further orders. MMODL / IJN: [id number] /
--- NOTE | 2025-03-18 14:38 | P.PN ---
Subjective Progress Note Date: 03/18/25 HISTORY OF PRESENT ILLNESS: This is a 59-year-old male with no previous cardiac history and does not follow with a allied health professional. He has a past medical history of asthma as a child, COPD, recently diagnosed IUP and started on Ofev, hypertension, tobacco use for 11 years, marijuana use and quit 1 year ago. Patient states that he has had a stress test done many years ago. We have been asked to evaluate the patient for arrhythmia and elevated troponins. He states that he was at home and ate ice cream but fell asleep and then he was concerned when he woke up that he had aspirated the ice cream. He states he could not get his pulse ox up over 70%. He is normally on home O2 at 2 L nasal cannula and increased it to 3 L without improvement. He denies having chest pain. He is currently on O2 at 5 L. Patient required oxygen at 15 L nonrebreather by EMS transport. Patient also gives history that he is following at [facility] and is getting on the transplant list. Blood pressure 124/70, heart rate 100, pulse ox 98% on 4 L nasal cannula. Temperature max 102.2. Dr. Marrero discussed with the patient that he would recommend possible cardiac catheterization once respiratory status is stable. This may be performed during this hospitalization or at a later time. -EKG: Sinus tachycardia with no acute ST-T wave changes. -Chest x-ray: Interstitial lung disease without focal consolidation. Superimposed infectious process is not entirely excluded. -CTA chest: Advanced pulmonary fibrotic changes. New tiny left pleural effusion and areas of groundglass opacity suspicious for edema. Underlying acute pneumonic infiltrate not excluded. -Laboratory studies: WBC 12.3 with repeat 9.3, hemoglobin 11.5, D-dimer 1.96. BUN 26 and creatinine 0.56, CO2 35. Lactic acid 3.9. Troponins 0.402 and 0.616. Cepheid viral panel not detected. -Home cardiac medications: Amlodipine 10 mg daily, olmesartan/hydrochlorothiazide 40-12.5 mg half tablet daily. 03/12/2025 Patient examined this morning at bedside. Patient reports mild shortness of breath. He denies chest pain or pressure. Vital signs are stable. He remains on IV heparin. Echocardiogram completed revealing ejection fraction 55 to 60%, severe pulmonary hypertension, RVSP 57 mmHg, moderate concentric LVH, mild TR. 03/13 Patient seen and examined. Patient denies any chest pain or pressure. He underwent heart catheterization yesterday which showed elevated LVEDP 35, elevated elevated RVSP and PA pressures of 60, group 2 and 3 pulmonary hypertension, mild to moderate LAD and circumflex disease with 90% RCA stenosis. He underwent stenting of the RCA with covering the entire proximal to distal RCA. He had significant dyspnea after requiring BiPAP and became tachypneic with transfer to ICU. He admits that at times sometimes he gets more orthopneic and worse lying flat. His IV fluids were stopped and given Lasix with -4 L output over the last 24 hours. He states he feels somewhat better today. 03/14 Patient seen and examined. Patient denies any chest pain or pressure. Remains on Lasix with creatinine stable at 0.9 with BUN 37. Good urine output with -2.5 L over last 24 hours. Still on 10 L oxygen 03/15 Patient out of bed to chair. WBC 12.58, hemoglobin 10.7, potassium 3.7, creatinine 0.66, BNP 135. Denies any chest pain or pressure. His shortness of breath is worse with exertion however he believes that is getting better in general. 03/16 Pt doing well. On 9L NC O2, breathing feels stable. No chest pain or pressure. No labs done this morning. 03/17 Patient seen and examined. He is currently on IV Lasix 40 mg every 12 hours. Creatinine is 0.56. He states that his breathing is slowly getting better. Patient has a negative fluid balance and documented weight loss. 03/18 Patient seen and examined. Yesterday, we transition IV Lasix to oral 40 mg twice daily. Blood pressure 101/66, heart rate 75, pulse ox 93% on 4 L nasal cannula. No repeat blood work for today. PHYSICAL EXAM: VITAL SIGNS: Reviewed. GENERAL: Well-developed in no acute distress. NECK: Supple. No JVD LUNGS: Respirations even and unlabored. Lungs essentially diminished bilaterally. On nasal cannula oxygen. HEART: Regular rate and rhythm. S1 and S2 heard. EXTREMITIES: Normal range of motion. No clubbing or cyanosis. Peripheral pulses intact. No lower extremity edema ASSESSMENT: Acute on chronic hypoxic respiratory failure currently on 4 L nasal cannula Chronic hypoxic respiratory failure on home O2 at 2 L Febrile illness with temperature of 102.2 on presentation NSTEMI secondary to type II OK COPD IUP, on Ofev and follows at [facility] for lung transplant evaluation Hypertension Tobacco use for 11 years Marijuana use and quit 1 year ago Acute on chronic diastolic heart failure CAD s/p PCI RCA 03/12/2025 PLAN: Transition IV Lasix to oral 40 mg twice daily Continue current regimen. Electrolytes SINDHU and daily weights Monitor kidney function, electrolytes, daily weights, SINDHU At the time of discharge, patient will follow-up with Dr. Marrero in 1 week Patient is cleared for discharge from cardiology Cardiology will sign off this case and follow on an as-needed basis. Please reconsult for any new concerns. Nurse practitioner note has been reviewed, I agree with documented findings and plan of care. Patient was seen and examined. Objective - Vital Signs Vital signs: Vital Signs Temp 98 F 03/18/25 07:15 Pulse 76 03/18/25 08:17 Resp 14 03/18/25 09:00 BP 115/72 03/18/25 07:15 Pulse Ox 90 L 03/18/25 08:00 FiO2 70 03/13/25 09:00 Intake & Output 03/17/25 03/18/25 03/18/25 18:59 06:59 18:59 Intake Total 340 600 220 Output Total 2250 1000 775 Balance -1910 -400 -555 Weight 84.2 kg Intake: Oral 340 600 220 Output: Urine 2250 1000 775 Other: Voiding Method Indwelling Catheter Indwelling Catheter # Voids 1 # Bowel Movements 2 - Labs CBC & Chem 7: 03/17/25 06:28 03/17/25 06:28 Labs: Abnormal Lab Results - Last 24 Hours (Table) 03/17/25 03/17/25 03/17/25 Range/Units 11:43 16:39 19:57 POC Glucose (mg/dL) 157 H 191 H 262 H (70-110) mg/dL 03/18/25 Range/Units 06:02 POC Glucose (mg/dL) 188 H (70-110) mg/dL
--- NOTE | 2025-03-18 15:49 | P.PN ---
Subjective Progress Note Date: 03/18/25 Patient is a 59-year-old male with past medical history significant for recently diagnosis of biopsy-proven UIP, chronic hypoxemic respiratory failure, COPD, brief history of tobacco use, former marijuana smoker, hypertension. He does follow in the pulmonary office with Dr. Segovia, and had recent follow-up office visit on 02/25/2025. Of note, previously underwent left-sided video-assisted thorascopic surgery with wedge resection of the left upper lobe, as well as, biopsy of the lower lobe on 01/22/2025 pathology consistent with interstitial lung disease, UIP type. Patient has been started on Ofev. He has also been referred to the [facility] for possible lung transplant list. Appro ximately, 1 week ago patient developed increased short of breath, as well as, notable hypoxia with an SpO2 as low as 70%. He is normally oxygen dependent on 2 L/min supplemental oxygen while at home. When EMS arrived yesterday afternoon, patient was noted to be severely hypoxic placed on a 15 L no nrebreather, and transferred to the emergency department. Workup including a chest x-ray redemonstrating patient's prominent interstitial lung markings. No focal infiltrates, however, superimposed infectious process was not entirely excluded. Patient was intermittently febrile with a low-grade temperature of 100.4 F. Viral 4 Plex unremarkable for RSV, COVID, influenza. Also tachycardic in the ED. CBC with a WBC count of 12.3, hemoglobin 11.9, platelets 305. CMP: Sodium 138, potassium 4.5, chloride 97, serum bicarb 35, BUN 26, creatinine 0.56, glucose 229. Lactic was 2.7 is down to 2. LFTs fairly unremarkable. EKG: Sinus tachycardia, rate 128 bpm. troponin 0.4. Patient currently being evaluated on the general medical floor. Currently on 4 L/min nasal cannula, does not appear distressed. Patient endorses increased work of breathing over the last week. Recently visited the [facility] on Monday, while driving there, became remarkably short of breath and his oxygen levels were reading low around 70%. Associated symptoms including dry persistent cough, without any significant sputum production. Intermittent fevers. Denies any chest pain, heart palpitations, hemoptysis. No unilateral lower extremity swelling. Currently on Ofev. No known sick contacts. Denies any nausea, vomiting, diarrhea. Current vital signs are stable. Progress note dated March 12, 2025. 59-year-old male with a history of biopsy-proven pulmonary fibrosis. The patient sees one of my partners. The patient also has a history of respiratory failure, COPD, hypertension, among other things. The patient was started on Ofev. The patient has been to the [facility], and the preliminary evaluation has begun. The patient was also found to have elevated troponin levels, and cardiology was consulted. Currently, the patient is on IV heparin, azithromycin, Rocephin, DuoNebs, Solu-Medrol, and Ofev. His procalcitonin level was elevated at 0.6. White count 14.9, hemoglobin 10.9, hematocrit 34.5, and platelet count 296,000. PTT is 64. Sodium 139, potassium 3.7, chloride 99, CO2 28, anion gap 12, BUN 23, and creatinine 0.57. Glucose is 205. Cardiology recommended a heart catheterization. Progress note dated March 13, 2025. 59-year-old male seen in the intensive care unit, room 257. The patient has a history of biopsy-proven idiopathic pulmonary fibrosis. Yesterday, the patient went to the catheterization laboratory, and had a percutaneous coronary interv ention, with 4 stents placed in the right coronary artery. Subsequent to that, he developed flash pulmonary edema, was in respiratory distress, placed on BiPAP, transferred to the intensive care unit. Is currently on BiPAP with settings of 14/7 and 80%. He is getting saline at 5 cc an hour. Clinically doing better than he was yesterday. White count 16.4, hemoglobin 10.3, hematocrit 31.6, and platelet count 333,000. Sodium 137, potassium 3, chloride 91, CO2 39, BUN 26, and creatinine 0.68. Glucose is 190. Chest x-ray shows diffuse bilateral infiltrates, some of which are related to pulmonary edema, and some to the patient's underlying pulmonary fibrosis. Progress note dated March 14, 2025. 59-year-old male seen today in room 257. The patient is doing better today. He is on 10 L high flow. He did not use the BiPAP device. In addition to 10 L high flow, he has been on and off a nonrebreather mask. The patient is getting saline at KVO. The patient had a catheterization laboratory, and had 4 stents placed in his right coronary artery. The patient developed flash pulmonary edema afterwards. This necessitated admission to the ICU. Current laboratory data includes a white count of 13.9, hemoglobin 10.3, hematocrit 31.4, and platelet count 344,000. Sodium 136, potassium 3.6, chloride 92, CO2 37, BUN 37, creatinine 0.75. Glucose 198. Magnesium 2.4. Chest x-ray shows cardiomegaly, with diffuse patchy bilateral infiltrates. This could be on the basis of pneumonia, pulmonary fibrosis, and/or CHF. Progress note dated March 15, 2025. 59-year-old male with history of pulmonary fibrosis, status post PCI, and flash pulmonary edema. The patient is seen today in room 257. He is currently on nasal O2, at 10 L. The patient is getting saline at 5 cc an hour. He did not use the BiPAP last night. Current labs include a white count 12.6, hemoglobin 10.7, hematocrit 32.1, and a platelet count of 346,000. Sodium 136, potassium 3.7, chloride 71, CO2 39, BUN 43, creatinine 0.66. Glucose 234. No chest x-ray today. Progress note dated March 16, 2025. 59-year-old male with a diagnosis of biopsy-proven pulmonary fibrosis, who recently had PCI, and developed flash pulmonary edema. Yesterday, he was in the intensive care unit, today he is out on the floor, room 371. Currently, he remains on 9 L high flow nasal O2. He is not receiving any IV fluids. He did not use BiPAP last night. The patient states that he is feeling better. The only new laboratory data is a glucose of 217. No recent chest x-ray. On 03/17/2025, the patient is being seen for a follow-up. The patient is known to have advanced IPF maintained on Ofev on outpatient basis. The patient has chronic hypoxic estephanie failure and the patient remains on oxygen at 2 L/min nasal cannula. The patient presented to us for an acute hypoxic respiratory failure. He is a previous smoker and a former marijuana smoker. He also has hypertension. The patient ruled in for an acute non-ST segment elevation myocardial infarction. The troponins were mildly elevated. Based on that, the patient underwent further investigation including a cardiac catheterization that was done on 03/12/2025 and the patient underwent successful stenting of the distal and proximal and mid RCA. The patient was found to have a left anterior diastolic pressure of 35. Mean pulmonary capillary wedge pressure was 25. PA pressure was elevated at 60/12 with a mean of 40. The cardiac index was 3.7. He was also found to have a 50% mid LAD lesion, 60% focal disease involving the distal and apical LAD and mild nonobstructive disease involving the left circumflex. The patient is currently on 9 L of oxygen by nasal cannula. He remains on bronchodilators. He remains on Symbicort. He remains on IV Solu-Medrol. He remains on aspirin and Brilinta. He is also on Norvasc for blood pressure control, Lipitor 40 mg p.o. daily, Farxiga 10 mg p.o. daily, Lasix 40 mg IV every 12 hours in combination with Aldactone. His follow-up chest x-ray from 03/14/2025 was consistent with smaller lung volumes and pulmonary fibrosis with increased interstitial markings throughout the lung his bilateral lung with cardiomegaly. His echocardiogram on 03/11/2025 revealed a preserved LV function with an ejection fraction of 55 to 60%, he was noted to have severe pulm hypertension with a estimated PA pressure of 57. Moderate concentric LVH. No chest pain. He reports improvement in his shortness of breath. No other new complaints over the past 24 hours. On 03/18/2025, patient is being seen for a follow-up. The patient is clinically improving. Oxygenation is also improved and the patient is currently down to 3 days of oxygen by nasal cannula. He continues to be on IV Lasix and the patient's fluid balance is -2.3 L over the past 24 hours. No chest pain. No significant shortness of breath. No new labs are available from today. However, he continues to improve. He remains on DuoNeb updrafts. He remains on Symbicort. He remains on IV Lasix. He remains on empiric antibiotic coverage with IV Rocephin. The patient is also on IV Solu-Medrol 60 mg every 6 hours. I am going to transition him to oral prednisone as of tomorrow. Remains on aspirin and Plavix. Remains on Aldactone, Norvasc, Lipitor, Farxiga, and bisoprolol. Objective - Vital Signs Vital signs: Vital Signs Temp 98 F 04/22/25 07:15 Pulse 76 03/18/25 08:17 Resp 14 03/18/25 09:00 BP 115/72 03/18/25 07:15 Pulse Ox 90 L 03/18/25 08:00 FiO2 70 03/13/25 09:00 Intake & Output 03/17/25 03/18/25 03/18/25 18:59 06:59 18:59 Intake Total 340 600 220 Output Total 2250 1000 775 Balance -1910 -400 -555 Weight 84.2 kg Intake: Oral 340 600 220 Output: Urine 2250 1000 775 Other: Voiding Method Indwelling Catheter Indwelling Catheter # Voids 1 # Bowel Movements 2 - Exam The patient appeared well nourished and normally developed. Vital signs as documented. The patient remains on 3 L of oxygen by nasal cannula Head exam is unremarkable. No scleral icterus or corneal arcus noted. Neck is without jugular venous distension, thyromegaly, or carotid bruits. Car otid upstrokes are brisk bilaterally. Lungs are diminished breath sound bilaterally along with coarse crackles at lower lung field specially in the lung bases. Cardiac exam reveals the PMI to be normally sized and situated. Rhythm is regular. First and second heart sounds normal. No murmurs, rubs or gallops. Abdominal exam reveals normal bowel sounds, no masses, no organomegaly and no aortic enlargement. Extremities are nonedematous and both femoral and pedal pulses are normal. Examination of the skin revealed no evidence of significant rashes, suspicious appearing nevi or other concerning lesions. Neurologically, the patient is awake and alert and the patient does not have any focal neurological deficit. Cranial nerves are essentially intact. - Labs CBC & Chem 7: 03/17/25 06:28 03/17/25 06:28 Labs: Abnormal Lab Results - Last 24 Hours (Table) 03/17/25 03/17/25 03/17/25 Range/Units 11:43 16:39 19:57 POC Glucose (mg/dL) 157 H 191 H 262 H (70-110) mg/dL 03/18/25 Range/Units 06:02 POC Glucose (mg/dL) 188 H (70-110) mg/dL Assessment and Plan Plan: Acute on chronic hypoxemic respiratory failure currently on high flow nasal cannula, multifactorial, likely on the basis of pulmonary fibrosis, possible pneumonia, and fluid overload. Superimposed pneumonia cannot be completely ruled out although favored CHF as a decompensating factor for his acute hypoxic respiratory failure in combination with his underlying pulmonary fibrosis.. The patient has responded nicely to diuretics. Remains on bronchodilators. Remains on steroids. Completed course of IV Rocephin. Coronary artery disease, status post acute non-ST segment elevation myocardial infarction. The patient underwent a PCI, March 12, 2025, with 4 stents placed in the right coronary artery, and postprocedure flash pulmonary edema. His cardiac catheterization showed: 90% distal RCA stenosis, 50 to 60% mid RCA stenosis 50% mid LAD stenosis 60% focal disease in distal and apical LAD. Mild nonobstructive disease in LCx Elevated LVEDP, and elevated wedge pressure of 35 mmHg Moderate pulmonary hypertension, combination of group 2 and group 3, predominantly group 2. Normal cardiac output and cardiac index Chronic diastolic heart failure with preserved LV function and significant pulm hypertension, severe estimated to be 57 on an echocardiogram. 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 The patient is seeking lung transplantation at [facility]. Chronic obstructive pulmonary disease. Chronic hypoxemic respiratory failure, normally maintained on 2.5 L nasal cannula. Macrocytic anemia. Hypertension. Gastroesophageal reflux disease. Brief history of tobacco smoking. Plan: Titrate oxygen flow to maintain saturation above 90%, currently still on 3 L of oxygen by nasal cannula Continue bronchodilators Continue IV Solu-Medrol, will switch the patient to oral prednisone as of tomorrow Completed the course of Rocephin Continue IV Lasix Continue Aldactone Continue aspirin and Brilinta Continue bisoprolol Continue Norvasc and losartan for blood pressure control Continue Lipitor 40 mg p.o. daily Continue Farxiga 10 mg p.o. daily Continue Lantus insulin 15 units daily and sliding scale insulin coverage Will continue to follow. Time with Patient: Greater than 30
[2025-03-18 16:45] LABS: Glucose,Whole Blood 283 mg/dL (70-110)
[2025-03-18 20:03] LABS: Glucose,Whole Blood 216 mg/dL (70-110)
--- NOTE | 2025-03-19 00:37 | PN ---
PROGRESS NOTE SUBJECTIVE: His breathing is improving. He wants to go home tomorrow. He was started on 6 L, down to 4 L to 3 L. OBJECTIVE: VITAL SIGNS: Pulse is 72, respiratory rate 16 to 18, blood pressure 110/74, saturating 94% on 4 L. CARDIOVASCULAR: S1, S2. LUNGS: Scattered rhonchi and wheeze. HEMATOLOGY: Negative Homans. PSYCH: Fair mood and affect. ASSESSMENT: Chronic obstructive pulmonary disease, tracheobronchitis, acute hypoxemic respiratory failure. On IV Lasix. He has been on 2 to 3 L over 24 hours. Chronic hypoxemic respiratory failure, pulmonary fibrosis, pneumonia, fluid overload. Pneumonia was treated. Congestive heart failure was treated. He is on Ofev for pulmonary fibrosis. Transplant at [facility]. Chronic obstructive pulmonary disease, anemia, hypertension, gastroesophageal reflux disease, chronic diastolic heart failure, pulmonary hypertension. Prognosis guarded. Possibly go home tomorrow. Please see further orders. MMODL / IJN: [id number] /
[2025-03-19 03:33] VITALS: RESP 16
[2025-03-19 06:20] LABS: Glucose,Whole Blood 218 mg/dL (70-110)
[2025-03-19 06:50] LABS: Basophils # (A) 0.02 10*3/uL (0.00-0.10); Basophils % (A) 0.2 %; HCT 32.5 % (39.6-50.0); Lymphocytes # (A) 0.78 10*3/uL (0.90-5.00); Lymphocytes % (A) 6.7 %; MCH 32.2 pg (27.0-32.0); MCHC 33.8 g/dL (32.0-37.0); Mean Platelet Volume 10.1 fL (9.5-12.2); Monocytes % (A) 4.3 %; Neutrophils # (A) 10.02 10*3/uL (1.80-7.70); Neutrophils % (A) 86.6 %; Platelet Count 299 10*3/uL (140-440); RBC 3.42 10*6/uL (4.40-5.60); RDW 14.9 % (11.5-14.5); WBC 11.58 10*3/uL (4.50-10.00)
[2025-03-19 07:07] LABS: ALT 47 U/L (4-49); AST 36 U/L (17-59); African American GFR (CKD) >90 (>60 ml/min/1.73 sqM); Albumin 3.8 g/dL (3.5-5.0); Alkaline Phosphatase 139 U/L (38-126); Anion Gap 7 mmol/L; Blood Urea Nitrogen 42 mg/dL (9-20); Calcium 9.8 mg/dL (8.4-10.2); Carbon Dioxide 37 mmol/L (22-30); Chloride 88 mmol/L (98-107); Glucose 191 mg/dL (74-99); Non-African American GFR(CKD) >90 (>60 ml/min/1.73 sqM); Sodium 132 mmol/L (137-145); Total Bilirubin 1.9 mg/dL (0.2-1.3); Total Protein 6.8 g/dL (6.3-8.2)
--- NOTE | 2025-03-19 08:09 | XR ---
EXAMINATION TYPE: XR chest 1V portable DATE OF EXAM: 03/19/2025 6:53 AM COMPARISON: Chest radiographs from 03/14/2025 TECHNIQUE: XR chest 1V portable Portable AP radiograph of the chest. CLINICAL INDICATION:Male, 59 years old with history of ipf; FINDINGS: Patient is rotated which limits evaluation. Lungs/Pleura: No sizable pleural effusion. No pneumothorax. Similar multifocal patchy reticular and p atchy opacities throughout the lungs. Heart/mediastinum: Cardiomediastinal silhouette is enlarged and stable. Musculoskeletal: No acute osseous pathology. IMPRESSION: Cardiomegaly with similar multifocal patchy airspace opacities. Etiologies include multifocal pneumon ia versus pulmonary edema and/or ARDS. This is on background interstitial disease. [facility], , 03/19/2025 8:06 AM
[2025-03-19 11:29] VITALS: BP 119/71; TEMP 97.7
[2025-03-19 11:29] LABS: Glucose,Whole Blood 214 mg/dL (70-110)
[2025-03-19] MEDS: predniSONE 20 MG TAB PO SCH (12:26)
[2025-03-19] MEDS: FUROSEMIDE 40 MG TAB PO SCH (12:26)
[2025-03-19 12:39] VITALS: PULSE 70
--- NOTE | 2025-03-19 16:20 | P.PN ---
Subjective Progress Note Date: 03/19/25 Patient is a 59-year-old male with past medical history significant for recently diagnosis of biopsy-proven UIP, chronic hypoxemic respiratory failure, COPD, brief history of tobacco use, former marijuana smoker, hypertension. He does follow in the pulmonary office with Dr. Segovia, and had recent follow-up office visit on 02/25/2025. Of note, previously underwent left-sided video-assisted thorascopic surgery with wedge resection of the left upper lobe, as well as, biopsy of the lower lobe on 01/22/2025 pathology consistent with interstitial lung disease, UIP type. Patient has been started on Ofev. He has also been referred to the [facility] for possible lung transplant list. Appro ximately, 1 week ago patient developed increased short of breath, as well as, notable hypoxia with an SpO2 as low as 70%. He is normally oxygen dependent on 2 L/min supplemental oxygen while at home. When EMS arrived yesterday afternoon, patient was noted to be severely hypoxic placed on a 15 L no nrebreather, and transferred to the emergency department. Workup including a chest x-ray redemonstrating patient's prominent interstitial lung markings. No focal infiltrates, however, superimposed infectious process was not entirely excluded. Patient was intermittently febrile with a low-grade temperature of 100.4 F. Viral 4 Plex unremarkable for RSV, COVID, influenza. Also tachycardic in the ED. CBC with a WBC count of 12.3, hemoglobin 11.9, platelets 305. CMP: Sodium 138, potassium 4.5, chloride 97, serum bicarb 35, BUN 26, creatinine 0.56, glucose 229. Lactic was 2.7 is down to 2. LFTs fairly unremarkable. EKG: Sinus tachycardia, rate 128 bpm. troponin 0.4. Patient currently being evaluated on the general medical floor. Currently on 4 L/min nasal cannula, does not appear distressed. Patient endorses increased work of breathing over the last week. Recently visited the [facility] on Monday, while driving there, became remarkably short of breath and his oxygen levels were reading low around 70%. Associated symptoms including dry persistent cough, without any significant sputum production. Intermittent fevers. Denies any chest pain, heart palpitations, hemoptysis. No unilateral lower extremity swelling. Currently on Ofev. No known sick contacts. Denies any nausea, vomiting, diarrhea. Current vital signs are stable. Progress note dated March 12, 2025. 59-year-old male with a history of biopsy-proven pulmonary fibrosis. The patient sees one of my partners. The patient also has a history of respiratory failure, COPD, hypertension, among other things. The patient was started on Ofev. The patient has been to the [facility], and the preliminary evaluation has begun. The patient was also found to have elevated troponin levels, and cardiology was consulted. Currently, the patient is on IV heparin, azithromycin, Rocephin, DuoNebs, Solu-Medrol, and Ofev. His procalcitonin level was elevated at 0.6. White count 14.9, hemoglobin 10.9, hematocrit 34.5, and platelet count 296,000. PTT is 64. Sodium 139, potassium 3.7, chloride 99, CO2 28, anion gap 12, BUN 23, and creatinine 0.57. Glucose is 205. Cardiology recommended a heart catheterization. Progress note dated March 13, 2025. 59-year-old male seen in the intensive care unit, room 257. The patient has a history of biopsy-proven idiopathic pulmonary fibrosis. Yesterday, the patient went to the catheterization laboratory, and had a percutaneous coronary interv ention, with 4 stents placed in the right coronary artery. Subsequent to that, he developed flash pulmonary edema, was in respiratory distress, placed on BiPAP, transferred to the intensive care unit. Is currently on BiPAP with settings of 14/7 and 80%. He is getting saline at 5 cc an hour. Clinically doing better than he was yesterday. White count 16.4, hemoglobin 10.3, hematocrit 31.6, and platelet count 333,000. Sodium 137, potassium 3, chloride 91, CO2 39, BUN 26, and creatinine 0.68. Glucose is 190. Chest x-ray shows diffuse bilateral infiltrates, some of which are related to pulmonary edema, and some to the patient's underlying pulmonary fibrosis. Progress note dated March 14, 2025. 59-year-old male seen today in room 257. The patient is doing better today. He is on 10 L high flow. He did not use the BiPAP device. In addition to 10 L high flow, he has been on and off a nonrebreather mask. The patient is getting saline at KVO. The patient had a catheterization laboratory, and had 4 stents placed in his right coronary artery. The patient developed flash pulmonary edema afterwards. This necessitated admission to the ICU. Current laboratory data includes a white count of 13.9, hemoglobin 10.3, hematocrit 31.4, and platelet count 344,000. Sodium 136, potassium 3.6, chloride 92, CO2 37, BUN 37, creatinine 0.75. Glucose 198. Magnesium 2.4. Chest x-ray shows cardiomegaly, with diffuse patchy bilateral infiltrates. This could be on the basis of pneumonia, pulmonary fibrosis, and/or CHF. Progress note dated March 15, 2025. 59-year-old male with history of pulmonary fibrosis, status post PCI, and flash pulmonary edema. The patient is seen today in room 257. He is currently on nasal O2, at 10 L. The patient is getting saline at 5 cc an hour. He did not use the BiPAP last night. Current labs include a white count 12.6, hemoglobin 10.7, hematocrit 32.1, and a platelet count of 346,000. Sodium 136, potassium 3.7, chloride 71, CO2 39, BUN 43, creatinine 0.66. Glucose 234. No chest x-ray today. Progress note dated March 16, 2025. 59-year-old male with a diagnosis of biopsy-proven pulmonary fibrosis, who recently had PCI, and developed flash pulmonary edema. Yesterday, he was in the intensive care unit, today he is out on the floor, room 371. Currently, he remains on 9 L high flow nasal O2. He is not receiving any IV fluids. He did not use BiPAP last night. The patient states that he is feeling better. The only new laboratory data is a glucose of 217. No recent chest x-ray. On 03/17/2025, the patient is being seen for a follow-up. The patient is known to have advanced IPF maintained on Ofev on outpatient basis. The patient has chronic hypoxic estephanie failure and the patient remains on oxygen at 2 L/min nasal cannula. The patient presented to us for an acute hypoxic respiratory failure. He is a previous smoker and a former marijuana smoker. He also has hypertension. The patient ruled in for an acute non-ST segment elevation myocardial infarction. The troponins were mildly elevated. Based on that, the patient underwent further investigation including a cardiac catheterization that was done on 03/12/2025 and the patient underwent successful stenting of the distal and proximal and mid RCA. The patient was found to have a left anterior diastolic pressure of 35. Mean pulmonary capillary wedge pressure was 25. PA pressure was elevated at 60/12 with a mean of 40. The cardiac index was 3.7. He was also found to have a 50% mid LAD lesion, 60% focal disease involving the distal and apical LAD and mild nonobstructive disease involving the left circumflex. The patient is currently on 9 L of oxygen by nasal cannula. He remains on bronchodilators. He remains on Symbicort. He remains on IV Solu-Medrol. He remains on aspirin and Brilinta. He is also on Norvasc for blood pressure control, Lipitor 40 mg p.o. daily, Farxiga 10 mg p.o. daily, Lasix 40 mg IV every 12 hours in combination with Aldactone. His follow-up chest x-ray from 03/14/2025 was consistent with smaller lung volumes and pulmonary fibrosis with increased interstitial markings throughout the lung his bilateral lung with cardiomegaly. His echocardiogram on 03/11/2025 revealed a preserved LV function with an ejection fraction of 55 to 60%, he was noted to have severe pulm hypertension with a estimated PA pressure of 57. Moderate concentric LVH. No chest pain. He reports improvement in his shortness of breath. No other new complaints over the past 24 hours. On 03/18/2025, patient is being seen for a follow-up. The patient is clinically improving. Oxygenation is also improved and the patient is currently down to 3 days of oxygen by nasal cannula. He continues to be on IV Lasix and the patient's fluid balance is -2.3 L over the past 24 hours. No chest pain. No significant shortness of breath. No new labs are available from today. However, he continues to improve. He remains on DuoNeb updrafts. He remains on Symbicort. He remains on IV Lasix. He remains on empiric antibiotic coverage with IV Rocephin. The patient is also on IV Solu-Medrol 60 mg every 6 hours. I am going to transition him to oral prednisone as of tomorrow. Remains on aspirin and Plavix. Remains on Aldactone, Norvasc, Lipitor, Farxiga, and bisoprolol. 03/19/2025, the patient is being seen for a follow-up. The patient is doing much better. He is currently on liters of oxygen by nasal cannula. Repeat chest x- ray was done today and the patient shows cardiomegaly and chronic pulmonary fibrosis and there is improvement in aeration bilaterally compared to the earlier chest x-rays. No chest pain. No fever or chills. White second 11 with a hemoglobin of 11 and platelet count 299. BUN is 42 with a creatinine of 0.6. Sodium is at 132. The patient will be taken off the IV Lasix and the patient was placed on oral Lasix 40 mg p.o. daily. The patient will be also taken off the IV Solu-Medrol. He remains on Ofev. Objective - Vital Signs Vital signs: Vital Signs Temp 98 F 03/19/25 08:42 Pulse 72 03/19/25 09:06 Resp 16 03/19/25 08:42 BP 113/73 03/19/25 08:42 Pulse Ox 91 L 03/19/25 08:53 FiO2 70 03/13/25 09:00 Intake & Output 03/18/25 03/19/25 03/19/25 18:59 06:59 18:59 Intake Total 578 240 360 Output Total 1475 700 Balance -897 -460 360 Intake: Oral 578 240 360 Output: Urine 1475 700 Other: # Voids 1 # Bowel Movements 1 - Exam The patient appeared well nourished and normally developed. Vital signs as documented. The patient remains on 3 L of oxygen by nasal cannula Head exam is unremarkable. No scleral icterus or corneal arcus noted. Neck is without jugular venous distension, thyromegaly, or carotid bruits. Carotid upstrokes are brisk bilaterally. Lungs are diminished breath sound bilaterally along with coarse crackles at low er lung field specially in the lung bases. Cardiac exam reveals the PMI to be normally sized and situated. Rhythm is regular. First and second heart sounds normal. No murmurs, rubs or gallops. Abdominal exam reveals normal bowel sounds, no masses, no organomegaly and no aortic enlargement. Extremities are nonedematous and both femoral and pedal pulses are normal. Examination of the skin revealed no evidence of significant rashes, suspicious appearing nevi or other concerning lesions. Neurologically, the patient is awake and alert and the patient does not have any focal neurological deficit. Cranial nerves are essentially intact. - Labs CBC & Chem 7: 03/19/25 06:06 03/19/25 06:06 Labs: Abnormal Lab Results - Last 24 Hours (Table) 03/18/25 03/18/25 03/18/25 Range/Units 11:48 16:42 20:00 WBC (4.50-10.00) 10*3/uL RBC (4.40-5.60) 10*6/uL Hgb (13.0-17.0) g/dL Hct (39.6-50.0) % MCH (27.0-32.0) pg Immature Gran # (0.00-0.04) 10*3/uL Neutrophils # (1.80-7.70) 10*3/uL Lymphocytes # (0.90-5.00) 10*3/uL Eosinophils # (0.04-0.35) 10*3/uL Sodium (137-145) mmol/L Chloride (98-107) mmol/L Carbon Dioxide (22-30) mmol/L BUN (9-20) mg/dL Creatinine (0.66-1.25) mg/dL Glucose (74-99) mg/dL POC Glucose (mg/dL) 225 H 283 H 216 H (70-110) mg/dL Total Bilirubin (0.2-1.3) mg/dL Alkaline Phosphatase (38-126) U/L 03/19/25 03/19/25 03/19/25 Range/Units 06:06 06:06 06:17 WBC 11.58 H (4.50-10.00) 10*3/uL RBC 3.42 L (4.40-5.60) 10*6/uL Hgb 11.0 L (13.0-17.0) g/dL Hct 32.5 L (39.6-50.0) % MCH 32.2 H (27.0-32.0) pg Immature Gran # 0.26 H (0.00-0.04) 10*3/uL Neutrophils # 10.02 H (1.80-7.70) 10*3/uL Lymphocytes # 0.78 L (0.90-5.00) 10*3/uL Eosinophils # 0.00 L (0.04-0.35) 10*3/uL Sodium 132 L (137-145) mmol/L Chloride 88 L (98-107) mmol/L Carbon Dioxide 37 H (22-30) mmol/L BUN 42 H (9-20) mg/dL Creatinine 0.62 L (0.66-1.25) mg/dL Glucose 191 H (74-99) mg/dL POC Glucose (mg/dL) 218 H (70-110) mg/dL Total Bilirubin 1.9 H (0.2-1.3) mg/dL Alkaline Phosphatase 139 H (38-126) U/L Assessment and Plan Plan: Acute on chronic hypoxemic respiratory failure currently on high flow nasal cannula, multifactorial, likely on the basis of pulmonary fibrosis, possible pneumonia, and fluid overload. Superimposed pneumonia cannot be completely ruled out although favored CHF as a decompensating factor for his acute hypoxic respiratory failure in combination with his underlying pulmonary fibrosis.. The patient has responded nicely to diuretics. Remains on bronchodilators. Remains on steroids. Clinically much improved and the patient is currently on 3 L of O2 nasal cannula. Coronary artery disease, status post acute non-ST segment elevation myocardial infarction. The patient underwent a PCI, March 12, 2025, with 4 stents placed in the right coronary artery, and postprocedure flash pulmonary edema. His cardiac catheterization showed: 90% distal RCA stenosis, 50 to 60% mid RCA stenosis 50% mid LAD stenosis 60% focal disease in distal and apical LAD. Mild nonobstructive disease in LCx Elevated LVEDP, and elevated wedge pressure of 35 mmHg Moderate pulmonary hypertension, combination of group 2 and group 3, predominantly group 2. Normal cardiac output and cardiac index Chronic diastolic heart failure with preserved LV function and significant pulm hypertension, severe estimated to be 57 on an echocardiogram. 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 The patient is seeking lung transplantation at [facility]. Chronic obstructive pulmonary disease. Chronic hypoxemic respiratory failure, normally maintained on 2.5 L nasal cannula. Macrocytic anemia. Hypertension. Gastroesophageal reflux disease. Brief history of tobacco smoking. Plan: Titrate oxygen flow to maintain saturation above 90%, currently still on 3 L of oxygen by nasal cannula Continue bronchodilators Discontinued IV Solu-Medrol start the patient on prednisone burst taper Discontinue IV Lasix and start the patient on 40 mg of Lasix on a daily basis Continue Aldactone Continue aspirin and Brilinta Continue bisoprolol Continue Norvasc and losartan for blood pressure control Continue Lipitor 40 mg p.o. daily Continue Farxiga 10 mg p.o. daily Continue Lantus insulin 15 units daily and sliding scale insulin coverage Will continue to follow.
--- NOTE | 2025-03-24 14:47 | CDI ---
Documentation Clarification Form Date: 03/24/2025 02:10:49 PM From: Annita Qiu RN, CCDS Email: [email or web address] Admit Date: 03/10/2025 04:33:00 PM Patient Name: Syed Greenwood Visit Number: [id number] Discharge Date: 03/19/2025 04:32:00 PM ATTENTION: The Clinical Documentation Specialists (CDI) and [facility] Coding Staff appreciate your assistance in clarifying documentation. Please respond to the clarification below the line at the bottom and electronically sign. The CDI & [facility] Coding staff will review the response and follow-up if needed. Please note: Queries are made part of the Legal Health Record. If you have any questions, please contact the author of this message via ITS. Doctor Miller Lawrence NSTEMI secondary to type II SC is documented in the progress notes. Based on the below information, additional clarification regarding the SC is requested. History/Risk Factors: COPD, chronic hypoxic respiratory failure, pulmonary fibrosis and interstitial lung disease. Presents with increased SOB and hypoxia. Clinical Indicators: 03/10-03/12 Troponins: 0.402-0.616-0.344-0.227 03/10 H&P: "EKG shows abnormal EKG, possible ST- elevation." 03/11 Pulmonary consult: "Acute febrile illness. Elevated troponins, possibly secondary to type II SC and supply/demand mismatch." 03/11 Cardiology consult: "EKG: Sinus tachycardia with no acute ST-T wave changes. Elevated troponin secondary to type II SC." 03/12 Heart cath: "90% distal RCA stenosis, 50 to 60% mid RCA stenosis 50% mid LAD stenosis 60% focal disease in distal and apical LAD. Mild nonobstructive disease in LCx. Recommend PCI of RCA." 03/12 PCI: "Successful stenting of the distal and proximal and mid RCA using Xience drug-eluting stents with an excellent angiographic result." 03/16 IM: "Elevated troponins, possibly secondary to type II SC mismatch status post cardiac catheterization and has 4 stents to the RCA placed." 03/18 Pulmonary: "Superimposed pneumonia cannot be completely ruled out although favored CHF as a decompensating factor for his acute hypoxic respiratory failure in combination with his underlying pulmonary fibrosis.The patient has responded nicely to diuretics. Remains on bronchodilators. Remains on steroids. Completed course of IV Rocephin." Treatment: s/p Successful stenting of the distal and proximal and mid RCA using Xience drug-eluting stents with an excellent angiographic results on 03/12; IV Rocephin 1gm Q24H 03/10-03/17; supplemental O2 03/10-03/19 Please clarify the type of SC, if known: [ X ] NSTEMI (type 1) [ ] Type II SC due to Pneumonia [ ] Unable to determine [ ] Other Condition, please specify MTDD
--- NOTE | 2025-03-24 15:05 | CDI ---
Documentation Clarification Form Date: 03/24/2025 02:47:04 PM From: Annita Qiu RN, CCDS Email: [email or web address] Admit Date: 03/10/2025 04:33:00 PM Patient Name: Syed Greenwood Visit Number: [id number] Discharge Date: 03/19/2025 04:32:00 PM ATTENTION: The Clinical Documentation Specialists (CDI) and [facility] Coding Staff appreciate your assistance in clarifying documentation. Please respond to the clarification below the line at the bottom and electronically sign. The CDI & [facility] Coding staff will review the response and follow-up if needed. Please note: Queries are made part of the Legal Health Record. If you have any questions, please contact the author of this message via ITS. Doctor Alfonso Mata The patient had leukocytosis, fever and tachycardia. Based on this information and the findings below, is there an additional diagnosis that is clinically appropriate for this patient? History/Risk Factors: COPD, chronic hypoxic respiratory failure, pulmonary fibrosis and interstitial lung disease. Presents with increased SOB, hypoxia and fever. Clinical Indicators: 03/10 WBC 12.31 03/10-03/12 Lactic acid: 2.7-2.0-4.4-3.9-4.2 03/10 Vital signs: Temp 102.2-100.4-98.9; HR 787-679-557-96; RR 24 03/18 Pulmonary: "Superimposed pneumonia cannot be completely ruled out although favored CHF as a decompensating factor for his acute hypoxic respiratory failure in combination with his underlying pulmonary fibrosis.The patient has responded nicely to diuretics. Remains on bronchodilators. Remains on steroids. Completed course of IV Rocephin." 03/18 IM: "Chronic obstructive pulmonary disease, tracheobronchitis, acute hypoxemic respiratory failure. On IV Lasix. He has been on 2 to 3 L over 24 hours. Chronic hypoxemic respiratory failure, pulmonary fibrosis, pneumonia, fluid overload. Pneumonia was treated. Congestive heart failure was treated." Treatment: IV Rocephin 1gm Q24H 03/10-03/17; supplemental O2 03/10-03/19; IV Solumedrol 125mg x1 on 03/10; IV Solumedrol 60mg Q6H 03/10-03/19 IV Bolus: 2L LR IV bolus on 03/10; Acetaminophen 1000mg x1 on 03/10 Is there an additional diagnosis that is clinically appropriate for this patient? [ ] Sepsis, present on admission [ ] No additional diagnosis/not clinically significant [ ] Other, please specify [ ] Unable to determine SIRS Criteria: 2 or more of the following may indicate SIRS Temperature < 96.8F (36C) or > 101.0F (38.3C) Heart Rate > 90 bpm Respiratory Rate > 20 breaths/min or PaCO2 < 32 mmHg White Blood Cell Count > 12,000 or < 4,000 cells/mm3 or > 10% bands MTDD
--- NOTE | 2025-03-28 10:51 | PN ---
PROGRESS NOTE Sepsis present on admission. MMODL / IJN: [id number] /
== END 2025-03-19 16:32 | disposition home health service (06) | DRG 853 ==
LOC: SUPCPDRO 13:15 → EC 13:15 → 4SSUR 16:33 → 3SCARD 03-11 15:29 → 2SICU 03-12 15:48 → 3SCARD 03-15 15:18
PROVIDERS: ADMIT Family Medicine; ATTEND Family Medicine
PROC: 4A023N8 Measurement of Cardiac Sampling and Pressure, Bilateral, Percutaneous Approach (ICD-10-PCS; 2025-03-10)
PROC: B2111ZZ Fluoroscopy of Multiple Coronary Arteries using Low Osmolar Contrast (ICD-10-PCS; 2025-03-10)
PROC: B240ZZ3 Ultrasonography of Single Coronary Artery, Intravascular (ICD-10-PCS; principal; 2025-03-12 13:15)
PROC: 027037Z Dilation of Coronary Artery, One Artery with Four or More Drug-eluting Intraluminal Devices, Percutaneous Approach (ICD-10-PCS; principal; 2025-03-12 13:15)
PROC: 5A09457 Assistance with Respiratory Ventilation, 24-96 Consecutive Hours, Continuous Positive Airway Pressure (ICD-10-PCS; 2025-03-12 13:15)
DX: A41.9 Sepsis, unspecified organism (principal); I21.4 Non-ST elevation (NSTEMI) myocardial infarction; I25.42 Coronary artery dissection; J18.9 Pneumonia, unspecified organism; J96.21 Acute and chronic respiratory failure with hypoxia; I50.33 Acute on chronic diastolic (congestive) heart failure; J96.12 Chronic respiratory failure with hypercapnia; I27.22 Pulmonary hypertension due to left heart disease; J44.0 Chronic obstructive pulmonary disease with (acute) lower respiratory infection; I11.0 Hypertensive heart disease with heart failure; D53.9 Nutritional anemia, unspecified; J44.1 Chronic obstructive pulmonary disease with (acute) exacerbation; J84.112 Idiopathic pulmonary fibrosis; I27.23 Pulmonary hypertension due to lung diseases and hypoxia; I48.91 Unspecified atrial fibrillation; I25.10 Atherosclerotic heart disease of native coronary artery without angina pectoris; I25.84 Coronary atherosclerosis due to calcified coronary lesion; E78.5 Hyperlipidemia, unspecified; K21.9 Gastro-esophageal reflux disease without esophagitis; F41.9 Anxiety disorder, unspecified; Z99.81 Dependence on supplemental oxygen; Z79.51 Long term (current) use of inhaled steroids; Z79.52 Long term (current) use of systemic steroids; Z79.899 Other long term (current) drug therapy; Z86.14 Personal history of Methicillin resistant Staphylococcus aureus infection; Z87.891 Personal history of nicotine dependence; Z86.73 Personal history of transient ischemic attack (TIA), and cerebral infarction without residual deficits; Z88.0 Allergy status to penicillin
CPT/HCPCS: 36415; 36600; 71045; 71046; 71275; 80048; 80053; 80061; 81001; 82805; 82810; 83036; 83605; 83735; 83880; 84132; 84145; 84484; 85018; 85025; 85379; 85610; 85730; 87040; 87086; 87636; 92978; 93005; 93306; 93460; 94640; 94660; 94760; 96361; 96374; 96375; 99285

== ENCOUNTER 2025-03-25 11:24 | Emergency (ER) | payer BC ==
--- NOTE | 2025-03-25 13:31 | ED ---
General Adult HPI - General Chief complaint: Extremity Problem,Nontraumatic Stated complaint: Pollo knee pain Time Seen by Provider: 03/25/25 12:30 Source: patient, family, RN notes reviewed, old records reviewed Mode of arrival: EMS Limitations: no limitations - History of Present Illness Initial comments: 59-year-old male presented to the ER via EMS for evaluation of bilateral knee pain. Patient with a past medical history significant of idiopathic pulmonary fibrosis. He was recently admitted for this and underwent extensive evaluation. Patient was discharged home on Brilinta and Eliquis. He states over the past couple of days he has been trying to exercise his lower extremities by extending bilateral knees and attempts to strengthen them. He states discomfort was tolerable after the first day but since yesterday he has been having uncontrolled pain to bilateral knees. He has taken [id number] Tylenol without relief of symptoms. He denies any falls or traumas. No paresthesias to lower extremities. Patient did receive 50mcg fentanyl by EMS. Patient denies a history of blood clots or recent travel. Patient denies any chest pain, shortness of breath out of the norm or other complaints at this time - Related Data Home Medications Medication Instructions Recorded Confirmed Ascorbic Acid [Vitamin C] 1,000 mg PO DAILY 01/20/25 03/10/25 Cholecalciferol (Vitamin D3) 125 mcg PO DAILY 01/20/25 03/10/25 [Vitamin D3 (125 MCG = 5,000 IU)] Fluticasone/Umeclidin/Vilanter 1 puff INHALATION RT-DAILY 01/20/25 03/10/25 [Trelegy Ellipta 100-62.5-25] Albuterol Sulfate [Ventolin HFA] 2 puff INHALATION RT-Q6H PRN 03/10/25 03/10/25 Nintedanib Esylate [Ofev] 150 mg PO BID@0900,2100 03/10/25 03/10/25 Sennosides-Docusate Sodium 2 tab PO BID PRN 03/10/25 03/10/25 [Senokot-S] Previous Rx's Medication Instructions Recorded Acetaminophen Tab [Tylenol] 650 mg PO Q4HR PRN tab 01/26/25 Ferrous Sulfate [Iron (65 MG 325 mg PO BID-W/MEALS tab 01/26/25 Elemental)] Aspirin 81 mg PO DAILY tab 03/19/25 Atorvastatin [Lipitor] 40 mg PO HS 30 Days #30 tab 03/19/25 Bisoprolol [Zebeta] 5 mg PO DAILY 30 Days #30 tab 03/19/25 Budesonide-Formot 160-4.5 Mcg 2 puff INHALATION RT-BID 30 Days 03/19/25 [Symbicort 160-4.5 Mcg Inhaler] #1 each Dapagliflozin Propanediol [Farxiga] 10 mg PO DAILY 30 Days #30 tab 03/19/25 Furosemide [Lasix] 40 mg PO DAILY 30 Days #30 tab 03/19/25 INSULIN LISPRO (HumaLOG) [HumaLOG] 5 unit SQ AC-TID 30 Days #1 each 03/19/25 Insulin Glargine (Lantus) [Lantus 15 unit SQ DAILY@0700 30 Days #1 03/19/25 Vial] each Ipratropium-Albuterol Nebulize 3 ml INHALATION RT-QID 30 Days 03/19/25 [Duoneb 0.5 mg-3 mg/3 ml Soln] #120 each Losartan [Cozaar] 100 mg PO DAILY 30 Days #30 tab 03/19/25 Pantoprazole [Protonix] 40 mg PO AC-BID 30 Days #60 tab 03/19/25 Spironolactone [Aldactone] 25 mg PO DAILY 30 Days #30 tab 03/19/25 Ticagrelor [Brilinta] 90 mg PO BID 30 Days #60 tab 03/19/25 amLODIPine [Norvasc] 5 mg PO DAILY tab 03/19/25 predniSONE [Deltasone] 40 mg PO DAILY 15 Days #15 tab 03/19/25 Allergies Allergy/AdvReac Type Severity Reaction Status Date / Time Penicillins Allergy Unknown Verified 03/25/25 11:28 Childhood Review of Systems ROS Statement: Those systems with pertinent positive or pertinent negative responses have been documented in the HPI. ROS Other: All systems not noted in ROS Statement are negative. Past Medical History Past Medical History: Asthma, COPD, Eye Disorder, GERD/Reflux, Hyperlipidemia, Hypertension Additional Past Medical History / Comment(s): ASTHMA CHILD. LT EYE HERPES, LAST 2014. Does have a history of MRSA infection History of Any Multi-Drug Resistant Organisms: None Reported Date of last positivie culture/infection: 2013 MDRO Source:: ON ABDOMEN Past Surgical History: Orthopedic Surgery Additional Past Surgical History / Comment(s): COLONOSCOPY, R hip surgery Past Anesthesia/Blood Transfusion Reactions: No Reported Reaction Additional Past Anesthesia/Blood Transfusion Reaction / Comment(s): No hx of blood transfusion to date. Past Psychological History: No Psychological Hx Reported Smoking Status: Former smoker Past Alcohol Use History: Daily Past Drug Use History: Marijuana - Past Family History Mother Family Medical History: Cancer Additional Family Medical History / Comment(s): FROM PANCREATIC CANCER Father Family Medical History: Cancer Additional Family Medical History / Comment(s): FROM PANCREATIC CANCER General Exam Limitations: no limitations General appearance: alert, in no apparent distress Respiratory exam: Present: decreased breath sounds (throughout all lung euceda). Absent: respiratory distress, wheezes, rales, rhonchi, stridor Cardiovascular Exam: Present: regular rate, normal rhythm, normal heart sounds. Absent: systolic murmur, diastolic murmur, rubs, gallop, clicks Extremities exam: Present: normal inspection, full ROM, tenderness (Bilateral popliteal fossa. No focal bony tenderness), normal capillary refill (2+ bilateral DP/PT pulses) Neurological exam: Present: alert, oriented X3, CN II-XII intact Skin exam: Present: warm, dry, intact, normal color. Absent: rash Course Vital Signs 03/25/25 03/25/25 03/25/25 11:26 14:00 15:05 Temperature 97.8 F 98 F Pulse Rate 68 70 74 Respiratory 24 16 18 Rate Blood Pressure 102/65 100/65 105/70 O2 Sat by Pulse 99 98 98 Oximetry - Reevaluation(s) Reevaluation #1: 03/25/25 14:12 Patient reevaluated. No signs of acute distress. Patient updated on ultrasound results. Patient reporting no current pain. Patient agreeable and comfortable with discharge at this time. Medical Decision Making - Medical Decision Making Was pt. sent in by a medical professional or institution (, PA, CENTRIFUGAL SEPARATOR, urgent care, hospital, or half-way...) When possible be specific @ -No Did you speak to anyone other than the patient for history (EMS, parent, family, police, friend...)? What history was obtained from this source @ -Significant other, at bedside, aiding in HPI and past medical history. Did you review nursing and triage notes (agree or disagree)? Why? @ -I reviewed and agree with nursing and triage notes Were old charts reviewed (outside hosp., previous admission, EMS record, old EKG, old radiological studies, urgent care reports/EKG's, half-way records)? Report findings @ -Prior medical records Differential Diagnosis (chest pain, altered mental status, abdominal pain women, abdominal pain men, vaginal bleeding, weakness, fever, dyspnea, syncope, headache, dizziness, GI bleed, back pain, seizure, CVA, palpatations, mental health, musculoskeletal)? @ -Differential Musculoskeletal: Muscular strain, contusion, ligament sprain, fracture, arthritis, septic arthritis, bursitis, cellulitis, muscle spasm, nerve compression, DVT, arterial occlusion, herpes zoster, electrolyte abnormality, tumor.... This is not meant to be in all inclusive list EKG interpreted by me (3pts min.). @ -None X-rays interpreted by me (1pt min.). @ -None done CT interpreted by me (1pt min.). @ -None done U/S interpreted by me (1pt. min.). @ -Ultrasound bilateral lower extremities negative for acute evidence of DVT What testing was considered but not performed or refused? (CT, X-rays, U/S, labs)? Why? @ -Bilateral knee x-ray considered however this is atraumatic pain. Patient is able to bear weight without difficulty. Patient agreeable to forego x-rays What meds were considered but not given or refused? Why? @ -None Did you discuss the management of the patient with other professionals ( professionals i.e. , PA, CENTRIFUGAL SEPARATOR, lab, RT, psych nurse, nursing home social worker, iron worker, teacher, chief digital media officer, shoe caser)? Give summary @ -No Was smoking cessation discussed for >3mins.? @ -No Was critical care preformed (if so, how long)? @ -No Were there social determinants of health that impacted care today? How? (Homelessness, low income, unemployed, alcoholism, drug addiction, transportation, low edu. Level, literacy, decrease access to med. care, [facility], rehab)? @ -No Was there de-escalation of care discussed even if they declined (Discuss DNR or withdrawal of care, Hospice)? DNR status @ -No What co-morbidities impacted this encounter? (DM, HTN, Smoking, COPD, CAD, Cancer, CVA, ARF, Chemo, Hep., AIDS, mental health diagnosis, sleep apnea, morbid obesity)? @ -Recent cardiac stent placement. Currently on Brilinta and Eliquis. Idiopathic pulmonary fibrosis Was patient admitted / discharged? Hospital course, mention meds given and route, prescriptions, significant lab abnormalities, going to OR and other pertinent info. @ -Discharge. 59-year-old male presented the ER for evaluation of bilateral knee pain. Upon arrival vitals within acceptable limits. Patient in no signs of acute distress nontoxic-appearing. Patient is neurovascularly intact with full range of motion of bilateral remedies. Given atraumatic knee pain, US venous doppler obtained and negative for DVT. Patient reporting no current pain as he received fentanyl by EMS. Patient ambulated in ER without difficulty. Pain believed to be musculoskeletal upon reevaluation, patient reporting no pain and is eager for discharge. Patient be discharged with a Tylenol 3 starter pack. Advised him to follow-up closely with PCP for further evaluation and treatment. Strict return parameters discussed. Patient discharged in stable condition. Patient verbally expressed understanding and agreement with care plan. Case discussed with ED attending, Dr. Mooney. Undiagnosed new problem with uncertain prognosis? @ -No Drug Therapy requiring intensive monitoring for toxicity (Heparin, Nitro, Insulin, Cardizem)? @ -No Were any procedures done? @ -No Diagnosis/symptom? @ -Knee pain Acute, or Chronic, or Acute on Chronic? @ -Acute Uncomplicated (without systemic symptoms) or Complicated (systemic symptoms)? @ -Uncomplicated Side effects of treatment? @ -No Exacerbation, Progression, or Severe Exacerbation? @ -No Poses a threat to life or bodily function? How? (Chest pain, [place], [place], pneumonia, PE, COPD, DKA, ARF, appy, cholecystitis, CVA, Diverticulitis, Homicidal, Suicidal, threat to staff... and all critical care pts) @ -Unlikely Disposition Clinical Impression: Bilateral knee pain Disposition: HOME SELF-CARE Condition: Stable Instructions (If sedation given, give patient instructions): Knee Pain (ED) Additional Instructions: Follow-up with PCP in the next 1-2 days. Return to the ER for any new or worsening symptoms. Is patient prescribed a controlled substance at d/c from ED?: No Referrals: Ralph Farmer MD [Primary Care Provider] - 1-2 days Time of Disposition: 14:27
[2025-03-25 14:01] VITALS: TEMP 98
--- NOTE | 2025-03-25 14:06 | US ---
EXAMINATION TYPE: US venous doppler duplex LE BI DATE OF EXAM: 03/25/2025 1:42 PM COMPARISON: NONE CLINICAL INDICATION: Male, 59 years old with history of posterior knee pain; No swelling. On blood t hinners per patient for CAD. No redness, Pain TECHNIQUE: The lower extremity deep venous system is examined utilizing real time linear array sonog talisha with graded compression, color doppler sonography, and spectral doppler. SIDE PERFORMED: Bilateral FINDINGS: VESSELS IMAGED: Common Femoral Vein Deep Femoral Vein Greater Saphenous Vein * Femoral Vein Popliteal Vein Small Saphenous Vein * Proximal Calf Veins Posterior tibial veins (* superficial vessels) Right Leg: Negative for DVT, Color Doppler imaging shows patency of the vessels. Spectral waveforms are within normal limits. Left Leg: Negative for DVT, Color Doppler imaging shows patency of the vessels. Spectral waveforms a re within normal limits. IMPRESSION: No evidence for DVT within the bilateral lower extremities. [facility], Workstation: [email or web address], 03/25/2025 2:03 PM
[2025-03-25] MEDS: ACET/COD 300 MG/30 MG STARTER PACK 6 TAB BTL PO STA (14:45)
[2025-03-25 15:06] VITALS: BP 105/70; PULSE 74; RESP 18
== END 2025-03-25 15:07 | disposition home or self-care (01) ==
LOC: EC 11:24
DX: M25.561 Pain in right knee (principal); M25.562 Pain in left knee; J84.112 Idiopathic pulmonary fibrosis; Z95.5 Presence of coronary angioplasty implant and graft; Z79.02 Long term (current) use of antithrombotics/antiplatelets; Z87.891 Personal history of nicotine dependence; Z88.0 Allergy status to penicillin
CPT/HCPCS: 93970; 99284

== ENCOUNTER 2025-04-03 12:21 | Observation (INO) | payer BC ==
[2025-04-03] MEDS: LACTATED RINGERS 1,000 ML IV ONE (12:43)
[2025-04-03 12:53] LABS: Basophils # (A) 0.04 10*3/uL (0.00-0.10); Basophils % (A) 0.4 %; Eosinophils # (A) 0.15 10*3/uL (0.04-0.35); Eosinophils % (A) 1.6 %; HCT 36.5 % (39.6-50.0); HGB 12.6 g/dL (13.0-17.0); Lymphocytes # (A) 2.86 10*3/uL (0.90-5.00); Lymphocytes % (A) 29.9 %; MCH 33.4 pg (27.0-32.0); MCHC 34.5 g/dL (32.0-37.0); MCV 96.8 fL (80.0-97.0); Monocytes % (A) 8.4 %; Neutrophils # (A) 5.61 10*3/uL (1.80-7.70); Neutrophils % (A) 58.7 %; Platelet Count 245 10*3/uL (140-440); RBC 3.77 10*6/uL (4.40-5.60); RDW 16.6 % (11.5-14.5); WBC 9.56 10*3/uL (4.50-10.00)
[2025-04-03 13:11] LABS: ALT 40 U/L (4-49); African American GFR (CKD) >90 (>60 ml/min/1.73 sqM); Albumin 4.3 g/dL (3.5-5.0); Anion Gap 10 mmol/L; Blood Urea Nitrogen 39 mg/dL (9-20); Calcium 9.9 mg/dL (8.4-10.2); Carbon Dioxide 28 mmol/L (22-30); Chloride 90 mmol/L (98-107); Glucose 202 mg/dL (74-99); Non-African American GFR(CKD) 82 (>60 ml/min/1.73 sqM); Sodium 128 mmol/L (137-145); Total Bilirubin 0.9 mg/dL (0.2-1.3); Total Protein 7.1 g/dL (6.3-8.2)
[2025-04-03 13:19] LABS: NT-Pro-B-Type Natriuretic Pept 95 pg/mL
--- NOTE | 2025-04-03 13:22 | XR ---
EXAMINATION TYPE: XR chest 2V DATE OF EXAM: 04/03/2025 1:14 PM COMPARISON: Multiple radiographs, with the most recent on 03/19/2025 TECHNIQUE: XR chest 2V Frontal and lateral views of the chest. CLINICAL INDICATION:Male, 59 years old with history of difficulty breathing; FINDINGS: Lungs/Pleura: There is no evidence of pleural effusion, focal consolidation, or pneumothorax. Diffus e interstitial prominence. Heart/mediastinum: Cardiomediastinal silhouette is enlarged and stable. Musculoskeletal: No acute osseous pathology. IMPRESSION: Cardiomegaly with diffuse interstitial prominence likely related to known interstitial lung disease a nd possible superimposed infectious process. [facility], , 04/03/2025 1:20 PM
[2025-04-03 13:28] LABS: Potassium 4.9 mmol/L (3.5-5.1)
[2025-04-03 13:29] LABS: AST 37 U/L (17-59); Alkaline Phosphatase 118 U/L (38-126); Magnesium 1.5 mg/dL (1.6-2.3)
[2025-04-03] MEDS ORDERED: SODIUM CHLORIDE 0.9% 1,000 ML IV STA (13:38)
[2025-04-03] MEDS ORDERED: DIPH,PERTUS(ACELL)TETVAC-LF 0.5 ML VIAL IM ONE (13:38)
[2025-04-03] MEDS ORDERED: IPRATROPIUM-ALBUTEROL 3 ML NEB INHALATION PRN (13:38)
[2025-04-03 13:39] LABS: Partial Thromboplastin Time 20.5 sec (22.0-30.0)
[2025-04-03] MEDS ORDERED: fentaNYL (PF) 50 MCG/ML 2 ML AMP IVP PRN (13:41)
[2025-04-03] MEDS ORDERED: MAGNESIUM SULFATE-D5W PMX 1 GM in DEXTROSE/WATER 1 100ML.BAG IVPB SCH (13:45)
[2025-04-03] MEDS ORDERED: fentaNYL (PF). 1,000 MCG in SODIUM CHLORIDE 0.9% 80 ML IV SCH (14:00)
[2025-04-03] MEDS ORDERED: levETIRAcetam IV 3,000 MG in SODIUM CHLORIDE 0.9% 250 ML IVPB ONE (14:00)
[2025-04-03] MEDS ORDERED: NALOXONE 0.4 MG/ML 1 ML VIAL IV PRN (14:39)
--- NOTE | 2025-04-03 14:39 | ED ---
General Adult HPI - General Chief complaint: Shortness of Breath Stated complaint: SOB Source: patient Mode of arrival: wheelchair Limitations: no limitations - History of Present Illness Initial comments: 59-year-old male with past medical history of pulmonary fibrosis on 4 L home O2, chronic steroid use, coronary disease who presents to the emergency department with near syncope. Patient went to Dr. Valerio's office today as a follow-up for his pulmonary fibrosis. He had normal vitals in the lab and had a normal follow-up visit. He was discharged home. On the way out the patient had significant lightheadedness where he thought he was get a pass out. r eports that he turned pale and extremely diaphoretic. Was extremely hypotensive. He reports he was in the hospital a couple of weeks ago and had 4 stents placed. He went home on 15 new medications. He has been told that his blood pressure runs low however nothing near what he is running tonight. He denies any fevers. No recent changes in his steroid dose has been initiated however patient is going to taper down to 15 mg tomorrow from 20 mg. He denies having any chest pain. No worsening shortness of breath. No abdominal pain. States he has been eating and drinking. No other alleviating, precipitating roughing factors - Related Data Home Medications Medication Instructions Recorded Confirmed Ascorbic Acid [Vitamin C] 1,000 mg PO DAILY 01/20/25 03/10/25 Cholecalciferol (Vitamin D3) 125 mcg PO DAILY 01/20/25 03/10/25 [Vitamin D3 (125 MCG = 5,000 IU)] Fluticasone/Umeclidin/Vilanter 1 puff INHALATION RT-DAILY 01/20/25 03/10/25 [Trelegy Ellipta 100-62.5-25] Albuterol Sulfate [Ventolin HFA] 2 puff INHALATION RT-Q6H PRN 03/10/25 03/10/25 Nintedanib Esylate [Ofev] 150 mg PO BID@0900,2100 03/10/25 03/10/25 Sennosides-Docusate Sodium 2 tab PO BID PRN 03/10/25 03/10/25 [Senokot-S] Previous Rx's Medication Instructions Recorded Acetaminophen Tab [Tylenol] 650 mg PO Q4HR PRN tab 01/26/25 Ferrous Sulfate [Iron (65 MG 325 mg PO BID-W/MEALS tab 01/26/25 Elemental)] Aspirin 81 mg PO DAILY tab 03/19/25 Atorvastatin [Lipitor] 40 mg PO HS 30 Days #30 tab 03/19/25 Bisoprolol [Zebeta] 5 mg PO DAILY 30 Days #30 tab 03/19/25 Budesonide-Formot 160-4.5 Mcg 2 puff INHALATION RT-BID 30 Days 03/19/25 [Symbicort 160-4.5 Mcg Inhaler] #1 each Dapagliflozin Propanediol [Farxiga] 10 mg PO DAILY 30 Days #30 tab 03/19/25 Furosemide [Lasix] 40 mg PO DAILY 30 Days #30 tab 03/19/25 INSULIN LISPRO (HumaLOG) [HumaLOG] 5 unit SQ AC-TID 30 Days #1 each 03/19/25 Insulin Glargine (Lantus) [Lantus 15 unit SQ DAILY@0700 30 Days #1 03/19/25 Vial] each Ipratropium-Albuterol Nebulize 3 ml INHALATION RT-QID 30 Days 03/19/25 [Duoneb 0.5 mg-3 mg/3 ml Soln] #120 each Losartan [Cozaar] 100 mg PO DAILY 30 Days #30 tab 03/19/25 Pantoprazole [Protonix] 40 mg PO AC-BID 30 Days #60 tab 03/19/25 Spironolactone [Aldactone] 25 mg PO DAILY 30 Days #30 tab 03/19/25 Ticagrelor [Brilinta] 90 mg PO BID 30 Days #60 tab 03/19/25 amLODIPine [Norvasc] 5 mg PO DAILY tab 03/19/25 predniSONE [Deltasone] 40 mg PO DAILY 15 Days #15 tab 03/19/25 Allergies Allergy/AdvReac Type Severity Reaction Status Date / Time Penicillins Allergy Unknown Verified 03/25/25 11:28 Childhood Review of Systems ROS Statement: Those systems with pertinent positive or pertinent negative responses have been documented in the HPI. ROS Other: All systems not noted in ROS Statement are negative. Past Medical History Past Medical History: Asthma, COPD, Eye Disorder, GERD/Reflux, Hyperlipidemia, Hypertension, Myocardial Infarction ([place]) Additional Past Medical History / Comment(s): ASTHMA CHILD. LT EYE HERPES, LAST 2014. Does have a history of MRSA infection History of Any Multi-Drug Resistant Organisms: None Reported Date of last positivie culture/infection: 2013 MDRO Source:: ON ABDOMEN Past Surgical History: Heart Catheterization With Stent, Orthopedic Surgery Additional Past Surgical History / Comment(s): COLONOSCOPY, R hip surgery Past Anesthesia/Blood Transfusion Reactions: No Reported Reaction Additional Past Anesthesia/Blood Transfusion Reaction / Comment(s): No hx of blood transfusion to date. Past Psychological History: No Psychological Hx Reported Smoking Status: Former smoker Past Alcohol Use History: Daily Past Drug Use History: Marijuana - Past Family History Mother Family Medical History: Cancer Additional Family Medical History / Comment(s): FROM PANCREATIC CANCER Father Family Medical History: Cancer Additional Family Medical History / Comment(s): FROM PANCREATIC CANCER General Exam Limitations: no limitations Course Vital Signs 04/03/25 04/03/25 04/03/25 12:22 12:32 12:40 Temperature 97.4 F L Pulse Rate 106 H 72 68 Respiratory 24 22 22 Rate Blood Pressure 50/30 73/57 61/36 O2 Sat by Pulse 96 98 100 Oximetry Fraction of Inspired Oxygen (FIO2) 04/03/25 04/03/25 04/03/25 12:53 13:17 13:41 Temperature Pulse Rate 58 L 64 Respiratory 20 18 Rate Blood Pressure 86/54 92/63 O2 Sat by Pulse 100 100 Oximetry Fraction of 100 Inspired Oxygen (FIO2) 04/03/25 14:23 Temperature Pulse Rate 69 Respiratory 18 Rate Blood Pressure 91/65 O2 Sat by Pulse 100 Oximetry Fraction of Inspired Oxygen (FIO2) Procedures - Outlook Protocol (Time Out) Nurse: Josiane Flores Medical Decision Making - Medical Decision Making Was pt. sent in by a medical professional or institution (, PA, JUVENILE JUSTICE SPECIALIST, urgent care, hospital, or group home...) When possible be specific @ -[No] Did you speak to anyone other than the patient for history (EMS, parent, family, police, friend...)? What history was obtained from this source @ -[No] Did you review nursing and triage notes (agree or disagree)? Why? @ -[I reviewed and agree with nursing and triage notes] Were old charts reviewed (outside hosp., previous admission, EMS record, old EKG, old radiological studies, urgent care reports/EKG's, group home records)? Report findings @ -[No old charts were reviewed] Differential Diagnosis (chest pain, altered mental status, abdominal pain women, abdominal pain men, vaginal bleeding, weakness, fever, dyspnea, syncope, headache, dizziness, GI bleed, back pain, seizure, CVA, palpatations, mental health, musculoskeletal)? @ -[not applicable] EKG interpreted by me (3pts min.). @ -Yes and demonstrates sinus rhythm with rate of 69. SD interval 163. QRS 114. QTc of 404. No acute ST segment elevations or depressions X-rays interpreted by me (1pt min.). @ -[None done] CT interpreted by me (1pt min.). @ -[None done] U/S interpreted by me (1pt. min.). @ -[None done] What testing was considered but not performed or refused? (CT, X-rays, U/S, labs)? Why? @ -[None] What meds were considered but not given or refused? Why? @ -[None] Did you discuss the management of the patient with other professionals (professionals i.e. , PA, JUVENILE JUSTICE SPECIALIST, lab, RT, psych nurse, protective services social worker, nba player, teacher, school services officer, child welfare caseworker)? Give summary @ -[No] Was smoking cessation discussed for >3mins.? @ -[No] Was critical care preformed (if so, how long)? @ -[No] Were there social determinants of health that impacted care today? How? (Allyssa elessness, low income, unemployed, alcoholism, drug addiction, transportation, low edu. Level, literacy, decrease access to med. care, prison, rehab)? @ -[No] Was there de-escalation of care discussed even if they declined (Discuss DNR or withdrawal of care, Hospice)? DNR status @ -[No] What co-morbidities impacted this encounter? (DM, HTN, Smoking, COPD, CAD, Cancer, CVA, ARF, Chemo, Hep., AIDS, mental health diagnosis, sleep apnea, morbid obesity)? @ -[None] Was patient admitted / discharged? Hospital course, mention meds given and route, prescriptions, significant lab abnormalities, going to OR and other pertinent info. @ -[hospital course] Undiagnosed new problem with uncertain prognosis? @ -[No] Drug Therapy requiring intensive monitoring for toxicity (Heparin, Nitro, Insulin, Cardizem)? @ -[No] Were any procedures done? @ -[No] Diagnosis/symptom? @ -[default] Acute, or Chronic, or Acute on Chronic? @ -[default] Uncomplicated (without systemic symptoms) or Complicated (systemic symptoms)? @ -[default] Side effects of treatment? @ -[No] Exacerbation, Progression, or Severe Exacerbation? @ -[No] Poses a threat to life or bodily function? How? (Chest pain, [place], [place], pneumonia, PE, COPD, DKA, ARF, appy, cholecystitis, CVA, Diverticulitis, Homicidal, Suicidal, threat to staff... and all critical care pts) @ -[No] - Lab Data Result diagrams: 04/03/25 12:44 04/03/25 12:44 Lab Results 04/03/25 04/03/25 04/03/25 Range/Units 12:44 12:44 12:44 WBC 9.56 (4.50-10.00) 10*3/uL RBC 3.77 L (4.40-5.60) 10*6/uL Hgb 12.6 L (13.0-17.0) g/dL Hct 36.5 L (39.6-50.0) % MCV 96.8 (80.0-97.0) fL MCH 33.4 H (27.0-32.0) pg MCHC 34.5 (32.0-37.0) g/dL Plt Count 245 (140-440) 10*3/uL MPV 10.0 (9.5-12.2) fL Immature Gran % (Auto) 1.0 % Neutrophils % 58.7 % Lymphocytes % 29.9 % Monocytes % 8.4 % Eosinophils % 1.6 % Basophils % 0.4 % Immature Gran # 0.10 H (0.00-0.04) 10*3/uL Neutrophils # 5.61 (1.80-7.70) 10*3/uL Lymphocytes # 2.86 (0.90-5.00) 10*3/uL Monocytes # 0.80 (0.20-1.00) 10*3/uL Eosinophils # 0.15 (0.04-0.35) 10*3/uL Basophils # 0.04 (0.00-0.10) 10*3/uL PT 11.0 (10.0-12.5) sec INR 1.0 (<1.2) APTT 20.5 L (22.0-30.0) sec Sodium 128 L (137-145) mmol/L Potassium 4.9 (3.5-5.1) mmol/L Chloride 90 L (98-107) mmol/L Carbon Dioxide 28 (22-30) mmol/L Anion Gap 10 mmol/L BUN 39 H (9-20) mg/dL Creatinine 0.99 (0.66-1.25) mg/dL Est GFR (CKD-EPI)AfAm >90 (>60 ml/min/1.73 sqM) Est GFR (CKD-EPI)NonAf 82 (>60 ml/min/1.73 sqM) Glucose 202 H (74-99) mg/dL Plasma Lactic Acid Miguel (0.7-2.0) mmol/L Calcium 9.9 (8.4-10.2) mg/dL Magnesium 1.5 L (1.6-2.3) mg/dL Total Bilirubin 0.9 (0.2-1.3) mg/dL AST 37 (17-59) U/L ALT 40 (4-49) U/L Alkaline Phosphatase 118 (38-126) U/L Troponin I (0.000-0.034) ng/mL NT-Pro-B Natriuret Pep 95 pg/mL Total Protein 7.1 (6.3-8.2) g/dL Albumin 4.3 (3.5-5.0) g/dL 04/03/25 04/03/25 Range/Units 12:44 12:44 WBC (4.50-10.00) 10*3/uL RBC (4.40-5.60) 10*6/uL Hgb (13.0-17.0) g/dL Hct (39.6-50.0) % MCV (80.0-97.0) fL MCH (27.0-32.0) pg MCHC (32.0-37.0) g/dL Plt Count (140-440) 10*3/uL MPV (9.5-12.2) fL Immature Gran % (Auto) % Neutrophils % % Lymphocytes % % Monocytes % % Eosinophils % % Basophils % % Immature Gran # (0.00-0.04) 10*3/uL Neutrophils # (1.80-7.70) 10*3/uL Lymphocytes # (0.90-5.00) 10*3/uL Monocytes # (0.20-1.00) 10*3/uL Eosinophils # (0.04-0.35) 10*3/uL Basophils # (0.00-0.10) 10*3/uL PT (10.0-12.5) sec INR (<1.2) APTT (22.0-30.0) sec Sodium (137-145) mmol/L Potassium (3.5-5.1) mmol/L Chloride (98-107) mmol/L Carbon Dioxide (22-30) mmol/L Anion Gap mmol/L BUN (9-20) mg/dL Creatinine (0.66-1.25) mg/dL Est GFR (CKD-EPI)AfAm (>60 ml/min/1.73 sqM) Est GFR (CKD-EPI)NonAf (>60 ml/min/1.73 sqM) Glucose (74-99) mg/dL Plasma Lactic Acid Miguel 3.9 H* (0.7-2.0) mmol/L Calcium (8.4-10.2) mg/dL Magnesium (1.6-2.3) mg/dL Total Bilirubin (0.2-1.3) mg/dL AST (17-59) U/L ALT (4-49) U/L Alkaline Phosphatase (38-126) U/L Troponin I 0.032 (0.000-0.034) ng/mL NT-Pro-B Natriuret Pep pg/mL Total Protein (6.3-8.2) g/dL Albumin (3.5-5.0) g/dL Disposition Clinical Impression: Hypotension, Near syncope Disposition: ADMITTED IP TO THIS HOSP Condition: Stable Is patient prescribed a controlled substance at d/c from ED?: No Referrals: Ralph Farmer MD [Primary Care Provider] - 1-2 days Time of Disposition: 14:38 Decision to Admit Reason: Admit from EC Decision Date: 04/03/25 Decision Time: 14:39
[2025-04-03] MEDS: SODIUM CHLORIDE 0.9% 1,000 ML IV ONE (15:02)
[2025-04-03] MEDS: SODIUM CHLORIDE 0.9% 1,000 ML IV SCH (15:02)
[2025-04-03] MEDS ORDERED: Magnesium Replacement Protocol 1 EACH MISC MISCELLANE PRN (15:22)
[2025-04-03] MEDS: MAGNESIUM SULFATE-D5W PMX 1 GM in DEXTROSE/WATER 1 100ML.BAG IVPB SCH (15:42)
[2025-04-03] MEDS ORDERED: DEXTROSE 50% SYRINGE 50 ML IVP PRN ×2 (15:47)
--- NOTE | 2025-04-03 15:51 | P.HPIM ---
History of Present Illness H&P Date: 04/03/25 Patient is a 59-year-old male with past medical history of chronic hypoxic respiratory failure secondary to interstitial lung disease, UIP type, on 4 L home O2, chronic steroid use, COPD, hypertension, CAD status post PCI to RCA 02/2025, chronic diastolic CHF Patient presented to the ER on 04/03/2025 after having near syncope. 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 He denies any recent unusual symptoms, has been doing actually better and was able to wean his home 4 L to 3 L, he reports good appetite, follows no salt diet, has been drinking enough fluids, compliant with all his medications Of note, patient was admitted to our institution in February, for NSTEMI, underwent heart cath on with successful stenting of the distal and proximal mid RCA, EF on revealed preserved LV function with EF of 55 to 60%, severe pulmonary hypertension estimated PA pressure 57. Before that admission he was on Benicar and amlodipine, and during that admission he was started additionally on Aldactone 25 mg, losartan 100 mg, Lasix 40 mg daily, Farxiga 10 mg daily, bisoprolol 5 mg nightly, he reports that his blood pressure has been running on the lower side at home. Although he does not check it daily, blood pressure has been checked by his visiting nurse and physical lungs continued. He On arrival afebrile, blood pressure 50/30, improved to 92/63 after fluid resuscitation, heart rate in 60s, satting 100% on 5 L home oxygen. Lab work significant for normal WBC count, hemoglobin 12.6, stable, platelet count normal, sodium 128, previously 132 (corrected sodium 130), chloride 98, bicarb 28, creatinine normal, blood glucose 202, lactate elevated 2.9, magnesium low 1.5, normal liver enzymes and bilirubin, BNP 95, troponin 0.032 EKG showed sinus rhythm, no ST elevation, QTc 404 On my evaluation, patient feels almost back to baseline, blood pressure is up to 90s over 60s, patient was admitted for observation, cardiology consult in place Pertinent positives and negatives as discussed in HPI, a complete review of systems was performed and all other systems are negative. Patient seen and examined at bedside. Vital signs reviewed General: nontoxic, no distress, appears at stated age Derm: warm, dry Head: atraumatic, normocephalic, symmetric Eyes: EOMI, no lid lag, anicteric sclera, pupils equal round reactive to light ENT: Nose and ears atraumatic Neck: No thyromegaly, supple Mouth: no lip lesion, mucus membranes moist Cardiovascular: S1S2 reg, no murmur, no edema Lungs: Coarse bilateral crackles, diminished breath sounds bilaterally, no accessory muscle use Abdominal: soft, nontender to palpation, no guarding, no appreciable organomegaly Ext: no gross muscle atrophy, muscle strength muscle strength 5 out of 5 in all 4 extremities, no contractures Neuro: CN II-XII grossly intact Psych: Alert, oriented, appropriate affect Assessment/Plan: Presyncope Symptomatic hypotension secondary to fluid depletion Hypovolemic hyponatremia corrected sodium 130 Elevated lactate likely secondary to above -Will continue with NS 150 cc/h, recheck sodium in the afternoon and morning -Will hold home blood pressure medications including bisoprolol 5 mg daily, Farxiga 10 mg daily, Lasix 40 mg daily, losartan 100 mg daily, Aldactone 25 mg daily, amlodipine 5 mg daily -Monitor blood pressure closely -Cardiology consulted, appreciate recommendations Type II DM on insulin -On home mealtime 5 units and Lantus 15, will proceed with Lantus 10 and mealtime 3 units, low intensity SSI, adjust as needed Chronic hypoxic respiratory failure secondary to interstitial lung disease, UIP type on home O2 Chronic steroid use secondary to above -Continue supplemental oxygen - Continue home prednisone once med rec is done -Continue home Trelegy Ellipta 100/62.5/25 1 puff daily -Continue DuoNebs 4 times daily as needed as well as albuterol every 6 hours as needed -Continue GI prophylaxis with Protonix 40 mg twice daily oral CAD status post PCI to RCA 02/2025 -Continue aspirin 81 mg daily, atorvastatin 40 mg nightly, Brilinta 90 mg twice daily Hypomagnesemia - Replaced with 1 g IV, recheck in the morning The patient is admitted with an anticipated less than 2 midnight stay as he observation status for evaluation of symptomatic hypotension, hyponatremia. Surrogate decision-maker: CODE STATUS: Full DVT prophylaxis: Lovenox Anticipated discharge date: 04/[address]: Home A total of 40 minutes was spent on the care of this complex patient more than 50% of the time was spent in counseling and care coordination. Past Medical History Past Medical History: Asthma, COPD, Eye Disorder, GERD/Reflux, Hyperlipidemia, Hypertension, Myocardial Infarction ([place]) Additional Past Medical History / Comment(s): ASTHMA CHILD. LT EYE HERPES, LAST 2014. Does have a history of MRSA infection History of Any Multi-Drug Resistant Organisms: None Reported Date of last positivie culture/infection: 2013 MDRO Source:: ON ABDOMEN Past Surgical History: Heart Catheterization With Stent, Orthopedic Surgery Additional Past Surgical History / Comment(s): COLONOSCOPY, R hip surgery Past Anesthesia/Blood Transfusion Reactions: No Reported Reaction Additional Past Anesthesia/Blood Transfusion Reaction / Comment(s): No hx of blood transfusion to date. Past Psychological History: No Psychological Hx Reported Smoking Status: Former smoker Past Alcohol Use History: Daily Past Drug Use History: Marijuana - Past Family History Mother Family Medical History: Cancer Additional Family Medical History / Comment(s): FROM PANCREATIC CANCER Father Family Medical History: Cancer Additional Family Medical History / Comment(s): FROM PANCREATIC CANCER Medications and Allergies Home Medications Medication Instructions Recorded Confirmed Type Ascorbic Acid [Vitamin C] 1,000 mg PO DAILY 01/20/25 03/10/25 History Cholecalciferol (Vitamin D3) 125 mcg PO DAILY 01/20/25 03/10/25 History [Vitamin D3 (125 MCG = 5,000 IU)] Fluticasone/Umeclidin/Vilanter 1 puff INHALATION RT-DAILY 01/20/25 03/10/25 H istory [Trelegy Ellipta 100-62.5-25] Acetaminophen Tab [Tylenol] 650 mg PO Q4HR PRN tab 01/26/25 03/10/25 Rx Ferrous Sulfate [Iron (65 MG 325 mg PO BID-W/MEALS tab 01/26/25 03/10/25 Rx Elemental)] Albuterol Sulfate [Ventolin HFA] 2 puff INHALATION RT-Q6H PRN 03/10/25 03/10/25 History Nintedanib Esylate [Ofev] 150 mg PO BID@0900,2100 03/10/25 03/10/25 History Sennosides-Docusate Sodium 2 tab PO BID PRN 03/10/25 03/10/25 History [Senokot-S] Aspirin 81 mg PO DAILY tab 03/19/25 Rx Atorvastatin [Lipitor] 40 mg PO HS 30 Days #30 tab 03/19/25 Rx Bisoprolol [Zebeta] 5 mg PO DAILY 30 Days #30 tab 03/19/25 Rx Budesonide-Formot 160-4.5 Mcg 2 puff INHALATION RT-BID 30 Days 03/19/25 Rx [Symbicort 160-4.5 Mcg Inhaler] #1 each Dapagliflozin Propanediol [Farxiga] 10 mg PO DAILY 30 Days #30 tab 03/19/25 Rx Furosemide [Lasix] 40 mg PO DAILY 30 Days #30 tab 03/19/25 Rx INSULIN LISPRO (HumaLOG) [HumaLOG] 5 unit SQ AC-TID 30 Days #1 each 03/19/25 Rx Insulin Glargine (Lantus) [Lantus 15 unit SQ DAILY@0700 30 Days #1 03/19/25 Rx Vial] each Ipratropium-Albuterol Nebulize 3 ml INHALATION RT-QID 30 Days 03/19/25 Rx [Duoneb 0.5 mg-3 mg/3 ml Soln] #120 each Losartan [Cozaar] 100 mg PO DAILY 30 Days #30 tab 03/19/25 Rx Pantoprazole [Protonix] 40 mg PO AC-BID 30 Days #60 tab 03/19/25 Rx Spironolactone [Aldactone] 25 mg PO DAILY 30 Days #30 tab 03/19/25 Rx Ticagrelor [Brilinta] 90 mg PO BID 30 Days #60 tab 03/19/25 Rx amLODIPine [Norvasc] 5 mg PO DAILY tab 03/19/25 Rx predniSONE [Deltasone] 40 mg PO DAILY 15 Days #15 tab 03/19/25 Rx Allergies Allergy/AdvReac Type Severity Reaction Status Date / Time Penicillins Allergy Unknown Verified 04/03/25 15:46 Childhood Physical Exam Vitals: Vital Signs Temp Pulse Resp BP Pulse Ox FiO2 04/03/25 15:02 71 20 96/64 100 04/03/25 14:23 69 18 91/65 100 04/03/25 13:41 100 04/03/25 13:17 64 18 92/63 100 04/03/25 12:53 58 L 20 86/54 100 04/03/25 12:40 68 22 61/36 100 04/03/25 12:32 72 22 73/57 98 04/03/25 12:22 97.4 F L 106 H 24 30 96 Intake and Output 04/03/25 04/03/25 04/03/25 06:59 14:59 22:59 Other: Weight 81.193 kg Results CBC & Chem 7: 04/03/25 12:44 04/03/25 12:44 Labs: Abnormal Lab Results - Last 24 Hours (Table) 04/03/25 04/03/25 04/03/25 Range/Units 12:44 12:44 12:44 RBC 3.77 L (4.40-5.60) 10*6/uL Hgb 12.6 L (13.0-17.0) g/dL Hct 36.5 L (39.6-50.0) % MCH 33.4 H (27.0-32.0) pg Immature Gran # 0.10 H (0.00-0.04) 10*3/uL APTT 20.5 L (22.0-30.0) sec Sodium 128 L (137-145) mmol/L Chloride 90 L (98-107) mmol/L BUN 39 H (9-20) mg/dL Glucose 202 H (74-99) mg/dL Plasma Lactic Acid Miguel (0.7-2.0) mmol/L Magnesium 1.5 L (1.6-2.3) mg/dL 04/03/25 Range/Units 12:44 RBC (4.40-5.60) 10*6/uL Hgb (13.0-17.0) g/dL Hct (39.6-50.0) % MCH (27.0-32.0) pg Immature Gran # (0.00-0.04) 10*3/uL APTT (22.0-30.0) sec Sodium (137-145) mmol/L Chloride (98-107) mmol/L BUN (9-20) mg/dL Glucose (74-99) mg/dL Plasma Lactic Acid Miguel 3.9 H* (0.7-2.0) mmol/L Magnesium (1.6-2.3) mg/dL
[2025-04-03] MEDS ORDERED: IPRATROPIUM-ALBUTEROL 3 ML NEB INHALATION SCH (16:00)
[2025-04-03] MEDS ORDERED: ALBUTEROL NEBULIZED 2.5 MG/3 ML INHALATION PRN (16:01)
[2025-04-03 17:12] LABS: Glucose,Whole Blood 249 mg/dL (70-110)
[2025-04-03] MEDS: PANTOPRAZOLE 40 MG TABLET PO SCH (17:46)
[2025-04-03] MEDS: INSULIN LISPRO (HumaLOG) 100 UNIT/ML 10 mL VL SQ SCH ×2 (17:46)
[2025-04-03] MEDS: IPRATROPIUM-ALBUTEROL 3 ML NEB INHALATION SCH (19:56)
[2025-04-03] MEDS: SYMBICORT 160-4.5 MCG INHALER INHALATION SCH (19:58)
[2025-04-03 21:57] LABS: Glucose,Whole Blood 127 mg/dL (70-110)
[2025-04-03] MEDS: TICAGRELOR 90 MG TAB PO SCH (22:24)
[2025-04-03] MEDS: INSULIN GLARGINE (LANTUS) 100 UNIT/ML SYR SQ SCH (22:24)
[2025-04-04] MEDS: ACETAMINOPHEN TAB 325 MG TAB PO PRN (00:23)
[2025-04-04 03:22] LABS: Basophils # (A) 0.02 10*3/uL (0.00-0.10); Basophils % (A) 0.3 %; Eosinophils # (A) 0.18 10*3/uL (0.04-0.35); Eosinophils % (A) 2.8 %; HCT 28.2 % (39.6-50.0); Lymphocytes # (A) 1.62 10*3/uL (0.90-5.00); Lymphocytes % (A) 25.4 %; MCH 33.5 pg (27.0-32.0); MCHC 33.7 g/dL (32.0-37.0); MCV 99.3 fL (80.0-97.0); Mean Platelet Volume 9.9 fL (9.5-12.2); Monocytes # (A) 0.52 10*3/uL (0.20-1.00); Monocytes % (A) 8.2 %; Neutrophils # (A) 3.96 10*3/uL (1.80-7.70); Platelet Count 182 10*3/uL (140-440); RBC 2.84 10*6/uL (4.40-5.60); RDW 16.7 % (11.5-14.5); WBC 6.38 10*3/uL (4.50-10.00)
[2025-04-04 03:32] LABS: African American GFR (CKD) >90 (>60 ml/min/1.73 sqM); Anion Gap 3 mmol/L; Blood Urea Nitrogen 27 mg/dL (9-20); Calcium 8.7 mg/dL (8.4-10.2); Carbon Dioxide 30 mmol/L (22-30); Chloride 98 mmol/L (98-107); Glucose 114 mg/dL (74-99); Magnesium 1.9 mg/dL (1.6-2.3); Non-African American GFR(CKD) >90 (>60 ml/min/1.73 sqM); Sodium 131 mmol/L (137-145)
[2025-04-04 03:34] LABS: HGB 9.5 g/dL (13.0-17.0)
[2025-04-04 06:06] LABS: Glucose,Whole Blood 96 mg/dL (70-110)
[2025-04-04] MEDS: TIOTROPIUM 2.5 MCG INHALER INHALATION SCH (07:52)
[2025-04-04] MEDS: ASCORBIC ACID 500 MG TAB PO SCH (08:52)
[2025-04-04] MEDS: predniSONE 10 MG TAB PO SCH (08:52)
[2025-04-04] MEDS: ENOXAPARIN 40 MG/0.4 ML SYRINGE SQ SCH (08:52)
[2025-04-04] MEDS ORDERED: predniSONE 20 MG TAB PO SCH (09:00)
[2025-04-04] MEDS: BISOPROLOL 5 MG TAB PO SCH (11:08)
[2025-04-04] MEDS: SPIRONOLACTONE 25 MG TAB PO SCH (11:08)
[2025-04-04] MEDS: DAPAGLIFLOZIN PROPANEDIOL 10 MG TABLET PO SCH (11:08)
[2025-04-04 11:19] LABS: Glucose,Whole Blood 160 mg/dL (70-110)
[2025-04-04 12:05] LABS: HCT 32.5 % (39.6-50.0); HGB 10.7 g/dL (13.0-17.0); MCH 32.8 pg (27.0-32.0); MCHC 32.9 g/dL (32.0-37.0); MCV 99.7 fL (80.0-97.0); Mean Platelet Volume 9.7 fL (9.5-12.2); Platelet Count 196 10*3/uL (140-440); RBC 3.26 10*6/uL (4.40-5.60)
--- NOTE | 2025-04-04 12:12 | P.CRDCN ---
History of Present Illness Consult date: 04/04/25 Reason for Consult (text): Hypotension History of present illness: This is a 59-year-old male patient recently established with Dr. Marrero with past medical history of CAD status post PCI of the RCA on 03/12/2025, asthma as a child, COPD, recently diagnosed IUP and started on Ofev, hypertension, diabetes mellitus type 2, COPD, chronic hypoxic respiratory failure on home O2 at 2 L, severe pulmonary hypertension, chronic diastolic heart failure, tobacco use for 11 years, marijuana use and quit 1 year ago. We have been asked to evaluate the patient for hypotension. Patient had a recent hospitalization at the end of February at which time he was seen by cardiology and underwent a cardiac catheterization and PCI of the RCA on 03/12/2025 in the setting of NSTEMI. Patient at that time had presented with febrile illness with possible pneumonia, acute respiratory failure, acute on chronic diastolic heart failure. Patient was discharged home and she states that he was at his follow-up appointment with Dr. Garibay and was paying his bill and preparing to leave when he started feeling unwell with blurry vision sweats. He sat in the waiting room and was eventually brought over to the emergency center for further evaluation. He states he had taken all of his morning medications at 7 AM and this had occurred about noon when he developed symptoms. Patient presented to the emergency center with blood pressure of 50/30. Blood pressure is now 103/71, heart rate 81, pulse ox 97% on 3 L nasal cannula. -EKG: Sinus rhythm 69 bpm. -Chest x-ray: Cardiomegaly with diffuse interstitial prominence likely related to known interstitial lung disease and possible superimposed infectious process. -Laboratory studies: WBC 6.3, hemoglobin 9.5, sodium 131, potassium 27, creatinine 0.6. Initial lactic acid 2.4 repeat 1.4. Troponin negative x 3. proBNP 95. -Home cardiac medications: Amlodipine 5 mg daily, aspirin 81 mg daily, atorvastatin 40 mg at bedtime, bisoprolol 5 mg daily, Farxiga 10 mg daily, Lasix 40 mg daily, losartan 100 mg daily, spironolactone 25 mg daily, Brilinta 90 mg twice daily. -Cardiac catheterization performed by Dr. Marrero on 03/12: 90% distal RCA stenosis, 50 to 60% mid RCA stenosis. 50% mid LAD stenosis. 60% focal disease in the distal and apical LAD. Mild nonobstructive disease in the left circumflex. He subsequently underwent stenting of the distal and proximal and mid RCA with BRANDT by Dr. Baez. -Echocardiogram performed 03/11/2025 revealed EF of 55 to 60%, moderate concentric LVH, severe pulmonary hypertension with RVSP 57 mmHg. Mild TR. Review Of Systems: At the time of my exam: CONSTITUTIONAL: Denies fever or chills. HEENT: Denies blurred vision, vision changes, or eye pain. Denies hemoptysis CARDIOVASCULAR: Denies chest pain. Denies orthopnea. Denies PND. Denies palpitations RESPIRATORY: Reports shortness of breath. GASTROINTESTINAL: Denies abdominal pain. Denies nausea or vomiting. HEMATOLOGIC: Denies bleeding disorders. GENITOURINARY: Denies any blood in urine. SKIN: Denies puritis. Denies rash. Physical examination: Gen: This is 59-year-old male in no acute respiratory distress. VS: reviewed HEENT: Head is atraumatic, normocephalic. Pupils equal, round. Sclerae is anicteric. NECK: Supple. No JVD. LUNGS: Bilateral crackles. No intercostal retractions. HEART: Regular rate and rhythm. No murmur. ABDOMEN: Soft No tenderness. EXTREMITIES: No pedal edema. No calf tenderness. NEUROLOGICAL: Patient is awake, alert and oriented x3. Assessment: Hypotension most likely due to taking all of his medications at 1 time History of CAD with recent PCI of the RCA on 03/12, stable Chronic diastolic heart failure COPD IUP, on Ofev and follows at [facility] for transplant evaluation Hypertension Diabetes COPD Severe pulmonary hypertension Chronic hypoxic respiratory failure on home O2 at 2 L nasal cannula Tobacco use for 11 years Marijuana use and quit 1 year ago Plan: Resume patient's home cardiac medications with the following changes Decrease amlodipine to 2.5 mg daily Resume oral Lasix tomorrow Decrease losartan to 50 mg daily and change to bedtime Monitor blood pressure If blood pressure is stable and patient is asymptomatic, patient is cleared for discharge from cardiology. Follow-up with Dr. Marrero in 1 week Thank you kindly for this consultation. Nurse practitioner note has been reviewed, I agree with documented findings and plan of care. Patient was seen and examined. Past Medical History Past Medical History: Asthma, COPD, Eye Disorder, GERD/Reflux, Hyperlipidemia, Hypertension, Myocardial Infarction (IN) Additional Past Medical History / Comment(s): ASTHMA CHILD. LT EYE HERPES, LAST 2014. Does have a history of MRSA infection Last Myocardial Infarction Date:: 03/19/2025 History of Any Multi-Drug Resistant Organisms: None Reported, MRSA Date of last positivie culture/infection: 10years MDRO Source:: back Past Surgical History: Heart Catheterization With Stent, Orthopedic Surgery Additional Past Surgical History / Comment(s): COLONOSCOPY, R hip surgery, 4 stents placed 03-19-25 RCA Past Anesthesia/Blood Transfusion Reactions: No Reported Reaction Additional Past Anesthesia/Blood Transfusion Reaction / Comment(s): No hx of blood transfusion to date. Date of Last Stent Placement:: 03/19/25 Past Psychological History: No Psychological Hx Reported Additional Psychological History / Comment(s): and lives in the the family home with the and daughter. No travel. No animal exposures. No change in detergents, home environment or work environment Smoking Status: Former smoker Past Alcohol Use History: Daily Additional Past Alcohol Use History / Comment(s): SMOKED 11 YEARS, 1PPD AVG, QUIT 1993. DRINKS PINT RUM DAILY Past Drug Use History: Marijuana Additional Drug Use History / Comment(s): Has not had in 6 months - Past Family History Mother Family Medical History: Cancer Additional Family Medical History / Comment(s): FROM PANCREATIC CANCER Father Family Medical History: Cancer Additional Family Medical History / Comment(s): FROM PANCREATIC CANCER Medications and Allergies Home Medications Medication Instructions Recorded Confirmed Type Ascorbic Acid [Vitamin C] 1,000 mg PO DAILY 01/20/25 04/03/25 History Cholecalciferol (Vitamin D3) 125 mcg PO DAILY 01/20/25 04/03/25 History [Vitamin D3 (125 MCG = 5,000 IU)] Fluticasone/Umeclidin/Vilanter 1 puff INHALATION RT-DAILY 01/20/25 04/03/25 History [Trelegy Ellipta 100-62.5-25] Acetaminophen Tab [Tylenol] 650 mg PO Q4HR PRN tab 01/26/25 04/03/25 Rx Ferrous Sulfate [Iron (65 MG 325 mg PO BID-W/MEALS tab 01/26/25 04/03/25 Rx Elemental)] Albuterol Sulfate [Ventolin HFA] 2 puff INHALATION RT-Q6H PRN 03/10/25 04/03/25 History Nintedanib Esylate [Ofev] 150 mg PO BID@0900,2100 03/10/25 04/03/25 History Sennosides-Docusate Sodium 2 tab PO BID PRN 03/10/25 04/03/25 History [Senokot-S] Aspirin 81 mg PO DAILY tab 03/19/25 04/03/25 Rx Atorvastatin [Lipitor] 40 mg PO HS 30 Days #30 tab 03/19/25 04/03/25 Rx Bisoprolol [Zebeta] 5 mg PO DAILY 30 Days #30 tab 03/19/25 04/03/25 Rx Budesonide-Formot 160-4.5 Mcg 2 puff INHALATION RT-BID 30 Days 03/19/25 04/03/25 Rx [Symbicort 160-4.5 Mcg Inhaler] #1 each Dapagliflozin Propanediol [Farxiga] 10 mg PO DAILY 30 Days #30 tab 03/19/25 04/03/25 Rx Furosemide [Lasix] 40 mg PO DAILY 30 Days #30 tab 03/19/25 04/03/25 Rx INSULIN LISPRO (HumaLOG) [HumaLOG] 5 unit SQ AC-TID 30 Days #1 each 03/19/25 04/03/25 Rx Insulin Glargine (Lantus) [Lantus 15 unit SQ DAILY@0700 30 Days #1 03/19/25 04/03/25 Rx Vial] each Ipratropium-Albuterol Nebulize 3 ml INHALATION RT-QID 30 Days 03/19/25 04/03/25 Rx [Duoneb 0.5 mg-3 mg/3 ml Soln] #120 each Losartan [Cozaar] 100 mg PO DAILY 30 Days #30 tab 03/19/25 04/03/25 Rx Pantoprazole [Protonix] 40 mg PO AC-BID 30 Days #60 tab 03/19/25 04/03/25 Rx Spironolactone [Aldactone] 25 mg PO DAILY 30 Days #30 tab 03/19/25 04/03/25 Rx Ticagrelor [Brilinta] 90 mg PO BID 30 Days #60 tab 03/19/25 04/03/25 Rx amLODIPine [Norvasc] 5 mg PO DAILY tab 03/19/25 04/03/25 Rx predniSONE See Taper PO DIRECTED 04/03/25 04/03/25 History Allergies Allergy/AdvReac Type Severity Reaction Status Date / Time Penicillins Allergy Unknown Verified 04/03/25 15:46 Childhood Physical Exam Vitals: Vital Signs Temp Pulse Pulse Resp BP BP Pulse Ox 04/04/25 08:26 88 04/04/25 08:13 84 98 04/04/25 08:00 97.9 F 91 18 105/73 95 04/04/25 04:14 74 17 104/70 98 04/03/25 23:22 85 17 108/70 98 04/03/25 22:23 98.1 F 81 18 110/67 95 04/03/25 21:27 72 20 105/65 96 04/03/25 20:15 70 99 04/03/25 19:59 68 04/03/25 19:00 76 18 94/60 97 04/03/25 17:45 76 18 94/62 96 04/03/25 16:34 75 18 100/67 96 04/03/25 15:02 71 20 96/64 100 04/03/25 14:23 69 18 91/65 100 04/03/25 13:41 04/03/25 13:17 64 18 92/63 100 04/03/25 12:53 58 L 20 86/54 100 04/03/25 12:40 68 22 61/36 100 04/03/25 12:32 72 22 73/57 98 04/03/25 12:22 97.4 F L 106 H 24 50/30 96 FiO2 04/04/25 08:26 04/04/25 08:13 04/04/25 08:00 04/04/25 04:14 04/03/25 23:22 04/03/25 22:23 04/03/25 21:27 04/03/25 20:15 04/03/25 19:59 04/03/25 19:00 04/03/25 17:45 04/03/25 16:34 04/03/25 15:02 04/03/25 14:23 04/03/25 13:41 100 04/03/25 13:17 04/03/25 12:53 04/03/25 12:40 04/03/25 12:32 04/03/25 12:22 Intake and Output 04/03/25 04/04/25 04/04/25 22:59 06:59 14:59 Intake Total 1002 Output Total 0 Balance 1002 Intake: Oral 1002 Output: Gastric Drainage 0 Urine 0 Stool 0 Urine/Stool Mix 0 Emesis 0 Oral Regurgitation 0 Other 0 Other: Voiding Method Toilet Toilet Urinal Urinal # Voids 1 0 # Bowel Movements 1 0 Weight 81.193 kg 82.8 kg Results 04/04/25 03:03 04/04/25 03:03 Cardiac Enzymes 04/03/25 04/03/25 04/03/25 Range/Units 12:44 12:44 12:44 WBC 9.56 (4.50-10.00) 10*3/uL RBC 3.77 L (4.40-5.60) 10*6/uL Hgb 12.6 L (13.0-17.0) g/dL Hct 36.5 L (39.6-50.0) % MCV 96.8 (80.0-97.0) fL MCH 33.4 H (27.0-32.0) pg MCHC 34.5 (32.0-37.0) g/dL Plt Count 245 (140-440) 10*3/uL MPV 10.0 (9.5-12.2) fL Immature Gran % (Auto) 1.0 % Neutrophils % 58.7 % Lymphocytes % 29.9 % Monocytes % 8.4 % Eosinophils % 1.6 % Basophils % 0.4 % Immature Gran # 0.10 H (0.00-0.04) 10*3/uL Neutrophils # 5.61 (1.80-7.70) 10*3/uL Lymphocytes # 2.86 (0.90-5.00) 10*3/uL Monocytes # 0.80 (0.20-1.00) 10*3/uL Eosinophils # 0.15 (0.04-0.35) 10*3/uL Basophils # 0.04 (0.00-0.10) 10*3/uL PT 11.0 (10.0-12.5) sec INR 1.0 (<1.2) APTT 20.5 L (22.0-30.0) sec Sodium 128 L (137-145) mmol/L Potassium 4.9 (3.5-5.1) mmol/L Chloride 90 L (98-107) mmol/L Carbon Dioxide 28 (22-30) mmol/L Anion Gap 10 mmol/L BUN 39 H (9-20) mg/dL Creatinine 0.99 (0.66-1.25) mg/dL Est GFR (CKD-EPI)AfAm >90 (>60 ml/min/1.73 sqM) Est GFR (CKD-EPI)NonAf 82 (>60 ml/min/1.73 sqM) Glucose 202 H (74-99) mg/dL POC Glucose (mg/dL) (70-110) mg/dL POC Glu Investment Manager ID Lactic Ac Sepsis Rflx Plasma Lactic Acid Miguel (0.7-2.0) mmol/L Calcium 9.9 (8.4-10.2) mg/dL Magnesium 1.5 L (1.6-2.3) mg/dL Total Bilirubin 0.9 (0.2-1.3) mg/dL AST 37 (17-59) U/L ALT 40 (4-49) U/L Alkaline Phosphatase 118 (38-126) U/L Troponin I (0.000-0.034) ng/mL NT-Pro-B Natriuret Pep 95 pg/mL Total Protein 7.1 (6.3-8.2) g/dL Albumin 4.3 (3.5-5.0) g/dL 04/03/25 04/03/25 04/03/25 Range/Units 12:44 12:44 13:30 WBC (4.50-10.00) 10*3/uL RBC (4.40-5.60) 10*6/uL Hgb (13.0-17.0) g/dL Hct (39.6-50.0) % MCV (80.0-97.0) fL MCH (27.0-32.0) pg MCHC (32.0-37.0) g/dL Plt Count (140-440) 10*3/uL MPV (9.5-12.2) fL Immature Gran % (Auto) % Neutrophils % % Lymphocytes % % Monocytes % % Eosinophils % % Basophils % % Immature Gran # (0.00-0.04) 10*3/uL Neutrophils # (1.80-7.70) 10*3/uL Lymphocytes # (0.90-5.00) 10*3/uL Monocytes # (0.20-1.00) 10*3/uL Eosinophils # (0.04-0.35) 10*3/uL Basophils # (0.00-0.10) 10*3/uL PT (10.0-12.5) sec INR (<1.2) APTT (22.0-30.0) sec Sodium (137-145) mmol/L Potassium (3.5-5.1) mmol/L Chloride (98-107) mmol/L Carbon Dioxide (22-30) mmol/L Anion Gap mmol/L BUN (9-20) mg/dL Creatinine (0.66-1.25) mg/dL Est GFR (CKD-EPI)AfAm (>60 ml/min/1.73 sqM) Est GFR (CKD-EPI)NonAf (>60 ml/min/1.73 sqM) Glucose (74-99) mg/dL POC Glucose (mg/dL) (70-110) mg/dL POC Glu Investment Manager ID Lactic Ac Sepsis Rflx Y Plasma Lactic Acid Miguel 3.9 H* (0.7-2.0) mmol/L Calcium (8.4-10.2) mg/dL Magnesium (1.6-2.3) mg/dL Total Bilirubin (0.2-1.3) mg/dL AST (17-59) U/L ALT (4-49) U/L Alkaline Phosphatase (38-126) U/L Troponin I 0.032 (0.000-0.034) ng/mL NT-Pro-B Natriuret Pep pg/mL Total Protein (6.3-8.2) g/dL Albumin (3.5-5.0) g/dL 04/03/25 04/03/25 04/03/25 Range/Units 15:12 17:04 17:11 WBC (4.50-10.00) 10*3/uL RBC (4.40-5.60) 10*6/uL Hgb (13.0-17.0) g/dL Hct (39.6-50.0) % MCV (80.0-97.0) fL MCH (27.0-32.0) pg MCHC (32.0-37.0) g/dL Plt Count (140-440) 10*3/uL MPV (9.5-12.2) fL Immature Gran % (Auto) % Neutrophils % % Lymphocytes % % Monocytes % % Eosinophils % % Basophils % % Immature Gran # (0.00-0.04) 10*3/uL Neutrophils # (1.80-7.70) 10*3/uL Lymphocytes # (0.90-5.00) 10*3/uL Monocytes # (0.20-1.00) 10*3/uL Eosinophils # (0.04-0.35) 10*3/uL Basophils # (0.00-0.10) 10*3/uL PT (10.0-12.5) sec INR (<1.2) APTT (22.0-30.0) sec Sodium (137-145) mmol/L Potassium (3.5-5.1) mmol/L Chloride (98-107) mmol/L Carbon Dioxide (22-30) mmol/L Anion Gap mmol/L BUN (9-20) mg/dL Creatinine (0.66-1.25) mg/dL Est GFR (CKD-EPI)AfAm (>60 ml/min/1.73 sqM) Est GFR (CKD-EPI)NonAf (>60 ml/min/1.73 sqM) Glucose (74-99) mg/dL POC Glucose (mg/dL) 249 H (70-110) mg/dL POC Glu Investment Manager ID seun Fang Lactic Ac Sepsis Rflx Plasma Lactic Acid Migule 4.0 H* (0.7-2.0) mmol/L Calcium (8.4-10.2) mg/dL Magnesium (1.6-2.3) mg/dL Total Bilirubin (0.2-1.3) mg/dL AST (17-59) U/L ALT (4-49) U/L Alkaline Phosphatase (38-126) U/L Troponin I 0.015 (0.000-0.034) ng/mL NT-Pro-B Natriuret Pep pg/mL Total Protein (6.3-8.2) g/dL Albumin (3.5-5.0) g/dL 04/03/25 04/03/25 04/03/25 Range/Units 17:55 18:41 20:07 WBC (4.50-10.00) 10*3/uL RBC (4.40-5.60) 10*6/uL Hgb (13.0-17.0) g/dL Hct (39.6-50.0) % MCV (80.0-97.0) fL MCH (27.0-32.0) pg MCHC (32.0-37.0) g/dL Plt Count (140-440) 10*3/uL MPV (9.5-12.2) fL Immature Gran % (Auto) % Neutrophils % % Lymphocytes % % Monocytes % % Eosinophils % % Basophils % % Immature Gran # (0.00-0.04) 10*3/uL Neutrophils # (1.80-7.70) 10*3/uL Lymphocytes # (0.90-5.00) 10*3/uL Monocytes # (0.20-1.00) 10*3/uL Eosinophils # (0.04-0.35) 10*3/uL Basophils # (0.00-0.10) 10*3/uL PT (10.0-12.5) sec INR (<1.2) APTT (22.0-30.0) sec Sodium (137-145) mmol/L Potassium (3.5-5.1) mmol/L Chloride (98-107) mmol/L Carbon Dioxide (22-30) mmol/L Anion Gap mmol/L BUN (9-20) mg/dL Creatinine (0.66-1.25) mg/dL Est GFR (CKD-EPI)AfAm (>60 ml/min/1.73 sqM) Est GFR (CKD-EPI)NonAf (>60 ml/min/1.73 sqM) Glucose (74-99) mg/dL POC Glucose (mg/dL) (70-110) mg/dL POC Glu Investment Manager ID Lactic Ac Sepsis Rflx Y Plasma Lactic Acid Miguel 2.4 H* (0.7-2.0) mmol/L Calcium (8.4-10.2) mg/dL Magnesium (1.6-2.3) mg/dL Total Bilirubin (0.2-1.3) mg/dL AST (17-59) U/L ALT (4-49) U/L Alkaline Phosphatase (38-126) U/L Troponin I 0.012 (0.000-0.034) ng/mL NT-Pro-B Natriuret Pep pg/mL Total Protein (6.3-8.2) g/dL Albumin (3.5-5.0) g/dL 04/03/25 04/03/25 04/04/25 Range/Units 21:08 21:56 03:03 WBC 6.38 (4.50-10.00) 10*3/uL RBC 2.84 L (4.40-5.60) 10*6/uL Hgb 9.5 L D (13.0-17.0) g/dL Hct 28.2 L (39.6-50.0) % MCV 99.3 H (80.0-97.0) fL MCH 33.5 H (27.0-32.0) pg MCHC 33.7 (32.0-37.0) g/dL Plt Count 182 (140-440) 10*3/uL MPV 9.9 (9.5-12.2) fL Immature Gran % (Auto) 1.3 % Neutrophils % 62.0 % Lymphocytes % 25.4 % Monocytes % 8.2 % Eosinophils % 2.8 % Basophils % 0.3 % Immature Gran # 0.08 H (0.00-0.04) 10*3/uL Neutrophils # 3.96 (1.80-7.70) 10*3/uL Lymphocytes # 1.62 (0.90-5.00) 10*3/uL Monocytes # 0.52 (0.20-1.00) 10*3/uL Eosinophils # 0.18 (0.04-0.35) 10*3/uL Basophils # 0.02 (0.00-0.10) 10*3/uL PT (10.0-12.5) sec INR (<1.2) APTT (22.0-30.0) sec Sodium (137-145) mmol/L Potassium (3.5-5.1) mmol/L Chloride (98-107) mmol/L Carbon Dioxide (22-30) mmol/L Anion Gap mmol/L BUN (9-20) mg/dL Creatinine (0.66-1.25) mg/dL Est GFR (CKD-EPI)AfAm (>60 ml/min/1.73 sqM) Est GFR (CKD-EPI)NonAf (>60 ml/min/1.73 sqM) Glucose (74-99) mg/dL POC Glucose (mg/dL) 127 H (70-110) mg/dL POC Glu Investment Manager HEATH Luciano Lactic Ac Sepsis Rflx Y Plasma Lactic Acid Miguel (0.7-2.0) mmol/L Calcium (8.4-10.2) mg/dL Magnesium (1.6-2.3) mg/dL Total Bilirubin (0.2-1.3) mg/dL AST (17-59) U/L ALT (4-49) U/L Alkaline Phosphatase (38-126) U/L Troponin I (0.000-0.034) ng/mL NT-Pro-B Natriuret Pep pg/mL Total Protein (6.3-8.2) g/dL Albumin (3.5-5.0) g/dL 04/04/25 04/04/25 04/04/25 Range/Units 03:03 03:03 06:04 WBC (4.50-10.00) 10*3/uL RBC (4.40-5.60) 10*6/uL Hgb (13.0-17.0) g/dL Hct (39.6-50.0) % MCV (80.0-97.0) fL MCH (27.0-32.0) pg MCHC (32.0-37.0) g/dL Plt Count (140-440) 10*3/uL MPV (9.5-12.2) fL Immature Gran % (Auto) % Neutrophils % % Lymphocytes % % Monocytes % % Eosinophils % % Basophils % % Immature Gran # (0.00-0.04) 10*3/uL Neutrophils # (1.80-7.70) 10*3/uL Lymphocytes # (0.90-5.00) 10*3/uL Monocytes # (0.20-1.00) 10*3/uL Eosinophils # (0.04-0.35) 10*3/uL Basophils # (0.00-0.10) 10*3/uL PT (10.0-12.5) sec INR (<1.2) APTT (22.0-30.0) sec Sodium 131 L (137-145) mmol/L Potassium 4.0 (3.5-5.1) mmol/L Chloride 98 (98-107) mmol/L Carbon Dioxide 30 (22-30) mmol/L Anion Gap 3 mmol/L BUN 27 H (9-20) mg/dL Creatinine 0.60 L (0.66-1.25) mg/dL Est GFR (CKD-EPI)AfAm >90 (>60 ml/min/1.73 sqM) Est GFR (CKD-EPI)NonAf >90 (>60 ml/min/1.73 sqM) Glucose 114 H (74-99) mg/dL POC Glucose (mg/dL) 96 (70-110) mg/dL POC Glu Investment Manager ID Burgess Valentine Lactic Ac Sepsis Rflx Plasma Lactic Acid Miguel 1.4 (0.7-2.0) mmol/L Calcium 8.7 (8.4-10.2) mg/dL Magnesium 1.9 (1.6-2.3) mg/dL Total Bilirubin (0.2-1.3) mg/dL AST (17-59) U/L ALT (4-49) U/L Alkaline Phosphatase (38-126) U/L Troponin I (0.000-0.034) ng/mL NT-Pro-B Natriuret Pep pg/mL Total Protein (6.3-8.2) g/dL Albumin (3.5-5.0) g/dL Coagulation 04/03/25 Range/Units 12:44 PT 11.0 (10.0-12.5) sec APTT 20.5 L (22.0-30.0) sec CBC 04/03/25 04/04/25 Range/Units 12:44 03:03 WBC 9.56 6.38 (4.50-10.00) 10*3/uL RBC 3.77 L 2.84 L (4.40-5.60) 10*6/uL Hgb 12.6 L 9.5 L D (13.0-17.0) g/dL Hct 36.5 L 28.2 L (39.6-50.0) % Plt Count 245 182 (140-440) 10*3/uL Comprehensive Metabolic Panel 04/03/25 04/04/25 Range/Units 12:44 03:03 Sodium 128 L 131 L (137-145) mmol/L Potassium 4.9 4.0 (3.5-5.1) mmol/L Chloride 90 L 98 (98-107) mmol/L Carbon Dioxide 28 30 (22-30) mmol/L BUN 39 H 27 H (9-20) mg/dL Creatinine 0.99 0.60 L (0.66-1.25) mg/dL Glucose 202 H 114 H (74-99) mg/dL Calcium 9.9 8.7 (8.4-10.2) mg/dL AST 37 (17-59) U/L ALT 40 (4-49) U/L Alkaline Phosphatase 118 (38-126) U/L Total Protein 7.1 (6.3-8.2) g/dL Albumin 4.3 (3.5-5.0) g/dL Current Medications Generic Name Dose Route Start Last Admin Trade Name Freq PRN Reason Stop Dose Admin Acetaminophen 650 mg 04/03/25 16:01 04/04/25 00:23 Acetaminophen Tab 325 Mg Tab PO 650 mg Q4HR PRN Administration Pain Albuterol Sulfate 2.5 mg 04/03/25 16:01 Albuterol Nebulized 2.5 Mg/3 Ml INHALATION RT-Q6H PRN Shortness Of Breath Albuterol/Ipratropium 3 ml 04/03/25 20:00 04/04/25 08:13 Ipratropium-Albuterol 3 Ml Neb INHALATION 3 ml RT-QID SEBASTIAN Administration Ascorbic Acid 1,000 mg 04/04/25 09:00 04/04/25 08:52 Ascorbic Acid 500 Mg Tab PO 1,000 mg DAILY SEBASTIAN Administration Budesonide/Formoterol Fumarate 2 puff 04/03/25 20:00 04/04/25 08:13 Symbicort 160-4.5 Mcg Inhaler INHALATION 2 puff RT-BID SEBASTIAN Administration Dextrose/Water 25 ml 04/03/25 15:47 Dextrose 50% Syringe 50 Ml IVP PER PROTOCOL PRN Hypoglycemia Protocol Dextrose/Water 50 ml 04/03/25 15:47 Dextrose 50% Syringe 50 Ml IVP PER PROTOCOL PRN Hypoglycemia Protocol Enoxaparin Sodium 40 mg 04/04/25 09:00 04/04/25 08:52 Enoxaparin 40 Mg/0.4 Ml Syringe SQ 40 mg DAILY SEBASTIAN Administration Insulin Glargine 10 unit 04/03/25 21:00 04/03/25 22:24 Insulin Glargine (Lantus) 100 Unit/Ml Syr SQ Not Given HS SEBASTIAN Insulin Human Lispro 3 unit 04/03/25 17:30 04/04/25 08:37 Insulin Lispro (Humalog) 100 Unit/Ml 10 Ml Vl SQ Not Given AC-TID SEBASTIAN Insulin Human Lispro 0 unit 04/03/25 17:30 04/04/25 06:21 Insulin Lispro (Humalog) 100 Unit/Ml 10 Ml Vl SQ Not Given ACHS [facility] Protocol Miscellaneous Information 1 each 04/03/25 15:22 Magnesium Replacement Protocol 1 Each Misc MISCELLANE DAILY PRN Per Protocol Protocol Naloxone HCl 0.2 mg 04/03/25 14:39 Naloxone 0.4 Mg/Ml 1 Ml Vial IV Q2M PRN Opioid Reversal Pantoprazole Sodium 40 mg 04/03/25 17:30 04/04/25 06:21 Pantoprazole 40 Mg Tablet PO 40 mg AC-BID [facility]STIAN Administration Prednisone 15 mg 04/04/25 09:00 04/04/25 08:52 Prednisone 10 Mg Tab PO 15 mg DAILY [facility]ST[facility] Administration Ticagrelor 90 mg 04/03/25 21:00 04/04/25 08:52 Ticagrelor 90 Mg Tab PO 90 mg BID [facility]ST[facility] Administration Intake and Output 04/03/25 04/04/25 04/04/25 22:59 06:59 14:59 Intake Total 1002 Output Total 0 Balance 1002 Intake: Oral 1002 Output: Gastric Drainage 0 Urine 0 Stool 0 Urine/Stool Mix 0 Emesis 0 Oral Regurgitation 0 Other 0 Other: Voiding Method Toilet Toilet Urinal Urinal # Voids 1 0 # Bowel Movements 1 0 Weight 81.193 kg 82.8 kg 04/04/25 03:03 04/04/25 03:03
--- NOTE | 2025-04-04 14:21 | P.PN ---
Subjective Progress Note Date: 04/04/25 Hospital Course: Patient is a 59-year-old male with past medical history of chronic hypoxic res piratory failure secondary to interstitial lung disease, UIP type, on 4 L home O2, chronic steroid use, COPD, hypertension, CAD status post PCI to RCA 02/2025, chronic diastolic CHF Patient presented to the ER on 04/03/2025 after having near syncope. 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 He denies any recent unusual symptoms, has been doing actually better and was able to wean his home 4 L to 3 L, he reports good appetite, follows no salt diet, has been drinking enough fluids, compliant with all his medications Of note, patient was admitted to our institution in February, for NSTEMI, underwent heart cath on with successful stenting of the distal and proximal mid RCA, EF on revealed preserved LV function with EF of 55 to 60%, severe pulmonary hypertension estimated PA pressure 57. Before that admission he was on Benicar and amlodipine, and during that admission he was started additionally on Aldactone 25 mg, losartan 100 mg, Lasix 40 mg daily, Farxiga 10 mg daily, bis oprolol 5 mg nightly, he reports that his blood pressure has been running on the lower side at home. Although he does not check it daily, blood pressure has been checked by his visiting nurse and physical lungs continued. He On arrival afebrile, blood pressure 50/30, improved to 92/63 after fluid resuscitation, heart rate in 60s, satting 100% on 5 L home oxygen. Lab work significant for normal WBC count, hemoglobin 12.6, stable, platelet count normal, sodium 128, previously 132 (corrected sodium 130), chloride 98, bicarb 28, creatinine normal, blood glucose 202, lactate elevated 2.9, magnesium low 1.5, normal liver enzymes and bilirubin, BNP 95, troponin 0.032 EKG showed sinus rhythm, no ST elevation, QTc 404 On my evaluation, patient feels almost back to baseline, blood pressure is up to 90s over 60s, patient was admitted for observation, cardiology consult in place 04/04: Patient seen and examined at bedside, feels back to baseline, blood pressure improved. Cardiology made following adjustment to the medications: Decrease amlodipine to 2.5 mg daily, losartan to 50 mg and changed to bedtime, patient will resume Lasix at previous dose starting tomorrow, will stay overnight for blood pressure monitoring. IV fluids discontinued Pertinent positives and negatives as discussed above, a complete review of systems was performed and all other systems are negative. Vitals Signs Reviewed. General: nontoxic, no distress, appears at stated age Derm: warm, dry Head: atraumatic, normocephalic, symmetric Eyes: EOMI, no lid lag, anicteric sclera, pupils equal round reactive to light ENT: Nose and ears atraumatic Neck: No thyromegaly, supple Mouth: no lip lesion, mucus membranes moist Cardiovascular: S1S2 reg, no murmur, no edema Lungs: Coarse bilateral crackles, diminished breath sounds bilaterally, no accessory muscle use Abdominal: soft, nontender to palpation, no guarding, no appreciable organomegaly Ext: no gross muscle atrophy, muscle strength muscle strength 5 out of 5 in all 4 extremities, no contractures Neuro: CN II-XII grossly intact Psych: Alert, oriented, appropriate affect Assessment and Plan: Presyncope Symptomatic hypotension secondary to fluid depletion and /or polypharmacy Hypovolemic hyponatremia corrected sodium 130 Elevated lactate likely secondary to above - Discontinue IV fluids - Resume bisoprolol 5 mg daily, Farxiga 10 mg daily, Lasix 40 mg daily, decrease losartan to 50 mg daily and take at night, continue Aldactone 25 mg daily, de crease amlodipine to 2.5 mg daily -Monitor blood pressure closely -Cardiology consulted, appreciate recommendations Type II DM on insulin -On home mealtime 5 units and Lantus 15, will proceed with Lantus 10 and mealtime 3 units, low intensity SSI, adjust as needed Chronic hypoxic respiratory failure secondary to interstitial lung disease, UIP type on home O2 Chronic steroid use secondary to above -Continue supplemental oxygen - Continue home prednisone once med rec is done -Continue home Trelegy Ellipta 100/62.5/25 1 puff daily -Continue DuoNebs 4 times daily as needed as well as albuterol every 6 hours as needed -Continue GI prophylaxis with Protonix 40 mg twice daily oral CAD status post PCI to RCA 02/2025 -Continue aspirin 81 mg daily, atorvastatin 40 mg nightly, Brilinta 90 mg twice daily Hypomagnesemia - Replaced with 1 g IV, recheck in the morning of symptomatic hypotension, hyponatremia. I have reviewed the following retail client solutions consultant notes: Cardiology I have reviewed the results of the following tests: CBC I have ordered the following tests: I have discussed the care of this patient with the following independent historian: Patient, RN I have independently interpreted the following test below: As above I have discussed the management of this patient with the following physician: Cardiology,discussed medication doses changes and discharge plan Surrogate decision-maker: CODE STATUS: Full DVT prophylaxis: Lovenox Anticipated discharge date: 04/[address]: Home Objective - Vital Signs Vital signs: Vital Signs Temp 97.9 F 04/04/25 11:15 Pulse 84 04/04/25 11:37 Resp 18 04/04/25 13:07 BP 103/71 04/04/25 11:15 Pulse Ox 97 04/04/25 11:15 FiO2 100 04/03/25 13:41 Intake & Output 04/03/25 04/04/25 04/04/25 18:59 06:59 18:59 Intake Total 1002 Output Total 800 Balance 202 Weight 81.193 kg 82.8 kg Intake: Oral 1002 Output: Gastric Drainage 0 Urine 800 Stool 0 Urine/Stool Mix 0 Emesis 0 Oral Regurgitation 0 Other 0 Other: Voiding Method Toilet Urinal # Voids 1 0 # Bowel Movements 1 0 - Labs CBC & Chem 7: 04/04/25 11:52 04/04/25 03:03 Labs: Abnormal Lab Results - Last 24 Hours (Table) 04/03/25 04/03/25 04/03/25 Range/Units 17:04 17:11 20:07 RBC (4.40-5.60) 10*6/uL Hgb (13.0-17.0) g/dL Hct (39.6-50.0) % MCV (80.0-97.0) fL MCH (27.0-32.0) pg Immature Gran # (0.00-0.04) 10*3/uL Sodium (137-145) mmol/L BUN (9-20) mg/dL Creatinine (0.66-1.25) mg/dL Glucose (74-99) mg/dL POC Glucose (mg/dL) 249 H (70-110) mg/dL Plasma Lactic Acid Miguel 4.0 H* 2.4 H* (0.7-2.0) mmol/L 04/03/25 04/04/25 04/04/25 Range/Units 21:56 03:03 03:03 RBC 2.84 L (4.40-5.60) 10*6/uL Hgb 9.5 L D (13.0-17.0) g/dL Hct 28.2 L (39.6-50.0) % MCV 99.3 H (80.0-97.0) fL MCH 33.5 H (27.0-32.0) pg Immature Gran # 0.08 H (0.00-0.04) 10*3/uL Sodium 131 L (137-145) mmol/L BUN 27 H (9-20) mg/dL Creatinine 0.60 L (0.66-1.25) mg/dL Glucose 114 H (74-99) mg/dL POC Glucose (mg/dL) 127 H (70-110) mg/dL Plasma Lactic Acid Miguel (0.7-2.0) mmol/L 04/04/25 04/04/25 Range/Units 11:18 11:52 RBC 3.26 L (4.40-5.60) 10*6/uL Hgb 10.7 L (13.0-17.0) g/dL Hct 32.5 L (39.6-50.0) % MCV 99.7 H (80.0-97.0) fL MCH 32.8 H (27.0-32.0) pg Immature Gran # (0.00-0.04) 10*3/uL Sodium (137-145) mmol/L BUN (9-20) mg/dL Creatinine (0.66-1.25) mg/dL Glucose (74-99) mg/dL POC Glucose (mg/dL) 160 H (70-110) mg/dL Plasma Lactic Acid Miguel (0.7-2.0) mmol/L
[2025-04-04 16:27] LABS: Glucose,Whole Blood 241 mg/dL (70-110)
[2025-04-04 20:00] LABS: Glucose,Whole Blood 198 mg/dL (70-110)
[2025-04-04] MEDS: LOSARTAN 50 MG TAB PO SCH (20:15)
[2025-04-04] MEDS: ATORVASTATIN 40 MG TAB PO SCH (20:15)
[2025-04-05 06:21] LABS: Glucose,Whole Blood 110 mg/dL (70-110)
[2025-04-05] MEDS: ASPIRIN 81 MG PO SCH (09:30)
[2025-04-05] MEDS: FUROSEMIDE 40 MG TAB PO SCH (09:31)
[2025-04-05] MEDS: amLODIPine 2.5 MG TAB PO SCH (09:31)
[2025-04-05 11:15] LABS: Glucose,Whole Blood 141 mg/dL (70-110)
[2025-04-05] MEDS: SALINE NASAL GEL 14.1 GM TUBE NASAL PRN (12:10)
--- NOTE | 2025-04-05 12:15 | P.DS ---
Providers Date of admission: 04/03/25 14:40 Expected date of discharge: 04/05/25 Attending physician: Yovani Paulino Consults: 04/03/25 14:39 Consult Physician Urgent Consulting Provider: [facility] Consult Reason/Comments: hypotension Do you want consulting provider notified?: Yes Primary care physician: Ralph Farmer MD Hospital Course: Discharge Diagnosis: Near syncope Hypotension Hypovolemic hyponatremia Elevated lactate Chronic hypoxic respiratory failure secondary to interstitial lung disease and pulmonary fibrosis CAD status post recent stenting Insulin-dependent diabetes mellitus Hospital Course: Patient is a very pleasant 59-year-old male with past medical history of chronic hypoxic respiratory failure secondary to interstitial lung disease and pulmonary fibrosis awaiting further eval for lung transplant at [facility] on home O2 3 L all times and 5L with ambulation, chronic steroid use, COPD, hypertension, CAD status post PCI to RCA 03/13/2025on dual antiplatelet therapy with aspirin and Plavix, and chronic diastolic CHF. He presented to the hospital on 04/03/2025 secondary to near syncopal episode and hypotension. 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 He denied any recent unusual symptoms, has been doing actually better and was able to wean his home O2 from 4 L at all times down to 3 L and only increase with ambulation. He reported good appetite, follows no salt diet, has been drinking enough fluids, compliant with all his medications Of note, patient was admitted to our institution in February, for NSTEMI, underwent heart cath on 03/13/25 with successful stenting of the distal and proximal mid RCA, Echo revealed preserved LV function with EF of 55 to 60%, severe pulmonary hypertension estimated PA pressure 57. Before that admission he was on Benicar and amlodipine, and during that admission he was started additionally on Aldactone 25 mg, losartan 100 mg, Lasix 40 mg daily, Farxiga 10 mg daily, bisoprolol 5 mg nightly, he reports that his blood pressure has been running on the lower side at home. Although he does not check it daily, blood pressure has been checked by his visiting nurse each visit. Upon arrival to our facility, patient underwent evaluation in the emergency department. Blood pressure on arrival was 50/30, improved to 92/63 after fluid resuscitation, heart rate in 60s, satting 100% on 5 L home oxygen. Lab work significant for normal WBC count, hemoglobin 12.6, stable, platelet count normal, sodium 128, previously 132 (corrected sodium 130), chloride 98, bicarb 28, creatinine normal, blood glucose 202, lactate elevated 2.9, magnesium low 1.5, normal liver enzymes and bilirubin, BNP 95, troponin 0.032 EKG showed sinus rhythm, no ST elevation, QTc 404. Patient underwent hospitalization. He was evaluated by cardiology and medication changes were made. Amlodipine was decreased down to 2.5 mg daily from previous 5 mg daily and losartan was decreased to 50 mg daily. Blood pressures remained stable over the past 36 hours greater than 100 systolic. Patient was cleared from cardiology perspective for discharge. On morning of discharge patient had very small amount of bleeding/dripping from nose. Patient reports this happens commonly and uses saline nasal gel at home for treatment. Patient had [place] oxygen in his nose at time of nosebleed and instructed RN to provide patient with a new nasal cannula in which patient can place in his mouth while holding pressure to nares and placing ice pack. Nasal clamp then placed. Once oxygen was removed from nares and pressure applied, mild nose bleed/drip resolved within 20 minutes. Assessed bag of tissues at bedside patient only with mild spotting/seepage from nares and no acute or significant epistaxis. Pt also confirms no constant flow of blood only seepage per his usual from dried nasal passages. RN also reported that patient desatu rates with ambulation. Went to bedside to discuss this with patient. He reports this is his baseline and he follows with Dr. Garibay for his medical administrative assistant and also the [facility] where he is awaiting further evaluation for lung transplant (which he states was only delayed due to his recent NSTEMI). Patient reports at home he is on a baseline of 3 L but increases to 5 L with ambulation and that his medical administrative assistant is aware of this. Patient reports he was instructed to take more frequent breaks and rest as needed. Patient denies having any worsening shortness of breath or changes in his oxygen saturations from baseline and states his breathing is his normal with no new complaints or concerns. Discussed this with RN at bedside and instructed her patient may be safely discharged and to follow-up outpatient with his medical administrative assistant. Physical exam: Patient seen and examined at bedside. Vital signs reviewed and stable. General: Nontoxic, no distress and appears stated age. Derm: Skin warm and dry, normal coloration for ethnicity. Head: Atraumatic, normocephalic and symmetric. Eyes: EOM's intact, no lid lag, and anicteric sclera Mouth: no lip lesions, mucus membranes moist Cardiovascular: regular rate and rhythm with normal S1S2, no murmur, positive posterior tibial pulses bilaterally, and cap refill < 2 seconds. Lungs: Respirations even, regular, and unlabored on 3 L O2. Lungs diminished. Abdominal: soft, nontender to palpation, no guarding, no appreciable organomegaly Ext: ROM intact. No gross muscle atrophy, no edema, no contractures Neuro: Speech clear, face symmetrical and CN II-XII grossly intact with no noted focal neuro deficits Psych: Alert and oriented to person, place, time, and situation. Appropriate and pleasant affect. A total of 34 minutes of time were spent preparing this complex discharge summary. Pt was discharged on 04/05/2025 at 12:14 PM. Patient was seen independently by Nurse Practitioner. This document was prepared using [employer] dictation software. Please allow for errors in restaurant manager while rare they do occur. Jose Edward NP rendered care for this patient independently, reviewed the findings and plan as documented in the note above. I did not physically speak with or examine the patient on this date. Patient Condition at Discharge: Stable Plan - Discharge Summary Discharge Rx Participant: No New Discharge Prescriptions: New Losartan [Cozaar] 50 mg PO HS 30 Days #30 tab amLODIPine [Norvasc] 2.5 mg PO DAILY 30 Days #30 tab Continue Acetaminophen Tab [Tylenol] 650 mg PO Q4HR PRN tab PRN Reason: Pain Sennosides-Docusate Sodium [Senokot-S] 2 tab PO BID PRN PRN Reason: Constipation Spironolactone [Aldactone] 25 mg PO DAILY 30 Days #30 tab Ipratropium-Albuterol Nebulize [Duoneb 0.5 mg-3 mg/3 ml Soln] 3 ml INHALATION RT-QID 30 Days #120 each Atorvastatin [Lipitor] 40 mg PO HS 30 Days #30 tab Pantoprazole [Protonix] 40 mg PO AC-BID 30 Days #60 tab Bisoprolol [Zebeta] 5 mg PO DAILY 30 Days #30 tab predniSONE See Taper PO DIRECTED Fluticasone/Umeclidin/Vilanter [Trelegy Ellipta 100-62.5-25] 1 puff INHALATION RT-DAILY Cholecalciferol (Vitamin D3) [Vitamin D3 (125 MCG = 5,000 IU)] 125 mcg PO DAILY Ascorbic Acid [Vitamin C] 1,000 mg PO DAILY Ferrous Sulfate [Iron (65 MG Elemental)] 325 mg PO BID-W/MEALS tab Nintedanib Esylate [Ofev] 150 mg PO BID@0900,2100 Albuterol Sulfate [Ventolin HFA] 2 puff INHALATION RT-Q6H PRN PRN Reason: Shortness Of Breath Aspirin 81 mg PO DAILY tab Ticagrelor [Brilinta] 90 mg PO BID 30 Days #60 tab Dapagliflozin Propanediol [Farxiga] 10 mg PO DAILY 30 Days #30 tab INSULIN LISPRO (HumaLOG) [HumaLOG] 5 unit SQ AC-TID 30 Days #1 each Insulin Glargine (Lantus) [Lantus Vial] 15 unit SQ DAILY@0700 30 Days #1 each Furosemide [Lasix] 40 mg PO DAILY 30 Days #30 tab Budesonide-Formot 160-4.5 Mcg [Symbicort 160-4.5 Mcg Inhaler] 2 puff INHALATION RT-BID 30 Days #1 each Discontinued Losartan [Cozaar] 100 mg PO DAILY 30 Days #30 tab amLODIPine [Norvasc] 5 mg PO DAILY tab Discharge Medication List Ascorbic Acid [Vitamin C] 1,000 mg PO DAILY 01/20/25 [History] Cholecalciferol (Vitamin D3) [Vitamin D3 (125 MCG = 5,000 IU)] 125 mcg PO DAILY 01/20/25 [History] Fluticasone/Umeclidin/Vilanter [Trelegy Ellipta 100-62.5-25] 1 puff INHALATION RT-DAILY 01/20/25 [History] Acetaminophen Tab [Tylenol] 650 mg PO Q4HR PRN tab 01/26/25 [Rx] Ferrous Sulfate [Iron (65 MG Elemental)] 325 mg PO BID-W/MEALS tab 01/26/25 [Rx] Albuterol Sulfate [Ventolin HFA] 2 puff INHALATION RT-Q6H PRN 03/10/25 [History] Nintedanib Esylate [Ofev] 150 mg PO BID@0900,2100 03/10/25 [History] Sennosides-Docusate Sodium [Senokot-S] 2 tab PO BID PRN 03/10/25 [History] Aspirin 81 mg PO DAILY tab 03/19/25 [Rx] Atorvastatin [Lipitor] 40 mg PO HS 30 Days #30 tab 03/19/25 [Rx] Bisoprolol [Zebeta] 5 mg PO DAILY 30 Days #30 tab 03/19/25 [Rx] Budesonide-Formot 160-4.5 Mcg [Symbicort 160-4.5 Mcg Inhaler] 2 puff INHALATION RT-BID 30 Days #1 each 03/19/25 [Rx] Dapagliflozin Propanediol [Farxiga] 10 mg PO DAILY 30 Days #30 tab 03/19/25 [Rx] Furosemide [Lasix] 40 mg PO DAILY 30 Days #30 tab 03/19/25 [Rx] INSULIN LISPRO (HumaLOG) [HumaLOG] 5 unit SQ AC-TID 30 Days #1 each 03/19/25 [Rx] Insulin Glargine (Lantus) [Lantus Vial] 15 unit SQ DAILY@0700 30 Days #1 each 03/19/25 [Rx] Ipratropium-Albuterol Nebulize [Duoneb 0.5 mg-3 mg/3 ml Soln] 3 ml INHALATION RT-QID 30 Days #120 each 03/19/25 [Rx] Pantoprazole [Protonix] 40 mg PO AC-BID 30 Days #60 tab 03/19/25 [Rx] Spironolactone [Aldactone] 25 mg PO DAILY 30 Days #30 tab 03/19/25 [Rx] Ticagrelor [Brilinta] 90 mg PO BID 30 Days #60 tab 03/19/25 [Rx] predniSONE See Taper PO DIRECTED 04/03/25 [History] Losartan [Cozaar] 50 mg PO HS 30 Days #30 tab 04/05/25 [Rx] amLODIPine [Norvasc] 2.5 mg PO DAILY 30 Days #30 tab 04/05/25 [Rx] Follow up Appointment(s)/Referral(s): Pieter Marrero MD [Medical Doctor] - 1 Week (Office closed at this time; please call [facility] on Monday to schedule follow up appointment.) Ralph Farmer MD [Primary Care Provider] - 1-2 days (Office closed at this time; please call [facility] on Monday to schedule follow up appointment.) Ellen Garibay MD [STAFF PHYSICIAN] - 1 Week Patient Instructions/Handouts: Nosebleed (ED), Hypotension (DC), Near Syncope (DC) Activity/Diet/Wound Care/Special Instructions: Activity: As tolerated. Take breaks as needed. Change positions slowly from lying to sitting, sitting before standing, and standing before walking. If it anytime you become dizzy or lightheaded please return to previous seated or lying position for a few minutes before resuming activity. Diet: Heart healthy and carb consistent diet. Avoid salts, or foods with hidden salts such as canned or boxed foods and frozen dinners. Extra salt makes your heart work harder and traps the fluid in your body for longer. Special Instructions: Take all of your medications as directed and remember to keep all of your doctor's appointments and follow-up as needed. If needed, you may cut your medications in half to match your new doses if you are unable to pick your new doses up from the pharmacy today. Thank you for allowing us to participate in your care, it was truly a pleasure having you for our patient!!! Discharge Disposition: HOME SELF-CARE
[2025-04-05 12:42] VITALS: BP 142/76; PULSE 84; RESP 20; TEMP 97.6
== END 2025-04-05 15:04 | disposition home or self-care (01) ==
LOC: EC 12:21 → 3SCARD 14:40
PROVIDERS: ADMIT Student in an Organized Health Care Education/Training Program; ATTEND Student in an Organized Health Care Education/Training Program
DX: I95.89 Other hypotension (principal); R55 Syncope and collapse; E86.1 Hypovolemia; E87.1 Hypo-osmolality and hyponatremia; E87.20 Acidosis, unspecified; J84.10 Pulmonary fibrosis, unspecified; I25.10 Atherosclerotic heart disease of native coronary artery without angina pectoris; E78.5 Hyperlipidemia, unspecified; J44.89 Other specified chronic obstructive pulmonary disease; K21.9 Gastro-esophageal reflux disease without esophagitis; E11.9 Type 2 diabetes mellitus without complications; J96.11 Chronic respiratory failure with hypoxia; I11.0 Hypertensive heart disease with heart failure; I50.32 Chronic diastolic (congestive) heart failure; I27.20 Pulmonary hypertension, unspecified; E83.42 Hypomagnesemia; I25.2 Old myocardial infarction; Z87.891 Personal history of nicotine dependence; Z95.5 Presence of coronary angioplasty implant and graft; Z99.81 Dependence on supplemental oxygen; Z79.52 Long term (current) use of systemic steroids; Z79.899 Other long term (current) drug therapy; Z79.82 Long term (current) use of aspirin; Z79.51 Long term (current) use of inhaled steroids; Z79.84 Long term (current) use of oral hypoglycemic drugs; Z79.4 Long term (current) use of insulin; Z79.02 Long term (current) use of antithrombotics/antiplatelets; Z88.0 Allergy status to penicillin
CPT/HCPCS: 96372; 96360; 96365; 96366; 99285; 36415; 94640 ×5; 94760 ×2; 93005; 97161; 83880; 80053; 80048; 83605 ×2; 83735 ×2; 84484; 85025 ×2; 85027; 85610; 85730; 71046; G0378 ×3; J1650; J3475; J7512 ×2